=== PATIENT | female | born 1935 | race Caucasian/White ===

== ENCOUNTER 2016-10-21 11:11 | Outpatient (CLI) | payer MEDICARE, OTHER | END 2016-10-21 11:12 | disposition short-term general hospital (02) | DX: R55 Syncope and collapse (principal); R11.0 Nausea; M54.9 Dorsalgia, unspecified | CPT/HCPCS: A0425; A0427 ==

== ENCOUNTER 2017-01-31 08:00 | Outpatient (CLI) | payer MEDICARE, OTHER ==
[2017-01-31 19:20] LABS: BASOPHILS % (AUTO) 0.5 %; EOSINOPHILS % (AUTO) 0.4 %; HCT - HEMATOCRIT 38.3 % (37.0-47.0); HGB - HEMOGLOBIN 12.5 g/dL (12.0-16.0); LYMPHOCYTES # (AUTO) 1.5 10^3/uL (1.5-3.5); LYMPHOCYTES % (AUTO) 15.4 %; MEAN CORPUSCULAR HEMOGLOBIN 32.7 pg (27.0-31.0); MEAN CORPUSCULAR HGB CONC 32.6 g/dL (32.0-36.0); MEAN CORPUSCULAR VOLUME 100.3 fL (81.0-99.0); MEAN PLATELET VOLUME 8.7 fL (7.9-10.8); MONOCYTES # (AUTO) 0.5 10^3/uL (0.0-1.0); MONOCYTES % (AUTO) 5.5 %; NEUTROPHILS # (AUTO) 7.7 10^3/uL (1.5-6.6); NEUTROPHILS % (AUTO) 78.2 %; RED BLOOD COUNT 3.82 10^6/uL (4.20-5.40); RED CELL DISTRIBUTION WIDTH 15.1 % (12.0-15.0); UNCORRECTED WHITE BLOOD COUNT 9.9 x10^3/uL; WHITE BLOOD COUNT 9.9 x10^3/uL (4.8-10.8)
[2017-01-31 20:10] LABS: ALBUMIN/GLOBULIN RATIO 1.1 (1.0-2.2); BILIRUBIN,TOTAL 0.5 mg/dL (0.2-1.0); BUN - BLOOD UREA NITROGEN 22 mg/dL (6-20); CARBON DIOXIDE - CO2 25 mmol/L (21-32); CHLORIDE 108 mmol/L (101-111); CREATININE 1.3 mg/dL (0.4-1.0); GFR - MDRD 39 (>89); GLUCOSE 125 mg/dL (70-100); POTASSIUM 4.2 mmol/L (3.5-5.0); SODIUM 140 mmol/L (135-145); TOTAL PROTEIN 7.5 g/dL (6.7-8.2)
[2017-01-31 20:14] LABS: FOLATE 17.06 ng/mL (5.90 - >24.8)
[2017-01-31 20:22] LABS: THYROID STIMULATING HORMONE 1.15 uIU/mL (0.34-5.60)
== END 2017-01-31 08:01 | disposition home or self-care (01) ==
LOC: LAB.WCP 08:00
PROVIDERS: ATTEND Physician Assistant Medical
DX: R45.1 Restlessness and agitation (principal); R06.02 Shortness of breath
CPT/HCPCS: 36415; 80053; 82607; 82746; 84443; 85025

== ENCOUNTER 2017-02-06 11:02 | Outpatient (CLI) | payer MEDICARE, OTHER | END 2017-02-06 11:03 | disposition critical access hospital (66) | LOC: EMS 11:02 | PROVIDERS: ATTEND Surgery | DX: R41.0 Disorientation, unspecified (principal) | CPT/HCPCS: A0425; A0429 ==

== ENCOUNTER 2017-02-06 11:21 | Observation (INO) | payer MEDICARE, OTHER ==
[2017-02-06 12:37] LABS: BILIRUBIN,URINE NEGATIVE (NEGATIVE)
[2017-02-06 12:38] LABS: UA CHARGE (STRIP ONLY) YES; UR CULTURE IF IND NOT INDICATED
[2017-02-06] MEDS ORDERED: SODIUM CHLORIDE 0.9% 1,000 ML IV ONE (13:10)
--- NOTE | 2017-02-06 13:12 | ED Physician Documentation ---
PD HPI ALTERED MENTAL STATUS - Stated complaint Stated Complaint: AMS - Chief complaint Chief Complaint: General - History obtained from History obtained from: Patient, Caregiver - History of Present Illness Timing - onset: Today Timing - duration: Minutes Timing - details: Abrupt onset Quality / character: Confused, Other (trouble speaking clearly) Associated symptoms: No: Fever, Headache, Cough, NVD, Focal weakness Contributing factors: No: Anticoagulated, Diabetic, Recent med change, Recent illness Basline status: Alert and oriented X 3, Walker Similar symptoms before: Has not had sx before (old records showing near syncopal episodes, but not showing TIA like episodes.) Recently seen: Not recently seen Review of Systems Constitutional: denies: Fever, Chills Nose: denies: Rhinorrhea / runny nose, Congestion Throat: denies: Sore throat Cardiac: denies: Chest pain / pressure, Palpitations Respiratory: denies: Cough GI: denies: Nausea, Vomiting, Diarrhea : denies: Dysuria, Frequency Skin: denies: Rash, Lesions Neurologic: reports: Confused, Altered mental status. 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 : None HEENT: None Psych: Depression, Anxiety Musculoskeletal: None Derm: None - Past Surgical History Past Surgical History: Yes /LOGISTICS TEAM LEADER: Hysterectomy - Present Medications Home Medications: Ambulatory Orders Medication Instructions Recorded Confirmed Aspirin Chewable [[place] 81 mg PO DAILY 01/24/13 02/06/17 Aspirin] Acyclovir 200 mg PO BID 03/22/13 02/06/17 Simvastatin 20 mg PO QPM 03/22/13 02/06/17 ALPRAZolam [Xanax] 0.5 mg PO QPM 02/17/16 02/06/17 Fluticasone [Flonase] 1 spray DARREN BID 02/17/16 02/06/17 Metoprolol Succinate [Toprol Xl] 25 mg PO DAILY 02/17/16 02/06/17 Quetiapine Fumarate [Seroquel] 50 mg PO DAILY 02/17/16 02/06/17 Tolterodine Tartrate [Detrol LA] 4 mg PO DAILY 02/17/16 02/06/17 predniSONE [Deltasone] 5 mg PO DAILY 02/17/16 02/06/17 Rivastigmine [Exelon] 13.3 mg TOP Q24H 02/18/16 02/06/17 Acetaminophen [Tylenol] 650 mg PO Q4HR PRN #0 tablet 02/19/16 02/06/17 Levothyroxine [Synthroid] 50 mcg PO QDAC #0 tablet 02/19/16 02/06/17 Memantine [Namenda] 10 mg PO BID tablet 02/19/16 02/06/17 Alprazolam [Xanax] 0.5 mg PO DAILY PRN 02/06/17 02/06/17 Quetiapine Fumarate [Seroquel] 100 mg PO QPM 02/06/17 02/06/17 busPIRone [Buspar] 5 mg PO BID 02/06/17 02/06/17 Losartan [Cozaar] 50 mg PO DAILY #30 tablet 02/07/17 - Allergies Allergies/Adverse Reactions: Allergies Allergy/AdvReac Type Severity Reaction Status Date / Time fluoxetine HCl * AdvReac Unknown Unknown Verified 10/03/14 15:47 [From Prozac] nitroglycerin AdvReac Unknown Unknown Verified 10/03/14 15:47 Sulfa (Sulfonamide AdvReac Unknown Unknown Verified 10/03/14 15:47 Antibiotics) sulfamethoxazole AdvReac Unknown Unknown Verified 10/03/14 15:47 [From Bactrim] trimethoprim [From Bactrim] AdvReac Unknown Unknown Verified 10/03/14 15:47 - Social History Does the pt smoke?: No Smoking Status: Former smoker Does the pt drink ETOH?: No Does the pt have substance abuse?: No - Family History Family history: reports: Non contributory - Immunizations Immunizations are current?: Yes Immunizations: TDAP >10years/unknown - POLST Patient has POLST: No PD ED PE NORMAL - Vitals Vital signs reviewed: Yes - General General: Alert and oriented X 3, No acute distress, Well developed/nourished - HEENT HEENT: Ears normal, Moist mucous membranes, Pharynx benign - Neck Neck: Supple, no meningeal sign, No adenopathy, Other (faint bruit on left.) - Cardiac Cardiac: RRR, No murmur - Respiratory Respiratory: Clear bilaterally - Abdomen Abdomen: Soft, Non tender - Female Female : Deferred - Rectal Rectal: Deferred - Back Back: No CVA TTP - Derm Derm: Normal color, No rash - Extremities Extremities: No tenderness to palpate, Normal ROM s pain, No edema, No calf tenderness / cord - Neuro Neuro: Alert and oriented X 3, 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, No motor deficit, No sensory deficit, Normal speech, Other - Psych Psych: Normal mood, Normal affect Results - Vitals Vitals: Oxygen O2 Source Room air - Labs Labs: Laboratory Tests 02/06/17 02/06/17 02/06/17 12:20 13:20 13:20 WBC 9.7 RBC 3.58 L Hgb 11.7 L Hct 35.4 L MCV 98.9 MCH 32.6 H MCHC 33.0 RDW 15.4 H Plt Count 249 MPV 7.9 Neut # 8.1 H Lymph # 1.1 L [place] # 0.4 Eos # 0.0 Baso # 0.0 Absolute Nucleated RBC 0.00 Nucleated RBCs 0.0 Sodium 140 Potassium 4.1 Chloride 103 Carbon Dioxide 28 Anion Gap 9.0 BUN 20 Creatinine 1.5 H Estimated GFR (MDRD) 33 L Glucose 147 H Calcium 9.1 Magnesium 1.9 Total Bilirubin 0.8 AST 20 ALT 14 Alkaline Phosphatase 74 Total Protein 7.1 Albumin 3.7 Globulin 3.4 Albumin/Globulin Ratio 1.1 Lipase 32 Urine Color YELLOW Urine Clarity CLEAR Urine pH 7.0 Ur Specific [place] <=1.005 Urine Protein NEGATIVE Urine Glucose (UA) NEGATIVE Urine Ketones NEGATIVE Urine Occult Blood NEGATIVE Urine Nitrite NEGATIVE Urine Bilirubin NEGATIVE Urine Urobilinogen 0.2 (NORMAL) Ur Leukocyte Esterase NEGATIVE Ur Microscopic Review NOT INDICATED Urine Culture Comments NOT INDICATED PD MEDICAL DECISION MAKING - ED course Complexity details: reviewed results (head CT okay; her symptoms were of trouble speaking and feeling confused. Seems more neuro than cardiovascular. Consider TIA. ), considered differential, d/w patient Departure - Departure Disposition: ED Place in Observation Clinical Impression: Altered mental status Qualifiers: Altered mental status type: disorientation Qualified Code(s): R41.0 - Disorientation, unspecified TIA (transient ischemic attack) Qualifiers: Transient cerebral ischemia type: unspecified Qualified Code(s): G45.9 - Transient cerebral ischemic attack, unspecified Condition: Fair Record reviewed to determine appropriate education?: Yes Discharge Date/Time: 02/06/17 16:10
[2017-02-06 13:29] LABS: BASOPHILS % (AUTO) 0.2 %; EOSINOPHILS % (AUTO) 0.4 %; HCT - HEMATOCRIT 35.4 % (37.0-47.0); HGB - HEMOGLOBIN 11.7 g/dL (12.0-16.0); LYMPHOCYTES # (AUTO) 1.1 10^3/uL (1.5-3.5); LYMPHOCYTES % (AUTO) 11.8 %; MEAN CORPUSCULAR HEMOGLOBIN 32.6 pg (27.0-31.0); MEAN CORPUSCULAR VOLUME 98.9 fL (81.0-99.0); MEAN PLATELET VOLUME 7.9 fL (7.9-10.8); MONOCYTES # (AUTO) 0.4 10^3/uL (0.0-1.0); MONOCYTES % (AUTO) 4.2 %; NEUTROPHILS # (AUTO) 8.1 10^3/uL (1.5-6.6); NEUTROPHILS % (AUTO) 83.4 %; RED BLOOD COUNT 3.58 10^6/uL (4.20-5.40); RED CELL DISTRIBUTION WIDTH 15.4 % (12.0-15.0); UNCORRECTED WHITE BLOOD COUNT 9.7 x10^3/uL; WHITE BLOOD COUNT 9.7 x10^3/uL (4.8-10.8)
[2017-02-06 13:40] LABS: ALBUMIN/GLOBULIN RATIO 1.1 (1.0-2.2); BILIRUBIN,TOTAL 0.8 mg/dL (0.2-1.0); CALCIUM 9.1 mg/dL (8.5-10.3); CREATININE 1.5 mg/dL (0.4-1.0); MAGNESIUM 1.9 mg/dL (1.7-2.8); POTASSIUM 4.1 mmol/L (3.5-5.0); TOTAL PROTEIN 7.1 g/dL (6.7-8.2)
--- NOTE | 2017-02-06 14:03 | CT Preliminary Report ---
Exam: CT Head W/O IMPRESSION: 1. Moderate degree of diffuse white matter disease. Nonfocal and nonspecific, most likely sequela of chronic microangiopathy. 2. No acute hemorrhage or mass effect. [facility] SITE ID: [id number]
--- NOTE | 2017-02-06 14:06 | CT Report ---
EXAM: CT HEAD EXAM DATE: 02/06/2017 01:46 PM. CLINICAL HISTORY: Confused and some trouble speaking. COMPARISON: 01/24/2013. TECHNIQUE: Multiaxial CT images were obtained from the foramen magnum to the vertex. IV contrast: Non e. Reformats: Coronal. In accordance with CT protocol optimization, one or more of the following dose reduction techniques w ere utilized for this exam: automated exposure control, adjustment of mA and/or KV based on patient s ize, or use of iterative reconstructive technique. FINDINGS: Parenchyma: There is a moderate degree of diffuse periventricular white matter hypodensity. No acute hemorrhage. No midline shift or mass effect. Extraaxial Spaces: There is no abnormal subdural or epidural fluid collection. Ventricles: The ventricles are symmetric and normal in size. Sinuses: Imaged paranasal sinuses, orbits, and mastoids show no significant abnormality. Bones: No evidence of fracture or calvarial defect. Other: None. IMPRESSION: 1. Moderate degree of diffuse white matter disease. Nonfocal and nonspecific, most likely sequela of chronic microangiopathy. 2. No acute hemorrhage or mass effect. [facility] Referring Provider Line: [phone] SITE ID: [id number]
--- NOTE | 2017-02-06 14:31 | XRAY Preliminary Report ---
Exam: XR Chest 1 View IMPRESSION: No active disease [facility] SITE ID: [id number]
--- NOTE | 2017-02-06 14:34 | XRAY Report ---
EXAM: CHEST RADIOGRAPHY EXAM DATE: 02/06/2017 02:01 PM. CLINICAL HISTORY: Cough and some weakness. COMPARISON: 01/31/2017. TECHNIQUE: 1 view. FINDINGS: Lungs/Pleura: No focal opacities evident. No pleural effusion. No pneumothorax. Eventration right hem idiaphragm. Decreased lung volumes. Mediastinum: Heart size normal. Ectatic aorta. Other: None. IMPRESSION: No active disease [facility] Referring Provider Line: [phone] SITE ID: [id number]
[2017-02-06] MEDS ORDERED: PROCHLORPERAZINE 10 MG/2 ML VIAL IVP PRN ×2 (15:08→16:26)
[2017-02-06] MEDS ORDERED: ONDANSETRON 4 MG/2 ML VIAL IVP PRN ×2 (15:08→16:26)
[2017-02-06] MEDS ORDERED: HYDROcod/ACETAM 5/325 MG TABLET PO PRN ×2 (15:08→16:26)
[2017-02-06] MEDS ORDERED: ACETAMINOPHEN 325 MG TABLET PO PRN ×2 (15:08→16:26)
[2017-02-06] MEDS ORDERED: SODIUM CHLORIDE FLUSH 0.9% 10 ML SYRINGE IVP PRN ×2 (15:08→16:26)
[2017-02-06] MEDS ORDERED: RIVASTIGMINE 13.3 MG TOP SCH (15:15)
--- NOTE | 2017-02-06 15:51 | HISTORY & PHYSICAL EXAMINATION ---
Chief Complaint - Chief Complaint Chief Complaint: word finding difficulties History of Present Illness - Admitted From Admitted From:: emergency department - History Obtained From Records Reviewed: yes History obtained from: patient and medical records Exam Limitations: patient has dementia history is unreliable - History of Present Illness HPI Comment/Other: Patient is a 81-year-old female with a past medical history significant for dementia living at home with a caregiver, hypertension, hyperlipidemia, multiple sclerosis, anxiety, vitamin B 12 deficiency, hypothyroidism, GERD, rheumatoid arthritis on prednisone, sciatica, fibromyalgia and according to the patient history of stroke and coronary artery disease however this cannot be confirmed in the patient's medical records and the patient is a very poor historian given her dementia she presents to the emergency department with chief complaint of difficulty speaking. According to the patient she was having word finding difficulties earlier today. She continues to have word finding difficulties when I see her in the emergency department. It is unclear if this is her baseline due to her dementia or if this is a new finding. According to the emergency room physician the patient's caregiver called [phone] because the patient was having difficulties with her speech and she had generalized weakness and lightheadedness. The patient denies having lightheadedness but does admit to generalized weakness. She does not have any focal weakness. The patient otherwise denies any headaches, blurred vision, runny nose, sore throat , she does admit to a chronic cough, denies any chest pain, denies any shortness of air, orthopnea, PND, lower extremity swelling, abdominal pain, nausea, vomiting, urinary urgency, she does admit to polyuria and denies any joint swelling or joint pain. It was difficult to get a timeframe of the patient 's symptoms from the patient herself. According to the emergency room physician the symptoms started about an hour prior to arrival. The emergency room physician felt that the symptoms were resolving and therefore patient was not a candidate for tPA. On presentation to the emergency department the patient was afebrile and hypertensive with blood pressure of 186/103 otherwise remainder of vital signs are within normal limits. The patient did not have any focal weakness on presentation nor did she have any facial droop however the patient did have some word finding difficulties. The patient underwent a CT of her head which showed moderate degree of diffuse white matter disease. Nonfocal and nonspecific , most likely sequela of chronic microangiopathy. She had no acute hemorrhage or mass effect. Her chest x-ray was within normal limits. The patient was placed in observation for further workup for TIA/stroke the patient will undergo telemetry monitoring, neurochecks, MRI and MRA of head and neck as well as echocardiogram. Review of Systems - Other Findings Other Findings: A comprehensive review of systems was performed the pertinent positives and negatives are stated above in the HPI and the remainder of the review of systems is negative. Patient is a poor historian therefore ROS may not be reliable. History - Past Medical History Cardiovascular: reports: Hypertension, High cholesterol Respiratory: reports: None Neuro: reports: Dementia Endocrine/Autoimmune: reports: HyPOthyroidism GI: reports: None DIRECTOR OF ACCOUNTS RECEIVABLE: reports: None : reports: None HEENT: reports: None Psych: reports: Depression, Anxiety Musculoskeletal: reports: None Derm: reports: None MRSA Hx?: No Other Past Medical History: 1. Hypertension. 2. Renal insufficiency. 3. Hyperlipidemia. 4. Multiple sclerosis. 5. Dementia. 6. Anxiety. 7. B12 deficiency. 8. Hypothyroidism. 9. GERD. 10. Rheumatoid arthritis. 11. Sciatica. 12. Fibromyalgia. 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 14. Possible history of CVA/stroke and possible CAD - Past Surgical History /DIRECTOR OF ACCOUNTS RECEIVABLE: reports: Hysterectomy - Family & Social History Family History: Mother: , CVA/TIA, Hypertension, Father: CAD, Brother: CVA/TIA Living arrangement: At home Living Situation: With caregiver(s) Social History Notes: The patient states she lives and [place] with a caregiver. She states that she has 6 children. Her family does live in the area. The patient is . She states that she was not born on [facility] but could not tell me where she was born and she states she cannot remember. She denies any history of smoking although in her clinic records it appears that she was a former smoker. She denies any illicit drug use or alcohol use. - Substance History Use: Uses substance without health or social issues: NONE Abuse: Recurrent use of substance despite neg consequences: NONE Dependence: Experiences withdrawal or developed tolerances: NONE - POLST Patient has POLST: No POLST Status: Full Code Meds/Allgy - Home Medications Home Medications: Ambulatory Orders Medication Instructions Recorded Confirmed Aspirin Chewable [St Yair 81 mg PO DAILY 01/24/13 02/06/17 Aspirin] Acyclovir 200 mg PO BID 03/22/13 02/06/17 Simvastatin 20 mg PO QPM 03/22/13 02/06/17 ALPRAZolam [Xanax] 0.25 mg PO QPM 02/17/16 02/06/17 Fluticasone [Flonase] 1 spray DARREN BID 02/17/16 02/06/17 Metoprolol Succinate [Toprol Xl] 25 mg PO DAILY 02/17/16 02/06/17 Quetiapine Fumarate [Seroquel] 50 mg PO DAILY 02/17/16 02/06/17 Tolterodine Tartrate [Detrol LA] 4 mg PO DAILY 02/17/16 02/06/17 predniSONE [Deltasone] 5 mg PO DAILY 02/17/16 02/06/17 Rivastigmine [Exelon] 13.3 mg TOP Q24H 02/18/16 02/06/17 Acetaminophen [Tylenol] 650 mg PO Q4HR PRN #0 tablet 02/19/16 02/06/17 Levothyroxine [Synthroid] 50 mcg PO QDAC #0 tablet 02/19/16 02/06/17 Memantine [Namenda] 10 mg PO BID tablet 02/19/16 02/06/17 Tolterodine [Detrol LA] 4 mg PO DAILY 02/06/17 02/06/17 busPIRone [Buspar] 5 mg PO DAILY 02/06/17 02/06/17 - Allergies Allergies/Adverse Reactions: Allergies Allergy/AdvReac Type Severity Reaction Status Date / Time fluoxetine HCl * AdvReac Unknown Unknown Verified 10/03/14 15:47 [From Prozac] nitroglycerin AdvReac Unknown Unknown Verified 10/03/14 15:47 Sulfa (Sulfonamide AdvReac Unknown Unknown Verified 10/03/14 15:47 Antibiotics) sulfamethoxazole AdvReac Unknown Unknown Verified 10/03/14 15:47 [From Bactrim] trimethoprim [From Bactrim] AdvReac Unknown Unknown Verified 10/03/14 15:47 Exam - Vital Signs Reviewed Vital Signs: Yes Vital Signs: Vital Signs x48h Temp Pulse Resp BP Pulse Ox 02/06/17 13:32 72 17 161/96 H 97 02/06/17 11:23 37.3 C 86 16 186/103 H 97 - Physical Exam General Appearance: positive: No acute distress, Alert, Other (Confused, poor memory, word finding difficulties and dementia) Eyes Bilateral: positive: Normal inspection, PERRL, EOMI, No lid inflammation, Conjunctivae nml, No scleral icterus ENT: positive: ENT inspection nml, Pharynx nml, No signs of dehydration. negative: Purulent nasal drainage, Pharyngeal erythema, Oral lesions Neck: positive: Nml inspection, Thyroid nml, No JVD, Trachea midline. negative : Thyromegaly, Lymphadenopathy (R), Lymphadenopathy (L), Carotid bruit, Tracheal deviation Respiratory: positive: Chest non-tender, No respiratory distress, Breath sounds nml. negative: Wheezes, Rales, Rhonchi Cardiovascular: positive: Regular rate & rhythm, No murmur, No gallop Peripheral Pulses: positive: 2+ Abdomen: positive: Non-tender, No organomegaly, Nml bowel sounds, No distention. negative: Guarding, Rebound, Hepatomegaly Back: positive: Nml inspection. negative: CVA tenderness (R), CVA tenderness (L ) Skin: positive: Color nml, No rash, Warm. negative: Diaphoresis, Skin rash, Decubitus Extremities: positive: Non-tender, Full ROM, Nml appearance, No pedal edema Neurologic/Psychiatric: positive: CN's nml (2-12), Motor nml, Sensation nml, Mood/affect nml, Disoriented to time, Slurred/abnml speech (Word finding difficulites) Conclusion/Plan - Problem List (1) Speech abnormality Conclusion/Plan: Patient presented with word finding difficulties and generalized weakness. Her labs and infectious workup with negative. She seemed to have improvement but continued to have word finding difficulties it was not clear if this was her dementia or possible TIA or stroke. She had no other focal deficits. CT head showed chronic changes. Patient placed in obs for stroke/TIA workup. Patient already on ASA and statin if MRI shows stroke may need to consider plavix. Plan: Aspirin Lipitor MRA head and neck MRI brain Echo Lipid profile [facility] Tele Neurochecks PT eval Qualifiers: Speech disturbance type: dysarthria Qualified Code(s): R47.1 - Dysarthria and anarthria (2) Dementia Conclusion/Plan: Patient has history of dementia and is poor historian but does appear to have word finding difficulties. It is hard to tell if these are secondary to stroke or dementia. Her caregiver sent her to the ER due to this complaint so they are presumed to be new. Patient has very poor memory. Plan: Continue Namenda and seroquel Will need to monitor closely for sundowning Qualifiers: Dementia type: Alzheimer's disease (3) Hypertension Conclusion/Plan: BP elevated on presentation Will allow for permissive hypertension as patient may have had a stoke Will resume home medications tomorrow if MRI is negative Monitor BP Qualifiers: Hypertension type: essential hypertension Qualified Code(s): I10 - Essential (primary) hypertension (4) Hypothyroidism Conclusion/Plan: Patient has history of hypothyroidism On Levothyroxine at home Check TSH and continue home dose (5) Rheumatoid arthritis Conclusion/Plan: Patient has history of RA and is on chronic prednisone Will continue prednisone while hospitalized Stable. (6) Hyperlipidemia Conclusion/Plan: On statin Check lipid profile (7) Anxiety Conclusion/Plan: Patient has history of anxiety and is on buspar and xanax at home Will continue these medications while she is hospitalized Currently appears stable - Lab Results Lab results reviewed: Yes Fish Bones: 02/06/17 13:20 02/06/17 13:20 Other Lab Results: Laboratory Results WBC 9.7 x10^3/uL (4.8-10.8) 02/06/17 13:20 RBC 3.58 10^6/uL (4.20-5.40) L 02/06/17 13:20 Hgb 11.7 g/dL (12.0-16.0) L 02/06/17 13:20 Hct 35.4 % (37.0-47.0) L 02/06/17 13:20 MCV 98.9 fL (81.0-99.0) 02/06/17 13:20 MCH 32.6 pg (27.0-31.0) H 02/06/17 13:20 MCHC 33.0 g/dL (32.0-36.0) 02/06/17 13:20 RDW 15.4 % (12.0-15.0) H 02/06/17 13:20 Plt Count 249 10^3/uL (130-450) 02/06/17 13:20 MPV 7.9 fL (7.9-10.8) 02/06/17 13:20 Neut # 8.1 10^3/uL (1.5-6.6) H 02/06/17 13:20 Lymph # 1.1 10^3/uL (1.5-3.5) L 02/06/17 13:20 [place] # 0.4 10^3/uL (0.0-1.0) 02/06/17 13:20 Eos # 0.0 10^3/uL (0.0-0.7) 02/06/17 13:20 Baso # 0.0 10^3/uL (0.0-0.1) 02/06/17 13:20 Absolute Nucleated RBC 0.00 x10^3/uL 02/06/17 13:20 Nucleated RBCs 0.0 /100WBC 02/06/17 13:20 Sodium 140 mmol/L (135-145) 02/06/17 13:20 Potassium 4.1 mmol/L (3.5-5.0) 02/06/17 13:20 Chloride 103 mmol/L (101-111) 02/06/17 13:20 Carbon Dioxide 28 mmol/L (21-32) 02/06/17 13:20 Anion Gap 9.0 (6-13) 02/06/17 13:20 BUN 20 mg/dL (6-20) 02/06/17 13:20 Creatinine 1.5 mg/dL (0.4-1.0) H 02/06/17 13:20 Estimated GFR (MDRD) 33 (>89) L 02/06/17 13:20 Glucose 147 mg/dL (70-100) H 02/06/17 13:20 Calcium 9.1 mg/dL (8.5-10.3) 02/06/17 13:20 Magnesium 1.9 mg/dL (1.7-2.8) 02/06/17 13:20 Total Bilirubin 0.8 mg/dL (0.2-1.0) 02/06/17 13:20 AST 20 IU/L (10-42) 02/06/17 13:20 ALT 14 IU/L (10-60) 02/06/17 13:20 Alkaline Phosphatase 74 IU/L (42-121) 02/06/17 13:20 Total Protein 7.1 g/dL (6.7-8.2) 02/06/17 13:20 Albumin 3.7 g/dL (3.2-5.5) 02/06/17 13:20 Globulin 3.4 g/dL (2.1-4.2) 02/06/17 13:20 Albumin/Globulin Ratio 1.1 (1.0-2.2) 02/06/17 13:20 Lipase 32 U/L (22-51) 02/06/17 13:20 Urine Color YELLOW 02/06/17 12:20 Urine Clarity CLEAR (CLEAR) 02/06/17 12:20 Urine pH 7.0 PH (5.0-7.5) 02/06/17 12:20 Ur Specific [place] <=1.005 (1.002-1.030) 02/06/17 12:20 Urine Protein NEGATIVE mg/dL (NEGATIVE) 02/06/17 12:20 Urine Glucose (UA) NEGATIVE mg/dL (NEGATIVE) 02/06/17 12:20 Urine Ketones NEGATIVE mg/dL (NEGATIVE) 02/06/17 12:20 Urine Occult Blood NEGATIVE (NEGATIVE) 02/06/17 12:20 Urine Nitrite NEGATIVE (NEGATIVE) 02/06/17 12:20 Urine Bilirubin NEGATIVE (NEGATIVE) 02/06/17 12:20 Urine Urobilinogen 0.2 (NORMAL) E.U./dL (NORMAL) 02/06/17 12:20 Ur Leukocyte Esterase NEGATIVE (NEGATIVE) 02/06/17 12:20 Ur Microscopic Review NOT INDICATED 02/06/17 12:20 Urine Culture Comments NOT INDICATED 02/06/17 12:20 - Diagnostic Imaging Results Diagnostic Imaging Results: positive: Final report reviewed Diagnostic Imaging Results Comments: CT head Impression: 1. Moderate degree of diffuse white matter disease. Nonfocal and nonspecific, most likely sequelae of chronic microangiopathy 2. No acute hemorrhage or mass effect Chest x-ray: No active disease Issues/Core Measures - Anticipated LOS Anticipated Stay Length: Less than 2 midnights - DVT/VTE - Prophylaxis VTE/DVT Device ordered at admit?: Yes
[2017-02-06] MEDS ORDERED: SODIUM CHLORIDE 0.9% 1,000 ML IV SCH (16:00)
[2017-02-06] MEDS: SODIUM CHLORIDE 0.9% 1,000 ML IV SCH (18:06)
[2017-02-06] MEDS: FLUTICASONE NASAL SPRAY NAS SCH (20:19)
[2017-02-06] MEDS: ACYCLOVIR 200 MG CAPSULE PO SCH (20:21)
[2017-02-06] MEDS: MEMANTINE 5 MG TABLET PO SCH (20:22)
[2017-02-06] MEDS: SODIUM CHLORIDE FLUSH 0.9% 10 ML SYRINGE IVP SCH (20:22)
[2017-02-06] MEDS ORDERED: QUEtiapine 25 MG TABLET PO SCH (21:00)
[2017-02-06] MEDS ORDERED: ACYCLOVIR 200 MG CAPSULE PO SCH (21:00)
[2017-02-06] MEDS ORDERED: MEMANTINE 5 MG TABLET PO SCH (21:00)
[2017-02-06] MEDS ORDERED: ALPRAZolam 0.25 MG TABLET PO SCH ×2 (21:00)
[2017-02-06] MEDS ORDERED: NON FORMULARY MED (Simvastatin [Simvastatin] 20 MG) PO SCH ×2 (21:00)
[2017-02-06] MEDS ORDERED: ATORVASTATIN 40 MG TABLET PO SCH ×2 (21:00)
[2017-02-06] MEDS ORDERED: SODIUM CHLORIDE FLUSH 0.9% 10 ML SYRINGE IVP SCH (22:00)
[2017-02-07] MEDS: SODIUM CHLORIDE 0.9% 1,000 ML IV SCH (03:09)
[2017-02-07 06:05] LABS: CHOL/HDL RATIO 3.6 (<4.4); CHOLESTEROL 182 mg/dL; HDL CHOLESTEROL 50 mg/dL; LDL/HDL RATIO 2.1 (<4.4); TRIGLYCERIDES 136 mg/dL; VLDL CHOLESTEROL 27 mg/dL
[2017-02-07 06:20] LABS: HEMOGLOBIN A1C 0.6 g/dL
[2017-02-07] MEDS: SODIUM CHLORIDE FLUSH 0.9% 10 ML SYRINGE IVP SCH ×2 (06:25→13:57)
[2017-02-07] MEDS ORDERED: PANTOPRAZOLE 40 MG TABLET PO SCH ×2 (07:00)
[2017-02-07] MEDS ORDERED: LEVOTHYROXINE 25 MCG TABLET PO SCH ×2 (07:00)
[2017-02-07] MEDS: MEMANTINE 5 MG TABLET PO SCH (08:25)
[2017-02-07] MEDS: ACYCLOVIR 200 MG CAPSULE PO SCH (08:25)
[2017-02-07] MEDS: FLUTICASONE NASAL SPRAY NAS SCH (08:28)
[2017-02-07] MEDS ORDERED: TOLTERODINE TARTRATE 4 MG PO SCH (09:00)
[2017-02-07] MEDS ORDERED: predniSONE 5 MG TABLET PO SCH ×2 (09:00)
[2017-02-07] MEDS ORDERED: busPIRone 5 MG TABLET PO SCH ×2 (09:00)
[2017-02-07] MEDS ORDERED: METOPROLOL SUCCINATE 25 MG TABLET PO SCH ×2 (09:00)
[2017-02-07] MEDS ORDERED: TOLTERODINE LA 2 MG CAPSULE PO SCH (09:00)
[2017-02-07] MEDS ORDERED: QUETIAPINE FUMARATE 50 MG PO SCH (09:00)
[2017-02-07] MEDS ORDERED: ASPIRIN CHEW 81 MG TABLET PO SCH ×2 (09:00)
[2017-02-07] MEDS ORDERED: POLYETHYLENE GLYCOL 3350 17 GM PACKET PO SCH ×2 (09:00)
[2017-02-07] MEDS ORDERED: RIVASTIGMINE 13.3 MG TOP SCH (11:00)
--- NOTE | 2017-02-07 12:13 | MRI Preliminary Report ---
Exam: MRI Brain W/O Impression: 1. A moderate to severe amount of white matter disease is identified in the supratentorial brain, lik robbin representing chronic microangiopathy. 2. No other significant intracranial pathology is demonstrated on this unenhanced brain MRI. In parti cular, there is no evidence of infarction, hemorrhage, space-occupying mass lesion or other acute int racranial pathology. SITE ID: [id number]
--- NOTE | 2017-02-07 12:32 | MRI Preliminary Report ---
Exam: MRI Angio Brain W/O (MRA) IMPRESSION: Unremarkable brain MRA. No stenoses or aneurysms. [facility] SITE ID: [id number]
--- NOTE | 2017-02-07 12:35 | MRI Report ---
EXAM MRA BRAIN EXAM DATE: 02/07/2017 11:42 AM. CLINICAL HISTORY: WOrd finding difficulties - Stroke/TIA. COMPARISON: MR brain the same day,. TECHNIQUE: Multiplanar, multisequence MRA sequences of the brain were performed. Other: None. Post-pr ocessing: Multiplanar 3D MIP reconstructions. IV Contrast: None. FINDINGS: RIGHT Internal Carotid (ICA): No aneurysm, stenosis or anomaly. Middle Cerebral (MCA): No aneurysm, stenosis or anomaly. Anterior Cerebral (MAIRA): No aneurysm, stenosis or anomaly. Posterior Cerebral (SHINGLE SHEARING MACHINE OPERATOR): No aneurysm, stenosis or anomaly. Posterior Communicating (P-COM): Hypo-plastic Vertebral: No aneurysm, stenosis or anomaly in the visualized upper vertebral artery. LEFT Internal Carotid (ICA): No aneurysm, stenosis or anomaly. Middle Cerebral (MCA): No aneurysm, stenosis or anomaly. Attenuation of the distal A1 segment of the left MAIRA and most likely artifactual secondary to proximity to the paranasal sinus structures. Anterior Cerebral (MAIRA): No aneurysm, stenosis or anomaly. Posterior Cerebral (SHINGLE SHEARING MACHINE OPERATOR): No aneurysm, stenosis or anomaly. Posterior Communicating (P-COM): Hypo-plastic Vertebral: No aneurysm, stenosis or anomaly in the visualized upper vertebral artery. MIDLINE Anterior Communicating (A-COM): No aneurysm, stenosis or anomaly. Other: None. IMPRESSION: Unremarkable brain MRA. No stenoses or aneurysms. [facility] Referring Provider Line: [phone] SITE ID: [id number]
--- NOTE | 2017-02-07 13:42 | MRI Report ---
MRI BRAIN WITHOUT CONTRAST INDICATION: 81-year-old female with word finding difficulties. Concern for CVA. Please assess. TECHNIQUE: 1. T1 sagittal and fat-saturated T2 coronal. 2. Axial flair, T2, T2* and DWI. COMPARISON: Head CT 02/06/2017 and brain MRI 08/19/2013. FINDINGS: There is generalized cerebral volume loss with associated ex vacuo ventriculomegaly showing definite interval progression when compared to previous study 08/19/2013. There is no obvious discordance betw een the degree of ventriculomegaly and the amount of cortical sulcal dilatation to suggest the possib ility of NPH or other form of hydrocephalus. There is a moderate to severe amount of white matter disease in the supratentorial brain, manifested as focal and confluent T2 hyperintensities that are scattered throughout the periventricular, deep an d subcortical white matter bilaterally. A frontoparietal distribution predominates. There has been in terval progression since the previous study. There is a thin linear T2 hyperintense focus in the midl ine jethro, stable. Signal intensity of cortex and white matter is otherwise unremarkable. There appear to be flow voids for the main intracranial arteries. No abnormal diffusion restriction i s demonstrated. No evidence of acute or chronic hemorrhage on T2*GRE sequence. No abnormal extra-axial fluid collection. No mass effect or midline shift. Limited assessment of the orbits reveals no gross pathology. Changes of previous ocular lens extracti on are noted. There is mild mucosal thickening scattered throughout the ethmoid air cells. The paranasal sinuses ar e otherwise clear. No significant mastoid or middle ear effusion is demonstrated. IMPRESSION: 1. A moderate to severe amount of white matter disease is identified in the supratentorial brain, lik robbin representing chronic microangiopathy. 2. No other significant intracranial pathology is demonstrated on this unenhanced brain MRI. In parti cular, there is no evidence of infarction, hemorrhage, space-occupying mass lesion or other acute int racranial pathology. Referring Provider Line: [phone] SITE ID: [id number]
[2017-02-07] MEDS ORDERED: ASPIRIN CHEW 81 MG TABLET PO ONE (15:04)
--- NOTE | 2017-02-07 15:24 | Discharge Plan ---
Discharge Plan Disposition: 01 Home, Self Care Condition: Fair Prescriptions: Losartan [Cozaar] 50 mg PO DAILY #30 tablet Diet: Low Sodium Activity Restrictions: Activity as Tolerated Shower Restrictions: No Driving Restrictions: Yes (No driving due to dementia) Instruction Topics: Aspirin ASA oral tablets, TIA Additional Instructions or Follow Up instructions: Increase aspirin to 2 baby aspirin daily Start new blood pressure medication: Losartan 50 mg orally once a day You may decrease the Buspirone to just once a day at mid-day Continue all other medications as pre-hospitalization Follow-up with Dr Caballero for further recommendations and to determine if you need a Neurologist No Smoking: If you smoke, Please STOP! Call for help. Follow-up with: Deshawn Caballero MD [Primary Care Provider] -
[2017-02-07] MEDS ORDERED: LOSARTAN 50 MG TABLET PO SCH (17:00)
--- NOTE | 2017-02-07 18:13 | Ultrasound Preliminary Report ---
Exam: US Carotid Doppler Complete IMPRESSION: Mild focal bilateral proximal internal carotid artery atheromatous plaque with no hemodyn amically significant stenosis. Validated velocity measurements with angiographic measurements and velocity criteria are extrapolated from diameter data as defined by the Society of Radiologists in Ultrasound Consensus Conference Radi ology 2003; 229;340-346. [facility] SITE ID: [id number]
--- NOTE | 2017-02-07 18:39 | Ultrasound Report ---
EXAM: CAROTID DOPPLER ULTRASOUND EXAM DATE: 02/07/2017 03:40 PM. CLINICAL HISTORY: Transient ischemic attack. COMPARISON: None. TECHNIQUE: Real-time sonographic vascular imaging was performed by the bakery supervisor through the caroti d arterial system with a linear transducer utilizing color-flow, Doppler flow and spectral analysis. Multiple vendor representatives static images were saved for review. FINDINGS: Mike scale evaluation of the carotid vessels demonstrates minimal focal calcified plaque at the internal carotid artery origins. Peak systolic velocities and ICA/CCA ratios are within normal l imits as follows: Right: RCCA Prox: PSV 63 cm/sec. RCCA Dist: PSV 56 cm/sec, EDV 17 cm/sec. RECA: PSV 105 cm/sec. R Bulb: PSV 103 cm/sec, EDV 20 cm/sec, ICA/CCA ratio 1.8. NORMA Prox: PSV 49 cm/sec, EDV 13 cm/sec, ICA/CCA ratio 0.87. NORMA Mid: PSV 57 cm/sec, EDV 17 cm/sec, ICA/CCA ratio 1.0. NORMA Dist: PSV 67 cm/sec, EDV 17 cm/sec, ICA/CCA ratio 1.2. RVA: PSV 50 cm/sec. RVA flow direction: Antegrade. Left: LCCA Prox: PSV 72 cm/sec. LCCA Dist: PSV 59 cm/sec, EDV 17 cm/sec. LECA: PSV 92 cm/sec. L Bulb: PSV 56 cm/sec, EDV 15 cm/sec, ICA/CCA ratio 0.94. LICA Prox: PSV 66 cm/sec, EDV 14 cm/sec, ICA/CCA ratio 1.11. LICA Mid: PSV 51 cm/sec, EDV 11 cm/sec, ICA/CCA ratio 0.86. LICA Dist: PSV 56 cm/sec, EDV 17 cm/sec, ICA/CCA ratio 0.94. LVA: PSV 33 cm/sec. LVA flow direction: Antegrade. Other: None. IMPRESSION: Mild focal bilateral proximal internal carotid artery atheromatous plaque with no hemodyn amically significant stenosis. Validated velocity measurements with angiographic measurements and velocity criteria are extrapolated from diameter data as defined by the Society of Radiologists in Ultrasound Consensus Conference Radi ology 2003; 229;340-346. [facility] Referring Provider Line: [phone] SITE ID: [id number]
[2017-02-07 18:54] VITALS: BP 165/95
--- NOTE | 2017-02-08 02:26 | DISCHARGE SUMMARY ---
DATE OF ADMISSION: 02/06/2017 DATE OF DISCHARGE: 02/07/2017 She was admitted from the emergency department. HISTORY OF PRESENT ILLNESS: This is an 81-year-old white female with a past medical history of shantal ia on medications, hypertension, hyperlipidemia, anxiety, Vitamin B12 deficiency, hypothyroidism, rhe umatoid arthritis on prednisone, sciatica, fibromyalgia and multiple sclerosis. There may be a histor y of coronary artery disease and prior stroke, which was not confirmed entirely during this admission . The patient presented with difficulty speaking (finding words). By the time she was in the emergenc y room, this was improving and she was not felt to be a candidate for TPA. The patient was admitted i n observation for evaluation for a TIA. MEDICATIONS ON ADMISSION 1. Baby aspirin daily. 2. Acyclovir. 3. Simvastatin. 4. Xanax. 5. Flonase. 6. Toprol-XL 25 mg daily. 7. Seroquel 50 mg daily. 8. Detrol-LA 4 mg daily. 9. Deltasone. 10. Exelon. 11. Tylenol p.r.n. 12. Synthroid 50 mcg daily. 13. Namenda 10 mg b.i.d. 14. BuSpar 1/3 of a pill of 5 mg b.i.d., which was recently started. ALLERGIES 1. PROZAC. 2. NITROGLYCERIN. 3. SULFA. 4. TRIMETHOPRIM. HOSPITAL COURSE: The patient had no recurrence of her dysarthria. Her cardiopulmonary exam was unrema rkable. Her EKG and telemetry showed sinus rhythm, no evidence of atrial fibrillation. Blood pressure was elevated and her metoprolol was continued for blood pressure control; however, with blood pressu res as high as 190/110, she was started on losartan 50 mg p.o. daily as a new medication. Her echo sh owed no evidence of clot, normal LV and RV contractility and no significant valvular disease. Her CAT scan of her head showed atrophy, but no evidence of hemorrhage or prior strokes. Her brain MRI showe d no evidence of hemorrhage or ischemic stroke. Her ultrasound of her carotid showed mild bilateral p laque. CONDITION AT DISCHARGE: Fair. Her memory was poor, and a left carotid bruit was found, and blood pres sure was borderline elevated. DISCHARGE DIAGNOSES 1. Transient ischemic attack with dysarthria. 2. Hypertension. 3. Dementia. 4. Hypothyroidism. 5. Anxiety. ADDITIONAL INFORMATION: Medications were all continued as before admission with the exceptions of an increase of baby aspirin to 2 tablets a day (162 mg p.o. daily) and the addition of new blood pressur e medicine of losartan 50 mg p.o. daily. The patient was advised to have followup with her PCP, Dr. Marie meadows, for management of the buspirone, which was a new medication started by a substitute provider recently, which may have made the patient excessively sedated. Also, followup with a neurologist petar baxter of this TIA is advised. JOB #: [id number] EXT JOB #:[id number]
[2017-02-08] MEDS ORDERED: ASPIRIN CHEW 81 MG TABLET PO SCH (09:00)
== END 2017-02-07 19:05 | disposition home or self-care (01) ==
LOC: EDUNIT# → ED 11:21 → OBS 15:09 → ED 16:10
PROVIDERS: ADMIT Internal Medicine; ATTEND Nurse Practitioner Gerontology
DX: G45.9 Transient cerebral ischemic attack, unspecified (principal); R47.1 Dysarthria and anarthria; I10 Essential (primary) hypertension; E03.9 Hypothyroidism, unspecified; F41.9 Anxiety disorder, unspecified; F03.90 Unspecified dementia, unspecified severity, without behavioral disturbance, psychotic disturbance, mood disturbance, and anxiety; E78.5 Hyperlipidemia, unspecified; M06.9 Rheumatoid arthritis, unspecified; M54.30 Sciatica, unspecified side; G35 Multiple sclerosis; M79.7 Fibromyalgia; R09.82 Postnasal drip; Z79.82 Long term (current) use of aspirin; Z79.52 Long term (current) use of systemic steroids; Z79.899 Other long term (current) drug therapy; Z87.891 Personal history of nicotine dependence
CPT/HCPCS: 36415; 70450; 70544; 70551; 71010; 80053; 80061; 81003; 83036; 83690; 83735; 84443; 85025; 93005; 93306; 93880; 96360; 99284; 99285; A9270; G0378; J7512; 81001; 87086; 99283

== ENCOUNTER 2017-02-15 10:29 | Observation (INO) | payer MEDICARE, OTHER ==
[2017-02-15] MEDS ORDERED: SODIUM CHLORIDE 0.9% 1,000 ML IV ONE (11:11)
--- NOTE | 2017-02-15 11:13 | ED Physician Documentation ---
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 She has developed vomiting this morning and she is not able to get herself out of bed today. She is normally independent getting in and out of bed and she is normally able to bend over to scrub her feet. Today she appears to be breathing out of her mouth and her skin looks dehydrated. The caregiver indicates she has been drinking a lot of fluids and she has been going to the rest room a lot. Review of Systems Constitutional: denies: Fever Eyes: denies: Decreased vision Ears: reports: Ear pain Nose: reports: Rhinorrhea / runny nose, Congestion Throat: denies: Sore throat Cardiac: denies: Chest pain / pressure, Palpitations Respiratory: reports: Dyspnea, Cough GI: reports: Nausea, Vomiting. denies: Abdominal Pain : reports: Frequency. denies: Dysuria Skin: denies: Rash Musculoskeletal: denies: Neck pain, Back pain, Extremity pain Neurologic: reports: Generalized weakness. 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 MEDICINE: Hysterectomy - Present Medications Home Medications: Ambulatory Orders Medication Instructions Recorded Confirmed Aspirin Chewable [[place] 81 mg PO DAILY 01/24/13 02/06/17 Aspirin] Acyclovir 200 mg PO BID 03/22/13 02/06/17 Simvastatin 20 mg PO QPM 03/22/13 02/06/17 ALPRAZolam [Xanax] 0.5 mg PO QPM 02/17/16 02/06/17 Fluticasone [Flonase] 1 spray DARREN BID 02/17/16 02/06/17 Metoprolol Succinate [Toprol Xl] 25 mg PO DAILY 02/17/16 02/06/17 Quetiapine Fumarate [Seroquel] 50 mg PO DAILY 02/17/16 02/06/17 Tolterodine Tartrate [Detrol LA] 4 mg PO DAILY 02/17/16 02/06/17 predniSONE [Deltasone] 5 mg PO DAILY 02/17/16 02/06/17 Rivastigmine [Exelon] 13.3 mg TOP Q24H 02/18/16 02/06/17 Acetaminophen [Tylenol] 650 mg PO Q4HR PRN #0 tablet 02/19/16 02/06/17 Levothyroxine [Synthroid] 50 mcg PO QDAC #0 tablet 02/19/16 02/06/17 Memantine [Namenda] 10 mg PO BID tablet 02/19/16 02/06/17 Alprazolam [Xanax] 0.5 mg PO DAILY PRN 02/06/17 02/06/17 Quetiapine Fumarate [Seroquel] 100 mg PO QPM 02/06/17 02/06/17 busPIRone [Buspar] 5 mg PO BID 02/06/17 02/06/17 Losartan [Cozaar] 50 mg PO DAILY #30 tablet 02/07/17 - Allergies Allergies/Adverse Reactions: Allergies Allergy/AdvReac Type Severity Reaction Status Date / Time fluoxetine HCl * AdvReac Unknown Unknown Verified 10/03/14 15:47 [From Prozac] nitroglycerin AdvReac Unknown Unknown Verified 10/03/14 15:47 Sulfa (Sulfonamide AdvReac Unknown Unknown Verified 10/03/14 15:47 Antibiotics) sulfamethoxazole AdvReac Unknown Unknown Verified 10/03/14 15:47 [From Bactrim] trimethoprim [From Bactrim] AdvReac Unknown Unknown Verified 10/03/14 15:47 - Social History Does the pt smoke?: No Smoking Status: Former smoker Does the pt drink ETOH?: No Does the pt have substance abuse?: No - Immunizations Immunizations are current?: Yes Immunizations: TDAP >10years/unknown - POLST Patient has POLST: No POLST Status: Full Code PD ED PE NORMAL - Vitals Vital signs reviewed: Yes (hypoxia) - General General: No acute distress, Well developed/nourished, Other (pale and breathing through the mouth. ) - HEENT HEENT: Atraumatic, PERRL, EOMI, Other (both TM's are obscured by cerumen and the pharynx is with dry mucous membranes. ) - Neck Neck: Supple, no meningeal sign, No bony TTP - Cardiac Cardiac: RRR, No murmur - Respiratory Respiratory: No respiratory distress, Other (rhonchi in the bases bilaterally ) - Abdomen Abdomen: Soft, Non tender - Back Back: No CVA TTP, No spinal TTP - Derm Derm: Normal color, Warm and dry, No rash - Extremities Extremities: No deformity, No edema - Neuro Neuro: No motor deficit, No sensory deficit, Normal speech - Psych Psych: Normal mood, Normal affect Results - Vitals Vitals: Vital Signs - 24 hr 02/15/17 02/15/17 02/15/17 10:30 11:04 12:07 Temperature 36.0 C L Heart Rate 80 73 Respiratory 20 19 18 Rate Blood Pressure 122/67 88/55 L 109/63 O2 Saturation 91 L 96 100 02/15/17 12:20 Temperature Heart Rate 67 Respiratory 18 Rate Blood Pressure 104/63 O2 Saturation 96 Oxygen O2 Source Nasal cannula Oxygen Flow Rate 2 - EKG (time done) 1133 Rate: Rate (enter#) (69) QRS: LVH Ischemia: Q waves (inferior) Compare to prior EKG: Changed from prior EKG (SPT 02-07-[address] depression strain pattern has resolved. ) Computer interpretation: Disagree with computer (I do not see lateral q waves. ) - Labs Labs: Laboratory Tests 02/15/17 02/15/17 02/15/17 10:40 10:40 10:40 WBC 11.3 H RBC 3.53 L Hgb 11.3 L Hct 35.0 L MCV 99.2 H MCH 32.1 H MCHC 32.3 RDW 14.7 Plt Count 273 MPV 8.1 Neut # 6.3 Lymph # 4.1 H [place] # 0.7 Eos # 0.1 Baso # 0.1 Absolute Nucleated RBC 0.00 Nucleated RBCs 0.0 Sodium 141 Potassium 4.0 Chloride 106 Carbon Dioxide 25 Anion Gap 10.0 BUN 25 H Creatinine 1.7 H Estimated GFR (MDRD) 29 L Glucose 142 H Lactic Acid Calcium 8.8 Total Bilirubin 0.6 AST 21 ALT 15 Alkaline Phosphatase 65 Troponin I < 0.04 Total Protein 6.8 Albumin 3.4 Globulin 3.4 Albumin/Globulin Ratio 1.0 Lipase 43 Urine Color Urine Clarity Urine pH Ur Specific [place] Urine Protein Urine Glucose (UA) Urine Ketones Urine Occult Blood Urine Nitrite Urine Bilirubin Urine Urobilinogen Ur Leukocyte Esterase Ur Microscopic Review Urine Culture Comments 02/15/17 02/15/17 11:35 12:00 WBC RBC Hgb Hct MCV MCH MCHC RDW Plt Count MPV Neut # Lymph # [place] # Eos # Baso # Absolute Nucleated RBC Nucleated RBCs Sodium Potassium Chloride Carbon Dioxide Anion Gap BUN Creatinine Estimated GFR (MDRD) Glucose Lactic Acid 1.5 Calcium Total Bilirubin AST ALT Alkaline Phosphatase Troponin I Total Protein Albumin Globulin Albumin/Globulin Ratio Lipase Urine Color YELLOW Urine Clarity CLEAR Urine pH 6.0 Ur Specific [place] 1.020 Urine Protein NEGATIVE Urine Glucose (UA) NEGATIVE Urine Ketones NEGATIVE Urine Occult Blood NEGATIVE Urine Nitrite NEGATIVE Urine Bilirubin NEGATIVE Urine Urobilinogen 0.2 (NORMAL) Ur Leukocyte Esterase NEGATIVE Ur Microscopic Review NOT INDICATED Urine Culture Comments NOT INDICATED - Rads (name of study) 2 veiw chest Radiology: Prelim report reviewed (Impression: 1. There is cardiomegaly. 2. No acite plane film intrathoracic abnormality.), EMP read indepedently, See rad report Procedures - IVC sono (time) 1115 Bedside IVC sono: IVC measures (cm) (0.89), IVC collapsed c insp (cm) (complete) , Dehydration PD MEDICAL DECISION MAKING - ED course Complexity details: reviewed old records, reviewed results, re-evaluated patient , considered differential, d/w patient, d/w family ED course: 81 y/o female with advanced dementia has developed weakness and is hypoxic. She has developed vomiting this morning and is dehydrated. She has rhonchi on exam. The patient's xray exam is un-impressive and does not match the clinical findings. The patient is dry and I suspect the x-ray will show the findings when she is adequately hydrated. Departure - Departure Disposition: 66 [facility] DC/Xfer Clinical Impression: Weakness, Dehydration, Acute kidney injury Pneumonia Qualifiers: Pneumonia type: due to unspecified organism Laterality: bilateral Lung location : lower lobe of lung Qualified Code(s): J18.9 - Pneumonia, unspecified organism Condition: Fair
[2017-02-15 11:20] LABS: BASOPHILS # (AUTO) 0.1 10^3/uL (0.0-0.1); BASOPHILS % (AUTO) 0.5 %; EOSINOPHILS # (AUTO) 0.1 10^3/uL (0.0-0.7); EOSINOPHILS % (AUTO) 1.2 %; HGB - HEMOGLOBIN 11.3 g/dL (12.0-16.0); LYMPHOCYTES # (AUTO) 4.1 10^3/uL (1.5-3.5); LYMPHOCYTES % (AUTO) 36.3 %; MEAN CORPUSCULAR HEMOGLOBIN 32.1 pg (27.0-31.0); MEAN CORPUSCULAR HGB CONC 32.3 g/dL (32.0-36.0); MEAN CORPUSCULAR VOLUME 99.2 fL (81.0-99.0); MEAN PLATELET VOLUME 8.1 fL (7.9-10.8); MONOCYTES # (AUTO) 0.7 10^3/uL (0.0-1.0); MONOCYTES % (AUTO) 6.2 %; NEUTROPHILS # (AUTO) 6.3 10^3/uL (1.5-6.6); NEUTROPHILS % (AUTO) 55.8 %; RED BLOOD COUNT 3.53 10^6/uL (4.20-5.40); RED CELL DISTRIBUTION WIDTH 14.7 % (12.0-15.0); UNCORRECTED WHITE BLOOD COUNT 11.3 x10^3/uL; WHITE BLOOD COUNT 11.3 x10^3/uL (4.8-10.8)
[2017-02-15 11:40] LABS: BILIRUBIN,TOTAL 0.6 mg/dL (0.2-1.0); CALCIUM 8.8 mg/dL (8.5-10.3); CREATININE 1.7 mg/dL (0.4-1.0); TOTAL PROTEIN 6.8 g/dL (6.7-8.2)
--- NOTE | 2017-02-15 11:52 | XRAY Preliminary Report ---
Exam: XR Chest 2 View PA/LAT IMPRESSION: 1. There is cardiomegaly. 2. No acute intrathoracic plain film abnormality. [facility] SITE ID: [id number]
--- NOTE | 2017-02-15 11:54 | XRAY Report ---
EXAM: CHEST RADIOGRAPHY EXAM DATE: 02/15/2017 11:28 AM. CLINICAL HISTORY: Dyspnea. COMPARISON: 02/06/2017. TECHNIQUE: 2 views. FINDINGS: Lungs/Pleura: No focal opacities evident. No pleural effusion. No pneumothorax. Normal volumes. Mediastinum: There is cardiomegaly. There is mild thoracic aortic tortuosity and calcification. Other: None. IMPRESSION: 1. There is cardiomegaly. 2. No acute intrathoracic plain film abnormality. [facility] Referring Provider Line: [phone] SITE ID: [id number]
[2017-02-15 12:05] LABS: BILIRUBIN,URINE NEGATIVE (NEGATIVE)
[2017-02-15 12:08] LABS: UA CHARGE (STRIP ONLY) YES; UR CULTURE IF IND NOT INDICATED
[2017-02-15] MEDS ORDERED: PROMETHAZINE 25 MG/1 ML VIAL IM PRN (12:31)
[2017-02-15] MEDS ORDERED: ONDANSETRON ODT 4 MG TABLET TL PRN (12:31)
[2017-02-15] MEDS ORDERED: ACETAMINOPHEN 325 MG TABLET PO PRN (12:31)
[2017-02-15] MEDS ORDERED: SODIUM CHLORIDE FLUSH 0.9% 10 ML SYRINGE IVP PRN (12:31)
--- NOTE | 2017-02-15 12:46 | HISTORY & PHYSICAL EXAMINATION ---
Chief Complaint - Chief Complaint Chief Complaint: weakness and altered mental status History of Present Illness - Admitted From Admitted From:: ER - History Obtained From Records Reviewed: yes History obtained from: Patient and son Exam Limitations: patient has dementia - History of Present Illness HPI Comment/Other: Patient is a 81 year old patient who has history of dementia and recent admission for possible TIA. She was admitted through the ER for weakness, acute kidney injury and dehydration. Son was at bedside to give additional information and medical records were reviewed. Patient was recently in the hospital and after going home became more weak, started to have vomiting and nausea and now is mildly dehydrated and lethargic. At baseline, patient has moderate to severe dementia at times. She was given a liter of fluid in the ER with a creatinine of 1.7 and GFR at less than 30. Her base line is around 38. She has no pain. She denies chest pain or shortness of breath. No fever, chills , sweats or headache or dysuria. Urine was clean. She has weakness and lethargy. She will be admitted fro mild JOE and dehydration. Review of Systems - Constitutional Constitutional: reports: Fatigue, Weakness - Respiratory Respiratory: reports: Cough - Gastrointestinal Gastrointestinal: reports: Vomiting - Neurological Neurological: reports: General weakness - All Other Systems All Other Systems: reports: Reviewed and negative History - Past Medical History Cardiovascular: reports: Hypertension, High cholesterol Respiratory: reports: None Neuro: reports: Dementia, CVA, TIA Endocrine/Autoimmune: reports: HyPOthyroidism GI: reports: None FUR CLEANER: reports: None : reports: None HEENT: reports: None Psych: reports: Depression, Anxiety Musculoskeletal: reports: None Derm: reports: None MRSA Hx?: No - Past Surgical History /FUR CLEANER: reports: Hysterectomy - Family & Social History Family History: Mother: CAD, Father: CAD Living arrangement: At home Living Situation: With family Social History Notes: The patient states she lives and [place] with a caregiver. She states that she has 6 children. Her family does live in the area. The patient is . She states that she was not born on [facility] but could not tell me where she was born and she states she cannot remember. She denies any history of smoking although in her clinic records it appears that she was a former smoker. She denies any illicit drug use or alcohol use. - Substance History Use: Uses substance without health or social issues: NONE Abuse: Recurrent use of substance despite neg consequences: NONE Dependence: Experiences withdrawal or developed tolerances: NONE - POLST Patient has POLST: No POLST Status: Full Code Meds/Allgy - Home Medications Home Medications: Ambulatory Orders Medication Instructions Recorded Confirmed Aspirin Chewable [[place]air 162 mg PO DAILY 01/24/13 02/15/17 Aspirin] Acyclovir 200 mg PO BID 03/22/13 02/15/17 Simvastatin 20 mg PO QPM 03/22/13 02/15/17 ALPRAZolam [Xanax] 0.5 mg PO QPM 02/17/16 02/15/17 Fluticasone [Flonase] 1 spray DARREN BID 02/17/16 02/15/17 Metoprolol Succinate [Toprol Xl] 25 mg PO DAILY 02/17/16 02/15/17 Quetiapine Fumarate [Seroquel] 50 mg PO DAILY 02/17/16 02/15/17 predniSONE [Deltasone] 5 mg PO DAILY 02/17/16 02/15/17 Rivastigmine [Exelon] 13.3 mg TOP Q24H 02/18/16 02/15/17 Acetaminophen [Tylenol] 650 mg PO Q4HR PRN #0 tablet 02/19/16 02/15/17 Levothyroxine [Synthroid] 50 mcg PO QDAC #0 tablet 02/19/16 02/15/17 Memantine [Namenda] 10 mg PO BID tablet 02/19/16 02/15/17 Alprazolam [Xanax] 0.5 mg PO DAILY PRN 02/06/17 02/15/17 Quetiapine Fumarate [Seroquel] 100 mg PO QPM 02/06/17 02/15/17 busPIRone [Buspar] 2.5 mg PO DAILY 02/06/17 02/15/17 Losartan [Cozaar] 50 mg PO DAILY #30 tablet 02/07/17 02/15/17 Albuterol Sulfate [Proair Hfa 1 inh INH Q6H PRN 02/15/17 02/15/17 Inhaler] Ondansetron Odt [Zofran Odt] 4 mg TL Q6HR PRN #28 tablet 02/16/17 - Allergies Allergies/Adverse Reactions: Allergies Allergy/AdvReac Type Severity Reaction Status Date / Time fluoxetine HCl * AdvReac Unknown Unknown Verified 10/03/14 15:47 [From Prozac] nitroglycerin AdvReac Unknown Unknown Verified 10/03/14 15:47 Sulfa (Sulfonamide AdvReac Unknown Unknown Verified 10/03/14 15:47 Antibiotics) sulfamethoxazole AdvReac Unknown Unknown Verified 10/03/14 15:47 [From Bactrim] trimethoprim [From Bactrim] AdvReac Unknown Unknown Verified 10/03/14 15:47 Exam - Vital Signs Reviewed Vital Signs: Yes Vital Signs: Vital Signs x48h Temp Pulse Resp BP Pulse Ox 02/15/17 12:20 67 18 104/63 96 02/15/17 12:07 18 109/63 100 02/15/17 11:04 73 19 88/55 L 96 02/15/17 10:30 36.0 C L 80 20 122/67 91 L - Physical Exam General Appearance: positive: No acute distress, Alert Eyes Bilateral: positive: Normal inspection, PERRL, EOMI, No lid inflammation ENT: positive: Pharynx nml, Dry mucous membranes Neck: positive: Thyroid nml, No JVD, Trachea midline Cardiovascular: positive: Regular rate & rhythm, No murmur, No gallop. negative : JVD present Peripheral Pulses: positive: 2+ Abdomen: positive: Non-tender, No organomegaly, Nml bowel sounds, No distention. negative: Guarding, Rebound Back: negative: CVA tenderness (R), CVA tenderness (L) Skin: positive: Color nml, No rash, Warm, Dry. negative: Cyanosis Extremities: positive: Full ROM, Nml appearance, No pedal edema. negative: Calf tenderness, Joint swelling Neurologic/Psychiatric: positive: CN's nml (2-12), Motor nml, Mood/affect nml, Disoriented to time, Weakness. negative: Slurred/abnml speech Babinski Reflex: Right: Up, Left: Up Conclusion/Plan - Problem List (1) Acute kidney injury Conclusion/Plan: acute. patient is dehydrated with creatinine of 1.7 and elevated BUN. will hydrate with IVF NS at 100ml/hr and monitor kidney function daily with labs. (2) Vomiting Conclusion/Plan: acute. zofran IV for vomiting and phenergan if needed and not controlled with zofran. IVF for hydration. Qualifiers: Vomiting type: unspecified Vomiting Intractability: unspecified Nausea presence: with nausea Qualified Code(s): R11.2 - Nausea with vomiting, unspecified (3) Hypothyroidism Conclusion/Plan: chronic. continue on home thyroid medication. Qualifiers: Hypothyroidism type: unspecified Qualified Code(s): E03.9 - Hypothyroidism , unspecified - Lab Results Lab results reviewed: Yes Fish Bones: 02/16/17 07:40 02/16/17 07:40 Other Lab Results: Abnormal Lab Results 02/15/17 02/15/17 10:40 10:40 WBC 11.3 x10^3/uL H x10^3/uL (4.8-10.8) RBC 3.53 10^6/uL L 10^6/uL (4.20-5.40) Hgb 11.3 g/dL L g/dL (12.0-16.0) Hct 35.0 % L % (37.0-47.0) MCV 99.2 fL H fL (81.0-99.0) MCH 32.1 pg H pg (27.0-31.0) Lymph # 4.1 10^3/uL H 10^3/uL (1.5-3.5) BUN 25 mg/dL H mg/dL (6-20) Creatinine 1.7 mg/dL H mg/dL (0.4-1.0) Estimated GFR (MDRD) 29 L (>89) Glucose 142 mg/dL H mg/dL (70-100) - Diagnostic Imaging Results Diagnostic Imaging Results: positive: See rad report Diagnostic Imaging Results Comments: shows only cardiomegaly and no infiltrates or acute process - EKG Results EKG Interpreted Independently: Yes Issues/Core Measures - Anticipated LOS Anticipated Stay Length: Less than 2 midnights - DVT/VTE - Prophylaxis VTE/DVT Device ordered at admit?: Yes VTE/DVT Prophylaxis med ordered at admit?: Yes - Stroke - Rehab Assessment Rehab services assessment to be ordered?: No
[2017-02-15] MEDS: SODIUM CHLORIDE FLUSH 0.9% 10 ML SYRINGE IVP SCH ×2 (13:26→21:00)
[2017-02-15] MEDS: SODIUM CHLORIDE 0.9% 1,000 ML IV SCH ×2 (13:26→23:53)
[2017-02-15] MEDS: ENOXAPARIN 40 MG/0.4 ML SYRINGE SUBQ SCH (15:00)
[2017-02-15] MEDS ORDERED: ALPRAZolam 0.25 MG TABLET PO SCH (21:00)
[2017-02-15] MEDS: busPIRone 5 MG TABLET PO SCH (21:22)
[2017-02-15] MEDS: MEMANTINE 5 MG TABLET PO SCH (21:22)
[2017-02-16] MEDS: SODIUM CHLORIDE FLUSH 0.9% 10 ML SYRINGE IVP SCH ×2 (05:14→13:11)
[2017-02-16] MEDS ORDERED: LEVOTHYROXINE 25 MCG TABLET PO SCH (07:00)
[2017-02-16 07:46] LABS: BASOPHILS % (AUTO) 0.4 %; EOSINOPHILS # (AUTO) 0.2 10^3/uL (0.0-0.7); EOSINOPHILS % (AUTO) 2.2 %; HCT - HEMATOCRIT 31.1 % (37.0-47.0); HGB - HEMOGLOBIN 10.3 g/dL (12.0-16.0); LYMPHOCYTES # (AUTO) 2.1 10^3/uL (1.5-3.5); LYMPHOCYTES % (AUTO) 22.5 %; MEAN CORPUSCULAR HEMOGLOBIN 32.6 pg (27.0-31.0); MEAN CORPUSCULAR HGB CONC 33.2 g/dL (32.0-36.0); MEAN CORPUSCULAR VOLUME 98.2 fL (81.0-99.0); MEAN PLATELET VOLUME 7.8 fL (7.9-10.8); MONOCYTES # (AUTO) 0.8 10^3/uL (0.0-1.0); MONOCYTES % (AUTO) 8.6 %; NEUTROPHILS # (AUTO) 6.1 10^3/uL (1.5-6.6); NEUTROPHILS % (AUTO) 66.3 %; RED BLOOD COUNT 3.16 10^6/uL (4.20-5.40); RED CELL DISTRIBUTION WIDTH 14.8 % (12.0-15.0); UNCORRECTED WHITE BLOOD COUNT 9.2 x10^3/uL; WHITE BLOOD COUNT 9.2 x10^3/uL (4.8-10.8)
[2017-02-16 07:58] LABS: BILIRUBIN,TOTAL 1.1 mg/dL (0.2-1.0); CALCIUM 8.3 mg/dL (8.5-10.3); CREATININE 1.2 mg/dL (0.4-1.0); POTASSIUM 3.9 mmol/L (3.5-5.0); TOTAL PROTEIN 6.1 g/dL (6.7-8.2)
[2017-02-16] MEDS ORDERED: SODIUM CHLORIDE 0.9% 1,000 ML IV ONE (08:56)
[2017-02-16] MEDS ORDERED: POLYETHYLENE GLYCOL 3350 17 GM PACKET PO SCH (09:00)
[2017-02-16] MEDS ORDERED: predniSONE 5 MG TABLET PO SCH (09:00)
[2017-02-16] MEDS ORDERED: QUEtiapine 100 MG TABLET PO SCH (09:00)
[2017-02-16] MEDS ORDERED: RIVASTIGMINE 13.3 MG/24 HR TOP SCH (09:00)
[2017-02-16] MEDS ORDERED: METOPROLOL SUCCINATE 25 MG TABLET PO SCH (09:00)
[2017-02-16] MEDS ORDERED: ASPIRIN CHEW 81 MG TABLET PO SCH (09:00)
--- NOTE | 2017-02-16 09:26 | Discharge Plan ---
Discharge Plan Disposition: 01 Home, Self Care Condition: Stable Prescriptions: Ondansetron Odt [Zofran Odt] 4 mg TL Q6HR PRN #28 tablet PRN Reason: Nausea / Vomiting Diet: Diabetic Activity Restrictions: Wt Bearing as Tolerated Shower Restrictions: No Driving Restrictions: No Assistance Devices: Walker, Cane Weight Bearing: Full Weight Instruction Topics: Dementia Patients Safety Tips, Dementia Patients Caregiver Additional Instructions or Follow Up instructions: 1. Please continue to take all home medication as prescribed. 2. Please see your primary care provider within 1 week of discharge 3. You need to stay hydrated and drink more water throughout the day. avoid soda 4. Get plenty of sleep at night, 7-8 hours. 5. Walking is good exercise and please try to get enough during the day 6. Return to the ER if symptoms worsen or you have chest pain or shortness of breath. No Smoking: If you smoke, Please STOP! Call for help.
[2017-02-16] MEDS: ENOXAPARIN 40 MG/0.4 ML SYRINGE SUBQ SCH (09:30)
[2017-02-16] MEDS: busPIRone 5 MG TABLET PO SCH (09:31)
[2017-02-16] MEDS: MEMANTINE 5 MG TABLET PO SCH (09:33)
[2017-02-16] MEDS: SODIUM CHLORIDE 0.9% 1,000 ML IV SCH (09:34)
--- NOTE | 2017-02-16 10:18 | DISCHARGE SUMMARY ---
Discharge Summary Admit Date: 02/15/17 Discharge Date: 02/16/17 Discharging Provider: Anaya Hobbs APRN Primary Care Provider: Deshawn Caballero MD Code Status: Do Not Attempt Resuscitation Condition at Discharge: Stable Discharge Disposition: 01 Home, Self Care Discharge Facility Name: home self care with family - DIAGNOSES Admission Diagnoses: 1. Acute mild dehydration secondary to acute kidney injury 2. Chronic moderate dementia, unspecified 3. Acute weakness with past hx of CVA Discharge Diagnoses with Status of Each Condition: 1. Acute mild dehydration secondary to acute kidney injury 2. Chronic moderate dementia, unspecified 3. Acute weakness with past hx of CVA 4. Hypothyroidism, unspecified - HPI History of Present Illness: Patient is a 81 year old patient who has history of dementia and recent admission for possible TIA. She was admitted through the ER for weakness, acute kidney injury and dehydration. Son was at bedside to give additional information and medical records were reviewed. Patient was recently in the hospital and after going home became more weak, started to have vomiting and nausea and now is mildly dehydrated and lethargic. At baseline, patient has moderate to severe dementia at times. She was given a liter of fluid in the ER with a creatinine of 1.7 and GFR at less than 30. Her base line is around 38. She has no pain. She denies chest pain or shortness of breath. No fever, chills , sweats or headache or dysuria. Urine was clean. She has weakness and lethargy. She will be admitted fro mild JOE and dehydration. - CONSULTS | PROCEDURES Consultations: physical therapy Procedures: none - HOSPITAL COURSE Hospital Course: Patient is a 81 year old patient who has history of dementia and recent admission for possible TIA. She was admitted through the ER for weakness, acute kidney injury and dehydration. Son was at bedside to give additional information and medical records were reviewed. Patient was recently in the hospital and after going home became more weak, started to have vomiting and nausea and now is mildly dehydrated and lethargic. At baseline, patient has moderate to severe dementia at times. She was given a liter of fluid in the ER with a creatinine of 1.7 and GFR at less than 30. Her base line is around 38. She has no pain. She denies chest pain or shortness of breath. No fever, chills , sweats or headache or dysuria. Urine was clean. She has weakness and lethargy. She will be admitted fro mild JOE and dehydration. Patient improved well overnight with IVF for hydration. She worked with PT to be up and out of the bed with ambulation. Nursing states that patient has an uneventful night and slept. She was given synthroid for hypothyroidism, zofran for the nausea and her vomiting had resolved yesterday. She ate breakfast without incident. According to family, patient mental status is now at baseline with moderate to severe dementia. When ask patient if she wanted to be able to return home, she stated "yes please". Patient will be sent home with care of family. She was encouraged to drink plenty of water during the day, avoid soda and to get rest when needed. Son was to take patient home. - ALLERGIES Allergies/Adverse Reactions: Allergies Allergy/AdvReac Type Severity Reaction Status Date / Time fluoxetine HCl * AdvReac Unknown Unknown Verified 10/03/14 15:47 [From Prozac] nitroglycerin AdvReac Unknown Unknown Verified 10/03/14 15:47 Sulfa (Sulfonamide AdvReac Unknown Unknown Verified 10/03/14 15:47 Antibiotics) sulfamethoxazole AdvReac Unknown Unknown Verified 10/03/14 15:47 [From Bactrim] trimethoprim [From Bactrim] AdvReac Unknown Unknown Verified 10/03/14 15:47 - MEDICATIONS Home Medications: Ambulatory Orders Medication Instructions Recorded Confirmed Aspirin Chewable [St Yair 162 mg PO DAILY 01/24/13 02/15/17 Aspirin] Acyclovir 200 mg PO BID 03/22/13 02/15/17 Simvastatin 20 mg PO QPM 03/22/13 02/15/17 ALPRAZolam [Xanax] 0.5 mg PO QPM 02/17/16 02/15/17 Fluticasone [Flonase] 1 spray DARREN BID 02/17/16 02/15/17 Metoprolol Succinate [Toprol Xl] 25 mg PO DAILY 02/17/16 02/15/17 Quetiapine Fumarate [Seroquel] 50 mg PO DAILY 02/17/16 02/15/17 predniSONE [Deltasone] 5 mg PO DAILY 02/17/16 02/15/17 Rivastigmine [Exelon] 13.3 mg TOP Q24H 02/18/16 02/15/17 Acetaminophen [Tylenol] 650 mg PO Q4HR PRN #0 tablet 02/19/16 02/15/17 Levothyroxine [Synthroid] 50 mcg PO QDAC #0 tablet 02/19/16 02/15/17 Memantine [Namenda] 10 mg PO BID tablet 02/19/16 02/15/17 Alprazolam [Xanax] 0.5 mg PO DAILY PRN 02/06/17 02/15/17 Quetiapine Fumarate [Seroquel] 100 mg PO QPM 02/06/17 02/15/17 busPIRone [Buspar] 2.5 mg PO DAILY 02/06/17 02/15/17 Losartan [Cozaar] 50 mg PO DAILY #30 tablet 02/07/17 02/15/17 Albuterol Sulfate [Proair Hfa 1 inh INH Q6H PRN 02/15/17 02/15/17 Inhaler] Ondansetron Odt [Zofran Odt] 4 mg TL Q6HR PRN #28 tablet 02/16/17 - PHYSICAL EXAM AT DISCHARGE General Appearance: positive: No acute distress, Alert Eyes Bilateral: positive: Normal inspection, PERRL, EOMI ENT: positive: Pharynx nml, No signs of dehydration Neck: positive: Nml inspection, Thyroid nml, No JVD, Trachea midline Respiratory: positive: Chest non-tender, No respiratory distress, Breath sounds nml Cardiovascular: positive: Regular rate & rhythm, No murmur, No gallop. negative : JVD present Peripheral Pulses: positive: 2+ Abdomen: positive: Non-tender, No organomegaly, Nml bowel sounds, No distention. negative: Guarding, Rebound Back: positive: Nml inspection. negative: CVA tenderness (R), CVA tenderness (L ) Skin: positive: Color nml, No rash, Warm, Dry. negative: Cyanosis Extremities: positive: Non-tender, Full ROM, Nml appearance, No pedal edema Neurologic/Psychiatric: positive: Motor nml, Sensation nml, Mood/affect nml, Disoriented to place, Disoriented to time, Weakness (improved since yesterday). negative: Facial droop, Slurred/abnml speech - LABS Result Diagrams: 02/16/17 07:40 02/16/17 07:40 - DIAGNOSTIC IMAGING Diagnostic Imaging Results: See rad report, Read independently Diagnostic Imaging Results Comments: cardiomegaly and no infiltrates present - FOLLOW UP Follow Up: Patient was instructed to followup with primary care provider within 1 week of discharge. Family verbally understood - TIME SPENT Time Spent in Discharge (Minutes): 35 (for planning, education and assessment)
[2017-02-16 12:19] VITALS: BP 152/78
== END 2017-02-16 13:30 | disposition home or self-care (01) ==
LOC: ED 10:29 → OBS 12:27
PROVIDERS: ADMIT Nurse Practitioner; ATTEND Nurse Practitioner
DX: N17.9 Acute kidney failure, unspecified (principal); E86.0 Dehydration; F03.90 Unspecified dementia, unspecified severity, without behavioral disturbance, psychotic disturbance, mood disturbance, and anxiety; I69.998 Other sequelae following unspecified cerebrovascular disease; R53.1 Weakness; E03.9 Hypothyroidism, unspecified; R11.2 Nausea with vomiting, unspecified; F32.9 Major depressive disorder, single episode, unspecified; F41.9 Anxiety disorder, unspecified; Z87.891 Personal history of nicotine dependence; Z79.82 Long term (current) use of aspirin; Z79.52 Long term (current) use of systemic steroids; Z79.51 Long term (current) use of inhaled steroids; Z79.899 Other long term (current) drug therapy
CPT/HCPCS: 36415; 51701; 71020; 80053; 81003; 83605; 83690; 83735; 84484; 85025; 87040; 93005; 96360; 96372; 99285; A9270; G0378; J1650; J7512; 81001; 87086; 99284

== ENCOUNTER 2017-07-19 14:15 | Outpatient (CLI) | payer MEDICARE, OTHER ==
[2017-07-19 19:15] LABS: BASOPHILS % (AUTO) 0.3 %; EOSINOPHILS # (AUTO) 0.1 10^3/uL (0.0-0.7); EOSINOPHILS % (AUTO) 0.5 %; HGB - HEMOGLOBIN 12.7 g/dL (12.0-16.0); LYMPHOCYTES # (AUTO) 1.1 10^3/uL (1.5-3.5); LYMPHOCYTES % (AUTO) 11.5 %; MEAN CORPUSCULAR HEMOGLOBIN 32.8 pg (27.0-31.0); MEAN CORPUSCULAR HGB CONC 31.7 g/dL (32.0-36.0); MEAN CORPUSCULAR VOLUME 103.4 fL (81.0-99.0); MEAN PLATELET VOLUME 9.4 fL (7.9-10.8); MONOCYTES # (AUTO) 0.6 10^3/uL (0.0-1.0); NEUTROPHILS # (AUTO) 8.1 10^3/uL (1.5-6.6); NEUTROPHILS % (AUTO) 81.7 %; PLT - PLATELET COUNT 254 10^3/uL (130-450); RED BLOOD COUNT 3.88 10^6/uL (4.20-5.40); RED CELL DISTRIBUTION WIDTH 15.6 % (12.0-15.0); WHITE BLOOD COUNT 9.9 x10^3/uL (4.8-10.8)
[2017-07-19 19:39] LABS: ALBUMIN 3.6 g/dL (3.2-5.5); ALKALINE PHOSPHATASE 60 IU/L (42-121); ALT ALANINE AMINOTRANSFERASE 18 IU/L (10-60); AST ASPARTATE AMINOTRANSFERASE 25 IU/L (10-42); BILIRUBIN,TOTAL 0.6 mg/dL (0.2-1.0); BUN - BLOOD UREA NITROGEN 19 mg/dL (6-20); CALCIUM 9.1 mg/dL (8.5-10.3); CARBON DIOXIDE - CO2 22 mmol/L (21-32); CHLORIDE 103 mmol/L (101-111); CREATININE 1.7 mg/dL (0.4-1.0); GFR - MDRD 29 (>89); GLUCOSE 222 mg/dL (70-100); SODIUM 138 mmol/L (135-145); TOTAL PROTEIN 7.1 g/dL (6.7-8.2)
[2017-07-19 19:43] LABS: HB2 TOTAL 13.5 g/dL; HEMOGLOBIN A1C 0.66 g/dL; HEMOGLOBIN A1C % 6.6 % (4.6-6.2)
[2017-07-19 19:51] LABS: THYROID STIMULATING HORMONE 0.74 uIU/mL (0.34-5.60)
[2017-07-19 20:02] LABS: FOLATE 14.79 ng/mL (5.90 - >24.8)
== END 2017-07-19 14:16 | disposition home or self-care (01) ==
LOC: LAB.WCP 14:15
PROVIDERS: ATTEND Family Medicine
DX: R73.9 Hyperglycemia, unspecified (principal); F03.90 Unspecified dementia, unspecified severity, without behavioral disturbance, psychotic disturbance, mood disturbance, and anxiety; I10 Essential (primary) hypertension; E78.9 Disorder of lipoprotein metabolism, unspecified; F32.9 Major depressive disorder, single episode, unspecified; E53.8 Deficiency of other specified B group vitamins
CPT/HCPCS: 36415; 80053; 82607; 82746; 83036; 83540; 84443; 84466; 85025

== ENCOUNTER 2017-10-29 10:36 | Outpatient (CLI) | payer MEDICARE, OTHER, MEDICAID | END 2017-10-29 10:37 | disposition critical access hospital (66) | LOC: EMS 10:36 | PROVIDERS: ATTEND Surgery | DX: R46.4 Slowness and poor responsiveness (principal) | CPT/HCPCS: A0425; A0427 ==

== ENCOUNTER 2017-10-29 10:50 | Inpatient (IN) | payer MEDICARE, OTHER, MEDICAID ==
--- NOTE | 2017-10-29 11:03 | ED Physician Documentation ---
History of Present Illness - Stated complaint Stated Complaint: AMS - Chief complaint Chief Complaint: General - History obtained from History obtained from: EMS - History of Present Illness Timing: Today - Additonal information Additional information: 81-year-old female with history of dementia was brought to the salon by her son and when she was at the salon she turned ramirez and became less responsive. She is now brought to the hospital by EMS for evaluation. She is of minimal help with the history. She was noted to be hypoxic in route to the hospital. Review of Systems Unable to obtain: Dementia Constitutional: reports: Fatigue Neurologic: reports: Generalized weakness, Near syncope PD PAST MEDICAL HISTORY - Past Medical History Cardiovascular: Hypertension, High cholesterol Respiratory: None Neuro: Dementia, CVA, TIA Endocrine/Autoimmune: HyPOthyroidism GI: None LEGAL CASHIER: None : None HEENT: None Psych: Depression, Anxiety Musculoskeletal: None Derm: None - Past Surgical History Past Surgical History: Yes /LEGAL CASHIER: Hysterectomy - Present Medications Home Medications: Ambulatory Orders Medication Instructions Recorded Confirmed Aspirin Chewable [St Yair 162 mg PO DAILY 01/24/13 10/29/17 Aspirin] Acyclovir 200 mg PO BID 03/22/13 10/29/17 Simvastatin 20 mg PO QPM 03/22/13 10/29/17 ALPRAZolam [Xanax] 0.5 mg PO QPM 02/17/16 10/29/17 Fluticasone [Flonase] 1 spray DARREN BID 02/17/16 10/29/17 Metoprolol Succinate [Toprol Xl] 25 mg PO DAILY 02/17/16 10/29/17 Quetiapine Fumarate [Seroquel] 50 mg PO DAILY 02/17/16 10/29/17 predniSONE [Deltasone] 5 mg PO DAILY 02/17/16 10/29/17 Rivastigmine [Exelon] 13.3 mg TOP Q24H 02/18/16 10/29/17 Levothyroxine [Synthroid] 50 mcg PO QDAC #0 tablet 02/19/16 10/29/17 Memantine [Namenda] 10 mg PO BID tablet 02/19/16 10/29/17 Alprazolam [Xanax] 0.5 mg PO DAILY PRN 02/06/17 10/29/17 Quetiapine Fumarate [Seroquel] 100 mg PO QPM 02/06/17 10/29/17 busPIRone [Buspar] 5 mg PO DAILY 02/06/17 10/29/17 Losartan [Cozaar] 50 mg PO DAILY #30 tablet 02/07/17 10/29/17 Mirabegron [Myrbetriq] 25 mg PO DAILY 10/29/17 10/29/17 - Allergies Allergies/Adverse Reactions: Allergies Allergy/AdvReac Type Severity Reaction Status Date / Time fluoxetine HCl * AdvReac Unknown Unknown Verified 10/03/14 15:47 [From Prozac] nitroglycerin AdvReac Unknown Unknown Verified 10/03/14 15:47 Sulfa (Sulfonamide AdvReac Unknown Unknown Verified 10/03/14 15:47 Antibiotics) sulfamethoxazole AdvReac Unknown Unknown Verified 10/03/14 15:47 [From Bactrim] trimethoprim [From Bactrim] AdvReac Unknown Unknown Verified 10/03/14 15:47 - Social History Does the pt smoke?: No Smoking Status: Never smoker Does the pt drink ETOH?: No Does the pt have substance abuse?: No - Immunizations Immunizations are current?: Yes Immunizations: TDAP >10years/unknown - POLST Patient has POLST: No POLST Status: Full Code PD ED PE NORMAL - Vitals Vital signs reviewed: Yes (tachypneic hypotensive and hypoxic) - General General: Well developed/nourished, Other (garcia appearing 81 y/o female ) - HEENT HEENT: Atraumatic, PERRL, EOMI, Other (dry mucous membranes ) - Neck Neck: Supple, no meningeal sign, No bony TTP - Cardiac Cardiac: RRR, No murmur - Respiratory Respiratory: Other (tachypnea and bibasilar rhonchi) - Abdomen Abdomen: Soft, Non tender - Back Back: No CVA TTP, No spinal TTP - Derm Derm: Warm and dry, Other (pale ashen in color) - Extremities Extremities: No deformity, No edema, Other (no swelling or erythema anywhere) - Neuro Neuro: No motor deficit, No sensory deficit Eye Opening: Spontaneous Motor: Obeys Commands Verbal: Confused GCS Score: 14 - Psych Psych: Normal mood, Normal affect Results - Vitals Vitals: Vital Signs - 24 hr 10/29/17 10/29/17 10/29/17 10:56 11:00 11:25 Temperature 36.3 C L Heart Rate 67 73 Respiratory 28 H 20 Rate Blood Pressure 65/46 L 73/47 L 108/55 L O2 Saturation 90 L 93 10/29/17 10/29/17 10/29/17 11:30 12:16 12:46 Temperature Heart Rate 73 74 70 Respiratory 18 18 Rate Blood Pressure 100/52 L 115/57 L 114/55 L O2 Saturation 96 99 Oxygen O2 Source Room air - Labs Labs: Laboratory Tests 10/29/17 10/29/17 10/29/17 11:02 11:19 11:19 WBC 8.2 RBC 3.28 L Hgb 11.1 L Hct 33.2 L MCV 101.4 H MCH 34.0 H MCHC 33.5 RDW 15.8 H Plt Count 225 MPV 9.2 Neut # 5.6 Lymph # 1.6 [place] # 0.7 Eos # 0.2 Baso # 0.1 Absolute Nucleated RBC 0.00 Nucleated RBC % 0.0 Sodium 140 Potassium 3.8 Chloride 105 Carbon Dioxide 24 Anion Gap 11.0 BUN 22 H Creatinine 1.7 H Estimated GFR (MDRD) 29 L Glucose 151 H Lactic Acid Calcium 8.1 L Total Bilirubin 0.9 AST 20 ALT 15 Alkaline Phosphatase 51 Troponin I B-Natriuretic Peptide Total Protein 6.0 L Albumin 3.0 L Globulin 3.0 Albumin/Globulin Ratio 1.0 Lipase 25 Urine Color YELLOW Urine Clarity CLOUDY Urine pH 6.0 Ur Specific [place] 1.020 Urine Protein NEGATIVE Urine Glucose (UA) NEGATIVE Urine Ketones NEGATIVE Urine Occult Blood NEGATIVE Urine Nitrite POSITIVE H Urine Bilirubin NEGATIVE Urine Urobilinogen 0.2 (NORMAL) Ur Leukocyte Esterase SMALL H Urine RBC 0-5 Urine WBC 4-5 Ur Epithelial Cells RARE Renal Tubular Ur Squamous Epith Cells RARE Squamous Urine Bacteria Many H Ur Microscopic Review INDICATED Urine Culture Comments INDICATED 10/29/17 10/29/17 10/29/17 11:19 11:19 11:19 WBC RBC Hgb Hct MCV MCH MCHC RDW Plt Count MPV Neut # Lymph # [place] # Eos # Baso # Absolute Nucleated RBC Nucleated RBC % Sodium Potassium Chloride Carbon Dioxide Anion Gap BUN Creatinine Estimated GFR (MDRD) Glucose Lactic Acid 2.1 Calcium Total Bilirubin AST ALT Alkaline Phosphatase Troponin I < 0.04 B-Natriuretic Peptide 32 Total Protein Albumin Globulin Albumin/Globulin Ratio Lipase Urine Color Urine Clarity Urine pH Ur Specific [place] Urine Protein Urine Glucose (UA) Urine Ketones Urine Occult Blood Urine Nitrite Urine Bilirubin Urine Urobilinogen Ur Leukocyte Esterase Urine RBC Urine WBC Ur Epithelial Cells Ur Squamous Epith Cells Urine Bacteria Ur Microscopic Review Urine Culture Comments - Rads (name of study) 1 view chest Radiology: Prelim report reviewed (Impression: 1. Mild hypoventilatory changes with bibasilar opacities favoring atelectasis. 2. Cardiomegaly. No vascular congestion.), EMP read indepedently, See rad report Procedures - IVC sono (time) 1100 Bedside IVC sono: IVC measures (cm) (0.79), Low CVP PD MEDICAL DECISION MAKING - ED course Complexity details: reviewed old records, considered differential ED course: 81-year-old female arrives to the emergency department with altered mental status and appears ramirez in color. She is hypotensive and tachypneic as well as hypoxic on arrival. Sepsis protocol is begun. She is administered a liter of saline and a gram of Rocephin intravenously. A Hawley catheter is placed the urine appears to be a source the chest x-ray shows atelectasis the white blood cell count is normal the patient remains hypotensive and fluid responsive. Departure - Departure Disposition: 66 [facility] DC/Xfer Clinical Impression: Sepsis associated hypotension Urinary tract infection Qualifiers: Urinary tract infection type: acute cystitis Hematuria presence: without hematuria Qualified Code(s): N30.00 - Acute cystitis without hematuria Discharge Date/Time: 10/29/17 13:46
[2017-10-29] MEDS ORDERED: cefTRIAXone 1 GM in SODIUM CHLORIDE 0.9% MINIBAG 100 ML IV STA (11:11)
[2017-10-29 11:21] LABS: BASOPHILS # (AUTO) 0.1 10^3/uL (0.0-0.1); BASOPHILS % (AUTO) 0.8 %; EOSINOPHILS # (AUTO) 0.2 10^3/uL (0.0-0.7); EOSINOPHILS % (AUTO) 2.9 %; HGB - HEMOGLOBIN 11.1 g/dL (12.0-16.0); LYMPHOCYTES # (AUTO) 1.6 10^3/uL (1.5-3.5); MEAN CORPUSCULAR HGB CONC 33.5 g/dL (32.0-36.0); MEAN CORPUSCULAR VOLUME 101.4 fL (81.0-99.0); MEAN PLATELET VOLUME 9.2 fL (7.9-10.8); MONOCYTES # (AUTO) 0.7 10^3/uL (0.0-1.0); MONOCYTES % (AUTO) 8.1 %; NEUTROPHILS # (AUTO) 5.6 10^3/uL (1.5-6.6); NEUTROPHILS % (AUTO) 68.2 %; PLT - PLATELET COUNT 225 10^3/uL (130-450); RED BLOOD COUNT 3.28 10^6/uL (4.20-5.40); RED CELL DISTRIBUTION WIDTH 15.8 % (12.0-15.0); WHITE BLOOD COUNT 8.2 x10^3/uL (4.8-10.8)
[2017-10-29 11:23] LABS: BILIRUBIN,URINE NEGATIVE (NEGATIVE); GLUCOSE, URINE (UA) NEGATIVE (NEGATIVE); KETONES,URINE (UA) NEGATIVE (NEGATIVE); LEUKOCYTE ESTERASE, URINE SMALL (NEGATIVE); NITRITE,URINE POSITIVE (NEGATIVE); OCCULT BLOOD,URINE NEGATIVE (NEGATIVE); PROTEIN,URINE NEGATIVE (NEGATIVE); UROBILINOGEN,URINE 0.2 (NORMAL) E.U./dL (NORMAL)
[2017-10-29 11:32] LABS: CLARITY,URINE CLOUDY (CLEAR)
[2017-10-29 11:33] LABS: EPITHELIAL CELLS,UR RARE Renal Tubular /HPF (<= Few); RBC,URINE 0-5 /HPF (0-5); SQUAMOUS EPITHELIAL CELL,UR RARE Squamous (<= Few)
[2017-10-29 11:34] LABS: BACTERIA,URINE Many /HPF (None Seen)
--- NOTE | 2017-10-29 11:59 | XRAY Report ---
EXAM: CHEST RADIOGRAPHY EXAM DATE: 10/29/2017 11:46 AM. CLINICAL HISTORY: Decreased LOC and bibasilar rhonchi. COMPARISON: 02/15/2017. TECHNIQUE: 1 view. FINDINGS: Lungs/Pleura: Image is rotated. Lung volumes are decreased. Elevated right hemidiaphragm. Bibasilar o pacities. No vascular congestion. Mediastinum: Cardiomegaly. Aortic tortuosity. Aortic atherosclerosis. Other: None. IMPRESSION: 1. Mild hypoventilatory changes with bibasilar opacities favoring atelectasis. 2. Cardiomegaly. No vascular congestion. [facility] Referring Provider Line: [phone] SITE ID: [id number]
[2017-10-29 12:08] LABS: BILIRUBIN,TOTAL 0.9 mg/dL (0.2-1.0); CALCIUM 8.1 mg/dL (8.5-10.3); CREATININE 1.7 mg/dL (0.4-1.0)
[2017-10-29] MEDS ORDERED: PROCHLORPERAZINE 10 MG/2 ML VIAL IVP PRN (12:57)
[2017-10-29] MEDS ORDERED: ONDANSETRON 4 MG/2 ML VIAL IVP PRN (12:57)
[2017-10-29] MEDS ORDERED: ACETAMINOPHEN 325 MG TABLET PO PRN (12:57)
[2017-10-29] MEDS: SODIUM CHLORIDE 0.9% 1,000 ML IV SCH (13:51)
[2017-10-29] MEDS: RIVASTIGMINE 13.3 MG TOP SCH (13:52)
--- NOTE | 2017-10-29 14:48 | HISTORY & PHYSICAL EXAMINATION ---
Chief Complaint - Chief Complaint Chief Complaint: Altered mental status History of Present Illness - Admitted From Admitted From:: Emergency department - History Obtained From Records Reviewed: Yes History obtained from: Patient's son Exam Limitations: Patient unable to provide much history secondary to severe dementia and AMS - History of Present Illness HPI Comment/Other: Patient is an 81-year-old female with a past medical history significant for advanced dementia, multiple sclerosis, history of TIAs, hypertension, hypothyroidism, depression, anxiety, hyperlipidemia and recurrent UTIs who presented to the emergency department with altered mental status. According to the patient's son the patient was in her normal state of health this morning. He states that she got up and she was excited as she was going to get a haircut. He states this morning she ate a banana and took her morning pills for breakfast. He states that she was fine when I walk into the salon and she sat down on the chair for her haircut. While she was sitting on the chair she began to drift off. He states that she had decreased responsiveness and was difficult to arouse. He states that they tried to shake her to wake her up but she was only minimally responding. At that point EMS was called and came to take up from the salon. He states that she has not been having any recent signs or symptoms of infection. He states that she has not had any fevers or chills. She has not been having any nausea or vomiting. She has not been having any diarrhea. She has not been having any cough or complaining of any shortness of breath. She has not been having any abdominal pain and he has not noted any focal neurologic deficits. The patient has not had any changes in her appetite, weight loss or any changes in urinary symptoms. The patient's son does state that the patient has urinary frequency but this is a chronic issue for her. He also states that she has urinary and sometimes bowel incontinence. These are also chronic issues. He states that she has very poor memory and has caregivers in the house when he is not home. On presentation to the emergency department the patient was afebrile and heart rate was within normal limits however she was hypotensive with a blood pressure of 65/46, tachypneic and hypoxic down to 90% on room air. The patient's blood pressure improved with IV fluid in the emergency department. Initially the patient was very drowsy after fluid she did become more alert but was still not back to her normal mental status. The patient underwent routine lab work which showed a normal lactic acid, normal electrolytes with an elevated creatinine that was near her baseline. The patient's troponin and BNP were within normal limits. The patient's WBC was 8.2 and hemoglobin was 11.1 which is near her baseline. The patient's urine analysis showed positive nitrite, small leukocyte esterase with 45 WBC and many bacteria. The patient's chest x-ray revealed mild hypoventilatory changes with bibasilar opacities favoring atelectasis. The patient also had cardiomegaly with no vascular congestion. Given the patient's presentation with altered mental status and hypotension she was admitted to the hospital for urinary tract infection and likely early sepsis. History - Past Medical History Cardiovascular: reports: Hypertension, High cholesterol Respiratory: reports: None Neuro: reports: Dementia, CVA, TIA Endocrine/Autoimmune: reports: HyPOthyroidism GI: reports: None DYSLEXIA TEACHER: reports: None : reports: None HEENT: reports: None Psych: reports: Depression, Anxiety Musculoskeletal: reports: None Derm: reports: None MRSA Hx?: No Other Past Medical History: Multiple sclerosis - Past Surgical History /DYSLEXIA TEACHER: reports: Hysterectomy - Family & Social History Family History: Mother: , CAD, Father: , CAD Living arrangement: At home Living Situation: With family, With caregiver(s) Social History Notes: The patient was born in [place] but has been living on [facility] for many years. She currently lives in her own home and her son lives with her. The patient's son moved in with his mom about 5 years ago when she started having dementia and she has had progressive dementia since. The patient has a caregiver that is in the house when the patient's son is not around. The son states that somebody is with her 24 hours a day. The patient is once and . Her a few years ago. The patient has a remote history of smoking but has not smoked for many years. She does not drink alcohol and does not use any illicit drugs. - Substance History Use: Uses substance without health or social issues: NONE - POLST Patient has POLST: No POLST Status: DNR Meds/Allgy - Home Medications Home Medications: Ambulatory Orders Medication Instructions Recorded Confirmed Aspirin Chewable [[place] 162 mg PO DAILY 01/24/13 10/29/17 Aspirin] Acyclovir 200 mg PO BID 03/22/13 10/29/17 Simvastatin 20 mg PO QPM 03/22/13 10/29/17 ALPRAZolam [Xanax] 0.5 mg PO QPM 02/17/16 10/29/17 Fluticasone [Flonase] 1 spray DARREN BID 02/17/16 10/29/17 Metoprolol Succinate [Toprol Xl] 25 mg PO DAILY 02/17/16 10/29/17 Quetiapine Fumarate [Seroquel] 50 mg PO DAILY 02/17/16 10/29/17 predniSONE [Deltasone] 5 mg PO DAILY 02/17/16 10/29/17 Rivastigmine [Exelon] 13.3 mg TOP Q24H 02/18/16 10/29/17 Levothyroxine [Synthroid] 50 mcg PO QDAC #0 tablet 02/19/16 10/29/17 Memantine [Namenda] 10 mg PO BID tablet 02/19/16 10/29/17 Alprazolam [Xanax] 0.5 mg PO DAILY PRN 02/06/17 10/29/17 Quetiapine Fumarate [Seroquel] 100 mg PO QPM 02/06/17 10/29/17 busPIRone [Buspar] 5 mg PO DAILY 02/06/17 10/29/17 Losartan [Cozaar] 50 mg PO DAILY #30 tablet 02/07/17 10/29/17 Mirabegron [Myrbetriq] 25 mg PO DAILY 10/29/17 10/29/17 - Allergies Allergies/Adverse Reactions: Allergies Allergy/AdvReac Type Severity Reaction Status Date / Time fluoxetine HCl * AdvReac Unknown Unknown Verified 10/03/14 15:47 [From Prozac] nitroglycerin AdvReac Unknown Unknown Verified 10/03/14 15:47 Sulfa (Sulfonamide AdvReac Unknown Unknown Verified 10/03/14 15:47 Antibiotics) sulfamethoxazole AdvReac Unknown Unknown Verified 10/03/14 15:47 [From Bactrim] trimethoprim [From Bactrim] AdvReac Unknown Unknown Verified 10/03/14 15:47 Review of Systems - Other Findings Other Findings: We were unable to obtain a reliable and conference of review of systems due to the patient's dementia and altered mental status. The review of systems that was provided was provided by the patient's son and all the pertinent positives and negatives are stated above in the HPI. Exam - Vital Signs Vital Signs: Vital Signs x48h BP 10/29/17 13:56 157/110 H - Physical Exam General Appearance: positive: Mild distress, Lethargic (The patient is arousable but appears quite lethargic and does not answer questions appropriately.), Other (Demented Poor memory) Eyes Bilateral: positive: Normal inspection, PERRL, EOMI, No lid inflammation, Conjunctivae nml, No scleral icterus ENT: positive: ENT inspection nml, Pharynx nml, Dry mucous membranes. negative : Purulent nasal drainage, Pharyngeal erythema, Oral lesions Neck: positive: Nml inspection, Thyroid nml, No JVD, Trachea midline. negative : Thyromegaly, Lymphadenopathy (R), Lymphadenopathy (L), Stiff neck, Carotid bruit, Tracheal deviation Respiratory: positive: Chest non-tender, No respiratory distress, Breath sounds nml. negative: Wheezes, Rales, Rhonchi Cardiovascular: positive: Regular rate & rhythm, No murmur, No gallop Peripheral Pulses: positive: 2+ Abdomen: positive: No organomegaly, Nml bowel sounds, No distention, Tenderness (Epigastric area and right middle quadrant). negative: Guarding, Rebound, Hepatomegaly Back: positive: Nml inspection. negative: CVA tenderness (R), CVA tenderness (L ) Skin: positive: Color nml, No rash, Warm Extremities: positive: Non-tender, Full ROM, Nml appearance, No pedal edema Neurologic/Psychiatric: positive: CN's nml (2-12), Motor nml, Sensation nml, Disoriented to place, Disoriented to time, Other (Decreased level of consciousness) Conclusion/Plan - Problem List (1) Encephalopathy acute Conclusion/Plan: Patient presented with altered mental status. She was difficult to arouse after she sat on the chair at a salon. On presentation she was hypotensive down to the 60s and appeared to have a urinary tract infection. Likely this is encephalopathy due to hypotension and poor perfusion to the brain in the setting of urinary tract infection and likely dehydration. We plan to treat the patient's urinary tract infection with IV fluids and await urine cultures. We plan to give her IV fluids and monitor her blood pressure. We believe that her mentation should improve with this treatment. We will also check a TSH and a morning cortisol level (2) Hypotension Conclusion/Plan: Patient presented with hypotension. The patient's blood pressure was in the 60 systolic. She appeared to be dehydrated and likely had early sepsis from her urinary tract infection. Patient seemed to respond well to IV fluids as blood pressure did improve. Along with blood pressure improving so did the patient's mentation. Plan: Patient will be continued on IV fluids We will hold patient's antihypertensives until blood pressure is improved. The patient does appear to be on chronic prednisone and her medication list therefore we will get a morning cortisol level Qualifiers: Hypotension type: unspecified hypotension type Qualified Code(s): I95.9 - Hypotension, unspecified (3) Urinary tract infection Conclusion/Plan: The patient presented with altered mental status and hypotension. Patient's lactic acid was normal and she did appear to have some acute kidney injury. The patient appeared dehydrated and did improve with IV fluids. The patient's urine analysis was weakly positive given that she presented in what appeared to be early sepsis the patient will be admitted for urinary tract infection. The patient will receive IV antibiotics with ceftriaxone and we will await urine cultures to de-escalate antibiotics. Qualifiers: Urinary tract infection type: acute cystitis Hematuria presence: without hematuria Qualified Code(s): N30.00 - Acute cystitis without hematuria (4) Acute on chronic renal failure Conclusion/Plan: Patient has history of CKD stage III but on presentation today her creatinine is elevated to 1.7 with a BUN of 22. This is likely secondary to dehydration from infection. The patient will be given IV fluids and will continue to monitor her creatinine it is possible that this could be patient's new baseline creatinine as well. We will avoid any nephrotoxic agents. Qualifiers: Chronic kidney disease stage: stage 3 (moderate) (5) Dementia Conclusion/Plan: Patient has a history of advanced dementia according to her son. She has very poor memory. Patient is on a number of medications for her dementia including Namenda and mirabegron. She also seems to be on a few sedatives such as Seroquel and Xanax. Given that the patient has decreased level of consciousness we will hold her sedatives for now. We do get concerned about patients with dementia were hospitalized for possibility of sundowning. We will monitor the patient closely and restart Seroquel if patient begins to show symptoms of sundowning. We will continually orient the patient and have plenty of light during the day Qualifiers: Dementia type: Alzheimer's disease (6) Hyperlipidemia Conclusion/Plan: Patient has history of hyperlipidemia she is on statin at home we will continue the patient's home dose of statin while she is hospitalized Stable Qualifiers: Hyperlipidemia type: unspecified Qualified Code(s): E78.5 - Hyperlipidemia , unspecified (7) Hypothyroidism Conclusion/Plan: Patient has history of hypothyroidism and is on Synthroid at home. We will check her TSH given her altered mental status and continue on her Synthroid dose. Qualifiers: Hypothyroidism type: unspecified Qualified Code(s): E03.9 - Hypothyroidism , unspecified - Lab Results Lab results reviewed: Yes Fish Bones: 10/29/17 11:19 10/29/17 11:19 Other Lab Results: Laboratory Results WBC 8.2 x10^3/uL (4.8-10.8) 10/29/17 11:19 RBC 3.28 10^6/uL (4.20-5.40) L 10/29/17 11:19 Hgb 11.1 g/dL (12.0-16.0) L 10/29/17 11:19 Hct 33.2 % (37.0-47.0) L 10/29/17 11:19 MCV 101.4 fL (81.0-99.0) H 10/29/17 11:19 MCH 34.0 pg (27.0-31.0) H 10/29/17 11:19 MCHC 33.5 g/dL (32.0-36.0) 10/29/17 11:19 RDW 15.8 % (12.0-15.0) H 10/29/17 11:19 Plt Count 225 10^3/uL (130-450) 10/29/17 11:19 MPV 9.2 fL (7.9-10.8) 10/29/17 11:19 Neut # 5.6 10^3/uL (1.5-6.6) 10/29/17 11:19 Lymph # 1.6 10^3/uL (1.5-3.5) 10/29/17 11:19 [place] # 0.7 10^3/uL (0.0-1.0) 10/29/17 11:19 Eos # 0.2 10^3/uL (0.0-0.7) 10/29/17 11:19 Baso # 0.1 10^3/uL (0.0-0.1) 10/29/17 11:19 Absolute Nucleated RBC 0.00 x10^3/uL 10/29/17 11:19 Nucleated RBC % 0.0 /100WBC 10/29/17 11:19 Sodium 140 mmol/L (135-145) 10/29/17 11:19 Potassium 3.8 mmol/L (3.5-5.0) 10/29/17 11:19 Chloride 105 mmol/L (101-111) 10/29/17 11:19 Carbon Dioxide 24 mmol/L (21-32) 10/29/17 11:19 Anion Gap 11.0 (6-13) 10/29/17 11:19 BUN 22 mg/dL (6-20) H 10/29/17 11:19 Creatinine 1.7 mg/dL (0.4-1.0) H 10/29/17 11:19 Estimated GFR (MDRD) 29 (>89) L 10/29/17 11:19 Glucose 151 mg/dL (70-100) H 10/29/17 11:19 Lactic Acid 2.1 mmol/L (0.5-2.2) 10/29/17 11:19 Calcium 8.1 mg/dL (8.5-10.3) L 10/29/17 11:19 Total Bilirubin 0.9 mg/dL (0.2-1.0) 10/29/17 11:19 AST 20 IU/L (10-42) 10/29/17 11:19 ALT 15 IU/L (10-60) 10/29/17 11:19 Alkaline Phosphatase 51 IU/L (42-121) 10/29/17 11:19 Troponin I < 0.04 ng/mL (<0.49) 10/29/17 11:19 B-Natriuretic Peptide 32 pg/mL (5-100) 10/29/17 11:19 Total Protein 6.0 g/dL (6.7-8.2) L 10/29/17 11:19 Albumin 3.0 g/dL (3.2-5.5) L 10/29/17 11:19 Globulin 3.0 g/dL (2.1-4.2) 10/29/17 11:19 Albumin/Globulin Ratio 1.0 (1.0-2.2) 10/29/17 11:19 Lipase 25 U/L (22-51) 10/29/17 11:19 Urine Color YELLOW 10/29/17 11:02 Urine Clarity CLOUDY (CLEAR) 10/29/17 11:02 Urine pH 6.0 PH (5.0-7.5) 10/29/17 11:02 Ur Specific [place] 1.020 (1.002-1.030) 10/29/17 11:02 Urine Protein NEGATIVE mg/dL (NEGATIVE) 10/29/17 11:02 Urine Glucose (UA) NEGATIVE mg/dL (NEGATIVE) 10/29/17 11:02 Urine Ketones NEGATIVE mg/dL (NEGATIVE) 10/29/17 11:02 Urine Occult Blood NEGATIVE (NEGATIVE) 10/29/17 11:02 Urine Nitrite POSITIVE (NEGATIVE) H 10/29/17 11:02 Urine Bilirubin NEGATIVE (NEGATIVE) 10/29/17 11:02 Urine Urobilinogen 0.2 (NORMAL) E.U./dL (NORMAL) 10/29/17 11:02 Ur Leukocyte Esterase SMALL (NEGATIVE) H 10/29/17 11:02 Urine RBC 0-5 /HPF (0-5) 10/29/17 11:02 Urine WBC 4-5 /HPF (0-5) 10/29/17 11:02 Ur Epithelial Cells RARE Renal Tubular /HPF (<= Few) 10/29/17 11:02 Ur Squamous Epith Cells RARE Squamous (<= Few) 10/29/17 11:02 Urine Bacteria Many /HPF (None Seen) H 10/29/17 11:02 Ur Microscopic Review INDICATED 10/29/17 11:02 Urine Culture Comments INDICATED 10/29/17 11:02 - Diagnostic Imaging Results Diagnostic Imaging Results: positive: Final report reviewed Diagnostic Imaging Results Comments: Chest x-ray Impression: 1. Mild hypoventilatory changes with bibasilar opacities favoring atelectasis. 2. Cardiomegaly. No vascular congestion. Core Measures - Anticipated LOS I expect patient to be DC'd or transferred within 96 hours.: Yes - DVT/VTE - Prophylaxis VTE/DVT Prophylaxis med ordered at admit?: Yes
[2017-10-29] MEDS: SACCHAROMYCES BOULARDII 250 MG CAPSULE PO SCH (17:51)
[2017-10-29] MEDS: SODIUM CHLORIDE FLUSH 0.9% 10 ML SYRINGE IVP SCH (17:51)
[2017-10-29 19:04] LABS: BASOPHILS % (AUTO) 0.4 %; EOSINOPHILS % (AUTO) 0.1 %; HGB - HEMOGLOBIN 11.3 g/dL (12.0-16.0); LYMPHOCYTES # (AUTO) 1.1 10^3/uL (1.5-3.5); LYMPHOCYTES % (AUTO) 9.4 %; MEAN CORPUSCULAR HGB CONC 32.4 g/dL (32.0-36.0); MEAN CORPUSCULAR VOLUME 101.9 fL (81.0-99.0); MEAN PLATELET VOLUME 8.3 fL (7.9-10.8); MONOCYTES # (AUTO) 0.8 10^3/uL (0.0-1.0); MONOCYTES % (AUTO) 6.6 %; NEUTROPHILS # (AUTO) 10.2 10^3/uL (1.5-6.6); NEUTROPHILS % (AUTO) 83.5 %; PLT - PLATELET COUNT 225 10^3/uL (130-450); RED BLOOD COUNT 3.43 10^6/uL (4.20-5.40); RED CELL DISTRIBUTION WIDTH 14.8 % (12.0-15.0); WHITE BLOOD COUNT 12.2 x10^3/uL (4.8-10.8)
[2017-10-29] MEDS: ATORVASTATIN 10 MG TABLET PO SCH (20:49)
[2017-10-29] MEDS: FLUTICASONE NASAL SPRAY NAS SCH (20:49)
[2017-10-29] MEDS: MEMANTINE 5 MG TABLET PO SCH (20:49)
[2017-10-29] MEDS: QUEtiapine 100 MG TABLET PO SCH (20:49)
[2017-10-30] MEDS: SODIUM CHLORIDE 0.9% 1,000 ML IV SCH (00:02)
[2017-10-30 00:30] LABS: BASOPHILS # (AUTO) 0.1 10^3/uL (0.0-0.1); BASOPHILS % (AUTO) 0.5 %; EOSINOPHILS # (AUTO) 0.1 10^3/uL (0.0-0.7); EOSINOPHILS % (AUTO) 0.5 %; HGB - HEMOGLOBIN 11.5 g/dL (12.0-16.0); LYMPHOCYTES # (AUTO) 1.8 10^3/uL (1.5-3.5); LYMPHOCYTES % (AUTO) 15.2 %; MEAN CORPUSCULAR HEMOGLOBIN 33.9 pg (27.0-31.0); MEAN CORPUSCULAR HGB CONC 33.6 g/dL (32.0-36.0); MEAN CORPUSCULAR VOLUME 100.9 fL (81.0-99.0); MEAN PLATELET VOLUME 8.2 fL (7.9-10.8); MONOCYTES % (AUTO) 8.2 %; NEUTROPHILS % (AUTO) 75.6 %; PLT - PLATELET COUNT 200 10^3/uL (130-450); RED CELL DISTRIBUTION WIDTH 14.6 % (12.0-15.0); WHITE BLOOD COUNT 11.9 x10^3/uL (4.8-10.8)
[2017-10-30] MEDS: SODIUM CHLORIDE FLUSH 0.9% 10 ML SYRINGE IVP SCH ×3 (01:48→21:57)
[2017-10-30 07:13] LABS: BASOPHILS % (AUTO) 0.3 %; EOSINOPHILS # (AUTO) 0.1 10^3/uL (0.0-0.7); EOSINOPHILS % (AUTO) 0.6 %; HGB - HEMOGLOBIN 11.5 g/dL (12.0-16.0); LYMPHOCYTES # (AUTO) 1.6 10^3/uL (1.5-3.5); LYMPHOCYTES % (AUTO) 14.3 %; MEAN CORPUSCULAR HEMOGLOBIN 33.9 pg (27.0-31.0); MEAN CORPUSCULAR HGB CONC 33.6 g/dL (32.0-36.0); MEAN PLATELET VOLUME 8.2 fL (7.9-10.8); MONOCYTES # (AUTO) 1.1 10^3/uL (0.0-1.0); MONOCYTES % (AUTO) 9.7 %; NEUTROPHILS # (AUTO) 8.6 10^3/uL (1.5-6.6); NEUTROPHILS % (AUTO) 75.1 %; PLT - PLATELET COUNT 201 10^3/uL (130-450); RED BLOOD COUNT 3.38 10^6/uL (4.20-5.40); RED CELL DISTRIBUTION WIDTH 14.8 % (12.0-15.0); WHITE BLOOD COUNT 11.5 x10^3/uL (4.8-10.8)
[2017-10-30 07:24] LABS: ALBUMIN 2.9 g/dL (3.2-5.5); ALBUMIN/GLOBULIN RATIO 0.9 (1.0-2.2); BILIRUBIN,TOTAL 1.3 mg/dL (0.2-1.0); CALCIUM 7.9 mg/dL (8.5-10.3); CREATININE 1.4 mg/dL (0.4-1.0); TOTAL PROTEIN 6.2 g/dL (6.7-8.2)
[2017-10-30] MEDS: POLYETHYLENE GLYCOL 3350 17 GM PACKET PO SCH (07:43)
[2017-10-30 08:04] LABS: HEMOGLOBIN A1C 0.64 g/dL
[2017-10-30] MEDS ORDERED: cefTRIAXone 2 GM in SODIUM CHLORIDE 0.9% MINIBAG 100 ML IV SCH (09:00)
[2017-10-30] MEDS ORDERED: SODIUM CHLORIDE 0.9% MINIBAG 100 ML IV ONE (10:21)
[2017-10-30] MEDS: ASPIRIN CHEW 81 MG TABLET PO SCH (10:39)
[2017-10-30] MEDS: LEVOTHYROXINE 25 MCG TABLET PO SCH (10:40)
[2017-10-30] MEDS: SACCHAROMYCES BOULARDII 250 MG CAPSULE PO SCH ×2 (10:40→17:41)
[2017-10-30] MEDS: LOSARTAN 50 MG TABLET PO SCH (10:40)
[2017-10-30] MEDS: busPIRone 5 MG TABLET PO SCH (10:40)
[2017-10-30] MEDS: predniSONE 5 MG TABLET PO SCH (10:40)
[2017-10-30] MEDS: METOPROLOL SUCCINATE 25 MG TABLET PO SCH (10:41)
[2017-10-30] MEDS: FAMOTIDINE 20 MG TABLET PO SCH (10:41)
[2017-10-30] MEDS: QUEtiapine 25 MG TABLET PO SCH (10:41)
[2017-10-30] MEDS: MEMANTINE 5 MG TABLET PO SCH ×2 (10:41→20:48)
[2017-10-30] MEDS: ENOXAPARIN 30 MG/0.3 ML SYRINGE SUBQ SCH (10:42)
[2017-10-30] MEDS: FLUTICASONE NASAL SPRAY NAS SCH ×2 (10:42→21:58)
[2017-10-30] MEDS: Mirabegron [Myrbetriq] 25 MG PO SCH (10:43)
[2017-10-30] MEDS: cefTRIAXone 2 GM in SODIUM CHLORIDE 0.9% MINIBAG 100 ML IV SCH (10:46)
[2017-10-30] MEDS: RIVASTIGMINE 13.3 MG TOP SCH (13:00)
[2017-10-30] MEDS ORDERED: SODIUM CHLORIDE 0.9% 1,000 ML IV SCH (13:00)
--- NOTE | 2017-10-30 17:59 | PROVIDER PROGRESS NOTE ---
Assessment/Plan - Problem List (1) Encephalopathy acute Assessment/Plan: Patient presented with altered mental status. She was difficult to arouse after she sat on the chair at a salon. On presentation she was hypotensive down to the 60s and appeared to have a urinary tract infection. Likely this is encephalopathy due to hypotension and poor perfusion to the brain in the setting of urinary tract infection and likely dehydration. Patient improved this am She does have dementia but is much more alert and awake this am TSH normal Appears to be resolving (2) Hypotension Conclusion/Plan: Patient presented with hypotension. The patient's blood pressure was in the 60 systolic. She appeared to be dehydrated and likely had early sepsis from her urinary tract infection. Patient seemed to respond well to IV fluids as blood pressure did improve. Along with blood pressure improving so did the patient's mentation. Given IVFs, held antihypertensives BP is improved this am Cortisol level normal Resolving Qualifiers: Hypotension type: unspecified hypotension type Qualified Code(s): I95.9 - Hypotension, unspecified (3) Urinary tract infection Conclusion/Plan: The patient presented with altered mental status and hypotension. Patient's lactic acid was normal and she did appear to have some acute kidney injury. The patient appeared dehydrated and did improve with IV fluids. The patient's urine analysis was weakly positive given that she presented in what appeared to be early sepsis the patient will be admitted for urinary tract infection. Improving Ceftriaxone day 2 Urine cx growing e coli will await susceptibilities and then de-escalate abx Qualifiers: Urinary tract infection type: acute cystitis Hematuria presence: without hematuria Qualified Code(s): N30.00 - Acute cystitis without hematuria (4) Acute on chronic renal failure Conclusion/Plan: Patient has history of CKD stage III but on presentation her creatinine is elevated to 1.7 with a BUN of 22. This is likely secondary to dehydration from infection. We will avoid any nephrotoxic agents. Given IVFs and wash barrel leader improved to 1.4 this am Qualifiers: Chronic kidney disease stage: stage 3 (moderate) (5) Dementia Conclusion/Plan: Patient has a history of advanced dementia according to her son. She has very poor memory. Patient is on a number of medications for her dementia including Namenda and mirabegron. She also seems to be on a few sedatives such as Seroquel and Xanax. Given that the patient has decreased level of consciousness we will hold her sedatives for now. We do get concerned about patients with dementia were hospitalized for possibility of sundowning. We will monitor the patient closely and restart Seroquel if patient begins to show symptoms of sundowning. We will continually orient the patient and have plenty of light during the day Qualifiers: Dementia type: Alzheimer's disease (6) Hyperlipidemia Conclusion/Plan: Patient has history of hyperlipidemia she is on statin at home we will continue the patient's home dose of statin while she is hospitalized Stable Qualifiers: Hyperlipidemia type: unspecified Qualified Code(s): E78.5 - Hyperlipidemia , unspecified (7) Hypothyroidism Conclusion/Plan: Patient has history of hypothyroidism and is on Synthroid at home. C Continue on her Synthroid dose. TSH normal Qualifiers: Hypothyroidism type: unspecified Qualified Code(s): E03.9 - Hypothyroidism , unspecified - Current Meds Current Meds: Current Medications Generic Name Dose Route Start Last Admin Trade Name Freq PRN Reason Stop Dose Admin Aspirin 162 mg 10/30/17 09:00 10/30/17 10:39 [facility] [place] Aspirin PO 162 mg DAILY CHERYL Administration Atorvastatin Calcium 10 mg 10/29/17 21:00 10/29/17 20:49 Lipitor PO 10 mg QPM CHERYL Administration Buspirone HCl 5 mg 10/30/17 09:00 10/30/17 10:40 Buspar PO 5 mg DAILY CHERYL Administration Enoxaparin Sodium 30 mg 10/30/17 09:00 10/30/17 10:42 Lovenox SUBQ 30 mg DAILY CHERYL Administration Famotidine 20 mg 10/30/17 09:00 10/30/17 10:41 Pepcid PO 20 mg DAILY CHERYL Administration Fluticasone Propionate 1 sprays 10/29/17 21:00 10/30/17 10:42 Flonase DARREN 2 spr BID CHERYL Administration Ceftriaxone Sodium 2 gm/ 100 mls @ 200 mls/hr 10/30/17 11:00 10/30/17 10:46 Sodium Chloride IV Not Given Q24H CHERYL Sodium Chloride 1,000 mls @ 100 mls/hr 10/30/17 13:00 10/30/17 13:04 Normal Saline 0.9% IV 10/30/17 22:59 100 mls/hr .Q10H CHERYL Administration Levothyroxine Sodium 50 mcg 10/30/17 07:00 10/30/17 10:40 Synthroid PO 50 mcg QDAC CHERYL Administration Losartan Potassium 50 mg 10/30/17 09:00 10/30/17 10:40 Cozaar PO 50 mg DAILY CHERYL Administration Memantine 10 mg 10/29/17 21:00 10/30/17 10:41 Namenda PO 10 mg BID CHERYL Administration Metoprolol Succinate 25 mg 10/30/17 09:00 10/30/17 10:41 Toprol Xl PO 25 mg DAILY CHERYL Administration Mirabegron [ 1 each 10/30/17 09:00 10/30/17 10:43 Myrbetriq] 25 Mg PO 1 each DAILY CHERYL Administration Rivastigmine [Exelon 1 each 10/29/17 13:00 10/30/17 13:00 ] 13.3 Mg Patch TOP 1 each Q24H CHERYL Administration Polyethylene Glycol 17 gm 10/30/17 09:00 10/30/17 07:43 Miralax PO Not Given DAILY CHERYL Prednisone 5 mg 10/30/17 09:00 10/30/17 10:40 Deltasone PO 5 mg DAILY CHERYL Administration Quetiapine Fumarate 50 mg 10/30/17 09:00 10/30/17 10:41 Seroquel PO 50 mg DAILY CHERYL Administration Quetiapine Fumarate 100 mg 10/29/17 21:00 10/29/17 20:49 Seroquel PO 100 mg QPM CHERYL Administration Saccharomyces Boulardii 250 mg 10/29/17 17:00 10/30/17 17:41 Florastor PO 250 mg BIDWM CHERYL Administration Sodium Chloride 10 ml 10/29/17 17:00 10/30/17 10:46 Normal Saline Flush 0.9% IVP Not Given 0100,0900,1700 CHERYL - Lab Result Lab results reviewed: Yes Fish Bone Diagrams: 10/30/17 06:58 10/30/17 06:58 - Diagnostic Imaging Results Diagnostic Imaging Results: Final report reviewed - Additional Planning Condition/Complexity: Guarded My Orders: My Active Orders 10/29/17 18:20 CULTURE, STOOL [RM] Urgent 10/30/17 11:00 cefTRIAXone [Rocephin] 2 gm Sodium Chloride 0.9% Minibag [Normal Saline 0.9% Minibag] 100 ml IV Q24H 10/30/17 13:00 Sodium Chloride 0.9% [Normal Saline 0.9%] 1,000 ml IV 100 mls/hr Plan Discussed with:: Patient Time Spent: 31-60 minutes Subjective - Subjective Patient Reports: Resting Comfortably, No Complaints, Other (Patient was alert and awake this am. She stated she feels well. No fevers overnight. She did have some mucusy stool with specs of blood but her cultures were negative and no diarrhea today. She is pleasently demented.) Nursing Reports: No Complaints Objective Vital Signs: Vital Signs - 24 hr 10/29/17 10/30/17 10/30/17 23:56 08:00 16:00 Temperature 36.4 C L 37.0 C 36.3 C L Heart Rate [ 99 105 H 71 Brachial] Respiratory 20 20 24 Rate Blood Pressure 137/50 H 127/61 117/67 [Right Brachial artery] O2 Saturation 95 96 95 Oxygen O2 Source Nasal cannula I&O (Last 24 Hrs): Intake and Output Totals x24h 10/28/17 10/29/17 10/30/17 23:59 23:59 23:59 Intake Total 2222 1540 Output Total 350 775 Balance 1872 765 General: Alert, Cooperative, Other (Oriented to self) HEENT: Atraumatic, PERRLA, EOMI, Other (dry mucus membranes) Neck: Supple, No JVD, No thyromegaly, +2 carotid pulse wo bruit, No LAD Lymphatic: no adenopathy Neuro: Alert, Non Focal, CN 2-12 Grossly Intact, Other (Oriented x1) Cardiovascular: Regular rate, Normal S1, Normal S2, No murmurs Respiratory: Chest non-tender, No respiratory distress, Breath sounds nml Abdomen: Normal bowel sounds, Soft, No tenderness, No hepatospenomegaly Extremities: No clubbing, No cyanosis, No edema, Normal pulses, No tenderness/ swelling Skin: No rashes, No breakdown - Results Results: Laboratory Results WBC 11.5 x10^3/uL (4.8-10.8) H 10/30/17 06:58 RBC 3.38 10^6/uL (4.20-5.40) L 10/30/17 06:58 Hgb 11.5 g/dL (12.0-16.0) L 10/30/17 06:58 Hct 34.2 % (37.0-47.0) L 10/30/17 06:58 MCV 101.0 fL (81.0-99.0) H 10/30/17 06:58 MCH 33.9 pg (27.0-31.0) H 10/30/17 06:58 MCHC 33.6 g/dL (32.0-36.0) 10/30/17 06:58 RDW 14.8 % (12.0-15.0) 10/30/17 06:58 Plt Count 201 10^3/uL (130-450) 10/30/17 06:58 MPV 8.2 fL (7.9-10.8) 10/30/17 06:58 Neut # 8.6 10^3/uL (1.5-6.6) H 10/30/17 06:58 Lymph # 1.6 10^3/uL (1.5-3.5) 10/30/17 06:58 [place] # 1.1 10^3/uL (0.0-1.0) H 10/30/17 06:58 Eos # 0.1 10^3/uL (0.0-0.7) 10/30/17 06:58 Baso # 0.0 10^3/uL (0.0-0.1) 10/30/17 06:58 Absolute Nucleated RBC 0.00 x10^3/uL 10/30/17 06:58 Nucleated RBC % 0.0 /100WBC 10/30/17 06:58 Sodium 136 mmol/L (135-145) 10/30/17 06:58 Potassium 3.9 mmol/L (3.5-5.0) 10/30/17 06:58 Chloride 106 mmol/L (101-111) 10/30/17 06:58 Carbon Dioxide 21 mmol/L (21-32) 10/30/17 06:58 Anion Gap 9.0 (6-13) 10/30/17 06:58 BUN 19 mg/dL (6-20) 10/30/17 06:58 Creatinine 1.4 mg/dL (0.4-1.0) H 10/30/17 06:58 Estimated GFR (MDRD) 36 (>89) L 05/07/18 06:58 Glucose 144 mg/dL (70-100) H 10/30/17 06:58 Glycated Hemoglobin 7.0 % (4.6-6.2) H 10/30/17 06:58 Estim Average Glucose 154 (70-100) H 10/30/17 06:58 Lactic Acid 1.2 mmol/L (0.5-2.2) 10/30/17 06:58 Calcium 7.9 mg/dL (8.5-10.3) L 10/30/17 06:58 Total Bilirubin 1.3 mg/dL (0.2-1.0) H 10/30/17 06:58 AST 17 IU/L (10-42) 10/30/17 06:58 ALT 15 IU/L (10-60) 10/30/17 06:58 Alkaline Phosphatase 53 IU/L (42-121) 10/30/17 06:58 Troponin I < 0.04 ng/mL (<0.49) 10/29/17 11:19 B-Natriuretic Peptide 32 pg/mL (5-100) 10/29/17 11:19 Total Protein 6.2 g/dL (6.7-8.2) L 10/30/17 06:58 Albumin 2.9 g/dL (3.2-5.5) L 10/30/17 06:58 Globulin 3.3 g/dL (2.1-4.2) 10/30/17 06:58 Albumin/Globulin Ratio 0.9 (1.0-2.2) L 10/30/17 06:58 Lipase 25 U/L (22-51) 10/29/17 11:19 TSH 0.95 uIU/mL (0.34-5.60) 10/30/17 06:58 Cortisol AM Sample 13.2 ug/dL 10/30/17 08:00 Urine Color YELLOW 10/29/17 11:02 Urine Clarity CLOUDY (CLEAR) 10/29/17 11:02 Urine pH 6.0 PH (5.0-7.5) 10/29/17 11:02 Ur Specific [place] 1.020 (1.002-1.030) 10/29/17 11:02 Urine Protein NEGATIVE mg/dL (NEGATIVE) 10/29/17 11:02 Urine Glucose (UA) NEGATIVE mg/dL (NEGATIVE) 10/29/17 11:02 Urine Ketones NEGATIVE mg/dL (NEGATIVE) 10/29/17 11:02 Urine Occult Blood NEGATIVE (NEGATIVE) 10/29/17 11:02 Urine Nitrite POSITIVE (NEGATIVE) H 10/29/17 11:02 Urine Bilirubin NEGATIVE (NEGATIVE) 10/29/17 11:02 Urine Urobilinogen 0.2 (NORMAL) E.U./dL (NORMAL) 10/29/17 11:02 Ur Leukocyte Esterase SMALL (NEGATIVE) H 10/29/17 11:02 Urine RBC 0-5 /HPF (0-5) 10/29/17 11:02 Urine WBC 4-5 /HPF (0-5) 10/29/17 11:02 Ur Epithelial Cells RARE Renal Tubular /HPF (<= Few) 10/29/17 11:02 Ur Squamous Epith Cells RARE Squamous (<= Few) 10/29/17 11:02 Urine Bacteria Many /HPF (None Seen) H 10/29/17 11:02 Ur Microscopic Review INDICATED 10/29/17 11:02 Urine Culture Comments INDICATED 10/29/17 11:02 Stool Leukocytes, Qual POSITIVE (Negative) 10/29/17 18:20 - Procedures Procedures: Procedures CLOSURE SKIN & SUBCUTANEOUS NEC (01/24/13) ABX Reporting Has patient been on IV antibiotics over the past 48 hours?: Yes
[2017-10-30] MEDS: QUEtiapine 100 MG TABLET PO SCH (20:40)
[2017-10-30] MEDS: ATORVASTATIN 10 MG TABLET PO SCH (20:40)
[2017-10-31] MEDS: SODIUM CHLORIDE FLUSH 0.9% 10 ML SYRINGE IVP SCH ×3 (00:26→19:11)
[2017-10-31 05:52] LABS: BASOPHILS % (AUTO) 0.4 %; EOSINOPHILS # (AUTO) 0.3 10^3/uL (0.0-0.7); EOSINOPHILS % (AUTO) 2.6 %; HGB - HEMOGLOBIN 10.5 g/dL (12.0-16.0); LYMPHOCYTES # (AUTO) 1.8 10^3/uL (1.5-3.5); LYMPHOCYTES % (AUTO) 16.1 %; MEAN CORPUSCULAR HGB CONC 32.3 g/dL (32.0-36.0); MEAN PLATELET VOLUME 8.3 fL (7.9-10.8); MONOCYTES # (AUTO) 0.9 10^3/uL (0.0-1.0); MONOCYTES % (AUTO) 8.3 %; NEUTROPHILS # (AUTO) 8.2 10^3/uL (1.5-6.6); NEUTROPHILS % (AUTO) 72.6 %; PLT - PLATELET COUNT 204 10^3/uL (130-450); RED BLOOD COUNT 3.19 10^6/uL (4.20-5.40); RED CELL DISTRIBUTION WIDTH 14.8 % (12.0-15.0); WHITE BLOOD COUNT 11.2 x10^3/uL (4.8-10.8)
[2017-10-31 06:05] LABS: ALBUMIN 2.8 g/dL (3.2-5.5); ALBUMIN/GLOBULIN RATIO 0.9 (1.0-2.2); BILIRUBIN,TOTAL 1.1 mg/dL (0.2-1.0); CALCIUM 8.3 mg/dL (8.5-10.3); CREATININE 1.2 mg/dL (0.4-1.0); TOTAL PROTEIN 5.9 g/dL (6.7-8.2)
[2017-10-31] MEDS: LEVOTHYROXINE 25 MCG TABLET PO SCH (06:43)
[2017-10-31] MEDS ORDERED: cefTRIAXone 2 GM in SODIUM CHLORIDE 0.9% MINIBAG 100 ML IV SCH (09:00)
[2017-10-31] MEDS: FAMOTIDINE 20 MG TABLET PO SCH (09:09)
[2017-10-31] MEDS: METOPROLOL SUCCINATE 25 MG TABLET PO SCH (09:09)
[2017-10-31] MEDS: MEMANTINE 5 MG TABLET PO SCH (09:09)
[2017-10-31] MEDS: busPIRone 5 MG TABLET PO SCH (09:09)
[2017-10-31] MEDS: SACCHAROMYCES BOULARDII 250 MG CAPSULE PO SCH ×2 (09:09→18:53)
[2017-10-31] MEDS: ASPIRIN CHEW 81 MG TABLET PO SCH (09:09)
[2017-10-31] MEDS: LOSARTAN 50 MG TABLET PO SCH (09:09)
[2017-10-31] MEDS: QUEtiapine 25 MG TABLET PO SCH (09:10)
[2017-10-31] MEDS: predniSONE 5 MG TABLET PO SCH (09:10)
[2017-10-31] MEDS: FLUTICASONE NASAL SPRAY NAS SCH ×2 (09:11→21:06)
[2017-10-31] MEDS: ENOXAPARIN 30 MG/0.3 ML SYRINGE SUBQ SCH (09:11)
[2017-10-31] MEDS: POLYETHYLENE GLYCOL 3350 17 GM PACKET PO SCH (09:12)
[2017-10-31] MEDS: Mirabegron [Myrbetriq] 25 MG PO SCH (09:12)
[2017-10-31] MEDS: cefTRIAXone 2 GM in SODIUM CHLORIDE 0.9% MINIBAG 100 ML IV SCH (11:11)
--- NOTE | 2017-10-31 13:39 | PROVIDER PROGRESS NOTE ---
Assessment/Plan - Problem List (1) Urinary tract infection Qualifiers: Urinary tract infection type: acute cystitis Hematuria presence: without hematuria Qualified Code(s): N30.00 - Acute cystitis without hematuria Assessment/Plan: Ecoli growing, which was sensative to iv Ceftriaxone. Will transition to po Cipro. Continue antibiotics for a 7-10 day course. (2) Sepsis associated hypotension Assessment/Plan: Pt still has borderline low BP. Continue iv hydration, treat infection and diet. (3) Acute on chronic renal failure Qualifiers: Chronic kidney disease stage: stage 3 (moderate) Assessment/Plan: Creat improving with rehydration and treatment of UTI. (4) Dementia Qualifiers: Dementia type: Alzheimer's disease Assessment/Plan: Stable. Continue Namenda. Continue Seroquel for . (5) Multiple sclerosis Assessment/Plan: Stable (6) Hypothyroidism Qualifiers: Hypothyroidism type: unspecified Qualified Code(s): E03.9 - Hypothyroidism , unspecified Assessment/Plan: Continue meds - Current Meds Current Meds: Current Medications Generic Name Dose Route Start Last Admin Trade Name Lauren PRN Reason Stop Dose Admin Aspirin 162 mg 10/30/17 09:00 10/31/17 09:09 [facility] [place] Aspirin PO 162 mg DAILY CHERYL Administration Atorvastatin Calcium 10 mg 10/29/17 21:00 10/30/17 20:40 Lipitor PO 10 mg QPM CHERYL Administration Buspirone HCl 5 mg 10/30/17 09:00 10/31/17 09:09 Buspar PO 5 mg DAILY CHERYL Administration Enoxaparin Sodium 30 mg 10/30/17 09:00 10/31/17 09:11 Lovenox SUBQ 30 mg DAILY CHERYL Administration Famotidine 20 mg 10/30/17 09:00 10/31/17 09:09 Pepcid PO 20 mg DAILY CHERYL Administration Fluticasone Propionate 1 sprays 10/29/17 21:00 10/31/17 09:11 Flonase DARREN 1 spr BID CHERYL Administration Ceftriaxone Sodium 2 gm/ 100 mls @ 200 mls/hr 10/30/17 11:00 10/31/17 12:10 Sodium Chloride IV Infused Q24H CHERYL Infusion Levothyroxine Sodium 50 mcg 10/30/17 07:00 10/31/17 06:43 Synthroid PO Not Given QDAC CHERYL Losartan Potassium 50 mg 10/30/17 09:00 10/31/17 09:09 Cozaar PO 50 mg DAILY CHERYL Administration Memantine 10 mg 10/29/17 21:00 10/31/17 09:09 Namenda PO 10 mg BID CHERYL Administration Metoprolol Succinate 25 mg 10/30/17 09:00 10/31/17 09:09 Toprol Xl PO 25 mg DAILY CHERYL Administration Mirabegron [ 1 each 10/30/17 09:00 10/31/17 09:12 Myrbetriq] 25 Mg PO 1 each DAILY CHERYL Administration Rivastigmine [Exelon 1 each 10/29/17 13:00 10/30/17 13:00 ] 13.3 Mg Patch TOP 1 each Q24H CHERYL Administration Polyethylene Glycol 17 gm 10/30/17 09:00 10/31/17 09:12 Miralax PO Not Given DAILY CHERYL Prednisone 5 mg 10/30/17 09:00 10/31/17 09:10 Deltasone PO 5 mg DAILY CHERYL Administration Quetiapine Fumarate 50 mg 10/30/17 09:00 10/31/17 09:10 Seroquel PO 50 mg DAILY CHERYL Administration Quetiapine Fumarate 100 mg 10/29/17 21:00 10/30/17 20:40 Seroquel PO 100 mg QPM CHERYL Administration Saccharomyces Boulardii 250 mg 10/29/17 17:00 10/31/17 09:09 Florastor PO 250 mg BIDWM CHERYL Administration Sodium Chloride 10 ml 10/29/17 17:00 10/31/17 09:12 Normal Saline Flush 0.9% IVP 10 ml 0100,0900,1700 CHERYL Administration - Lab Result Fish Bone Diagrams: 10/31/17 05:30 10/31/17 05:30 Subjective - Subjective Patient Reports: Resting Comfortably, Fatigue Nursing Reports: No Complaints, Other (Sleeping, awakens appropriately when aroused.) Objective Vital Signs: Vital Signs - 24 hr 10/30/17 10/31/17 10/31/17 16:00 00:00 07:36 Temperature 36.3 C L 36.7 C 36.6 C Heart Rate [ 71 81 93 Brachial] Respiratory 24 20 16 Rate Blood Pressure 117/67 139/67 H 137/95 H [Right Brachial artery] O2 Saturation 95 96 94 Oxygen O2 Source Nasal cannula I&O (Last 24 Hrs): Intake and Output Totals x24h 10/29/17 10/30/17 10/31/17 23:59 23:59 23:59 Intake Total 2222 2700 450 Output Total 350 1750 550 Balance 1872 950 -100 General: Other (Fatigued, awakens when spoken to.) HEENT: Mucous membr. moist/pink Neck: Supple, No JVD Neuro: Non Focal Cardiovascular: Regular rate, No murmurs Respiratory: No respiratory distress Abdomen: Soft Extremities: No edema - Results Results: Laboratory Results WBC 11.2 x10^3/uL (4.8-10.8) H 10/31/17 05:30 RBC 3.19 10^6/uL (4.20-5.40) L 10/31/17 05:30 Hgb 10.5 g/dL (12.0-16.0) L 10/31/17 05:30 Hct 32.5 % (37.0-47.0) L 10/31/17 05:30 MCV 102.0 fL (81.0-99.0) H 10/31/17 05:30 MCH 33.0 pg (27.0-31.0) H 10/31/17 05:30 MCHC 32.3 g/dL (32.0-36.0) 10/31/17 05:30 RDW 14.8 % (12.0-15.0) 10/31/17 05:30 Plt Count 204 10^3/uL (130-450) 10/31/17 05:30 MPV 8.3 fL (7.9-10.8) 10/31/17 05:30 Neut # 8.2 10^3/uL (1.5-6.6) H 10/31/17 05:30 Lymph # 1.8 10^3/uL (1.5-3.5) 10/31/17 05:30 [place] # 0.9 10^3/uL (0.0-1.0) 10/31/17 05:30 Eos # 0.3 10^3/uL (0.0-0.7) 10/31/17 05:30 Baso # 0.0 10^3/uL (0.0-0.1) 10/31/17 05:30 Absolute Nucleated RBC 0.01 x10^3/uL 10/31/17 05:30 Nucleated RBC % 0.1 /100WBC 10/31/17 05:30 Sodium 141 mmol/L (135-145) 10/31/17 05:30 Potassium 3.8 mmol/L (3.5-5.0) 10/31/17 05:30 Chloride 111 mmol/L (101-111) 10/31/17 05:30 Carbon Dioxide 22 mmol/L (21-32) 10/31/17 05:30 Anion Gap 8.0 (6-13) 10/31/17 05:30 BUN 15 mg/dL (6-20) 10/31/17 05:30 Creatinine 1.2 mg/dL (0.4-1.0) H 10/31/17 05:30 Estimated GFR (MDRD) 43 (>89) L 10/31/17 05:30 Glucose 115 mg/dL (70-100) H 10/31/17 05:30 Glycated Hemoglobin 7.0 % (4.6-6.2) H 10/30/17 06:58 Estim Average Glucose 154 (70-100) H 10/30/17 06:58 Lactic Acid 1.2 mmol/L (0.5-2.2) 10/30/17 06:58 Calcium 8.3 mg/dL (8.5-10.3) L 10/31/17 05:30 Total Bilirubin 1.1 mg/dL (0.2-1.0) H 10/31/17 05:30 AST 16 IU/L (10-42) 10/31/17 05:30 ALT 14 IU/L (10-60) 10/31/17 05:30 Alkaline Phosphatase 49 IU/L (42-121) 10/31/17 05:30 Troponin I < 0.04 ng/mL (<0.49) 10/29/17 11:19 B-Natriuretic Peptide 32 pg/mL (5-100) 10/29/17 11:19 Total Protein 5.9 g/dL (6.7-8.2) L 10/31/17 05:30 Albumin 2.8 g/dL (3.2-5.5) L 10/31/17 05:30 Globulin 3.1 g/dL (2.1-4.2) 10/31/17 05:30 Albumin/Globulin Ratio 0.9 (1.0-2.2) L 10/31/17 05:30 Lipase 25 U/L (22-51) 10/29/17 11:19 TSH 0.95 uIU/mL (0.34-5.60) 10/30/17 06:58 Cortisol AM Sample 13.2 ug/dL 10/30/17 08:00 Urine Color YELLOW 10/29/17 11:02 Urine Clarity CLOUDY (CLEAR) 10/29/17 11:02 Urine pH 6.0 PH (5.0-7.5) 10/29/17 11:02 Ur Specific [place] 1.020 (1.002-1.030) 10/29/17 11:02 Urine Protein NEGATIVE mg/dL (NEGATIVE) 10/29/17 11:02 Urine Glucose (UA) NEGATIVE mg/dL (NEGATIVE) 10/29/17 11:02 Urine Ketones NEGATIVE mg/dL (NEGATIVE) 10/29/17 11:02 Urine Occult Blood NEGATIVE (NEGATIVE) 10/29/17 11:02 Urine Nitrite POSITIVE (NEGATIVE) H 10/29/17 11:02 Urine Bilirubin NEGATIVE (NEGATIVE) 10/29/17 11:02 Urine Urobilinogen 0.2 (NORMAL) E.U./dL (NORMAL) 10/29/17 11:02 Ur Leukocyte Esterase SMALL (NEGATIVE) H 10/29/17 11:02 Urine RBC 0-5 /HPF (0-5) 10/29/17 11:02 Urine WBC 4-5 /HPF (0-5) 10/29/17 11:02 Ur Epithelial Cells RARE Renal Tubular /HPF (<= Few) 10/29/17 11:02 Ur Squamous Epith Cells RARE Squamous (<= Few) 10/29/17 11:02 Urine Bacteria Many /HPF (None Seen) H 10/29/17 11:02 Ur Microscopic Review INDICATED 10/29/17 11:02 Urine Culture Comments INDICATED 10/29/17 11:02 Stool Leukocytes, Qual POSITIVE (Negative) 10/29/17 18:20 - Procedures Procedures: Procedures CLOSURE SKIN & SUBCUTANEOUS NEC (01/24/13) ABX Reporting Has patient been on IV antibiotics over the past 48 hours?: Yes
[2017-10-31] MEDS: RIVASTIGMINE 13.3 MG TOP SCH (15:04)
[2017-10-31 18:35] LABS: ABG BASE EXCESS -3.8 mmol/L (-2.0-3.0); ABG HCO3 21.1 mmol/L (22.0-26.0); ABG OXYGEN SATURATION 95 % (94-98); ABG PCO2 38 mmHg (34-45); ABG PH 7.36 (7.35-7.45); ABG PO2 76 mmHg (80-100); ABG TCO2 22.3 MMOL/L (21.0-29.0)
[2017-10-31 18:36] LABS: ALLEN TEST POSITIVE
--- NOTE | 2017-10-31 19:07 | XRAY Report ---
EXAM: CHEST RADIOGRAPHY EXAM DATE: 10/31/2017 06:07 PM. CLINICAL HISTORY: Cough and possible mucous plug. COMPARISON: Chest 10/29/2017. TECHNIQUE: 1 view. FINDINGS: Lungs/Pleura: Mild diffuse bilateral airspace disease with pulmonary venous congestion, could represe nt mild pulmonary edema, unchanged. Continued low lung volumes. Mild right base airspace disease, inc reased, could be atelectasis, pneumonia or focal edema. No pleural effusion or pneumothorax. Mediastinum: Within exam limitations, the cardiomediastinal contour is normal. IMPRESSION: Mild diffuse bilateral airspace disease with pulmonary venous congestion, could represent mild pulmonary edema, unchanged. Continued low lung volumes. Mild right base airspace disease, incre ased, could be atelectasis, pneumonia or focal edema. [facility] Referring Provider Line: [phone] SITE ID: [id number]
--- NOTE | 2017-10-31 19:07 | XRAY Preliminary Report ---
Exam: XR CHEST 1 VIEW X-RAY IMPRESSION: Mild diffuse bilateral airspace disease with pulmonary venous congestion, could represent mild pulmonary edema, unchanged. Continued low lung volumes. Mild right base airspace disease, incre ased, could be atelectasis, pneumonia or focal edema. [facility] SITE ID: [id number]
[2017-10-31] MEDS: SODIUM CHLORIDE FLUSH 0.9% 10 ML SYRINGE IVP PRN ×2 (19:11→20:18)
[2017-10-31] MEDS ORDERED: FUROSEMIDE 40 MG/4 ML VIAL IVP SCH (19:16)
[2017-10-31] MEDS: guaiFENesin 600 MG TABLET PO SCH ×2 (19:36→21:06)
[2017-10-31] MEDS ORDERED: IOPAMIDOL-300 100 ML VIAL ONE (19:39)
[2017-10-31] MEDS ORDERED: IOPAMIDOL-300 100 ML VIAL IVP ONE ×2 (19:50→20:12)
[2017-10-31] MEDS ORDERED: NITROGLYCERIN 2% PASTE TOP SCH (20:00)
[2017-10-31] MEDS ORDERED: LABETALOL 20 MG/4 ML SYRINGE IVP ONE (20:07)
--- NOTE | 2017-10-31 20:12 | CT Report ---
EXAM: CT HEAD EXAM DATE: 10/31/2017 07:51 PM. CLINICAL HISTORY: Somnolence. COMPARISON: 02/06/2017. TECHNIQUE: Multiaxial CT images were obtained from the foramen magnum to the vertex. Reformats: Coron al. IV contrast: None. In accordance with CT protocol optimization, one or more of the following dose reduction techniques w ere utilized for this exam: automated exposure control, adjustment of mA and/or KV based on patient s ize, or use of iterative reconstructive technique. FINDINGS: Parenchyma: No intraparenchymal hemorrhage. No evidence of mass, midline shift, or CT findings of acu te infarction. Mike-white differentiation is distinct. Diffuse chronic microangiopathic white matter changes. Extraaxial Spaces: Normal for age. No subdural or epidural collections. Ventricles: The ventricles and cortical sulci are enlarged, consistent with age-related tissue loss. Sinuses and orbits: Imaged paranasal sinuses, orbits, and mastoids show no significant abnormality. Bones: Unremarkable. Other: None. IMPRESSION: Generalized age-related cortical atrophic changes without evidence of acute intracranial abnormality. [facility] Referring Provider Line: [phone] SITE ID: [id number]
[2017-10-31] MEDS ORDERED: NITROGLYCERIN SL 0.4 MG TABLET SL ONE (20:39)
--- NOTE | 2017-10-31 20:48 | PROVIDER PROGRESS NOTE ---
Subjective - Prog Note Date Prog Note Date: 10/31/17 - Subjective Pt reports feeling: Worse (Somnolent in respiratory distress, with RR>30, gurgling and acrocyanosis) Objective - Vital Signs/Intake & Output Vital Signs: Vital Signs x48h Temp Pulse Pulse Resp BP Pulse Ox 10/31/17 20:31 96 10/31/17 18:51 118 H 32 H 183/101 H 94 10/31/17 18:05 141/116 H 95 10/31/17 17:37 109 H 146/102 H 92 10/31/17 17:25 109 H 146/102 H 92 10/31/17 16:00 37.7 C H 97 16 145/78 H 91 L Intake & Output: Intake & Output 10/28/17 10/29/17 10/30/17 10/31/17 23:59 23:59 23:59 23:59 Intake Total 2222 2700 450 Output Total 350 1750 1000 Balance 1872 950 -550 - Objective General Appearance: positive: Severe distress Eyes Bilateral: positive: Normal inspection ENT: positive: Dry mucous membranes, Other (struggling to breathe with gurgling , open mouth and blueish lips) Neck: positive: Other (thick neck, symmetric, no stridor) Respiratory: positive: Rales, Rhonchi, Other (increased work of breatjing and wet crackles) Cardiovascular: positive: Tachycardia Abdomen: positive: Other (Distended, benign, bowel tones heard.) Skin: positive: Pallor, Other (acrocyanosis) Extremities: positive: No pedal edema Neurologic/Psychiatric: positive: Other (somnolent, does not follow commands, reacts to noxious stimulus, with global encephalopathy, no focal lateralizing sign) - Lab Results Fish Bones: 10/31/17 05:30 10/31/17 05:30 Other Labs: Lab Results x24hrs 10/31/17 10/31/17 10/31/17 Range/Units 18:25 05:30 05:30 WBC 11.2 H (4.8-10.8) x10^3/uL RBC 3.19 L (4.20-5.40) 10^6/uL Hgb 10.5 L (12.0-16.0) g/dL Hct 32.5 L (37.0-47.0) % MCV 102.0 H (81.0-99.0) fL MCH 33.0 H (27.0-31.0) pg MCHC 32.3 (32.0-36.0) g/dL RDW 14.8 (12.0-15.0) % Plt Count 204 (130-450) 10^3/uL MPV 8.3 (7.9-10.8) fL Neut # 8.2 H (1.5-6.6) 10^3/uL Lymph # 1.8 (1.5-3.5) 10^3/uL [place] # 0.9 (0.0-1.0) 10^3/uL Eos # 0.3 (0.0-0.7) 10^3/uL Baso # 0.0 (0.0-0.1) 10^3/uL Absolute Nucleated RBC 0.01 x10^3/uL Nucleated RBC % 0.1 /100WBC Bld Gas Analysis Time 1825 Sample Site RIGHT RADIAL ABG pH 7.36 (7.35-7.45) ABG pCO2 38 (34-45) mmHg ABG pO2 76 L (80-100) mmHg ABG HCO3 21.1 L (22.0-26.0) mmol/L ABG Total CO2 22.3 (21.0-29.0) MMOL/L ABG O2 Saturation 95 (94-98) % ABG Oximetry Spot Check 94 % ABG Base Excess -3.8 L (-2.0-3.0) mmol/L Berny Test POSITIVE O2 Delivery Device OXYMASK O2 Liters/Min 3.00 LPM Sodium 141 (135-145) mmol/L Potassium 3.8 (3.5-5.0) mmol/L Chloride 111 (101-111) mmol/L Carbon Dioxide 22 (21-32) mmol/L Anion Gap 8.0 (6-13) BUN 15 (6-20) mg/dL Creatinine 1.2 H (0.4-1.0) mg/dL Estimated GFR (MDRD) 43 L (>89) Glucose 115 H (70-100) mg/dL Calcium 8.3 L (8.5-10.3) mg/dL Total Bilirubin 1.1 H (0.2-1.0) mg/dL AST 16 (10-42) IU/L ALT 14 (10-60) IU/L Alkaline Phosphatase 49 (42-121) IU/L Total Protein 5.9 L (6.7-8.2) g/dL Albumin 2.8 L (3.2-5.5) g/dL Globulin 3.1 (2.1-4.2) g/dL Albumin/Globulin Ratio 0.9 L (1.0-2.2) Assessment/Plan - Problem List (1) Respiratory failure with hypoxia Impression: A. Atelectasis B. Mucous plugging and Aspiration C. CHF (per exam with wet crackles/CXR showed congestion and cardiomegaly) Plan: Verified code status, spoke to patient's son Eber. Hold all oral and psychoactive meds. CT chest. Continue resp suctioning. BiPap. Lasix/ nitroglycerin. Transferred to ICU. CT head was done to r/o CVA causing AMS and aspiration/somnolence. Re: CHF, will check troponin, diurese, manage on BiPAP. Echo can be considered in am. Son agreed to above. DNI/DNR but ICU care is OK per discussion with patient's son. BiPAP is not ideal for aspiartion and mucous plugging, but there are no other means and will likely help CHF. Will use as a temporary measure. Qualifiers: Chronicity: acute Qualified Code(s): J96.01 - Acute respiratory failure with hypoxia (2) Encephalopathy acute Impression: Likely medication induced plus secondary to hypoxia and infectious issues (UTI, aspiration) (3) Altered mental status Impression: TIME spent: 45 minutes critical care time. Qualifiers: Altered mental status type: delirium
[2017-10-31] MEDS ORDERED: NITROGLYCERIN 50 MG/250 ML 50 MG/250 ML BOTTLE IV SCH (21:00)
[2017-10-31] MEDS ORDERED: CIPROFLOXACIN 250 MG TABLET PO SCH (21:00)
[2017-10-31] MEDS: ATORVASTATIN 10 MG TABLET PO SCH (21:06)
--- NOTE | 2017-10-31 21:13 | CT Report ---
EXAM: CT CHEST EXAM DATE: 10/31/2017 08:07 PM. CLINICAL HISTORY: Respiratory failure COMPARISONS: None. TECHNIQUE: Routine helical CT imaging was performed through the chest. IV contrast: 80 cc Isovue 300 IV. Reconstructions: Coronal and sagittal. In accordance with CT protocol optimization, one or more of the following dose reduction techniques w ere utilized for this exam: automated exposure control, adjustment of mA and/or KV based on patient s ize, or use of iterative reconstructive technique. FINDINGS: Lungs/Pleura: Lung volumes are low. Patient is breathing throughout the study. No consolidative proce ss or mass. There is bibasilar dependent atelectasis. No pleural effusion. Mediastinum: The heart appears enlarged. No pericardial effusion. There is no mediastinal or hilar ly mphadenopathy. No thoracic aortic aneurysm or dissection. Bones: Unremarkable. Visualized Abdomen: Unremarkable. Other: None. IMPRESSION: 1. Bibasilar dependent atelectasis and cardiomegaly. No evidence of pneumonia, pleural effusion or de finite findings of edema. [facility] Referring Provider Line: [phone] SITE ID: [id number]
--- NOTE | 2017-10-31 21:13 | CT Preliminary Report ---
Exam: CT CHEST W/ IMPRESSION: 1. Bibasilar dependent atelectasis and cardiomegaly. No evidence of pneumonia, pleural effusion or de finite findings of edema. [facility] SITE ID: [id number]
[2017-10-31] MEDS: PIPERACILLIN/TAZOBACTAM 3.375 GM in SODIUM CHLORIDE 0.9% MINIBAG 100 ML IV SCH (22:04)
[2017-10-31] MEDS: IPRATROPIUM/ALBUTEROL 3 ML NEB INH PRN (22:18)
[2017-10-31] MEDS: BUDESONIDE 0.5 MG/2 ML NEB INH SCH (22:18)
[2017-11-01] MEDS: LABETALOL 5 MG/1 ML 20 ML MDV IVP SCH ×4 (00:29→18:25)
[2017-11-01] MEDS: SODIUM CHLORIDE FLUSH 0.9% 10 ML SYRINGE IVP SCH ×3 (03:33→16:58)
[2017-11-01] MEDS ORDERED: MORPHINE 2 MG/ML SYRINGE IVP PRN (03:34)
[2017-11-01] MEDS: SODIUM CHLORIDE FLUSH 0.9% 10 ML SYRINGE IVP PRN (03:59)
[2017-11-01] MEDS: PIPERACILLIN/TAZOBACTAM 3.375 GM in SODIUM CHLORIDE 0.9% MINIBAG 100 ML IV SCH ×2 (04:15→09:30)
[2017-11-01 05:47] LABS: BASOPHILS % (AUTO) 0.3 %; EOSINOPHILS % (AUTO) 0.2 %; HGB - HEMOGLOBIN 10.5 g/dL (12.0-16.0); LYMPHOCYTES # (AUTO) 1.2 10^3/uL (1.5-3.5); LYMPHOCYTES % (AUTO) 9.3 %; MEAN CORPUSCULAR HEMOGLOBIN 33.2 pg (27.0-31.0); MEAN CORPUSCULAR HGB CONC 32.3 g/dL (32.0-36.0); MEAN CORPUSCULAR VOLUME 102.7 fL (81.0-99.0); MEAN PLATELET VOLUME 8.7 fL (7.9-10.8); MONOCYTES # (AUTO) 0.9 10^3/uL (0.0-1.0); MONOCYTES % (AUTO) 7.1 %; NEUTROPHILS # (AUTO) 10.8 10^3/uL (1.5-6.6); NEUTROPHILS % (AUTO) 83.1 %; PLT - PLATELET COUNT 222 10^3/uL (130-450); RED BLOOD COUNT 3.17 10^6/uL (4.20-5.40); RED CELL DISTRIBUTION WIDTH 14.8 % (12.0-15.0); WHITE BLOOD COUNT 12.9 x10^3/uL (4.8-10.8)
[2017-11-01 05:54] LABS: CALCIUM 8.3 mg/dL (8.5-10.3); CREATININE 1.7 mg/dL (0.4-1.0); MAGNESIUM 1.8 mg/dL (1.7-2.8)
[2017-11-01] MEDS: BUDESONIDE 0.5 MG/2 ML NEB INH SCH ×3 (09:13→22:27)
[2017-11-01] MEDS: PANTOPRAZOLE 40 MG VIAL IV SCH (09:25)
[2017-11-01] MEDS: FLUTICASONE NASAL SPRAY NAS SCH ×2 (09:28→21:49)
[2017-11-01] MEDS: ENOXAPARIN 30 MG/0.3 ML SYRINGE SUBQ SCH (09:30)
[2017-11-01] MEDS: ATROPINE 1% OPHTH DROPS 2 ML SL PRN ×2 (10:46→12:24)
[2017-11-01] MEDS: AMPICILLIN/SULBACTAM 3 GM in SODIUM CHLORIDE 0.9% MINIBAG 100 ML IV SCH ×2 (10:46→22:53)
[2017-11-01] MEDS ORDERED: AMPICILLIN/SULBACTAM 3 GM in SODIUM CHLORIDE 0.9% MINIBAG 100 ML IV SCH (11:00)
--- NOTE | 2017-11-01 18:04 | PROVIDER PROGRESS NOTE ---
Assessment/Plan - Problem List (1) Aspiration pneumonia Assessment/Plan: CXR and CT and cough with secretions are most consistent with aspiration PNA. iv antiobiotics changed to cover aspiration PNA, using Unasyn (per UpToDate). Swallowing eval requested and Pt does need a pureed diet, and meds in applesauce. (2) Pulmonary edema Qualifiers: Chronicity: acute Qualified Code(s): J81.0 - Acute pulmonary edema Assessment/Plan: Pt required BIPAP, ICU transfer and diuresis last night. BNP was slightly elevated at 163, trop neg. Today less cough and secretions, after Atropine drops begun. Ready for MedSurg bed again and no BIPAP. Echo was ordered and did not show LV systolic heart failure. Perhaps her iv hydration was excessive. (3) Urinary tract infection Qualifiers: Urinary tract infection type: acute cystitis Hematuria presence: without hematuria Qualified Code(s): N30.00 - Acute cystitis without hematuria Assessment/Plan: Continue a course of antibiotics. (4) Sepsis associated hypotension Assessment/Plan: Resolved. (5) Acute on chronic renal failure Qualifiers: Chronic kidney disease stage: stage 3 (moderate) Assessment/Plan: Slightly worse creat from diuresis overnight. Continue to watch creat, K and Mg. (6) Dementia Qualifiers: Dementia type: Alzheimer's disease Assessment/Plan: Stable, will restart po meds. (7) Multiple sclerosis Assessment/Plan: Stable, will restart po meds. (8) Hypothyroidism Qualifiers: Hypothyroidism type: unspecified Qualified Code(s): E03.9 - Hypothyroidism , unspecified Assessment/Plan: Will resume po meds. - Current Meds Current Meds: Current Medications Generic Name Dose Route Start Last Admin Trade Name Freq PRN Reason Stop Dose Admin Albuterol/Ipratropium 3 ml 10/31/17 21:08 10/31/17 22:18 Duoneb INH 3 ml RTQID PRN Administration Shortness of Air/Wheezing Atropine Sulfate 2 drops 11/01/17 10:15 11/01/17 12:24 Isopto Atropine 1% Ophth Drops SL 2 drops Q2H PRN Administration Excessive Secretions Budesonide 0.5 mg 10/31/17 22:00 11/01/17 09:45 Pulmicort INH 0.5 mg RTBID CHERYL Administration Enoxaparin Sodium 30 mg 10/30/17 09:00 11/01/17 09:30 Lovenox SUBQ 30 mg DAILY CHERYL Administration Fluticasone Propionate 1 sprays 10/29/17 21:00 11/01/17 09:28 Flonase DARREN 1 spr BID CHERYL Administration Ampicillin Sodium/Sulbactam 100 mls @ 200 mls/hr 11/01/17 11:00 11/01/17 11: 30 Sodium 3 gm/ Sodium Chloride IV Infused Q12H CHERYL Infusion Labetalol HCl 10 mg 11/01/17 00:00 11/01/17 12:14 Trandate Inj IVP Not Given Q6HR CHERYL Morphine Sulfate 2 mg 11/01/17 03:34 11/01/17 03:59 Morphine IVP 2 mg Q2H PRN Administration PAIN Nitroglycerin 1 inch 10/31/17 20:00 10/31/17 19:36 Nitro-Bid (Pkt) TOP 1 inch Q24H CHERYL Administration Pantoprazole Sodium 40 mg 11/01/17 09:00 11/01/17 09:25 Protonix IV 40 mg DAILY CHERYL Administration Sodium Chloride 10 ml 10/29/17 12:57 11/01/17 03:59 Normal Saline Flush 0.9% IVP 10 ml PRN PRN Administration NEEDED PER PROVIDER ORDERS Sodium Chloride 10 ml 10/29/17 17:00 11/01/17 16:58 Normal Saline Flush 0.9% IVP 10 ml 0100,0900,1700 CHERYL Administration - Lab Result Fish Bone Diagrams: 11/01/17 04:50 11/01/17 04:50 - Additional Planning My Orders: My Active Orders 10/31/17 17:56 Arterial Blood Gases - RT [RC] .ONCE 11/01/17 10:15 Atropine 1% Ophth Drops [Isopto Atropine 1% Ophth Drops] 2 drops SL Q2H PRN 11/01/17 11:00 Ampicillin/Sulbactam [Unasyn] 3 gm Sodium Chloride 0.9% Minibag [Normal Saline 0.9% Minibag] 100 ml IV Q12H 11/01/17 Lunch DIET [Dysphagia Puree Diet] [DIET] 11/02/17 05:00 BMP - BASIC METABOLIC PANEL [CHEM] DAILYLAB CBC - COMP BLD CT W/AUTO DIFF [HEME] DAILYLAB VITAMIN B12 [IAI] Routine Subjective - Subjective Patient Reports: Feeling Better, Resting Comfortably Nursing Reports: Other (Pt toleating being fed a pureed diet.) Objective Vital Signs: Vital Signs - 24 hr 10/31/17 10/31/17 10/31/17 18:05 18:51 20:00 Temperature 37.0 C Heart Rate Heart Rate [ 118 H 120 H Brachial] Respiratory 32 H 28 H Rate Blood Pressure 141/116 H 183/101 H 188/75 H [Right Brachial artery] O2 Saturation 95 94 98 10/31/17 10/31/17 10/31/17 20:31 21:00 22:00 Temperature Heart Rate 96 Heart Rate [ 101 H 91 Brachial] Respiratory 28 H 27 H Rate Blood Pressure 115/103 H 147/81 H [Right Brachial artery] O2 Saturation 98 96 10/31/17 10/31/17 11/01/17 22:18 23:00 00:00 Temperature 37.2 C Heart Rate 95 Heart Rate [ 90 89 Brachial] Respiratory 25 H 28 H 31 H Rate Blood Pressure 113/72 113/75 [Right Brachial artery] O2 Saturation 96 97 11/01/17 11/01/17 11/01/17 00:47 01:00 02:00 Temperature Heart Rate 90 Heart Rate [ 90 91 Brachial] Respiratory 30 H 26 H Rate Blood Pressure 135/72 H 140/75 H [Right Brachial artery] O2 Saturation 97 98 11/01/17 11/01/17 11/01/17 02:48 03:00 04:00 Temperature 37.1 C Heart Rate 80 Heart Rate [ 91 80 Brachial] Respiratory 22 29 H Rate Blood Pressure 134/79 H 128/95 H [Right Brachial artery] O2 Saturation 99 96 11/01/17 11/01/17 11/01/17 05:00 06:00 07:36 Temperature Heart Rate Heart Rate [ 68 64 57 L Brachial] Respiratory 24 26 H 34 H Rate Blood Pressure 116/70 110/68 118/62 [Right Brachial artery] O2 Saturation 97 97 98 11/01/17 11/01/17 11/01/17 07:45 09:45 10:00 Temperature 36.1 C L Heart Rate 60 Heart Rate [ 60 66 Brachial] Respiratory 24 21 16 Rate Blood Pressure 118/62 100/79 [Right Brachial artery] O2 Saturation 98 94 11/01/17 11/01/17 11/01/17 11:00 12:00 14:17 Temperature 36.7 C Heart Rate Heart Rate [ 74 74 95 Brachial] Respiratory 18 20 23 Rate Blood Pressure 122/74 124/78 123/58 L [Right Brachial artery] O2 Saturation 99 96 95 11/01/17 11/01/17 15:00 16:43 Temperature 36.8 C Heart Rate Heart Rate [ 80 Brachial] Respiratory 18 22 Rate Blood Pressure 108/89 H 155/81 H [Right Brachial artery] O2 Saturation 96 95 Oxygen O2 Source Room air I&O (Last 24 Hrs): Intake and Output Totals x24h 10/30/17 10/31/17 11/01/17 23:59 23:59 23:59 Intake Total 2700 553.35 727.650 Output Total 1750 2175 1077 Balance 950 -1621.65 -349.350 General: Alert HEENT: Atraumatic, Mucous membr. moist/pink Neck: Supple, No JVD Neuro: Disoriented, Other (Answers about herself appropriately this afternoon, was somnolent this morning.) Respiratory: No respiratory distress, Breath sounds nml Abdomen: Soft Extremities: No edema - Results Results: Laboratory Results WBC 12.9 x10^3/uL (4.8-10.8) H 11/01/17 04:50 RBC 3.17 10^6/uL (4.20-5.40) L 11/01/17 04:50 Hgb 10.5 g/dL (12.0-16.0) L 11/01/17 04:50 Hct 32.5 % (37.0-47.0) L 11/01/17 04:50 MCV 102.7 fL (81.0-99.0) H 11/01/17 04:50 MCH 33.2 pg (27.0-31.0) H 11/01/17 04:50 MCHC 32.3 g/dL (32.0-36.0) 11/01/17 04:50 RDW 14.8 % (12.0-15.0) 11/01/17 04:50 Plt Count 222 10^3/uL (130-450) 11/01/17 04:50 MPV 8.7 fL (7.9-10.8) 11/01/17 04:50 Neut # 10.8 10^3/uL (1.5-6.6) H 11/01/17 04:50 Lymph # 1.2 10^3/uL (1.5-3.5) L 11/01/17 04:50 [place] # 0.9 10^3/uL (0.0-1.0) 11/01/17 04:50 Eos # 0.0 10^3/uL (0.0-0.7) 11/01/17 04:50 Baso # 0.0 10^3/uL (0.0-0.1) 11/01/17 04:50 Absolute Nucleated RBC 0.00 x10^3/uL 11/01/17 04:50 Nucleated RBC % 0.0 /100WBC 11/01/17 04:50 Bld Gas Analysis Time 18210/31/17 18:25 Sample Site RIGHT RADIAL 10/31/17 18:25 ABG pH 7.36 (7.35-7.45) 10/31/17 18:25 ABG pCO2 38 mmHg (34-45) 10/31/17 18:25 ABG pO2 76 mmHg (80-100) L 10/31/17 18:25 ABG HCO3 21.1 mmol/L (22.0-26.0) L 10/31/17 18:25 ABG Total CO2 22.3 MMOL/L (21.0-29.0) 10/31/17 18:25 ABG O2 Saturation 95 % (94-98) 10/31/17 18:25 ABG Oximetry Spot Check 94 % 10/31/17 18:25 ABG Base Excess -3.8 mmol/L (-2.0-3.0) L 10/31/17 18:25 Berny Test POSITIVE 10/31/17 18:25 O2 Delivery Device OXYMASK 10/31/17 18:25 O2 Liters/Min 3.00 LPM 10/31/17 18:25 Sodium 143 mmol/L (135-145) 11/01/17 04:50 Potassium 4.0 mmol/L (3.5-5.0) 11/01/17 04:50 Chloride 105 mmol/L (101-111) 11/01/17 04:50 Carbon Dioxide 25 mmol/L (21-32) 11/01/17 04:50 Anion Gap 13.0 (6-13) 11/01/17 04:50 BUN 21 mg/dL (6-20) H 11/01/17 04:50 Creatinine 1.7 mg/dL (0.4-1.0) H 11/01/17 04:50 Estimated GFR (MDRD) 29 (>89) L 11/01/17 04:50 Glucose 152 mg/dL (70-100) H 11/01/17 04:50 Glycated Hemoglobin 7.0 % (4.6-6.2) H 10/30/17 06:58 Estim Average Glucose 154 (70-100) H 10/30/17 06:58 Lactic Acid 1.2 mmol/L (0.5-2.2) 10/30/17 06:58 Calcium 8.3 mg/dL (8.5-10.3) L 11/01/17 04:50 Magnesium 1.8 mg/dL (1.7-2.8) 11/01/17 04:50 Total Bilirubin 1.1 mg/dL (0.2-1.0) H 10/31/17 05:30 AST 16 IU/L (10-42) 10/31/17 05:30 ALT 14 IU/L (10-60) 10/31/17 05:30 Alkaline Phosphatase 49 IU/L (42-121) 10/31/17 05:30 Troponin I 0.04 ng/mL (<0.49) 10/31/17 21:18 B-Natriuretic Peptide 163 pg/mL (5-100) H 10/31/17 21:18 Total Protein 5.9 g/dL (6.7-8.2) L 10/31/17 05:30 Albumin 2.8 g/dL (3.2-5.5) L 10/31/17 05:30 Globulin 3.1 g/dL (2.1-4.2) 10/31/17 05:30 Albumin/Globulin Ratio 0.9 (1.0-2.2) L 10/31/17 05:30 Lipase 25 U/L (22-51) 10/29/17 11:19 Folate 27.00 ng/mL (5.90 - >24.8) 11/01/17 04:50 TSH 0.95 uIU/mL (0.34-5.60) 10/30/17 06:58 Cortisol AM Sample 13.2 ug/dL 10/30/17 08:00 Urine Color YELLOW 10/29/17 11:02 Urine Clarity CLOUDY (CLEAR) 10/29/17 11:02 Urine pH 6.0 PH (5.0-7.5) 10/29/17 11:02 Ur Specific [place] 1.020 (1.002-1.030) 10/29/17 11:02 Urine Protein NEGATIVE mg/dL (NEGATIVE) 10/29/17 11:02 Urine Glucose (UA) NEGATIVE mg/dL (NEGATIVE) 10/29/17 11:02 Urine Ketones NEGATIVE mg/dL (NEGATIVE) 10/29/17 11:02 Urine Occult Blood NEGATIVE (NEGATIVE) 10/29/17 11:02 Urine Nitrite POSITIVE (NEGATIVE) H 10/29/17 11:02 Urine Bilirubin NEGATIVE (NEGATIVE) 10/29/17 11:02 Urine Urobilinogen 0.2 (NORMAL) E.U./dL (NORMAL) 10/29/17 11:02 Ur Leukocyte Esterase SMALL (NEGATIVE) H 10/29/17 11:02 Urine RBC 0-5 /HPF (0-5) 10/29/17 11:02 Urine WBC 4-5 /HPF (0-5) 10/29/17 11:02 Ur Epithelial Cells RARE Renal Tubular /HPF (<= Few) 10/29/17 11:02 Ur Squamous Epith Cells RARE Squamous (<= Few) 10/29/17 11:02 Urine Bacteria Many /HPF (None Seen) H 10/29/17 11:02 Ur Microscopic Review INDICATED 10/29/17 11:02 Urine Culture Comments INDICATED 10/29/17 11:02 Stool Leukocytes, Qual POSITIVE (Negative) 10/29/17 18:20 - Procedures Procedures: Procedures CLOSURE SKIN & SUBCUTANEOUS NEC (01/24/13)
[2017-11-01] MEDS: MEMANTINE 5 MG TABLET PO SCH ×2 (18:58→21:48)
[2017-11-01] MEDS: ATORVASTATIN 10 MG TABLET PO SCH ×2 (18:58→21:46)
[2017-11-02] MEDS: LABETALOL 5 MG/1 ML 20 ML MDV IVP SCH ×4 (00:25→17:54)
[2017-11-02] MEDS: SODIUM CHLORIDE FLUSH 0.9% 10 ML SYRINGE IVP SCH ×4 (00:35→23:09)
[2017-11-02 05:41] LABS: BASOPHILS % (AUTO) 0.5 %; EOSINOPHILS # (AUTO) 0.6 10^3/uL (0.0-0.7); EOSINOPHILS % (AUTO) 6.2 %; HGB - HEMOGLOBIN 10.2 g/dL (12.0-16.0); LYMPHOCYTES # (AUTO) 1.7 10^3/uL (1.5-3.5); MEAN CORPUSCULAR HEMOGLOBIN 33.2 pg (27.0-31.0); MEAN CORPUSCULAR HGB CONC 32.8 g/dL (32.0-36.0); MEAN CORPUSCULAR VOLUME 101.3 fL (81.0-99.0); MEAN PLATELET VOLUME 8.3 fL (7.9-10.8); MONOCYTES # (AUTO) 0.9 10^3/uL (0.0-1.0); MONOCYTES % (AUTO) 9.6 %; NEUTROPHILS # (AUTO) 6.2 10^3/uL (1.5-6.6); NEUTROPHILS % (AUTO) 65.7 %; PLT - PLATELET COUNT 235 10^3/uL (130-450); RED BLOOD COUNT 3.08 10^6/uL (4.20-5.40); RED CELL DISTRIBUTION WIDTH 14.8 % (12.0-15.0); WHITE BLOOD COUNT 9.4 x10^3/uL (4.8-10.8)
[2017-11-02 05:51] LABS: CALCIUM 8.4 mg/dL (8.5-10.3); CREATININE 1.4 mg/dL (0.4-1.0)
[2017-11-02] MEDS: LEVOTHYROXINE 25 MCG TABLET PO SCH (06:31)
[2017-11-02] MEDS: BUDESONIDE 0.5 MG/2 ML NEB INH SCH ×2 (07:09→23:55)
[2017-11-02] MEDS: METOPROLOL SUCCINATE 25 MG TABLET PO SCH (08:19)
[2017-11-02] MEDS: MEMANTINE 5 MG TABLET PO SCH ×2 (08:21→21:03)
[2017-11-02] MEDS: ASPIRIN CHEW 81 MG TABLET PO SCH ×2 (08:23→09:45)
[2017-11-02] MEDS: busPIRone 5 MG TABLET PO SCH (08:23)
[2017-11-02] MEDS: PANTOPRAZOLE 40 MG VIAL IV SCH (08:25)
[2017-11-02] MEDS: ENOXAPARIN 30 MG/0.3 ML SYRINGE SUBQ SCH (08:27)
[2017-11-02] MEDS: FLUTICASONE NASAL SPRAY NAS SCH ×2 (08:28→21:03)
[2017-11-02] MEDS: POTASSIUM CHLOR 10 MEQ/100 ML 10 MEQ/100 ML BAG IV SCH ×4 (08:36→11:42)
[2017-11-02] MEDS ORDERED: NS W/20 MEQ KCL 1,000 ML IV SCH (09:00)
[2017-11-02] MEDS: AMPICILLIN/SULBACTAM 3 GM in SODIUM CHLORIDE 0.9% MINIBAG 100 ML IV SCH ×2 (10:39→23:08)
--- NOTE | 2017-11-02 15:56 | PROVIDER PROGRESS NOTE ---
Assessment/Plan - Problem List (1) Aspiration pneumonia Assessment/Plan: Improving resoiratory status. Continue present meds. (2) Pulmonary edema Qualifiers: Chronicity: acute Qualified Code(s): J81.0 - Acute pulmonary edema Assessment/Plan: Resolved with diuresis of 2.5L 2 days ago. Overnight Pt had very low urine output/hour, likely from over diuresis. Will give 1 L of fluids today and watch BUN/creat. Poss DCh 1-2 days. (3) Urinary tract infection Qualifiers: Urinary tract infection type: acute cystitis Hematuria presence: without hematuria Qualified Code(s): N30.00 - Acute cystitis without hematuria Assessment/Plan: Antibiotic for aspiration PNA is empiric covering her UTI (4) Sepsis associated hypotension Assessment/Plan: Resolved (5) Acute on chronic renal failure Qualifiers: Chronic kidney disease stage: stage 3 (moderate) Assessment/Plan: Stable (6) Dementia Qualifiers: Dementia type: Alzheimer's disease Assessment/Plan: Stable (7) Multiple sclerosis Assessment/Plan: Stable (8) Hypothyroidism Qualifiers: Hypothyroidism type: unspecified Qualified Code(s): E03.9 - Hypothyroidism , unspecified Assessment/Plan: Stable - Current Meds Current Meds: Current Medications Generic Name Dose Route Start Last Admin Trade Name Freq PRN Reason Stop Dose Admin Albuterol/Ipratropium 3 ml 10/31/17 21:08 10/31/17 22:18 Duoneb INH 3 ml RTQID PRN Administration Shortness of Air/Wheezing Aspirin 81 mg 11/02/17 08:00 11/02/17 09:45 [place]air Aspirin PO Not Given DAILY CHERYL Atorvastatin Calcium 10 mg 11/01/17 19:00 11/01/17 21:46 Lipitor PO 10 mg QPM CHERYL Administration Atropine Sulfate 2 drops 11/01/17 10:15 11/01/17 12:24 Isopto Atropine 1% Ophth Drops SL 2 drops Q2H PRN Administration Excessive Secretions Budesonide 0.5 mg 10/31/17 22:00 11/02/17 07:09 Pulmicort INH 0.5 mg RTBID CHERYL Administration Buspirone HCl 5 mg 11/02/17 09:00 11/02/17 08:23 Buspar PO 5 mg DAILY CHREYL Administration Enoxaparin Sodium 30 mg 10/30/17 09:00 11/02/17 08:27 Lovenox SUBQ 30 mg DAILY CHERYL Administration Fluticasone Propionate 1 sprays 10/29/17 21:00 11/02/17 08:28 Flonase DARREN 1 spr BID CHERYL Administration Ampicillin Sodium/Sulbactam 100 mls @ 200 mls/hr 11/01/17 11:00 11/02/17 11: 11 Sodium 3 gm/ Sodium Chloride IV Infused Q12H CHERYL Infusion Potassium Chloride/Sodium Chloride 1,000 mls @ 83.333 mls/hr 11/02/17 09:00 11/02/17 08:17 Normal Saline 0.9% W/20 Meq Kcl IV 11/02/17 20:59 83.333 mls/hr .Q12H CHERYL Administration Labetalol HCl 10 mg 11/01/17 00:00 11/02/17 11:20 Trandate Inj IVP Not Given Q6HR CHERYL Levothyroxine Sodium 50 mcg 11/02/17 07:00 11/02/17 06:31 Synthroid PO 50 mcg QDAC CHERYL Administration Memantine 5 mg 11/01/17 19:00 11/02/17 08:21 Namenda PO 5 mg BID CHERYL Administration Metoprolol Succinate 25 mg 11/02/17 09:00 11/02/17 08:19 Toprol Xl PO 25 mg DAILY CHERYL Administration Morphine Sulfate 2 mg 11/01/17 03:34 11/01/17 03:59 Morphine IVP 2 mg Q2H PRN Administration PAIN Pantoprazole Sodium 40 mg 11/01/17 09:00 11/02/17 08:25 Protonix IV 40 mg DAILY CHERYL Administration Sodium Chloride 10 ml 10/29/17 12:57 11/01/17 03:59 Normal Saline Flush 0.9% IVP 10 ml PRN PRN Administration NEEDED PER PROVIDER ORDERS Sodium Chloride 10 ml 10/29/17 17:00 11/02/17 08:25 Normal Saline Flush 0.9% IVP 10 ml 0100,0900,1700 CHERYL Administration - Lab Result Fish Bone Diagrams: 11/02/17 05:15 11/03/17 08:20 - Additional Planning My Orders: My Active Orders 11/01/17 19:00 Atorvastatin [Lipitor] 10 mg PO QPM Memantine [Namenda] 5 mg PO BID 11/02/17 07:00 Levothyroxine [Synthroid] 50 mcg PO QDAC 11/02/17 08:00 Aspirin Chewable [[place]air Aspirin] 81 mg PO DAILY 11/02/17 09:00 Metoprolol Succinate [Toprol Xl] 25 mg PO DAILY Ns W/20 Meq KCl [Normal Saline 0.9% W/20 Meq KCl] 1,000 ml IV 83.333 mls/hr busPIRone [Buspar] 5 mg PO DAILY Subjective - Subjective Patient Reports: Feeling Better, No Complaints Nursing Reports: Other (No further coughing, eats when fed) Objective Vital Signs: Vital Signs - 24 hr 11/01/17 11/01/17 11/01/17 16:43 18:26 20:57 Temperature 36.8 C 37.0 C Heart Rate Heart Rate [ 80 81 81 Brachial] Respiratory 22 26 H Rate Blood Pressure [Left Radial artery] Blood Pressure 155/81 H 128/67 145/71 H [Right Brachial artery] O2 Saturation 95 95 11/01/17 11/01/17 11/02/17 22:27 23:44 05:00 Temperature 37.0 C 36.9 C Heart Rate 76 Heart Rate [ 69 64 Brachial] Respiratory 12 24 20 Rate Blood Pressure [Left Radial artery] Blood Pressure 160/62 H 151/68 H [Right Brachial artery] O2 Saturation 93 97 11/02/17 11/02/17 11/02/17 07:11 08:28 11:18 Temperature 36.9 C Heart Rate 68 Heart Rate [ 65 55 L Brachial] Respiratory 16 20 Rate Blood Pressure 149/79 H [Left Radial artery] Blood Pressure 159/66 H [Right Brachial artery] O2 Saturation 94 11/02/17 11/02/17 13:00 15:37 Temperature 37.0 C 37.4 C Heart Rate Heart Rate [ 57 L 63 Brachial] Respiratory 20 22 Rate Blood Pressure [Left Radial artery] Blood Pressure 145/64 H 146/71 H [Right Brachial artery] O2 Saturation 95 95 Oxygen O2 Source Room air I&O (Last 24 Hrs): Intake and Output Totals x24h 10/31/17 11/01/17 11/02/17 23:59 23:59 23:59 Intake Total 553.35 967.650 846.667 Output Total 4285 1377 Balance -1621.65 -409.350 846.667 General: No acute distress, Other (Disoriented, minimally communicative) HEENT: Mucous membr. moist/pink Neck: Supple, No JVD Neuro: Disoriented Cardiovascular: No murmurs Respiratory: No respiratory distress, Breath sounds nml Extremities: No edema - Results Results: Laboratory Results WBC 9.4 x10^3/uL (4.8-10.8) 11/02/17 05:15 RBC 3.08 10^6/uL (4.20-5.40) L 11/02/17 05:15 Hgb 10.2 g/dL (12.0-16.0) L 11/02/17 05:15 Hct 31.2 % (37.0-47.0) L 11/02/17 05:15 MCV 101.3 fL (81.0-99.0) H 11/02/17 05:15 MCH 33.2 pg (27.0-31.0) H 11/02/17 05:15 MCHC 32.8 g/dL (32.0-36.0) 11/02/17 05:15 RDW 14.8 % (12.0-15.0) 11/02/17 05:15 Plt Count 235 10^3/uL (130-450) 11/02/17 05:15 MPV 8.3 fL (7.9-10.8) 11/02/17 05:15 Neut # 6.2 10^3/uL (1.5-6.6) 11/02/17 05:15 Lymph # 1.7 10^3/uL (1.5-3.5) 11/02/17 05:15 [place] # 0.9 10^3/uL (0.0-1.0) 11/02/17 05:15 Eos # 0.6 10^3/uL (0.0-0.7) 11/02/17 05:15 Baso # 0.0 10^3/uL (0.0-0.1) 11/02/17 05:15 Absolute Nucleated RBC 0.00 x10^3/uL 11/02/17 05:15 Nucleated RBC % 0.0 /100WBC 11/02/17 05:15 Bld Gas Analysis Time 18210/31/17 18:25 Sample Site RIGHT RADIAL 10/31/17 18:25 ABG pH 7.36 (7.35-7.45) 10/31/17 18:25 ABG pCO2 38 mmHg (34-45) 10/31/17 18:25 ABG pO2 76 mmHg (80-100) L 10/31/17 18:25 ABG HCO3 21.1 mmol/L (22.0-26.0) L 10/31/17 18:25 ABG Total CO2 22.3 MMOL/L (21.0-29.0) 10/31/17 18:25 ABG O2 Saturation 95 % (94-98) 10/31/17 18:25 ABG Oximetry Spot Check 94 % 10/31/17 18:25 ABG Base Excess -3.8 mmol/L (-2.0-3.0) L 10/31/17 18:25 Berny Test POSITIVE 10/31/17 18:25 O2 Delivery Device OXYMASK 10/31/17 18:25 O2 Liters/Min 3.00 LPM 10/31/17 18:25 Sodium 142 mmol/L (135-145) 11/02/17 05:15 Potassium 3.1 mmol/L (3.5-5.0) L 11/02/17 05:15 Chloride 108 mmol/L (101-111) 11/02/17 05:15 Carbon Dioxide 26 mmol/L (21-32) 11/02/17 05:15 Anion Gap 8.0 (6-13) 11/02/17 05:15 BUN 25 mg/dL (6-20) H 11/02/17 05:15 Creatinine 1.4 mg/dL (0.4-1.0) H 11/02/17 05:15 Estimated GFR (MDRD) 36 (>89) L 11/02/17 05:15 Glucose 113 mg/dL (70-100) H 11/02/17 05:15 Glycated Hemoglobin 7.0 % (4.6-6.2) H 10/30/17 06:58 Estim Average Glucose 154 (70-100) H 10/30/17 06:58 Lactic Acid 1.2 mmol/L (0.5-2.2) 10/30/17 06:58 Calcium 8.4 mg/dL (8.5-10.3) L 11/02/17 05:15 Magnesium 1.8 mg/dL (1.7-2.8) 11/01/17 04:50 Total Bilirubin 1.1 mg/dL (0.2-1.0) H 10/31/17 05:30 AST 16 IU/L (10-42) 10/31/17 05:30 ALT 14 IU/L (10-60) 10/31/17 05:30 Alkaline Phosphatase 49 IU/L (42-121) 10/31/17 05:30 Troponin I 0.04 ng/mL (<0.49) 10/31/17 21:18 B-Natriuretic Peptide 163 pg/mL (5-100) H 10/31/17 21:18 Total Protein 5.9 g/dL (6.7-8.2) L 10/31/17 05:30 Albumin 2.8 g/dL (3.2-5.5) L 10/31/17 05:30 Globulin 3.1 g/dL (2.1-4.2) 10/31/17 05:30 Albumin/Globulin Ratio 0.9 (1.0-2.2) L 10/31/17 05:30 Lipase 25 U/L (22-51) 10/29/17 11:19 Vitamin B12 377 pg/mL (180-914) 11/02/17 05:15 Folate 27.00 ng/mL (5.90 - >24.8) 11/01/17 04:50 TSH 0.95 uIU/mL (0.34-5.60) 10/30/17 06:58 Cortisol AM Sample 13.2 ug/dL 10/30/17 08:00 Urine Color YELLOW 10/29/17 11:02 Urine Clarity CLOUDY (CLEAR) 10/29/17 11:02 Urine pH 6.0 PH (5.0-7.5) 10/29/17 11:02 Ur Specific [place] 1.020 (1.002-1.030) 10/29/17 11:02 Urine Protein NEGATIVE mg/dL (NEGATIVE) 10/29/17 11:02 Urine Glucose (UA) NEGATIVE mg/dL (NEGATIVE) 10/29/17 11:02 Urine Ketones NEGATIVE mg/dL (NEGATIVE) 10/29/17 11:02 Urine Occult Blood NEGATIVE (NEGATIVE) 10/29/17 11:02 Urine Nitrite POSITIVE (NEGATIVE) H 10/29/17 11:02 Urine Bilirubin NEGATIVE (NEGATIVE) 10/29/17 11:02 Urine Urobilinogen 0.2 (NORMAL) E.U./dL (NORMAL) 10/29/17 11:02 Ur Leukocyte Esterase SMALL (NEGATIVE) H 10/29/17 11:02 Urine RBC 0-5 /HPF (0-5) 10/29/17 11:02 Urine WBC 4-5 /HPF (0-5) 10/29/17 11:02 Ur Epithelial Cells RARE Renal Tubular /HPF (<= Few) 10/29/17 11:02 Ur Squamous Epith Cells RARE Squamous (<= Few) 10/29/17 11:02 Urine Bacteria Many /HPF (None Seen) H 10/29/17 11:02 Ur Microscopic Review INDICATED 10/29/17 11:02 Urine Culture Comments INDICATED 10/29/17 11:02 Stool Leukocytes, Qual POSITIVE (Negative) 10/29/17 18:20 - Procedures Procedures: Procedures CLOSURE SKIN & SUBCUTANEOUS NEC (01/24/13) ABX Reporting Has patient been on IV antibiotics over the past 48 hours?: Yes
[2017-11-02] MEDS: ATORVASTATIN 10 MG TABLET PO SCH (21:03)
[2017-11-03] MEDS: LABETALOL 5 MG/1 ML 20 ML MDV IVP SCH (00:25)
[2017-11-03] MEDS: SODIUM CHLORIDE FLUSH 0.9% 10 ML SYRINGE IVP PRN ×2 (00:33→10:59)
[2017-11-03] MEDS: LEVOTHYROXINE 25 MCG TABLET PO SCH (06:45)
[2017-11-03] MEDS: IPRATROPIUM/ALBUTEROL 3 ML NEB INH PRN (08:09)
[2017-11-03] MEDS: BUDESONIDE 0.5 MG/2 ML NEB INH SCH ×2 (08:09→19:08)
[2017-11-03 08:32] LABS: CALCIUM 8.4 mg/dL (8.5-10.3); CREATININE 1.2 mg/dL (0.4-1.0)
[2017-11-03] MEDS: METOPROLOL SUCCINATE 25 MG TABLET PO SCH (08:46)
[2017-11-03] MEDS: ENOXAPARIN 30 MG/0.3 ML SYRINGE SUBQ SCH (08:46)
[2017-11-03] MEDS: FLUTICASONE NASAL SPRAY NAS SCH (08:47)
[2017-11-03] MEDS: busPIRone 5 MG TABLET PO SCH (08:47)
[2017-11-03] MEDS: SODIUM CHLORIDE FLUSH 0.9% 10 ML SYRINGE IVP SCH ×2 (08:47→23:46)
[2017-11-03] MEDS: MEMANTINE 5 MG TABLET PO SCH ×2 (08:47→21:57)
[2017-11-03] MEDS: ASPIRIN CHEW 81 MG TABLET PO SCH (08:47)
[2017-11-03] MEDS: AMPICILLIN/SULBACTAM 3 GM in SODIUM CHLORIDE 0.9% MINIBAG 100 ML IV SCH (10:58)
--- NOTE | 2017-11-03 16:01 | PROVIDER PROGRESS NOTE ---
Assessment/Plan - Problem List (1) Aspiration pneumonia Assessment/Plan: Significantly improved and to start PT today and assess for need for oxygen. Plan to [facility] home tomorrow. (2) Pulmonary edema Qualifiers: Chronicity: acute Qualified Code(s): J81.0 - Acute pulmonary edema Assessment/Plan: Resolved. (3) Urinary tract infection Qualifiers: Urinary tract infection type: acute cystitis Hematuria presence: without hematuria Qualified Code(s): N30.00 - Acute cystitis without hematuria Assessment/Plan: Being treated. (4) Sepsis associated hypotension Assessment/Plan: Resolved. (5) Acute on chronic renal failure Qualifiers: Chronic kidney disease stage: stage 3 (moderate) Assessment/Plan: Stable. (6) Dementia Qualifiers: Dementia type: Alzheimer's disease Assessment/Plan: Stable on meds. (7) Multiple sclerosis Assessment/Plan: Stable (8) Hypothyroidism Qualifiers: Hypothyroidism type: unspecified Qualified Code(s): E03.9 - Hypothyroidism , unspecified Assessment/Plan: Stable on treatment. - Current Meds Current Meds: Current Medications Generic Name Dose Route Start Last Admin Trade Name Freq PRN Reason Stop Dose Admin Albuterol/Ipratropium 3 ml 10/31/17 21:08 11/03/17 08:09 Duoneb INH 3 ml RTQID PRN Administration Shortness of Air/Wheezing Aspirin 81 mg 11/02/17 08:00 11/03/17 08:47 [facility] Yair Aspirin PO 81 mg DAILY CHERYL Administration Atorvastatin Calcium 10 mg 11/01/17 19:00 11/02/17 21:03 Lipitor PO 10 mg QPM CHERYL Administration Atropine Sulfate 2 drops 11/01/17 10:15 11/01/17 12:24 Isopto Atropine 1% Ophth Drops SL 2 drops Q2H PRN Administration Excessive Secretions Budesonide 0.5 mg 10/31/17 22:00 11/03/17 08:09 Pulmicort INH 0.5 mg RTBID CHERYL Administration Buspirone HCl 5 mg 11/02/17 09:00 11/03/17 08:47 Buspar PO 5 mg DAILY CHERYL Administration Enoxaparin Sodium 30 mg 10/30/17 09:00 11/03/17 08:46 Lovenox SUBQ 30 mg DAILY CHERYL Administration Fluticasone Propionate 1 sprays 10/29/17 21:00 11/03/17 08:47 Flonase DARREN 1 spr BID CHERYL Administration Ampicillin Sodium/Sulbactam 100 mls @ 200 mls/hr 11/01/17 11:00 11/03/17 11: 31 Sodium 3 gm/ Sodium Chloride IV Infused Q12H CHERYL Infusion Levothyroxine Sodium 50 mcg 11/02/17 07:00 11/03/17 06:45 Synthroid PO 50 mcg QDAC CHERYL Administration Memantine 5 mg 11/01/17 19:00 11/03/17 08:47 Namenda PO 5 mg BID CHERYL Administration Metoprolol Succinate 25 mg 11/02/17 09:00 11/03/17 08:46 Toprol Xl PO 25 mg DAILY CHERYL Administration Sodium Chloride 10 ml 10/29/17 12:57 11/03/17 10:59 Normal Saline Flush 0.9% IVP 10 ml PRN PRN Administration NEEDED PER PROVIDER ORDERS Sodium Chloride 10 ml 10/29/17 17:00 11/03/17 08:47 Normal Saline Flush 0.9% IVP 10 ml 0100,0900,1700 CHERYL Administration - Lab Result Fish Bone Diagrams: 11/02/17 05:15 11/03/17 08:20 - Additional Planning My Orders: My Active Orders 11/03/17 Evaluate and Treat OT [OT] Routine Evaluate and Treat PT [PT] Routine 11/04/17 09:00 Famotidine [Pepcid] 20 mg PO DAILY Subjective - Subjective Patient Reports: Resting Comfortably Nursing Reports: No Complaints, Other (Able to walk in [place] with walker) Objective Vital Signs: Vital Signs - 24 hr 11/02/17 11/02/17 11/02/17 18:00 20:09 23:56 Temperature 36.5 C Heart Rate 61 Heart Rate [ Activity] Heart Rate [ 68 63 Brachial] Heart Rate [ Supine] Respiratory 21 12 Rate Blood Pressure [Activity] Blood Pressure 140/78 H 183/79 H [Right Brachial artery] Blood Pressure [Supine] O2 Saturation 97 11/03/17 11/03/17 11/03/17 00:04 06:18 08:09 Temperature 37.0 C Heart Rate 59 L Heart Rate [ Activity] Heart Rate [ 67 63 Brachial] Heart Rate [ Supine] Respiratory 20 24 Rate Blood Pressure [Activity] Blood Pressure 147/66 H 179/85 H [Right Brachial artery] Blood Pressure [Supine] O2 Saturation 94 11/03/17 11/03/17 11/03/17 08:49 10:25 11:40 Temperature 36.4 C L Heart Rate Heart Rate [ 124 H Activity] Heart Rate [ 64 Brachial] Heart Rate [ 59 L Supine] Respiratory 22 Rate Blood Pressure 142/71 H [Activity] Blood Pressure 181/68 H 132/73 H [Right Brachial artery] Blood Pressure 145/63 H [Supine] O2 Saturation 98 11/03/17 15:30 Temperature 36.7 C Heart Rate Heart Rate [ Activity] Heart Rate [ 62 Brachial] Heart Rate [ Supine] Respiratory 18 Rate Blood Pressure [Activity] Blood Pressure 155/67 H [Right Brachial artery] Blood Pressure [Supine] O2 Saturation 98 Oxygen O2 Source Room air I&O (Last 24 Hrs): Intake and Output Totals x24h 11/01/17 11/02/17 11/03/17 23:59 23:59 23:59 Intake Total 333.171 9617.667 120 Output Total 1377 Balance -733.031 9855.667 120 General: Alert HEENT: Mucous membr. moist/pink Neck: Supple, No JVD Neuro: Disoriented Cardiovascular: No murmurs Respiratory: Breath sounds nml Abdomen: Normal bowel sounds, Soft Extremities: No edema - Results Results: Laboratory Results WBC 9.4 x10^3/uL (4.8-10.8) 11/02/17 05:15 RBC 3.08 10^6/uL (4.20-5.40) L 11/02/17 05:15 Hgb 10.2 g/dL (12.0-16.0) L 11/02/17 05:15 Hct 31.2 % (37.0-47.0) L 11/02/17 05:15 MCV 101.3 fL (81.0-99.0) H 11/02/17 05:15 MCH 33.2 pg (27.0-31.0) H 11/02/17 05:15 MCHC 32.8 g/dL (32.0-36.0) 11/02/17 05:15 RDW 14.8 % (12.0-15.0) 11/02/17 05:15 Plt Count 235 10^3/uL (130-450) 11/02/17 05:15 MPV 8.3 fL (7.9-10.8) 11/02/17 05:15 Neut # 6.2 10^3/uL (1.5-6.6) 11/02/17 05:15 Lymph # 1.7 10^3/uL (1.5-3.5) 11/02/17 05:15 [place] # 0.9 10^3/uL (0.0-1.0) 11/02/17 05:15 Eos # 0.6 10^3/uL (0.0-0.7) 11/02/17 05:15 Baso # 0.0 10^3/uL (0.0-0.1) 11/02/17 05:15 Absolute Nucleated RBC 0.00 x10^3/uL 11/02/17 05:15 Nucleated RBC % 0.0 /100WBC 11/02/17 05:15 Bld Gas Analysis Time 1825 10/31/17 18:25 Sample Site RIGHT RADIAL 10/31/17 18:25 ABG pH 7.36 (7.35-7.45) 10/31/17 18:25 ABG pCO2 38 mmHg (34-45) 10/31/17 18:25 ABG pO2 76 mmHg (80-100) L 10/31/17 18:25 ABG HCO3 21.1 mmol/L (22.0-26.0) L 10/31/17 18:25 ABG Total CO2 22.3 MMOL/L (21.0-29.0) 10/31/17 18:25 ABG O2 Saturation 95 % (94-98) 10/31/17 18:25 ABG Oximetry Spot Check 94 % 10/31/17 18:25 ABG Base Excess -3.8 mmol/L (-2.0-3.0) L 10/31/17 18:25 Berny Test POSITIVE 10/31/17 18:25 O2 Delivery Device OXYMASK 10/31/17 18:25 O2 Liters/Min 3.00 LPM 10/31/17 18:25 Sodium 141 mmol/L (135-145) 11/03/17 08:20 Potassium 3.5 mmol/L (3.5-5.0) 11/03/17 08:20 Chloride 109 mmol/L (101-111) 11/03/17 08:20 Carbon Dioxide 24 mmol/L (21-32) 11/03/17 08:20 Anion Gap 8.0 (6-13) 11/03/17 08:20 BUN 19 mg/dL (6-20) 11/03/17 08:20 Creatinine 1.2 mg/dL (0.4-1.0) H 11/03/17 08:20 Estimated GFR (MDRD) 43 (>89) L 11/03/17 08:20 Glucose 130 mg/dL (70-100) H 11/03/17 08:20 Glycated Hemoglobin 7.0 % (4.6-6.2) H 10/30/17 06:58 Estim Average Glucose 154 (70-100) H 10/30/17 06:58 Lactic Acid 1.2 mmol/L (0.5-2.2) 10/30/17 06:58 Calcium 8.4 mg/dL (8.5-10.3) L 11/03/17 08:20 Magnesium 1.8 mg/dL (1.7-2.8) 11/01/17 04:50 Total Bilirubin 1.1 mg/dL (0.2-1.0) H 10/31/17 05:30 AST 16 IU/L (10-42) 10/31/17 05:30 ALT 14 IU/L (10-60) 10/31/17 05:30 Alkaline Phosphatase 49 IU/L (42-121) 10/31/17 05:30 Troponin I 0.04 ng/mL (<0.49) 10/31/17 21:18 B-Natriuretic Peptide 163 pg/mL (5-100) H 10/31/17 21:18 Total Protein 5.9 g/dL (6.7-8.2) L 10/31/17 05:30 Albumin 2.8 g/dL (3.2-5.5) L 10/31/17 05:30 Globulin 3.1 g/dL (2.1-4.2) 10/31/17 05:30 Albumin/Globulin Ratio 0.9 (1.0-2.2) L 10/31/17 05:30 Lipase 25 U/L (22-51) 10/29/17 11:19 Vitamin B12 377 pg/mL (180-914) 11/02/17 05:15 Folate 27.00 ng/mL (5.90 - >24.8) 11/01/17 04:50 TSH 0.95 uIU/mL (0.34-5.60) 10/30/17 06:58 Cortisol AM Sample 13.2 ug/dL 10/30/17 08:00 Urine Color YELLOW 10/29/17 11:02 Urine Clarity CLOUDY (CLEAR) 10/29/17 11:02 Urine pH 6.0 PH (5.0-7.5) 10/29/17 11:02 Ur Specific [place] 1.020 (1.002-1.030) 10/29/17 11:02 Urine Protein NEGATIVE mg/dL (NEGATIVE) 10/29/17 11:02 Urine Glucose (UA) NEGATIVE mg/dL (NEGATIVE) 10/29/17 11:02 Urine Ketones NEGATIVE mg/dL (NEGATIVE) 10/29/17 11:02 Urine Occult Blood NEGATIVE (NEGATIVE) 10/29/17 11:02 Urine Nitrite POSITIVE (NEGATIVE) H 10/29/17 11:02 Urine Bilirubin NEGATIVE (NEGATIVE) 10/29/17 11:02 Urine Urobilinogen 0.2 (NORMAL) E.U./dL (NORMAL) 10/29/17 11:02 Ur Leukocyte Esterase SMALL (NEGATIVE) H 10/29/17 11:02 Urine RBC 0-5 /HPF (0-5) 10/29/17 11:02 Urine WBC 4-5 /HPF (0-5) 10/29/17 11:02 Ur Epithelial Cells RARE Renal Tubular /HPF (<= Few) 10/29/17 11:02 Ur Squamous Epith Cells RARE Squamous (<= Few) 10/29/17 11:02 Urine Bacteria Many /HPF (None Seen) H 10/29/17 11:02 Ur Microscopic Review INDICATED 10/29/17 11:02 Urine Culture Comments INDICATED 10/29/17 11:02 Stool Leukocytes, Qual POSITIVE (Negative) 10/29/17 18:20 - Procedures Procedures: Procedures CLOSURE SKIN & SUBCUTANEOUS NEC (01/24/13)
[2017-11-03] MEDS: ATORVASTATIN 10 MG TABLET PO SCH (21:57)
[2017-11-04] MEDS: AMPICILLIN/SULBACTAM 3 GM in SODIUM CHLORIDE 0.9% MINIBAG 100 ML IV SCH ×2 (00:14→11:21)
[2017-11-04] MEDS: FLUTICASONE NASAL SPRAY NAS SCH ×2 (03:22→08:30)
[2017-11-04] MEDS: SODIUM CHLORIDE FLUSH 0.9% 10 ML SYRINGE IVP SCH ×2 (03:23→08:30)
[2017-11-04] MEDS: LEVOTHYROXINE 25 MCG TABLET PO SCH (05:56)
[2017-11-04] MEDS: BUDESONIDE 0.5 MG/2 ML NEB INH SCH (07:40)
[2017-11-04] MEDS: IPRATROPIUM/ALBUTEROL 3 ML NEB INH PRN (07:40)
[2017-11-04 08:20] VITALS: BP 182/94
[2017-11-04] MEDS: METOPROLOL SUCCINATE 25 MG TABLET PO SCH (08:29)
[2017-11-04] MEDS: ENOXAPARIN 30 MG/0.3 ML SYRINGE SUBQ SCH (08:29)
[2017-11-04] MEDS: ASPIRIN CHEW 81 MG TABLET PO SCH (08:29)
[2017-11-04] MEDS: busPIRone 5 MG TABLET PO SCH (08:29)
[2017-11-04] MEDS: MEMANTINE 5 MG TABLET PO SCH (08:29)
[2017-11-04] MEDS ORDERED: LOSARTAN 50 MG TABLET PO SCH (09:00)
[2017-11-04] MEDS ORDERED: FAMOTIDINE 20 MG TABLET PO SCH (09:00)
--- NOTE | 2017-11-04 11:32 | Discharge Plan ---
Discharge Plan Disposition: 01 Home, Self Care Condition: Stable Prescriptions: Amox/Clav 875/125 [Augmentin] 1 each PO Q12H #8 tablet Diet: Soft (Pureed diet and liquids) Activity Restrictions: Activity as Tolerated Shower Restrictions: No Driving Restrictions: Yes Assistance Devices: Walker Instruction Topics: Aspiration Dysphagia, Bronchiectasis Tx Additional Instructions or Follow Up instructions: Take the antibiotics til they are done. Resume all your other pre-hospital medications EXCEPT STOP THE MORNING ATIVAN AND AM SEROQUEL (they are over-sedating) See your doctor in follow-up in 1-2 weeks. No Smoking: If you smoke, Please STOP! Call for help. Follow-up with: Deshawn Caballero MD [Primary Care Provider] -
--- NOTE | 2017-11-07 09:00 | DISCHARGE SUMMARY ---
Physician: Brooke Holley MD DATE OF ADMISSION: 10/29/2017 DATE OF DISCHARGE: 11/04/2017 HISTORY OF PRESENT ILLNESS: This is an 81-year-old white female with a history of dementia, multiple sclerosis, TIAs, hypertension, hypothyroidism, depression, anxiety, recurrent UTIs. The patient lives at home and has 24-hour care and also lives with her son; however, he goes to work during the day. The patient was brought in after having altered mental status. She was in her usual state of health and was taken to a haircut appointment and in the salon chair she started to become decreased responsive, difficult to arouse and an ambulance was called and she was taken to the emergency room. She was found to have borderline low blood pressure and received volume replacement which helped her awaken a bit, but she was unable to give a history or give any specific complaints. She was noted to be in minimal respiratory distress and on lab testing found to have a urinary tract infection. She was admitted for presumed diagnosis of UTI, early sepsis and altered mental status. HOSPITAL COURSE AND DISCHARGE DIAGNOSES 1. Aspiration pneumonia. The initial chest x-ray was read as having bibasilar atelectasis; however, the very following day, the patient's respiratory status worsened with tachypnea, snoring ans apnea, requiring airway suctioning with heavy mucus suctioned out of her airway, then eventually required transfer to the Intensive Care Unit for severe respiratory distress. She was found to have pulmonary edema and felt to have an aspiration pneumonia on chest x-ray and was treated for these. It was noted that the patient's medications for depression and anxiety, as well as dementia were possibly excessive. With decrease of these she was more awake and was able to manage her airway secretions, able to manage her feeds adequately and was treated for an aspiration pneumonia which likely occurred on the basis of over-sedation. She received IV antibiotics and then was transitioned over to Augmentin b.i.d. orally for an additional 4 days of treatment. 2. Pulmonary edema. Her initial blood pressure in the emergency room was 65/46 , which improved after several liters of fluid, to 108/55. This rapid rehydration undoubtedly caused her pulmonary edema. She was then required diuresis while in the ICU and then had eventual stabilization of vital signs and respiratory status and the antibiotics were started. She required no further diuresis, underwent laboratory testing and had normal troponins x2 (0.04). An Echo was done because of the pulmonary edema and this showed normal LV size, mild LVH, LVEF of 70%, and also normal RV size and function. 3. Urinary tract infection. The patient's initial urinalysis showed positive nitrites, small leukocyte esterase and many bacteria with rare squamous cells. The culture did grow E coli and the discharge antibiotic was chosen based on sensitivities. 4. Sepsis associated hypotension. The initial blood pressure is as described above and management was with rehydration as described above. Her blood pressure improved by the second day of admission and was stable throughout the rest of the hospital course in the 120s to 140s over 50s to 70s. 5. Acute on chronic renal failure. Her admission creatinine was 1.7 and fluctuated between 1.2 and 1.7 while here, discharge, creatinine was 1.2. 6. Dementia. Discontinuation of her a.m. Seroquel, a.m. Ativan and continuation of Namenda resulted in significant improvement in her mentation, she was able to carry out a conversation and was appropriate. There was a strong suspicion that she was oversedated with some of the medications that were used prior to admission. In addition, the son described to me personally that the after school caregiver had told the son that she would purposefully "try to give the patient the same number of pills, both in the morning and in the evening" no matter what the prescription orders sad. This needs careful attention, so that proper dosing is done as per doctor's orders. 7. Multiple sclerosis history. The patient was kept on her low dose of steroids at discharge. 8. Hypothyroidism. The patient's thyroid medication was continued throughout the course. LABORATORIES AND IMAGING: Reviewed and summarized above. CONDITION: Stable. PHYSICAL EXAMINATION AT DISCHARGE VITAL SIGNS: Blood pressure 146/66, pulse of 67 in sinus rhythm, afebrile. Room air saturation 94%. HEENT: Unremarkable. NECK: Without JVD or carotid bruits. CHEST: Clear. HEART: Sounds normal. ABDOMEN: Soft, positive bowel sounds. EXTREMITIES: Without edema. NEUROLOGIC: Minimal confusion and otherwise nonfocal exam. CODE STATUS: FULL CODE. FOLLOWUP: The patient is advised to see her PCP in 1-2 weeks in followup. She needs attention regarding no change of doctor's orders by a hired caregiver. Our Facility Service Manager was notified about that report, from the son, regarding changes of dosing of meds undertaken by the care- in home caregiver. Time required to complete the entire discharge, dictation, review of chart and medication orders: 60 minutes. TD: 11/06/2017 18:17 MTDD
[2017-12-02] MEDS ORDERED: SODIUM CHLORIDE FLUSH 0.9% 10 ML SYRINGE IVP PRN (18:13)
[2017-12-02] MEDS ORDERED: D5.45NS W/20 MEQ KCL 1,000 ML IV SCH (19:00)
[2017-12-02] MEDS ORDERED: VANCOMYCIN PER PHARMACY 0.00001 GM in SODIUM CHLORIDE 0.9% 250 ML IV PRN (19:00)
[2017-12-02] MEDS ORDERED: ACYCLOVIR 200 MG CAPSULE PO SCH (21:00)
[2017-12-02] MEDS ORDERED: ALPRAZolam 0.25 MG TABLET PO SCH (21:00)
[2017-12-02] MEDS ORDERED: CEFEPIME 1 GM in SODIUM CHLORIDE 0.9% MINIBAG 100 ML IV SCH (23:00)
[2017-12-03] MEDS ORDERED: SODIUM CHLORIDE FLUSH 0.9% 10 ML SYRINGE IVP SCH (01:00)
[2017-12-03] MEDS ORDERED: POLYETHYLENE GLYCOL 3350 17 GM PACKET PO SCH (09:00)
== END 2017-11-04 12:39 | disposition home or self-care (01) | DRG 917 ==
LOC: EDUNIT# → ED 10:50 → MS2 12:57 → ICU 10-31 20:13 → MS2 11-01 16:13
PROVIDERS: ADMIT Internal Medicine; ATTEND Internal Medicine
DX: A41.9 Sepsis, unspecified organism (principal); T42.4X1A Poisoning by benzodiazepines, accidental (unintentional), initial encounter; A41.51 Sepsis due to Escherichia coli [E. coli]; R09.02 Hypoxemia; R40.2412 Glasgow coma scale score 13-15, at arrival to emergency department; F03.90 Unspecified dementia, unspecified severity, without behavioral disturbance, psychotic disturbance, mood disturbance, and anxiety; I10 Essential (primary) hypertension; E78.00 Pure hypercholesterolemia, unspecified; J96.01 Acute respiratory failure with hypoxia; J69.0 Pneumonitis due to inhalation of food and vomit; J81.0 Acute pulmonary edema; G92 Toxic encephalopathy; K92.1 Melena; N30.00 Acute cystitis without hematuria; N17.9 Acute kidney failure, unspecified; I95.89 Other hypotension; Y92.009 Unspecified place in unspecified non-institutional (private) residence as the place of occurrence of the external cause; T50.3X5A Adverse effect of electrolytic, caloric and water-balance agents, initial encounter; I13.10 Hypertensive heart and chronic kidney disease without heart failure, with stage 1 through stage 4 chronic kidney disease, or unspecified chronic kidney disease; N18.3 Chronic kidney disease, stage 3 (moderate); E78.5 Hyperlipidemia, unspecified; G30.9 Alzheimer's disease, unspecified; F02.80 Dementia in other diseases classified elsewhere, unspecified severity, without behavioral disturbance, psychotic disturbance, mood disturbance, and anxiety; G35 Multiple sclerosis; E03.9 Hypothyroidism, unspecified; F41.9 Anxiety disorder, unspecified; F32.9 Major depressive disorder, single episode, unspecified; Z66 Do not resuscitate; Z86.73 Personal history of transient ischemic attack (TIA), and cerebral infarction without residual deficits; Z87.891 Personal history of nicotine dependence; Z79.82 Long term (current) use of aspirin; Z79.52 Long term (current) use of systemic steroids; Z79.899 Other long term (current) drug therapy
CPT/HCPCS: 36415; 36600; 51702; 70450; 71045; 71260; 80048; 80053; 81001; 81003; 82270; 82533; 82607; 82746; 82803; 83036; 83605; 83630; 83690; 83735; 83880; 84443; 84484; 85025; 87040; 87045; 87046; 87086; 87150; 87493; 93306; 94640; 94660; 96365; 99284; 99285

== ENCOUNTER 2017-12-02 16:32 | Inpatient (IN) | payer MEDICARE, OTHER, MEDICAID ==
--- NOTE | 2017-12-02 17:27 | ED Physician Documentation ---
History of Present Illness - Stated complaint Stated Complaint: WEAK/COUGHING - Chief complaint Chief Complaint: General - History obtained from History obtained from: Patient, Family - History of Present Illness Timing: How many days ago (3) - Additonal information Additional information: Patient is an 82-year-old female who presents to the emergency department with altered mental status for the past 2-3 days. She does have a long-standing history of severe dementia, but is normally awake, alert and interactive. She normally moves around well by herself. Over the last 2-3 days she has become more somnolent and more difficult to arouse. This occurred similarly about a month ago when she was uroseptic. Family is concerned this may be occurring again. No fevers that they know of. No vomiting but did not want to eat or drink today. Review of Systems Unable to obtain: AMS, Dementia PD PAST MEDICAL HISTORY - Past Medical History Cardiovascular: Hypertension, High cholesterol Respiratory: None Endocrine/Autoimmune: HyPOthyroidism GI: None HABITAT MANAGEMENT COORDINATOR: None : None HEENT: None Psych: Depression, Anxiety Musculoskeletal: None Derm: None - Past Surgical History Past Surgical History: Yes /HABITAT MANAGEMENT COORDINATOR: Hysterectomy - Present Medications Home Medications: Ambulatory Orders Medication Instructions Recorded Confirmed Aspirin Chewable [[place] 162 mg PO DAILY 01/24/13 10/29/17 Aspirin] Acyclovir 200 mg PO BID 03/22/13 10/29/17 Simvastatin 20 mg PO QPM 03/22/13 10/29/17 ALPRAZolam [Xanax] 0.5 mg PO QPM 02/17/16 10/29/17 Fluticasone [Flonase] 1 spray DARREN BID 02/17/16 10/29/17 Metoprolol Succinate [Toprol Xl] 25 mg PO DAILY 02/17/16 10/29/17 predniSONE [Deltasone] 5 mg PO DAILY 02/17/16 10/29/17 Rivastigmine [Exelon] 13.3 mg TOP Q24H 02/18/16 10/29/17 Levothyroxine [Synthroid] 50 mcg PO QDAC #0 tablet 02/19/16 10/29/17 Memantine [Namenda] 10 mg PO BID tablet 02/19/16 10/29/17 Quetiapine Fumarate [Seroquel] 100 mg PO QPM 02/06/17 10/29/17 busPIRone [Buspar] 5 mg PO DAILY 02/06/17 10/29/17 Losartan [Cozaar] 50 mg PO DAILY #30 tablet 02/07/17 10/29/17 Mirabegron [Myrbetriq] 25 mg PO DAILY 10/29/17 10/29/17 Amox/Clav 875/125 [Augmentin] 1 each PO Q12H #8 tablet 11/04/17 - Allergies Allergies/Adverse Reactions: Allergies Allergy/AdvReac Type Severity Reaction Status Date / Time fluoxetine HCl * AdvReac Unknown Unknown Verified 10/03/14 15:47 [From Prozac] nitroglycerin AdvReac Unknown Unknown Verified 10/03/14 15:47 Sulfa (Sulfonamide AdvReac Unknown Unknown Verified 10/03/14 15:47 Antibiotics) sulfamethoxazole AdvReac Unknown Unknown Verified 10/03/14 15:47 [From Bactrim] trimethoprim [From Bactrim] AdvReac Unknown Unknown Verified 10/03/14 15:47 - Social History Does the pt smoke?: No Smoking Status: Never smoker Does the pt drink ETOH?: No Does the pt have substance abuse?: No - Immunizations Immunizations are current?: Yes Immunizations: TDAP >10years/unknown - POLST Patient has POLST: No POLST Status: Full Code PD ED PE NORMAL - Vitals Vital signs reviewed: Yes - General General: No acute distress, Other (alert, oriented to person only) - HEENT HEENT: Atraumatic, PERRL, Moist mucous membranes, Other (dry lips) - Neck Neck: Supple, no meningeal sign - Cardiac Cardiac: RRR, Strong equal pulses - Respiratory Respiratory: No respiratory distress, Other (bibasilar crackles ) - Abdomen Abdomen: Soft, Non tender, Non distended - Derm Derm: Warm and dry, No rash - Extremities Extremities: No calf tenderness / cord - Neuro Neuro: Other (alert) Results - Vitals Vitals: Vital Signs - 24 hr 12/02/17 12/02/17 12/02/17 16:34 18:22 19:09 Temperature 37.1 C Heart Rate 112 H 103 H 95 Respiratory 22 16 16 Rate Blood Pressure 125/75 130/112 H 143/107 H O2 Saturation 97 95 97 12/02/17 12/02/17 12/02/17 19:21 19:30 20:00 Temperature 37.1 C 36.5 C Heart Rate 96 92 89 Respiratory 16 18 16 Rate Blood Pressure 144/107 H 154/79 H 149/74 H O2 Saturation 100 95 96 12/02/17 20:30 Temperature Heart Rate 91 Respiratory 18 Rate Blood Pressure 147/84 H O2 Saturation 93 Oxygen O2 Source Room air - Labs Labs: Laboratory Tests 12/02/17 12/02/17 12/02/17 17:25 17:25 17:25 WBC 7.9 RBC 4.16 L Hgb 14.1 Hct 42.9 MCV 103.2 H MCH 33.8 H MCHC 32.7 RDW 14.9 Plt Count 213 MPV 8.2 Neut # (Auto) 4.9 Lymph # (Auto) 2.1 [place] # (Auto) 0.8 Eos # (Auto) 0.1 Baso # (Auto) 0.1 Absolute Nucleated RBC 0.01 Nucleated RBC % 0.1 PT 12.3 INR 1.1 APTT 23.5 L Sodium 136 Potassium 4.6 Chloride 101 Carbon Dioxide 23 Anion Gap 12.0 BUN 17 Creatinine 1.7 H Estimated GFR (MDRD) 29 L Glucose 171 H Lactic Acid Calcium 8.9 Total Bilirubin 1.0 AST 31 ALT 21 Alkaline Phosphatase 59 Total Protein 7.5 Albumin 3.5 Globulin 4.0 Albumin/Globulin Ratio 0.9 L Lipase 33 Urine Color Urine Clarity Urine pH Ur Specific [place] Urine Protein Urine Glucose (UA) Urine Ketones Urine Occult Blood Urine Nitrite Urine Bilirubin Urine Urobilinogen Ur Leukocyte Esterase Ur Microscopic Review Urine Culture Comments 12/02/17 12/02/17 17:25 18:25 WBC RBC Hgb Hct MCV MCH MCHC RDW Plt Count MPV Neut # (Auto) Lymph # (Auto) [place] # (Auto) Eos # (Auto) Baso # (Auto) Absolute Nucleated RBC Nucleated RBC % PT INR APTT Sodium Potassium Chloride Carbon Dioxide Anion Gap BUN Creatinine Estimated GFR (MDRD) Glucose Lactic Acid 2.8 H Calcium Total Bilirubin AST ALT Alkaline Phosphatase Total Protein Albumin Globulin Albumin/Globulin Ratio Lipase Urine Color YELLOW Urine Clarity CLEAR Urine pH 6.5 Ur Specific [place] 1.020 Urine Protein NEGATIVE Urine Glucose (UA) NEGATIVE Urine Ketones TRACE Urine Occult Blood TRACE-INTA Urine Nitrite NEGATIVE Urine Bilirubin NEGATIVE Urine Urobilinogen 0.2 (NORMAL) Ur Leukocyte Esterase NEGATIVE Ur Microscopic Review NOT INDICATED Urine Culture Comments NOT INDICATED - Rads (name of study) cxr Radiology: Prelim report reviewed, EMP read contemporaneously, See rad report ( no acute disease) PD MEDICAL DECISION MAKING - ED course Complexity details: reviewed old records, reviewed results, re-evaluated patient , considered differential, d/w patient, d/w family, d/w digital marketing consultant ED course: Patient is an 82-year-old female with severe dementia who presents to the emergency department altered today. Found to have an elevated lactic acid, possible sepsis again. Blood cultures drawn and broad-spectrum antibiotics were started. She is also tachycardic. Given aggressive IV fluids and discussed with the hospitalist, Dr. Marquez who accepts. This document was made in part using voice recognition software. While efforts are made to proofread this document, sound alike and grammatical errors may occur. - Sepsis Event Vital Signs: Vital Signs - 24 hr 12/02/17 12/02/17 12/02/17 16:34 18:22 19:09 Temperature 37.1 C Heart Rate 112 H 103 H 95 Respiratory 22 16 16 Rate Blood Pressure 125/75 130/112 H 143/107 H O2 Saturation 97 95 97 12/02/17 12/02/17 12/02/17 19:21 19:30 20:00 Temperature 37.1 C 36.5 C Heart Rate 96 92 89 Respiratory 16 18 16 Rate Blood Pressure 144/107 H 154/79 H 149/74 H O2 Saturation 100 95 96 12/02/17 20:30 Temperature Heart Rate 91 Respiratory 18 Rate Blood Pressure 147/84 H O2 Saturation 93 Oxygen O2 Source Room air Departure - Departure Disposition: 66 [facility] DC/Xfer Clinical Impression: Lactic acid acidosis, Tachycardia Sepsis Qualifiers: Sepsis type: sepsis due to unspecified organism Qualified Code(s): A41.9 - Sepsis, unspecified organism Condition: Stable Discharge Date/Time: 12/02/17 21:07
--- NOTE | 2017-12-02 17:32 | XRAY Report ---
EXAM: CHEST RADIOGRAPHY EXAM DATE: 12/02/2017 05:09 PM. CLINICAL HISTORY: Cough. COMPARISON: Chest radiograph and CT chest 10/31/2017. TECHNIQUE: 1 view. FINDINGS: Lungs/Pleura: No focal consolidation or evidence of edema. No pleural effusion or pneumothorax. Mediastinum: Heart size is normal. The aorta is mildly tortuous and contains atherosclerotic calcific ations, as before. Other: The bones are unremarkable. IMPRESSION: No acute cardiopulmonary abnormality. [facility] Referring Provider Line: [phone] SITE ID: [id number]
--- NOTE | 2017-12-02 17:32 | XRAY Preliminary Report ---
Exam: XR CHEST 1 VIEW X-RAY IMPRESSION: No acute cardiopulmonary abnormality. [facility] SITE ID: [id number]
[2017-12-02 17:36] LABS: BASOPHILS # (AUTO) 0.1 10^3/uL (0.0-0.1); BASOPHILS % (AUTO) 0.8 %; EOSINOPHILS # (AUTO) 0.1 10^3/uL (0.0-0.7); EOSINOPHILS % (AUTO) 0.7 %; HGB - HEMOGLOBIN 14.1 g/dL (12.0-16.0); LYMPHOCYTES # (AUTO) 2.1 10^3/uL (1.5-3.5); LYMPHOCYTES % (AUTO) 26.2 %; MEAN CORPUSCULAR HEMOGLOBIN 33.8 pg (27.0-31.0); MEAN CORPUSCULAR HGB CONC 32.7 g/dL (32.0-36.0); MEAN CORPUSCULAR VOLUME 103.2 fL (81.0-99.0); MEAN PLATELET VOLUME 8.2 fL (7.9-10.8); MONOCYTES # (AUTO) 0.8 10^3/uL (0.0-1.0); MONOCYTES % (AUTO) 10.4 %; NEUTROPHILS # (AUTO) 4.9 10^3/uL (1.5-6.6); NEUTROPHILS % (AUTO) 61.9 %; PLT - PLATELET COUNT 213 10^3/uL (130-450); RED BLOOD COUNT 4.16 10^6/uL (4.20-5.40); RED CELL DISTRIBUTION WIDTH 14.9 % (12.0-15.0); WHITE BLOOD COUNT 7.9 x10^3/uL (4.8-10.8)
[2017-12-02 17:41] LABS: INR 1.1 (0.8-1.2); PT - PROTHROMBIN TIME 12.3 secs (9.9-12.6)
[2017-12-02 17:49] LABS: ALBUMIN 3.5 g/dL (3.2-5.5); ALBUMIN/GLOBULIN RATIO 0.9 (1.0-2.2); CALCIUM 8.9 mg/dL (8.5-10.3); CREATININE 1.7 mg/dL (0.4-1.0); TOTAL PROTEIN 7.5 g/dL (6.7-8.2)
[2017-12-02] MEDS ORDERED: ELECTROLYTE A IV STA (17:52)
[2017-12-02] MEDS ORDERED: PIPERACILLIN/TAZOBACTAM 4.5 GM in SODIUM CHLORIDE 0.9% MINIBAG 100 ML IV STA (17:59)
[2017-12-02] MEDS ORDERED: VANCOMYCIN INJ 1 GM in SODIUM CHLORIDE 0.9% 500 ML IV STA (17:59)
[2017-12-02 18:32] LABS: BILIRUBIN,URINE NEGATIVE (NEGATIVE); GLUCOSE, URINE (UA) NEGATIVE (NEGATIVE); KETONES,URINE (UA) TRACE mg/dL (NEGATIVE); LEUKOCYTE ESTERASE, URINE NEGATIVE (NEGATIVE); NITRITE,URINE NEGATIVE (NEGATIVE); OCCULT BLOOD,URINE TRACE-INTA (NEGATIVE); PH,URINE 6.5 PH (5.0-7.5); PROTEIN,URINE NEGATIVE (NEGATIVE); UROBILINOGEN,URINE 0.2 (NORMAL) E.U./dL (NORMAL)
[2017-12-02 18:34] LABS: CLARITY,URINE CLEAR (CLEAR)
[2017-12-02] MEDS ORDERED: PROCHLORPERAZINE 10 MG/2 ML VIAL IVP PRN (20:42)
[2017-12-02] MEDS ORDERED: DEXTROSE 5%-0.9% NACL 1,000 ML IV SCH (21:00)
[2017-12-02] MEDS ORDERED: VANCOMYCIN PER PHARMACY 0.1 GM in SODIUM CHLORIDE 0.9% 250 ML IV SCH (21:00)
[2017-12-02] MEDS: DEXTROSE 5%-0.9% NACL 1,000 ML IV SCH (21:41)
[2017-12-02] MEDS: ACYCLOVIR 200 MG CAPSULE PO SCH (21:41)
[2017-12-02] MEDS: MEMANTINE 5 MG TABLET PO SCH (21:43)
[2017-12-03] MEDS: ACETAMINOPHEN 325 MG TABLET PO PRN ×2 (00:04→13:49)
[2017-12-03] MEDS: PIPERACILLIN/TAZOBACTAM 2.25 GM in SODIUM CHLORIDE 0.9% MINIBAG 100 ML IV SCH ×4 (00:08→23:50)
[2017-12-03] MEDS: SODIUM CHLORIDE FLUSH 0.9% 10 ML SYRINGE IVP SCH ×4 (00:08→23:50)
[2017-12-03] MEDS: SODIUM CHLORIDE FLUSH 0.9% 10 ML SYRINGE IVP PRN ×2 (03:00→04:19)
--- NOTE | 2017-12-03 03:15 | HISTORY & PHYSICAL EXAMINATION ---
DATE OF SERVICE: 12/02/2017 Physician: Brooke Holley MD HISTORY OF PRESENT ILLNESS: This is an 82-year-old white female with a history of dementia, on Namenda and Exelon patch, multiple sclerosis according to the chart records, prior TIAs, history of hypertension, hypothyroidism, anxiety and depression, recurrent UTIs , recent admission here 1 month ago for urosepsis and aspiration pneumonia, with altered mental status from sepsis plus she was felt to be on excessive sedative medications creating lethargy, and these were decreased at the time of discharge. The patient presents now with a 3-day history of altered mental status, less awake, less able to take her diet, and a cough of 1 day. Apparently, there has been no fever. The patient has a caregiver at the home where she lives with her son, who works during the day. The information is obtained from the ER doctor and chart review. The patient can only give me 1- and 2-word answers and denies being in any pain. She is somnolent but awakens. MEDICATIONS 1. Deltasone 5 mg daily. 2. BuSpar 5 mg daily. 3. Simvastatin 20 mg every evening. 4. Exelon patch topically daily. 5. Seroquel 100 mg p.o. every evening. 6. Myrbetriq 25 mg daily. 7. Toprol-XL 25 mg daily. 8. Namenda 10 mg b.i.d. 9. Cozaar 50 mg daily. 10. Synthroid 50 mcg daily. 11. Flonase spray b.i.d. 12. Two baby aspirin daily. 13. Acyclovir 200 b.i.d. 14. Xanax 0.5 mg every p.m. ALLERGIES 1. FLUOXETINE. 2. NITROGLYCERIN. 3. SULFA. 4. BACTRIM. SOCIAL HISTORY: She lives with her son. She has a full-time caregiver when he is gone. She is a nonsmoker, drinks no alcohol or uses illicit drugs. She no longer drives a car but can ambulate in the house, when she is at her best. She is pleasantly demented. FAMILY HISTORY: No inherited diseases. REVIEW OF SYSTEMS: A comprehensive review of systems was performed, and the pertinent positives are in the HPI. PHYSICAL EXAMINATION GENERAL: Elderly white female, somnolent but awakens. Her voice is shaky. She has a smell of ketosis on her breath. VITAL SIGNS: Blood pressure 147/84, pulse of 90 in sinus rhythm, respiratory rate 18, room air saturation 93% to 96%. HEENT: Reveals dry oral mucosa and the smell of ketosis. Her voice is shaky. She has a nonproductive cough. NECK: Without JVD or carotid bruits. CHEST: Scattered rhonchi. No rales or wheezes. HEART: Sounds are normal, distant. No audible murmur. BREASTS: Large. ABDOMEN: Soft and nontender. No organomegaly. Normal bowel sounds. EXTREMITIES: No clubbing, cyanosis or edema. NEUROLOGIC: Somnolent and only speaks with short answers but moves all extremities. LABORATORY DATA: Sodium 136, potassium 4.6, BUN 17, creatinine 1.7. (Her creatinine at discharge 1 month ago was 1.2). Lactic acid 2.8. No magnesium was done. Liver test normal. INR 1.1. White blood count 7.9 with a normal differential. Hemoglobin 14.1. MCV elevated at 103, and it has been elevated chronically and one month ago had normal B12 and folate levels. Platelet count normal at 213. Urinalysis negative with no nitrites, no leukocyte esterase, no WBCs and no bacteria seen. CHEST X-RAY: No active disease. No EKG was done. IMPRESSION 1. Severe sepsis by virtue of altered mental status and elevated lactic acid level. Source unknown. Even though she has frequent UTI's , the urine is clean now. I suspect this septic episode is from aspiration pneumonia. 2. Altered mental status, which could be from sepsis or dehydration or ketosis on top of her already present dementia. 3. Acute on chronic renal failure. 4. Hypertension. PLAN: Admit the patient to a medical/surgical bed. Fully culture her. Blood cultures were already drawn in the emergency room, and will order sputum cultures. Repeat a chest x-ray tomorrow to determine if an infiltrate "blossoms." Start broad spectrum antibiotics to cover sepsis; will use cefepime and vancomycin IV. Follow her electrolytes, BUN and creatinine. Start the patient on fluids. Plasma-Lyte 1 L was given in the ER. Now I will start D5 normal saline at 150 cc/hour. Recheck her lactic acid level in 3 hours, and if it is not normal, then in 6 hours from the original. Attempt a pureed diet, which is what she was discharged on, since she does awaken; she will need to be fed, however, probably. Eventual PT and OT will be needed but not until she has improvement in her condition. CODE STATUS: FULL CODE. This was confirmed with the son, her [place], 1 month ago by myself. DEEP VENOUS THROMBOSIS PROPHYLAXIS: SCDs. ATTESTATION: The patient is expected to be discharged or transferred to another facility within 96 hours: Yes. TD: 12/02/2017 22:41 [place]
[2017-12-03] MEDS: DEXTROSE 5%-0.9% NACL 1,000 ML IV SCH ×3 (04:21→18:29)
[2017-12-03] MEDS: LEVOTHYROXINE 25 MCG TABLET PO SCH (06:13)
[2017-12-03 06:15] LABS: BASOPHILS % (AUTO) 0.7 %; EOSINOPHILS # (AUTO) 0.1 10^3/uL (0.0-0.7); EOSINOPHILS % (AUTO) 1.3 %; HGB - HEMOGLOBIN 10.7 g/dL (12.0-16.0); LYMPHOCYTES # (AUTO) 1.6 10^3/uL (1.5-3.5); LYMPHOCYTES % (AUTO) 29.2 %; MEAN CORPUSCULAR HEMOGLOBIN 33.6 pg (27.0-31.0); MEAN CORPUSCULAR HGB CONC 32.8 g/dL (32.0-36.0); MEAN CORPUSCULAR VOLUME 102.6 fL (81.0-99.0); MEAN PLATELET VOLUME 8.1 fL (7.9-10.8); MONOCYTES # (AUTO) 0.7 10^3/uL (0.0-1.0); MONOCYTES % (AUTO) 12.7 %; NEUTROPHILS # (AUTO) 3.1 10^3/uL (1.5-6.6); NEUTROPHILS % (AUTO) 56.1 %; PLT - PLATELET COUNT 176 10^3/uL (130-450); RED BLOOD COUNT 3.18 10^6/uL (4.20-5.40); RED CELL DISTRIBUTION WIDTH 14.8 % (12.0-15.0); WHITE BLOOD COUNT 5.5 x10^3/uL (4.8-10.8)
[2017-12-03 06:27] LABS: CALCIUM 7.3 mg/dL (8.5-10.3); CREATININE 1.5 mg/dL (0.4-1.0)
--- NOTE | 2017-12-03 09:13 | XRAY Report ---
EXAM: CHEST RADIOGRAPHY EXAM DATE: 12/03/2017 07:57 AM. CLINICAL HISTORY: F/U, cough. COMPARISON: 12/02/2017. TECHNIQUE: 1 view. FINDINGS: Lungs/Pleura: The degree of aeration is stable. No focal opacities, pleural effusion or pneumothorax. Mediastinum: No significant interval change. Scant atherosclerotic calcifications affiliated with the aortic arch. Other: Stable osseous structures. IMPRESSION: Stable examination. No acute process. [facility] Referring Provider Line: [phone] SITE ID: [id number]
[2017-12-03] MEDS: MEMANTINE 5 MG TABLET PO SCH ×2 (09:51→20:29)
[2017-12-03] MEDS: POLYETHYLENE GLYCOL 3350 17 GM PACKET PO SCH (09:51)
[2017-12-03] MEDS: ASPIRIN CHEW 81 MG TABLET PO SCH (09:52)
[2017-12-03] MEDS: LOSARTAN 50 MG TABLET PO SCH (09:52)
[2017-12-03] MEDS: busPIRone 5 MG TABLET PO SCH (09:52)
[2017-12-03] MEDS: METOPROLOL SUCCINATE 25 MG TABLET PO SCH (09:52)
[2017-12-03] MEDS: ACYCLOVIR 200 MG CAPSULE PO SCH ×2 (09:52→20:29)
[2017-12-03] MEDS: FAMOTIDINE 20 MG TABLET PO SCH (09:52)
[2017-12-03] MEDS: MIRABEGRON 25 MG PO SCH (09:53)
[2017-12-03] MEDS: predniSONE 5 MG TABLET PO SCH (09:53)
--- NOTE | 2017-12-03 16:54 | PROVIDER PROGRESS NOTE ---
Subjective - Prog Note Date Prog Note Date: 12/03/17 Prog Note Time: 15:00 - Subjective Pt reports feeling: Improved (The patient is still lethargic but is waking up for meals and following commands. She is not showing any signs of any fever, chills, pain, SOB, or any other new problems.) Current Medications - Current Medications Current Medications: Active Medications Generic Name Dose Route Start Last Admin Trade Name Freq PRN Reason Stop Dose Admin Acetaminophen 650 mg 12/02/17 20:42 12/03/17 13:49 Tylenol PO 650 mg Q4HR PRN Administration Pain or Fever > 38C (100.4F) Acyclovir 200 mg 12/02/17 21:00 12/03/17 09:52 Zovirax PO 200 mg BID CHERYL Administration Aspirin 162 mg 12/03/17 09:00 12/03/17 09:52 [place] Yair Aspirin PO 162 mg DAILY CHERYL Administration Buspirone HCl 5 mg 12/03/17 09:00 12/03/17 09:52 Buspar PO 5 mg DAILY CHERYL Administration Famotidine 20 mg 12/03/17 09:00 12/03/17 09:52 Pepcid PO 20 mg DAILY CHERYL Administration Dextrose/Sodium Chloride 1,000 mls @ 150 mls/hr 12/02/17 21:00 12/03/17 11:45 D5ns IV 150 mls/hr .Q6H40M CHERYL Administration Piperacillin Sod/Tazobactam 100 mls @ 25 mls/hr 12/03/17 00:00 12/03/17 15:54 Sod 2.25 gm/ Sodium Chloride IV 25 mls/hr Q8H CHERYL Administration Vancomycin HCl 1 gm/ Sodium 250 mls @ 167 mls/hr 12/03/17 20:00 Chloride IV Q24H CHERYL Levothyroxine Sodium 50 mcg 12/03/17 07:00 12/03/17 06:13 Synthroid PO 50 mcg QDAC CHERYL Administration Losartan Potassium 50 mg 12/03/17 09:00 12/03/17 09:52 Cozaar PO 50 mg DAILY CHERYL Administration Memantine 10 mg 12/02/17 21:00 12/03/17 09:51 Namenda PO 10 mg BID CHERYL Administration Metoprolol Succinate 25 mg 12/03/17 09:00 12/03/17 09:52 Toprol Xl PO 25 mg DAILY CHERYL Administration (Mirabegron [ 1 each 12/03/17 09:00 12/03/17 09:53 Myrbetriq] 25 Mg) PO Not Given Tab DAILY CHERYL (Rivastigmine [ 1 each 12/03/17 09:00 12/03/17 09:52 Exelon] 13.3 Mg) TOP Not Given Patch Q24H CHERYL Polyethylene Glycol 17 gm 12/03/17 09:00 12/03/17 09:51 Miralax PO 17 gm DAILY CHERYL Administration Prednisone 5 mg 12/03/17 09:00 12/03/17 09:53 Deltasone PO 5 mg DAILY CHERYL Administration Prochlorperazine Edisylate 10 mg 12/02/17 20:42 Compazine Inj IVP Q6HR PRN Nausea / Vomiting Sodium Chloride 10 ml 12/02/17 20:42 12/03/17 04:19 Normal Saline Flush 0.9% IVP 10 ml PRN PRN Administration NEEDED PER PROVIDER ORDERS Sodium Chloride 10 ml 12/03/17 01:00 12/03/17 08:39 Normal Saline Flush 0.9% IVP 10 ml 0100,0900,1700 CHERYL Administration Aspirin Chewable [[place]air Aspirin] 162 mg PO DAILY 01/24/13 Acyclovir 200 mg PO BID 03/22/13 Simvastatin 20 mg PO QPM 03/22/13 Fluticasone [Flonase] 2 spray DARREN DAILY PRN 02/17/16 Metoprolol Succinate [Toprol Xl] 25 mg PO DAILY 02/17/16 Rivastigmine [Exelon] 13.3 mg TOP Q24H 02/18/16 Quetiapine Fumarate [Seroquel] 150 mg PO QPM 02/06/17 Mirabegron [Myrbetriq] 25 mg PO DAILY 10/29/17 ALPRAZolam [Alprazolam] 0.5 mg PO DAILY PRN 12/03/17 ALPRAZolam [Alprazolam] 0.5 mg PO QPM 12/03/17 Albuterol Sulf [Ventolin Hfa Inhaler] 2 puffs INH Q4H PRN 12/03/17 predniSONE [Prednisone] 5 mg PO DAILY 12/03/17 Objective - Vital Signs/Intake & Output Reviewed Vital Signs: Yes Vital Signs: Vital Signs x48h Temp Pulse Resp BP Pulse Ox 12/03/17 15:38 36.7 C 83 20 148/75 H 94 12/03/17 14:43 37.4 C 12/03/17 13:46 37.6 C H 12/03/17 13:24 37.1 C Intake & Output: Intake & Output 11/30/17 12/01/17 12/02/17 12/03/17 23:59 23:59 23:59 23:59 Intake Total 2800 2192.083 Balance 2800 2192.083 - Objective General Appearance: positive: No acute distress, Lethargic Eyes Bilateral: positive: Normal inspection, PERRL, EOMI, No lid inflammation, Conjunctivae nml, No scleral icterus ENT: positive: ENT inspection nml, Pharynx nml, No signs of dehydration Neck: positive: Nml inspection, Thyroid nml, No JVD, Trachea midline. negative : Thyromegaly Respiratory: positive: Chest non-tender, No respiratory distress, Breath sounds nml. negative: Wheezes, Rales, Rhonchi Cardiovascular: positive: Regular rate & rhythm, No murmur, No gallop Abdomen: positive: Non-tender, No organomegaly, Nml bowel sounds, No distention. negative: Guarding, Rebound Back: positive: Nml inspection. negative: CVA tenderness (R), CVA tenderness (L ) Skin: positive: Color nml, No rash, Warm, Dry. negative: Cyanosis Extremities: positive: Non-tender, Full ROM, Nml appearance, No pedal edema Neurologic/Psychiatric: positive: CN's nml (2-12), Motor nml, Sensation nml, Mood/affect nml, Disoriented to place, Disoriented to time, Weakness - Lab Results Fish Bones: 12/03/17 05:36 12/03/17 05:36 Other Labs: Lab Results x24hrs 12/03/17 12/03/17 12/02/17 Range/Units 05:36 05:36 20:44 WBC 5.5 (4.8-10.8) x10^3/uL RBC 3.18 L (4.20-5.40) 10^6/uL Hgb 10.7 L (12.0-16.0) g/dL Hct 32.7 L (37.0-47.0) % MCV 102.6 H (81.0-99.0) fL MCH 33.6 H (27.0-31.0) pg MCHC 32.8 (32.0-36.0) g/dL RDW 14.8 (12.0-15.0) % Plt Count 176 (130-450) 10^3/uL MPV 8.1 (7.9-10.8) fL Neut # (Auto) 3.1 (1.5-6.6) 10^3/uL Lymph # (Auto) 1.6 (1.5-3.5) 10^3/uL [place] # (Auto) 0.7 (0.0-1.0) 10^3/uL Eos # (Auto) 0.1 (0.0-0.7) 10^3/uL Baso # (Auto) 0.0 (0.0-0.1) 10^3/uL Absolute Nucleated RBC 0.00 x10^3/uL Nucleated RBC % 0.0 /100WBC Sodium 137 (135-145) mmol/L Potassium 3.6 (3.5-5.0) mmol/L Chloride 109 (101-111) mmol/L Carbon Dioxide 22 (21-32) mmol/L Anion Gap 6.0 (6-13) BUN 14 (6-20) mg/dL Creatinine 1.5 H (0.4-1.0) mg/dL Estimated GFR (MDRD) 33 L (>89) Glucose 183 H (70-100) mg/dL Lactic Acid 1.3 (0.5-2.2) mmol/L Calcium 7.3 L (8.5-10.3) mg/dL - Diagnostic Imaging Diagnostic Imaging Comments: EXAM: CHEST RADIOGRAPHY EXAM DATE: 12/02/2017 05:09 PM. CLINICAL HISTORY: Cough. COMPARISON: Chest radiograph and CT chest 10/31/2017. TECHNIQUE: 1 view. FINDINGS: Lungs/Pleura: No focal consolidation or evidence of edema. No pleural effusion or pneumothorax. Mediastinum: Heart size is normal. The aorta is mildly tortuous and contains atherosclerotic calcifications, as before. Other: The bones are unremarkable. IMPRESSION: No acute cardiopulmonary abnormality. EXAM: CHEST RADIOGRAPHY EXAM DATE: 12/03/2017 07:57 AM. CLINICAL HISTORY: F/U, cough. COMPARISON: 12/02/2017. TECHNIQUE: 1 view. FINDINGS: Lungs/Pleura: The degree of aeration is stable. No focal opacities, pleural effusion or pneumothorax. Mediastinum: No significant interval change. Scant atherosclerotic calcifications affiliated with the aortic arch. Other: Stable osseous structures. IMPRESSION: Stable examination. No acute process. ABX Reporting Has patient been on IV antibiotics over the past 48 hours?: Yes Assessment/Plan - Problem List (1) Sepsis Impression: The patient has never mounted a white count and her leukocytes are down from 7.9 -5.5 today. Her lactic acid has come down from 2.8-1.3, and she has been afebrile. She no longer meets criteria for sepsis diagnosis. Continue current antibiotic and fluids regimen. Qualifiers: Sepsis type: sepsis due to unspecified organism Qualified Code(s): A41.9 - Sepsis, unspecified organism (2) Acute on chronic renal failure Impression: The patient's creatinine is improving but still elevated, going from 1.7 on admission down to 1.5 this morning. She typically runs 1.2 and 1.5. Continue present care. Qualifiers: Chronic kidney disease stage: stage 3 (moderate) (3) Altered mental status Impression: The patient is still lethargic but is more awake and alert, and was able to self -feed earlier today. She typically sleeps unless there is a reason for her to be awake. I expect this to self resolve over the next day or 2. Qualifiers: Altered mental status type: delirium (4) Dementia Impression: Patient has fairly advanced dementia but is able to make simple needs known and uses a walker most of the time. She is clearly being affected by this current infection as she is sleeping almost all the time and is minimally verbal. Qualifiers: Dementia type: Alzheimer's disease (5) Hypertension Impression: We have restarted the patient on Cozaar and metoprolol. Continue present care. Qualifiers: Hypertension type: essential hypertension Qualified Code(s): I10 - Essential (primary) hypertension (6) Hyperlipidemia Impression: Presumably well-managed, continue simvastatin Qualifiers: Hyperlipidemia type: unspecified Qualified Code(s): E78.5 - Hyperlipidemia , unspecified (7) Hypothyroidism Impression: We will continue the patient's levothyroxine home dosing; The patient's TSH 1 month ago was 0.95. Continue present care.. Qualifiers: Hypothyroidism type: unspecified Qualified Code(s): E03.9 - Hypothyroidism , unspecified
[2017-12-03] MEDS ORDERED: PIPERACILLIN/TAZOBACTAM 2.25 GM in SODIUM CHLORIDE 0.9% MINIBAG 100 ML IV SCH (18:00)
[2017-12-03 19:52] LABS: VANCOMYCIN,TROUGH 8.1 ug/mL (10.0-20.0)
[2017-12-03] MEDS ORDERED: VANCOMYCIN INJ 1 GM in SODIUM CHLORIDE 0.9% 250 ML IV SCH (20:00)
[2017-12-04] MEDS: DEXTROSE 5%-0.9% NACL 1,000 ML IV SCH (03:22)
[2017-12-04 05:57] LABS: BASOPHILS % (AUTO) 0.7 %; EOSINOPHILS # (AUTO) 0.2 10^3/uL (0.0-0.7); HGB - HEMOGLOBIN 10.6 g/dL (12.0-16.0); LYMPHOCYTES # (AUTO) 1.4 10^3/uL (1.5-3.5); LYMPHOCYTES % (AUTO) 30.3 %; MEAN CORPUSCULAR HEMOGLOBIN 33.9 pg (27.0-31.0); MEAN CORPUSCULAR HGB CONC 32.8 g/dL (32.0-36.0); MEAN CORPUSCULAR VOLUME 103.2 fL (81.0-99.0); MEAN PLATELET VOLUME 8.3 fL (7.9-10.8); MONOCYTES # (AUTO) 0.5 10^3/uL (0.0-1.0); MONOCYTES % (AUTO) 11.3 %; NEUTROPHILS # (AUTO) 2.6 10^3/uL (1.5-6.6); NEUTROPHILS % (AUTO) 53.7 %; PLT - PLATELET COUNT 169 10^3/uL (130-450); RED BLOOD COUNT 3.14 10^6/uL (4.20-5.40); RED CELL DISTRIBUTION WIDTH 14.7 % (12.0-15.0); WHITE BLOOD COUNT 4.8 x10^3/uL (4.8-10.8)
[2017-12-04 06:05] LABS: CALCIUM 7.8 mg/dL (8.5-10.3); CREATININE 1.3 mg/dL (0.4-1.0)
[2017-12-04] MEDS: LEVOTHYROXINE 25 MCG TABLET PO SCH (06:46)
[2017-12-04] MEDS ORDERED: VANCOMYCIN INJ 1.25 GM in SODIUM CHLORIDE 0.9% 250 ML IV SCH (07:00)
[2017-12-04] MEDS: PIPERACILLIN/TAZOBACTAM 2.25 GM in SODIUM CHLORIDE 0.9% MINIBAG 100 ML IV SCH (08:18)
[2017-12-04] MEDS: POLYETHYLENE GLYCOL 3350 17 GM PACKET PO SCH (08:24)
[2017-12-04] MEDS: predniSONE 5 MG TABLET PO SCH (08:25)
[2017-12-04] MEDS: MEMANTINE 5 MG TABLET PO SCH (08:25)
[2017-12-04] MEDS: busPIRone 5 MG TABLET PO SCH (08:25)
[2017-12-04] MEDS: METOPROLOL SUCCINATE 25 MG TABLET PO SCH (08:25)
[2017-12-04] MEDS: FAMOTIDINE 20 MG TABLET PO SCH (08:26)
[2017-12-04] MEDS: LOSARTAN 50 MG TABLET PO SCH (08:26)
[2017-12-04] MEDS: ACYCLOVIR 200 MG CAPSULE PO SCH (08:26)
[2017-12-04] MEDS: ASPIRIN CHEW 81 MG TABLET PO SCH (08:26)
[2017-12-04] MEDS: SODIUM CHLORIDE FLUSH 0.9% 10 ML SYRINGE IVP SCH (08:30)
[2017-12-04] MEDS: MIRABEGRON 25 MG PO SCH (08:30)
[2017-12-04 08:53] VITALS: BP 165/83
--- NOTE | 2017-12-04 11:39 | Discharge Plan ---
Discharge Plan for SNF / DETENTION - DC Plan and Transition Orders Disposition: 01 Home, Self Care Condition: Stable SNF Transition Orders: Admit to: [Facility] under the care of [Doctor Name] Discharge Diagnosis: [] Medicare Certification: I certify that [facility] long [facility] care is medically necessary on a continuing basis for any of the conditions for which she/he is receiving care during hospitalization. Notify PCP of admission and forward orders to primary provider for signature. Weight on admission and [Daily/Weekly/Monthly]. Call PCP immediately if weight increases by [Number] pounds or if patient develops dyspnea, chest pain/ tightness or edema. House Bowel Program: [Yes/No] If no BM after 2 days, nurse may give M.O.M. 30ml PO PRN and /or ducolax Supp 1 OH and /or ARLEEN 250mg P.O., and/or senna 1-2 tabs PO. On day 3 nurse may give repeat above order until residents constipation is resolved. Immunizations: Annual Influenza Vaccine: [Yes/No]. (between Feb 24 and September 23.) Unless allergy or already given Two-Step PPD: [Yes/No] per [facility] [id number] or appropriate documentation of approved exceptions Treatments & Other Orders: [] Oxygen Orders: [] Lab Tests or X-Rays Orders: [] Orthopedic Orders: [Remove Sutures/[place] and Comment]. Medications: PLEASE REFER TO THE DISCHARGE MEDICATION LIST. Insulin Orders? [Yes/No] Diagnosis: Diabetes Initiate hypo and hyperglycemia protocols for BG <70 and BG >375. May check BG prn for signs/symptoms of dysglycemia. Frequency of BG checks: [AC/Meal/HS] Basal Insulin: [] Lantus 100 units / ml inject subq as follows: [] [] Other: [] Correction Insulin: - Select the type of insulin below [Choose: Novolog/Humalog]100 units /ml insulin inject subq per orders indicate below [] LOW DOSE [] MODERATE DOSE [] MODERATE/HIGH DOSE [] HIGH DOSE GB UNITS GB UNITS GB UNITS GB UNITS 61-140 0 UNITS 61-140 0 UNITS 61-140 0 UNITS 61-140 0 UNITS 141-175 1 UNITS 141-175 1 UNITS 141-175 2 UNITS 141-175 3 UNITS 176-225 2 UNITS 176-225 3 UNITS 176-225 4 UNITS 176-225 5 UNITS 226-275 3 UNITS 226-275 5 UNITS 226-275 6 UNITS 226-275 7 UNITS 276-325 4 UNITS 276-325 7 UNITS 276-325 8 UNITS 276-325 9 UNITS 326-375 5 UNITS 326-375 9 UNITS 326-375 10 UNITS 326-375 11 UNITS >375 CONTACT MD >375 CONTACT MD >375 CONTACT MD >375 CONTACT MD Custom Dosing: [Choose: None/Novolog/Humalog] 100 units/ml Insulin inject subq as follows: GB Units 61-140 [] Units 141-175 [] Units 176-225 [] Units 226-275 [] Units 276-325 []Units 326-375 [] Units >375 Contact MD Allergies and Adverse Reactions: Allergies Allergy/AdvReac Type Severity Reaction Status Date / Time fluoxetine HCl * AdvReac Unknown Unknown Verified 10/03/14 15:47 [From Prozac] nitroglycerin AdvReac Unknown Unknown Verified 10/03/14 15:47 Sulfa (Sulfonamide AdvReac Unknown Unknown Verified 10/03/14 15:47 Antibiotics) sulfamethoxazole AdvReac Unknown Unknown Verified 10/03/14 15:47 [From Bactrim] trimethoprim [From Bactrim] AdvReac Unknown Unknown Verified 10/03/14 15:47
--- NOTE | 2017-12-04 11:42 | Discharge Plan ---
Discharge Plan Disposition: 01 Home, Self Care Condition: Stable Diet: Regular Activity Restrictions: Activity as Tolerated Shower Restrictions: No Driving Restrictions: No Assistance Devices: Walker Weight Bearing: Partial Weight No Smoking: If you smoke, Please STOP! Call for help. Follow-up with: Deshawn Caballero MD [Primary Care Provider] -
[2017-12-04] MEDS ORDERED: levoFLOXacin 250 MG TABLET PO SCH (12:00)
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
== END 2017-12-04 13:42 | disposition home or self-care (01) | DRG 872 ==
LOC: ED 16:32 → MS2 20:42
PROVIDERS: ADMIT Internal Medicine; ATTEND Hospitalist
DX: A41.9 Sepsis, unspecified organism (principal); N17.9 Acute kidney failure, unspecified; I10 Essential (primary) hypertension; E78.00 Pure hypercholesterolemia, unspecified; R41.0 Disorientation, unspecified; G30.9 Alzheimer's disease, unspecified; F02.80 Dementia in other diseases classified elsewhere, unspecified severity, without behavioral disturbance, psychotic disturbance, mood disturbance, and anxiety; E03.9 Hypothyroidism, unspecified; F32.9 Major depressive disorder, single episode, unspecified; F41.9 Anxiety disorder, unspecified; G35 Multiple sclerosis; I12.9 Hypertensive chronic kidney disease with stage 1 through stage 4 chronic kidney disease, or unspecified chronic kidney disease; N18.9 Chronic kidney disease, unspecified; E78.5 Hyperlipidemia, unspecified; Z79.82 Long term (current) use of aspirin; Z79.52 Long term (current) use of systemic steroids; Z86.73 Personal history of transient ischemic attack (TIA), and cerebral infarction without residual deficits; Z87.440 Personal history of urinary (tract) infections; Z87.01 Personal history of pneumonia (recurrent)
CPT/HCPCS: 36415; 51701; 71045; 80048; 80053; 80202; 81001; 81003; 83605; 83690; 85025; 85610; 85730; 87040; 87086; 96365; 96368; 99283; 99284; 99285

== ENCOUNTER 2018-05-02 11:22 | Outpatient (CLI) | payer MEDICARE, OTHER, MEDICAID | END 2018-05-02 11:23 | disposition critical access hospital (66) | LOC: EMS 11:22 | PROVIDERS: ATTEND Surgery | DX: R55 Syncope and collapse (principal) | CPT/HCPCS: A0425; A0427 ==

== ENCOUNTER 2018-05-02 11:41 | Inpatient (IN) | payer MEDICARE, OTHER, MEDICAID ==
[2018-05-02] MEDS ORDERED: SODIUM CHLORIDE 0.9% 1,000 ML IV ONE (11:50)
--- NOTE | 2018-05-02 11:52 | ED Physician Documentation ---
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 They found the patient to have a low blood pressure and have sent her here to the hospital. She has had aspiration pneumonia in the past. 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 : None HEENT: None Psych: Depression, Anxiety Musculoskeletal: None Derm: None - Past Surgical History Past Surgical History: Yes /SUPERVISOR CORE DRILLING: Hysterectomy - Present Medications Home Medications: Ambulatory Orders Medication Instructions Recorded Confirmed Aspirin Chewable [[place]air 162 mg PO DAILY 01/24/13 12/03/17 Aspirin] Acyclovir 200 mg PO BID 03/22/13 12/03/17 Simvastatin 20 mg PO QPM 03/22/13 12/03/17 Fluticasone [Flonase] 2 spray DARREN DAILY PRN 02/17/16 12/03/17 Metoprolol Succinate [Toprol Xl] 25 mg PO DAILY 02/17/16 12/03/17 Levothyroxine [Synthroid] 50 mcg PO QDAC #0 tablet 02/19/16 12/03/17 Memantine [Namenda] 10 mg PO BID tablet 02/19/16 12/03/17 Quetiapine Fumarate [Seroquel] 150 mg PO QPM 02/06/17 12/03/17 Losartan [Cozaar] 50 mg PO DAILY #30 tablet 02/07/17 12/03/17 Mirabegron [Myrbetriq] 25 mg PO DAILY 10/29/17 12/03/17 ALPRAZolam [Alprazolam] 0.5 mg PO DAILY PRN 12/03/17 12/03/17 ALPRAZolam [Alprazolam] 0.5 mg PO QPM 12/03/17 12/03/17 Albuterol Sulf [Ventolin Hfa 2 puffs INH Q4H PRN 12/03/17 12/03/17 Inhaler] Acetaminophen [Tylenol] 650 mg PO Q4HR PRN tablet 12/04/17 Famotidine [Pepcid] 20 mg PO DAILY tablet 12/04/17 predniSONE [Deltasone] 5 mg PO DAILY tablet 12/04/17 busPIRone [Buspar] 10 mg PO DAILY 05/02/18 - Allergies Allergies/Adverse Reactions: Allergies Allergy/AdvReac Type Severity Reaction Status Date / Time fluoxetine HCl * AdvReac Unknown Unknown Verified 05/02/18 12:04 [From Prozac] nitroglycerin AdvReac Unknown Unknown Verified 05/02/18 12:04 Sulfa (Sulfonamide AdvReac Unknown Unknown Verified 05/02/18 12:04 Antibiotics) sulfamethoxazole AdvReac Unknown Unknown Verified 05/02/18 12:04 [From Bactrim] trimethoprim [From Bactrim] AdvReac Unknown Unknown Verified 05/02/18 12:04 - Social History Does the pt smoke?: No Smoking Status: Never smoker Does the pt drink ETOH?: No Does the pt have substance abuse?: No - Immunizations Immunizations are current?: Yes Immunizations: TDAP >10years/unknown - POLST Patient has POLST: No POLST Status: Full Code PD ED PE NORMAL - Vitals Vital signs reviewed: Yes - General General: No acute distress, Well developed/nourished, Other (The patient has deminished responsiveness and answers only one word at a time and I dont know. 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 2-12 intact, No motor deficit, No sensory deficit Eye Opening: Spontaneous Motor: Obeys Commands Verbal: Confused GCS Score: 14 - Psych Psych: Other (mood is withdrawn and the affect is flat ) Results - Vitals Vitals: Vital Signs - 24 hr 05/02/18 11:43 Temperature 36 C L Heart Rate 60 Respiratory 12 Rate Blood Pressure 89/51 L O2 Saturation 91 L Oxygen O2 Source Room air - EKG (time done) 1150 Rate: Rate (enter#) (59) Rhythm: NSR [place]: LAD QRS: Low voltage Other comments: Other comments (low amplitude T waves ) Compare to prior EKG: Changed from prior EKG (SPT 02-15-17 rate has decreased) Computer interpretation: Agree with computer - Labs Labs: Laboratory Tests 05/02/18 05/02/18 05/02/18 12:30 12:54 12:54 WBC 8.9 RBC 3.24 L Hgb 11.2 L Hct 33.5 L MCV 103.5 H MCH 34.6 H MCHC 33.4 RDW 15.4 H Plt Count 189 MPV 8.4 Neut # (Auto) 6.2 Lymph # (Auto) 1.7 [place] # (Auto) 0.8 Eos # (Auto) 0.2 Baso # (Auto) 0.0 Absolute Nucleated RBC 0.01 Nucleated RBC % 0.1 Sodium 141 Potassium 3.5 Chloride 111 Carbon Dioxide 21 Anion Gap 9.0 BUN 22 H Creatinine 1.5 H Estimated GFR (MDRD) 33 L Glucose 124 H Lactic Acid Calcium 7.7 L Total Bilirubin 0.9 AST 19 ALT 14 Alkaline Phosphatase 48 Troponin I Total Protein 5.4 L Albumin 2.8 L Globulin 2.6 Albumin/Globulin Ratio 1.1 Lipase 28 Urine Color DARK YELLOW Urine Clarity SL. CLOUDY Urine pH 6.0 Ur Specific [place] >=1.030 H Urine Protein 30 H Urine Glucose (UA) NEGATIVE Urine Ketones TRACE Urine Occult Blood TRACE-LYSE Urine Nitrite NEGATIVE Urine Bilirubin NEGATIVE Urine Urobilinogen 0.2 (NORMAL) Ur Leukocyte Esterase TRACE H Urine RBC 0-5 Urine WBC 11-25 H Ur Squamous Epith Cells RARE Squamous Urine Bacteria None Seen Urine Mucus Few Strands Ur Microscopic Review INDICATED Urine Culture Comments INDICATED 05/02/18 05/02/18 12:54 12:54 WBC RBC Hgb Hct MCV MCH MCHC RDW Plt Count MPV Neut # (Auto) Lymph # (Auto) [place] # (Auto) Eos # (Auto) Baso # (Auto) Absolute Nucleated RBC Nucleated RBC % Sodium Potassium Chloride Carbon Dioxide Anion Gap BUN Creatinine Estimated GFR (MDRD) Glucose Lactic Acid 2.4 H Calcium Total Bilirubin AST ALT Alkaline Phosphatase Troponin I < 0.04 Total Protein Albumin Globulin Albumin/Globulin Ratio Lipase Urine Color Urine Clarity Urine pH Ur Specific [place] Urine Protein Urine Glucose (UA) Urine Ketones Urine Occult Blood Urine Nitrite Urine Bilirubin Urine Urobilinogen Ur Leukocyte Esterase Urine RBC Urine WBC Ur Squamous Epith Cells Urine Bacteria Urine Mucus Ur Microscopic Review Urine Culture Comments - Rads (name of study) 1 view chest Radiology: Prelim report reviewed (Impression: No evidence of acute thoracic process.), EMP read indepedently, See rad report Procedures - IVC sono (time) 1148 Bedside IVC sono: IVC measures (cm) (0.92), Dehydration (est 1-2 liter deficit after 700ml in.) PD MEDICAL DECISION MAKING - ED course Complexity details: reviewed old records, reviewed results, re-evaluated patient, considered differential, d/w patient, d/w family ED course: 82 y/o female with advanced dementia has had an episode of syncope while on the commode at her doctor's office. She is found to be significantly dehydrated on interrogation of her inferior vena cava and on examination she has rhonchi in the right base. IV fluid is running on arrival to the emergency department and despite the 700 mils given the patient continues to have low central venous pressure. She has evidence of urinary tract infection again today and she improves with the use of intravenous fluids and she is given a dose of Rocephin. She will need admission to the hospital as she continues to have altered level of consciousness. Departure - Departure Disposition: 66 [facility] DC/Xfer Clinical Impression: Sepsis associated hypotension Urinary tract infection Qualifiers: Urinary tract infection type: acute cystitis Hematuria presence: without hematuria Qualified Code(s): N30.00 - Acute cystitis without hematuria Condition: Serious
[2018-05-02] MEDS ORDERED: cefTRIAXone 1 GM in SODIUM CHLORIDE 0.9% MINIBAG 100 ML IV STA (12:03)
[2018-05-02 12:42] LABS: GLUCOSE, URINE (UA) NEGATIVE (NEGATIVE); KETONES,URINE (UA) TRACE mg/dL (NEGATIVE); LEUKOCYTE ESTERASE, URINE TRACE (NEGATIVE); NITRITE,URINE NEGATIVE (NEGATIVE); OCCULT BLOOD,URINE TRACE-LYSE (NEGATIVE); PROTEIN,URINE 30 mg/dL (NEGATIVE); UROBILINOGEN,URINE 0.2 (NORMAL) E.U./dL (NORMAL)
[2018-05-02 13:00] LABS: BILIRUBIN,URINE NEGATIVE (NEGATIVE); CLARITY,URINE SL. CLOUDY (CLEAR); ICTOTEST,URINE NEGATIVE
[2018-05-02 13:01] LABS: BACTERIA,URINE None Seen /HPF (None Seen); MUCUS,URINE Few Strands; RBC,URINE 0-5 /HPF (0-5); SQUAMOUS EPITHELIAL CELL,UR RARE Squamous (<= Few)
[2018-05-02 13:05] LABS: BASOPHILS % (AUTO) 0.3 %; EOSINOPHILS # (AUTO) 0.2 10^3/uL (0.0-0.7); EOSINOPHILS % (AUTO) 1.9 %; HGB - HEMOGLOBIN 11.2 g/dL (12.0-16.0); LYMPHOCYTES # (AUTO) 1.7 10^3/uL (1.5-3.5); LYMPHOCYTES % (AUTO) 18.9 %; MEAN CORPUSCULAR HEMOGLOBIN 34.6 pg (27.0-31.0); MEAN CORPUSCULAR HGB CONC 33.4 g/dL (32.0-36.0); MEAN CORPUSCULAR VOLUME 103.5 fL (81.0-99.0); MEAN PLATELET VOLUME 8.4 fL (7.9-10.8); MONOCYTES # (AUTO) 0.8 10^3/uL (0.0-1.0); MONOCYTES % (AUTO) 8.5 %; NEUTROPHILS # (AUTO) 6.2 10^3/uL (1.5-6.6); NEUTROPHILS % (AUTO) 70.4 %; PLT - PLATELET COUNT 189 10^3/uL (130-450); RED BLOOD COUNT 3.24 10^6/uL (4.20-5.40); RED CELL DISTRIBUTION WIDTH 15.4 % (12.0-15.0); WHITE BLOOD COUNT 8.9 x10^3/uL (4.8-10.8)
[2018-05-02 13:16] LABS: ALBUMIN 2.8 g/dL (3.2-5.5); ALBUMIN/GLOBULIN RATIO 1.1 (1.0-2.2); BILIRUBIN,TOTAL 0.9 mg/dL (0.2-1.0); CALCIUM 7.7 mg/dL (8.5-10.3); CREATININE 1.5 mg/dL (0.4-1.0); TOTAL PROTEIN 5.4 g/dL (6.7-8.2)
--- NOTE | 2018-05-02 13:40 | XRAY Report ---
Reason: right base rhonchi Procedure Date: 05/02/2018 Accession Number: [id number] / [id number] Procedure: XR - Chest 1 View X-Ray CPT Code: 40857 FULL RESULT: EXAM: CHEST RADIOGRAPHY EXAM DATE: 05/02/2018 01:15 PM. CLINICAL HISTORY: Right base rhonchi. COMPARISON: Chest 12/03/2017. TECHNIQUE: 1 view. FINDINGS: Lungs/Pleura: No focal opacities evident. No pleural effusion. No pneumothorax. Mediastinum: Stable cardiomegaly. There are atherosclerotic calcifications of the aorta. Other: Persistent right diaphragm elevation. IMPRESSION: No evidence of acute thoracic process RADIA
--- NOTE | 2018-05-02 14:08 | HISTORY & PHYSICAL EXAMINATION ---
Chief Complaint - Chief Complaint Chief Complaint: AMS, syncope and collapse History of Present Illness - Admitted From Admitted From:: ED - History Obtained From Records Reviewed: yes History obtained from: chart review Exam Limitations: advanced dementia - History of Present Illness HPI Comment/Other: Sara Morrissey is an 82-year old female with a past medical history of advanced dementia, multiple sclerosis, history of TIAs, hypertension, hypothyroidism, depression, anxiety, hyperlipidemia and recurrent UTIs who presented to the emergency department with altered mental status, syncope, collapse and hypotension while in her PCP's office today. EMS brought her in and once in the ED she was found to be hypotensive with a blood pressure of 89/51, despite getting IV fluids en route, hypoxic, and afebrile. Labs showed a normal WBC count, macrocytic anemia with a hemoglobin of 11.2, a hematocrit of 33.5, and an MCV of 103.5. She is found to have JOE with an elevated BUN of 22, an elevated creatinine of 1.5, and a reduced GFR of 33, slightly elevated glucose of 124, and a low albumin of 2.8. The patient had an elevated lactic acid of 2.4, and given her presentation was likely in septic shock and at the time of my exam is considered to be in severe sepsis. A urine sample shows a possible source of this illness with the sample noted as being cloudy, elevated WBCs, and culture is indicated. Her caregiver, Jada is at the bedside who states that she cares for the patient 5 days per week, and the patient's brother stays with her the remainder of the time. She denies recent falls, confusion, fever, chills, or rashes when asked. She will be admitted to inpatient for further treatment of severe sepsis, and pyelonephrititis. History - Past Medical History Cardiovascular: reports: Hypertension, High cholesterol, Murmur Respiratory: reports: COPD Neuro: reports: Dementia Endocrine/Autoimmune: reports: HyPOthyroidism GI: reports: None DOCTORATE OF CHIROPRACTIC: reports: None : reports: Incontinence, Nocturia, Frequency HEENT: reports: Chronic vision loss, Chronic sinusitis Psych: reports: Depression, Anxiety Musculoskeletal: reports: Rheumatoid arthritis, Chronic back pain Derm: reports: None MRSA Hx?: No - Past Surgical History /DOCTORATE OF CHIROPRACTIC: reports: Hysterectomy - Family & Social History Family History: Mother: , CAD, Father: , CAD Living arrangement: At home Living Situation: With family, With caregiver(s) Social History Notes: The patient was born in [place] but has been living on [facility] for many years. She currently lives in her own home and her son lives with her. The patient's son moved in with his mom about 5 years ago when she started having dementia and she has had progressive dementia since. The patient has a caregiver that is in the house when the patient's son is not around. The son states that somebody is with her 24 hours a day. The patient is once and . Her a few years ago. The patient has a remote history of smoking but has not smoked for many years. She does not drink alcohol and does not use any illicit drugs. - Substance History Use: Uses substance without health or social issues: NONE Abuse: Recurrent use of substance despite neg consequences: NONE Dependence: Experiences withdrawal or developed tolerances: NONE - POLST Patient has POLST: No POLST Status: Full Code Meds/Allgy - Home Medications Home Medications: Ambulatory Orders Medication Instructions Recorded Confirmed Aspirin Chewable [[place] 162 mg PO DAILY 01/24/13 05/02/18 Aspirin] Acyclovir 200 mg PO BID 03/22/13 05/02/18 Simvastatin 20 mg PO QPM 03/22/13 05/02/18 Metoprolol Succinate [Toprol Xl] 25 mg PO DAILY 02/17/16 05/02/18 Levothyroxine [Synthroid] 50 mcg PO QDAC #0 tablet 02/19/16 05/02/18 Memantine [Namenda] 10 mg PO BID tablet 02/19/16 05/02/18 Quetiapine Fumarate [Seroquel] 100 mg PO QPM 02/06/17 05/02/18 Losartan [Cozaar] 50 mg PO DAILY #30 tablet 02/07/17 05/02/18 Mirabegron [Myrbetriq] 25 mg PO DAILY 10/29/17 05/02/18 ALPRAZolam [Alprazolam] 0.5 mg PO 1400 PRN 12/03/17 05/02/18 ALPRAZolam [Alprazolam] 0.5 mg PO QPM 12/03/17 05/02/18 Albuterol Sulf [Ventolin Hfa 2 puffs INH Q4H PRN 12/03/17 05/02/18 Inhaler] Acetaminophen [Tylenol] 650 mg PO Q4HR PRN tablet 12/04/17 05/02/18 Famotidine [Pepcid] 20 mg PO DAILY tablet 12/04/17 05/02/18 predniSONE [Deltasone] 5 mg PO DAILY tablet 12/04/17 05/02/18 Polyethylene Glycol 3350 [Miralax] 17 gm PO DAILY 05/02/18 05/02/18 Quetiapine Fumarate 50 mg PO DAILY 05/02/18 05/02/18 Rivastigmine [Exelon] 13.3 mg TOP Q3D 05/02/18 05/02/18 busPIRone [Buspar] 5 mg PO BID 05/02/18 05/02/18 - Allergies Allergies/Adverse Reactions: Allergies Allergy/AdvReac Type Severity Reaction Status Date / Time fluoxetine HCl * AdvReac Unknown Unknown Verified 05/02/18 12:04 [From Prozac] nitroglycerin AdvReac Unknown Unknown Verified 05/02/18 12:04 Sulfa (Sulfonamide AdvReac Unknown Unknown Verified 05/02/18 12:04 Antibiotics) sulfamethoxazole AdvReac Unknown Unknown Verified 05/02/18 12:04 [From Bactrim] trimethoprim [From Bactrim] AdvReac Unknown Unknown Verified 05/02/18 12:04 Review of Systems - Constitutional Constitutional: reports: Fatigue, Weakness, Poor appetite - Eyes Eyes: reports: Corrective lenses - Ears, Nose & Throat Ears, Nose & Throat: reports: Hearing loss, Postnasal drainage - Cardiovascular Cariovascular: reports: Irregular heart rate, Edema, Decr. exercise tolerance - Respiratory Respiratory: reports: SOB with exertion - Gastrointestinal Gastrointestinal: reports: Constipation, Diarrhea, Reflux/heartburn, Poor appetite - Genitourinary Genitourinary: reports: Dysuria, Urgency, Incontinence, Nocturia - Musculoskeletal Musculoskeletal: reports: Limited range of motion - Integumentary Integumentary: reports: Dryness - Neurological Neurological: reports: General weakness, Memory problems, Pre-existing deficit - Psychiatric Psychiatric: reports: Depression, Anxiety - Hematologic/Lymphatic Hematologic/Lymphatic: reports: Anemia, Recurrent infections - All Other Systems All Other Systems: reports: Reviewed and negative Prior Level of Functionality: Chronic urinary incontinence. 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 Uses a walker for ambulation, no recent falls. Needs help with basic ADLs due to RA and advanced dementia. Exam - Vital Signs Reviewed Vital Signs: Yes Vital Signs: Vital Signs x48h Temp Pulse Resp BP Pulse Ox 05/02/18 11:43 36 C L 60 12 89/51 L 91 L - Physical Exam General Appearance: positive: Alert, Moderate distress, Lethargic Eyes Bilateral: positive: PERRL ENT: positive: Pharynx nml, Dry mucous membranes Neck: positive: Thyroid nml, No JVD, Trachea midline Respiratory: positive: Chest non-tender, Rhonchi Cardiovascular: positive: No gallop, Irregularly irregular, Systolic murmur Peripheral Pulses: positive: 1+ Abdomen: positive: Non-tender, Nml bowel sounds, Other (rounded, soft) Back: positive: Nml inspection Skin: positive: No rash, Warm, Dry Extremities: positive: Non-tender, Pedal edema, Joint swelling Neurologic/Psychiatric: positive: Disoriented to time, Weakness, Sensory loss, Depressed mood/affect Reflexes: Bicep (R): 3+, Bicep (L): 3+ Sepsis Event Note (H) - Evaluation Current Stage of Sepsis: Severe sepsis Possible source of Sepsis: positive: Genitourinary Confirmed Source and Organism (if known) of Sepsis: + UTI based on preliminary urine sample with culture pending. - Sepsis Criteria Sepsis Criteria: Respiratory: Increasing oxygen requirements, ENVIRONMENTAL ADVISER: altered consciousness (unrelated to primary neuro pathology), SBP less than 90 mmHg, Metabolic: lactate > 2 mmol/L Conclusion/Plan - Problem List (1) Severe sepsis Conclusion/Plan: The patient's initial lactic acid was elevated at 2.4, and at the time of this note, (3 hour reflex automatic re-check lab), the lactic acid is now at 3.2. She has been prescribed continuous IV fluids, including a one time 500mL NS yousuf padma, IV vanco, IV cefepime, and blood cultures are pending. The most likely source is urinary, and this is re-current with her last hospital stay being in November 2017. ABGs were ordered and pending as she has an increased RR of 28-30. I will order an abdominal/pelvic CT to rule out other sources of infection, and I will add flagyl. Plan: Continue serial lactic acid levels, generous IV fluids, and monitor vital signs closely. (2) Pyelonephritis Conclusion/Plan: Preliminary urine sample indicates acute UTI and the culture is pending. The patient has chronic urinary incontinence and chronic UTIs. She admits to tenderness to her mid back on exam with palpation. Plan: Treat sepsis with IV cefepime and vanco, await final urine culture results. (3) Acute kidney injury Conclusion/Plan: The patient has a baseline creatinine of 1.2, and today she has an elevated level of 1.5, with a reduced GFR of 33. This is likely a consequence of her 1- 2L fluid deficit. She has been given fluids, and these will continue as she is also septic on admission. Plan: Avoid nephrotoxic agents, monitor labs, urine out put, daily weights, and vital signs. (4) Dehydration Conclusion/Plan: A bedside IVC measurement was taken and the patient is estimated to have at least a 1-2 L fluid deficit. She is also hypotensive on admission. Plan: Continue IV fluids, monitor vital signs, daily labs. (5) Syncope Conclusion/Plan: Reports from the PCP, state that the patient was in the office, and was on the commode when she had this symptom. It is unclear whether she lost consciousness, but is not believed to have hit her head. This episode is most likely related to the patient's mounting response to her upcoming sepsis and dehydration. She is neuro-intact on exam, and has advanced dementia. Her eye care professional believes her to be slightly more confused that her usual. I have ordered an echocardiogram and she is on telemetry. There were no head imaging done on admission. I see that she has several sedating medications prescribed and I will likely recommend weaning off some of these due to her age and poor kidney function on discharge. Plan: Treat sepsis, and consider further testing if her neuro status changes. Qualifiers: Syncope type: vasovagal syncope Qualified Code(s): R55 - Syncope and collapse (6) Dementia Conclusion/Plan: The patient has known dementia, and is prescribed Namenda, seroquel, xanax, buspar, and Exelon patches by her PCP. These are now on hold given her acute illness. She has frequent eye care professional help during the week, and lives with her brother. She is not a good historian, and does not respond appropriately to questions. She states, "I just want to go home". Plan: Continue to monitor mental status, hold meds for now. Qualifiers: Dementia type: Alzheimer's disease Alzheimer's disease onset: early-onset (7) Multiple sclerosis Conclusion/Plan: The patient has urinary dysfunction and is prescribed Myrbetriq at home. She is treated with several agents for pain, anxiety, dementia, and depression. She is thought to be ambulatory at home, according to Jada, her home restoration service supervisor. Plan: Continue to monitor. (8) Rheumatoid arthritis Conclusion/Plan: The patient is on chronic daily prednisone, and acyclovir at home. I will give a steroid boost this evening as she is septic. These medications will be resumed in the next few days. Plan: Continue to treat pain, and monitor. Qualifiers: Rheumatoid factor presence: unspecified presence (9) Macrocytic anemia with vitamin B12 deficiency Conclusion/Plan: The patient is found to have a very high MCV level of 103.5, and is prescribed r outine out patient B12 injections through her PCP. She has a low H/H of 11.2/33.5, and dehydrated, so this may even be lower. Plan: Continue to monitor daily labs, and monitor for evidence of bleeding. - Lab Results Lab results reviewed: Yes Fish Bones: 05/02/18 12:54 05/02/18 12:54 - Diagnostic Imaging Results Diagnostic Imaging Results: positive: Prelim report reviewed, Final report re viewed Core Measures - Anticipated LOS I expect patient to be DC'd or transferred within 96 hours.: Yes - DVT/VTE - Prophylaxis VTE/DVT Device ordered at admit?: Yes VTE/DVT Prophylaxis med ordered at admit?: Yes - Stroke - Rehab Assessment Rehab services assessment to be ordered?: Yes - AMI - Statin at Admit Aspirin Prescribed on Admit: Yes
[2018-05-02] MEDS ORDERED: VANCOMYCIN PER PHARMACY 10 GM in SODIUM CHLORIDE 0.9% 250 ML IV STA (14:31)
[2018-05-02] MEDS ORDERED: CEFEPIME 2 GM in SODIUM CHLORIDE 0.9% MINIBAG 100 ML IV SCH (15:00)
[2018-05-02] MEDS: SODIUM CHLORIDE FLUSH 0.9% 10 ML SYRINGE IVP PRN ×2 (15:48→18:38)
[2018-05-02] MEDS ORDERED: SODIUM CHLORIDE 0.9% 500 ML IV ONE (15:53)
[2018-05-02] MEDS ORDERED: ACETAMINOPHEN 325 MG TABLET PO PRN (15:55)
[2018-05-02] MEDS ORDERED: D5NS W/20 MEQ KCL 1,000 ML IV SCH (16:00)
[2018-05-02] MEDS: VANCOMYCIN INJ 1 GM in SODIUM CHLORIDE 0.9% 250 ML IV SCH (16:20)
[2018-05-02 17:59] LABS: ABG BASE EXCESS -9.1 mmol/L (-2.0-3.0); ABG HCO3 15.7 mmol/L (22.0-26.0); ABG OXYGEN SATURATION 95 % (94-98); ABG PCO2 31 mmHg (34-45); ABG PH 7.33 (7.35-7.45); ABG PO2 80 mmHg (80-100); ABG TCO2 16.6 MMOL/L (21.0-29.0)
[2018-05-02 18:00] LABS: ALLEN TEST POSITIVE
[2018-05-02] MEDS: SODIUM CHLORIDE FLUSH 0.9% 10 ML SYRINGE IVP SCH (18:38)
[2018-05-02] MEDS: PANTOPRAZOLE 40 MG VIAL IVP SCH (18:38)
[2018-05-02] MEDS: methylPREDNISolone SUCCINATE 40 MG/ML VIAL IVP SCH (18:38)
[2018-05-02] MEDS: ACETAMINOPHEN 1,000 MG/100 ML 100 ML IV SCH (18:46)
[2018-05-02 19:33] LABS: BASOPHILS % (AUTO) 0.2 %; EOSINOPHILS # (AUTO) 0.1 10^3/uL (0.0-0.7); EOSINOPHILS % (AUTO) 1.1 %; HGB - HEMOGLOBIN 10.8 g/dL (12.0-16.0); LYMPHOCYTES % (AUTO) 9.5 %; MEAN CORPUSCULAR HEMOGLOBIN 33.9 pg (27.0-31.0); MEAN CORPUSCULAR HGB CONC 32.5 g/dL (32.0-36.0); MEAN CORPUSCULAR VOLUME 104.4 fL (81.0-99.0); MEAN PLATELET VOLUME 8.4 fL (7.9-10.8); MONOCYTES # (AUTO) 0.3 10^3/uL (0.0-1.0); MONOCYTES % (AUTO) 3.1 %; NEUTROPHILS % (AUTO) 86.1 %; PLT - PLATELET COUNT 194 10^3/uL (130-450); RED BLOOD COUNT 3.19 10^6/uL (4.20-5.40); RED CELL DISTRIBUTION WIDTH 15.6 % (12.0-15.0); WHITE BLOOD COUNT 10.5 x10^3/uL (4.8-10.8)
[2018-05-02] MEDS: ACYCLOVIR 200 MG CAPSULE PO SCH (20:24)
--- NOTE | 2018-05-02 21:48 | CT Report ---
Reason: sepsis, hx of GI bleed, colitis Procedure Date: 05/02/2018 Accession Number: [id number] / [id number] Procedure: CT - Abdomen/Pelvis W/O CPT Code: FULL RESULT: EXAM: CT ABDOMEN AND PELVIS WITHOUT CONTRAST. EXAM DATE: 05/02/2018 08:41 PM. CLINICAL HISTORY: Sepsis, history of gastrointestinal bleed, colitis. COMPARISONS: Abdomen and pelvis without 02/24/2016 12:55 PM. TECHNIQUE: Routine helical CT imaging was performed through the abdomen and pelvis. IV contrast: No. Enteric contrast: No. Reconstructions: Coronal and sagittal. In accordance with CT protocol optimization, one or more of the following dose reduction techniques were utilized for this exam: automated exposure control, adjustment of mA and/or KV based on patient size, or use of iterative reconstructive technique. FINDINGS: Lung Bases: Small focus of airspace disease in the right lower lobe. Liver: The unenhanced liver is unremarkable. Gallbladder/Bile Ducts: Unremarkable. Spleen: There are several splenic calcifications. No splenomegaly. Pancreas: Normal. Adrenal Glands: Normal. Kidneys: There is a 2 mm stone at the lower pole of the left kidney. No obstructing calculi. Peritoneal Cavity/Bowel: Normal. No free fluid, free air or adenopathy. No masses or acute inflammatory process. The appendix is well visualized and normal. Pelvic Organs: The uterus has been removed. There is a Hawley balloon catheter within the urinary bladder. Vasculature: At the sclerotic aorta. No evidence of aneurysm. Bones: No significant abnormality. Other: None. IMPRESSION: 1. No bowel obstruction, fluid collection or acute inflammatory process. 2. Nonobstructing left renal stone. RADIA
[2018-05-02] MEDS: D5NS W/20 MEQ KCL 1,000 ML IV SCH (23:02)
[2018-05-03] MEDS: SODIUM CHLORIDE FLUSH 0.9% 10 ML SYRINGE IVP SCH ×3 (00:25→17:45)
[2018-05-03] MEDS: ACETAMINOPHEN 1,000 MG/100 ML 100 ML IV SCH ×4 (00:42→19:29)
[2018-05-03] MEDS: D5NS W/20 MEQ KCL 1,000 ML IV SCH ×3 (05:14→11:02)
[2018-05-03 05:25] LABS: BASOPHILS % (AUTO) 0.1 %; HGB - HEMOGLOBIN 10.5 g/dL (12.0-16.0); LYMPHOCYTES # (AUTO) 0.5 10^3/uL (1.5-3.5); LYMPHOCYTES % (AUTO) 4.4 %; MEAN CORPUSCULAR HEMOGLOBIN 33.7 pg (27.0-31.0); MEAN CORPUSCULAR HGB CONC 32.4 g/dL (32.0-36.0); MEAN CORPUSCULAR VOLUME 104.1 fL (81.0-99.0); MEAN PLATELET VOLUME 8.5 fL (7.9-10.8); MONOCYTES # (AUTO) 0.1 10^3/uL (0.0-1.0); MONOCYTES % (AUTO) 0.8 %; NEUTROPHILS # (AUTO) 11.8 10^3/uL (1.5-6.6); NEUTROPHILS % (AUTO) 94.7 %; PLT - PLATELET COUNT 185 10^3/uL (130-450); RED BLOOD COUNT 3.12 10^6/uL (4.20-5.40); RED CELL DISTRIBUTION WIDTH 15.5 % (12.0-15.0); WHITE BLOOD COUNT 12.5 x10^3/uL (4.8-10.8)
[2018-05-03 05:44] LABS: ALBUMIN 2.8 g/dL (3.2-5.5); ALBUMIN/GLOBULIN RATIO 1.1 (1.0-2.2); BILIRUBIN,TOTAL 0.7 mg/dL (0.2-1.0); CREATININE 1.3 mg/dL (0.4-1.0); CRP - C-REACTIVE PROTEIN 2.9 mg/dL (0-1.0); MAGNESIUM 1.8 mg/dL (1.7-2.8); TOTAL PROTEIN 5.4 g/dL (6.7-8.2)
[2018-05-03] MEDS: SODIUM CHLORIDE FLUSH 0.9% 10 ML SYRINGE IVP PRN (06:51)
[2018-05-03] MEDS: PANTOPRAZOLE 40 MG VIAL IVP SCH (06:51)
[2018-05-03] MEDS ORDERED: LEVOTHYROXINE 25 MCG TABLET PO SCH (07:00)
[2018-05-03] MEDS: POLYETHYLENE GLYCOL 3350 17 GM PACKET PO SCH ×2 (07:46→08:19)
[2018-05-03] MEDS: methylPREDNISolone SUCCINATE 40 MG/ML VIAL IVP SCH (08:18)
[2018-05-03] MEDS: METOPROLOL SUCCINATE 25 MG TABLET PO SCH (08:19)
[2018-05-03] MEDS: ACYCLOVIR 200 MG CAPSULE PO SCH ×2 (08:19→20:34)
[2018-05-03] MEDS ORDERED: FAMOTIDINE 20 MG TABLET PO SCH (09:00)
[2018-05-03] MEDS ORDERED: predniSONE 5 MG TABLET PO SCH (09:00)
[2018-05-03] MEDS: IPRATROPIUM/ALBUTEROL 3 ML NEB INH PRN (10:00)
[2018-05-03] MEDS: CEFEPIME 2 GM in SODIUM CHLORIDE 0.9% MINIBAG 100 ML IV SCH ×2 (11:03→22:43)
--- NOTE | 2018-05-03 12:22 | PROVIDER PROGRESS NOTE ---
Subjective - Prog Note Date Prog Note Date: 05/03/18 Prog Note Time: 09:00 - Subjective Pt reports feeling: Improved Subjective: Sara complains of "just wanting to go home", and is pleasant when asked about her symptoms and throughout this exam. Later today, Eber, her son and next of kin, is at the bedside and is in agreement that a Palliative care consult is warranted. Current Medications - Current Medications Current Medications: Active Medications Acetaminophen (Tylenol) 650 mg PO Q4HR PRN PRN Reason: Pain or Fever > 38C (100.4F) Acyclovir (Zovirax) 200 mg PO BID [facility] Last Admin: 05/03/18 08:19 Dose: 200 mg Albuterol/Ipratropium (Duoneb) 3 ml INH RTQ4H PRN PRN Reason: Wheezing Last Admin: 05/03/18 10:00 Dose: 3 ml Aspirin ([place] Yair Aspirin) 162 mg PO DAILY [facility] Buspirone HCl (Buspar) 5 mg PO BID [facility] Vancomycin HCl 1 gm/ Sodium (Chloride) 250 mls @ 167 mls/hr IV Q24H [facility] Last Infusion: 05/03/18 18:14 Dose: Infused Acetaminophen (Ofirmev) 100 mls @ 400 mls/hr IV Q6H [facility] Last Admin: 05/03/18 19:29 Dose: Not Given Cefepime HCl 2 gm/ Sodium (Chloride) 100 mls @ 200 mls/hr IV Q12H [facility] Last Infusion: 05/03/18 11:33 Dose: Infused Sodium Chloride (Normal Saline 0.9%) 1,000 mls @ 125 mls/hr IV .Q8H [facility] Last Infusion: 05/03/18 19:00 Dose: 0 mls/hr Ciprofloxacin (Cipro 400 Mg/200 Ml) 200 mls @ 200 mls/hr IV Q12H [facility] Levothyroxine Sodium (Synthroid) 25 mcg PO QDAC [facility] Losartan Potassium (Cozaar) 50 mg PO DAILY [facility] Last Admin: 05/03/18 13:10 Dose: 50 mg Methylprednisolone (Solu-Medrol (40mg Vial)) 40 mg IVP DAILY [facility] Last Admin: 05/03/18 08:18 Dose: 40 mg Metoprolol Succinate (Toprol Xl) 25 mg PO DAILY [facility] Last Admin: 05/03/18 08:19 Dose: 25 mg Pantoprazole Sodium (Protonix) 40 mg IVP QDAC [facility] Last Admin: 05/03/18 06:51 Dose: 40 mg Polyethylene Glycol (Miralax) 17 gm PO DAILY [facility] Last Admin: 05/03/18 08:19 Dose: 17 gm Polyethylene Glycol (Miralax) 17 gm PO DAILY [facility] Last Admin: 05/03/18 07:46 Dose: Not Given Quetiapine Fumarate (Seroquel) 100 mg PO QPM [facility] Sodium Chloride (Normal Saline Flush 0.9%) 10 ml IVP PRN PRN PRN Reason: NEEDED PER PROVIDER ORDERS Last Admin: 05/03/18 06:51 Dose: 10 ml Sodium Chloride (Normal Saline Flush 0.9%) 10 ml IVP 0100,0900,1700 [facility] Last Admin: 05/03/18 17:45 Dose: Not Given Aspirin Chewable [St Yair Aspirin] 162 mg PO DAILY 01/24/13 Acyclovir 200 mg PO BID 03/22/13 Simvastatin 20 mg PO QPM 03/22/13 Metoprolol Succinate [Toprol Xl] 25 mg PO DAILY 02/17/16 Quetiapine Fumarate [Seroquel] 100 mg PO QPM 02/06/17 Mirabegron [Myrbetriq] 25 mg PO DAILY 10/29/17 ALPRAZolam [Alprazolam] 0.5 mg PO 1400 PRN 12/03/17 ALPRAZolam [Alprazolam] 0.5 mg PO QPM 12/03/17 Albuterol Sulf [Ventolin Hfa Inhaler] 2 puffs INH Q4H PRN 12/03/17 Polyethylene Glycol 3350 [Miralax] 17 gm PO DAILY 05/02/18 Quetiapine Fumarate 50 mg PO DAILY 05/02/18 Rivastigmine [Exelon] 13.3 mg TOP Q3D 05/02/18 busPIRone [Buspar] 5 mg PO BID 05/02/18 Objective - Vital Signs/Intake & Output Reviewed Vital Signs: Yes Vital Signs: Vital Signs x48h Temp Pulse Pulse Resp BP Pulse Ox 05/03/18 11:23 36.2 C L 76 20 142/69 H 100 05/03/18 10:07 20 L 74 H 05/03/18 08:20 36.2 C L 77 20 148/68 H 100 11/08/18 04:58 36.6 C 71 20 133/52 H 100 Intake & Output: Intake & Output 04/30/18 05/01/18 05/02/18 05/03/18 23:59 23:59 23:59 23:59 Intake Total 3386.000 2590 Output Total 125 500 Balance 3261.000 2090 - Objective General Appearance: positive: No acute distress, Alert Eyes Bilateral: positive: PERRL Eyes: OU Conjunctivae pale ENT: positive: Dry mucous membranes Neck: positive: No JVD, Lymphadenopathy (R), Lymphadenopathy (L), Stiff neck Respiratory: positive: Chest non-tender, Wheezes (expiratory), Rhonchi Cardiovascular: positive: Regular rate & rhythm, Systolic murmur Peripheral Pulses: 1+ Radial (R), 1+ Radial (L) Abdomen: positive: Non-tender, Nml bowel sounds, Other (rounded, obese, soft) Back: positive: Nml inspection Skin: positive: No rash, Warm, Dry, Cyanosis (fingertips), Pallor Extremities: positive: Non-tender, Pedal edema, Joint swelling Neurologic/Psychiatric: positive: Disoriented to place, Disoriented to time, Weakness, Sensory loss, Depressed mood/affect Reflexes: Bicep (R): 2+, Bicep (L): 2+ - Lab Results Fish Bones: 05/04/18 05:10 05/04/18 05:10 Other Labs: Lab Results x24hrs 05/03/18 05/03/18 05/03/18 Range/Units 08:32 05:15 05:15 WBC (4.8-10.8) x10^3/uL RBC (4.20-5.40) 10^6/uL Hgb (12.0-16.0) g/dL Hct (37.0-47.0) % MCV (81.0-99.0) fL MCH (27.0-31.0) pg MCHC (32.0-36.0) g/dL RDW (12.0-15.0) % Plt Count (130-450) 10^3/uL MPV (7.9-10.8) fL Neut # (Auto) (1.5-6.6) 10^3/uL Lymph # (Auto) (1.5-3.5) 10^3/uL Dane # (Auto) (0.0-1.0) 10^3/uL Eos # (Auto) (0.0-0.7) 10^3/uL Baso # (Auto) (0.0-0.1) 10^3/uL Absolute Nucleated RBC x10^3/uL Nucleated RBC % /100WBC ESR 14 (0-30) mm/Hr Bld Gas Analysis Time Sample Site ABG pH (7.35-7.45) ABG pCO2 (34-45) mmHg ABG pO2 (80-100) mmHg ABG HCO3 (22.0-26.0) mmol/L ABG Total CO2 (21.0-29.0) MMOL/L ABG O2 Saturation (94-98) % ABG Base Excess (-2.0-3.0) mmol/L Berny Test O2 Delivery Device O2 Liters/Min LPM Sodium (135-145) mmol/L Potassium (3.5-5.0) mmol/L Chloride (101-111) mmol/L Carbon Dioxide (21-32) mmol/L Anion Gap (6-13) BUN (6-20) mg/dL Creatinine (0.4-1.0) mg/dL Estimated GFR (MDRD) (>89) Glucose (70-100) mg/dL Lactic Acid 2.3 H (0.5-2.2) mmol/L Calcium (8.5-10.3) mg/dL Phosphorus (2.5-4.6) mg/dL Magnesium (1.7-2.8) mg/dL Total Bilirubin (0.2-1.0) mg/dL AST (10-42) IU/L ALT (10-60) IU/L Alkaline Phosphatase (42-121) IU/L Troponin I (<0.49) ng/mL C-Reactive Protein (0-1.0) mg/dL Total Protein (6.7-8.2) g/dL Albumin (3.2-5.5) g/dL Globulin (2.1-4.2) g/dL Albumin/Globulin Ratio (1.0-2.2) Lipase (22-51) U/L TSH 0.29 L (0.34-5.60) uIU/mL Urine Color Urine Clarity (CLEAR) Urine pH (5.0-7.5) PH Ur Specific Celestine (1.002-1.030) Urine Protein (NEGATIVE) mg/dL Urine Glucose (UA) (NEGATIVE) mg/dL Urine Ketones (NEGATIVE) mg/dL Urine Occult Blood (NEGATIVE) Urine Nitrite (NEGATIVE) Urine Bilirubin (NEGATIVE) Urine Urobilinogen (NORMAL) E.U./dL Ur Leukocyte Esterase (NEGATIVE) Urine RBC (0-5) /HPF Urine WBC (0-5) /HPF Ur Squamous Epith Cells (<= Few) Urine Bacteria (None Seen) /HPF Urine Mucus Ur Microscopic Review Urine Culture Comments 05/03/18 05/03/18 05/03/18 Range/Units 05:15 05:15 05:15 WBC 12.5 H (4.8-10.8) x10^3/uL RBC 3.12 L (4.20-5.40) 10^6/uL Hgb 10.5 L (12.0-16.0) g/dL Hct 32.5 L (37.0-47.0) % MCV 104.1 H (81.0-99.0) fL MCH 33.7 H (27.0-31.0) pg MCHC 32.4 (32.0-36.0) g/dL RDW 15.5 H (12.0-15.0) % Plt Count 185 (130-450) 10^3/uL MPV 8.5 (7.9-10.8) fL Neut # (Auto) 11.8 H (1.5-6.6) 10^3/uL Lymph # (Auto) 0.5 L (1.5-3.5) 10^3/uL Dane # (Auto) 0.1 (0.0-1.0) 10^3/uL Eos # (Auto) 0.0 (0.0-0.7) 10^3/uL Baso # (Auto) 0.0 (0.0-0.1) 10^3/uL Absolute Nucleated RBC 0.00 x10^3/uL Nucleated RBC % 0.0 /100WBC ESR (0-30) mm/Hr Bld Gas Analysis Time Sample Site ABG pH (7.35-7.45) ABG pCO2 (34-45) mmHg ABG pO2 (80-100) mmHg ABG HCO3 (22.0-26.0) mmol/L ABG Total CO2 (21.0-29.0) MMOL/L ABG O2 Saturation (94-98) % ABG Base Excess (-2.0-3.0) mmol/L Berny Test O2 Delivery Device O2 Liters/Min LPM Sodium 140 (135-145) mmol/L Potassium 4.7 (3.5-5.0) mmol/L Chloride 115 H (101-111) mmol/L Carbon Dioxide 19 L (21-32) mmol/L Anion Gap 6.0 (6-13) BUN 18 (6-20) mg/dL Creatinine 1.3 H (0.4-1.0) mg/dL Estimated GFR (MDRD) 39 L (>89) Glucose 308 H (70-100) mg/dL Lactic Acid 2.3 H (0.5-2.2) mmol/L Calcium 8.0 L (8.5-10.3) mg/dL Phosphorus 2.0 L (2.5-4.6) mg/dL Magnesium 1.8 (1.7-2.8) mg/dL Total Bilirubin 0.7 (0.2-1.0) mg/dL AST 27 (10-42) IU/L ALT 15 (10-60) IU/L Alkaline Phosphatase 55 (42-121) IU/L Troponin I (<0.49) ng/mL C-Reactive Protein 2.9 H (0-1.0) mg/dL Total Protein 5.4 L (6.7-8.2) g/dL Albumin 2.8 L (3.2-5.5) g/dL Globulin 2.6 (2.1-4.2) g/dL Albumin/Globulin Ratio 1.1 (1.0-2.2) Lipase (22-51) U/L TSH (0.34-5.60) uIU/mL Urine Color Urine Clarity (CLEAR) Urine pH (5.0-7.5) PH Ur Specific Celestine (1.002-1.030) Urine Protein (NEGATIVE) mg/dL Urine Glucose (UA) (NEGATIVE) mg/dL Urine Ketones (NEGATIVE) mg/dL Urine Occult Blood (NEGATIVE) Urine Nitrite (NEGATIVE) Urine Bilirubin (NEGATIVE) Urine Urobilinogen (NORMAL) E.U./dL Ur Leukocyte Esterase (NEGATIVE) Urine RBC (0-5) /HPF Urine WBC (0-5) /HPF Ur Squamous Epith Cells (<= Few) Urine Bacteria (None Seen) /HPF Urine Mucus Ur Microscopic Review Urine Culture Comments 05/03/18 05/02/18 05/02/18 Range/Units 02:25 22:35 19:28 WBC (4.8-10.8) x10^3/uL RBC (4.20-5.40) 10^6/uL Hgb (12.0-16.0) g/dL Hct (37.0-47.0) % MCV (81.0-99.0) fL MCH (27.0-31.0) pg MCHC (32.0-36.0) g/dL RDW (12.0-15.0) % Plt Count (130-450) 10^3/uL MPV (7.9-10.8) fL Neut # (Auto) (1.5-6.6) 10^3/uL Lymph # (Auto) (1.5-3.5) 10^3/uL Dane # (Auto) (0.0-1.0) 10^3/uL Eos # (Auto) (0.0-0.7) 10^3/uL Baso # (Auto) (0.0-0.1) 10^3/uL Absolute Nucleated RBC x10^3/uL Nucleated RBC % /100WBC ESR (0-30) mm/Hr Bld Gas Analysis Time Sample Site ABG pH (7.35-7.45) ABG pCO2 (34-45) mmHg ABG pO2 (80-100) mmHg ABG HCO3 (22.0-26.0) mmol/L ABG Total CO2 (21.0-29.0) MMOL/L ABG O2 Saturation (94-98) % ABG Base Excess (-2.0-3.0) mmol/L Berny Test O2 Delivery Device O2 Liters/Min LPM Sodium (135-145) mmol/L Potassium (3.5-5.0) mmol/L Chloride (101-111) mmol/L Carbon Dioxide (21-32) mmol/L Anion Gap (6-13) BUN (6-20) mg/dL Creatinine (0.4-1.0) mg/dL Estimated GFR (MDRD) (>89) Glucose (70-100) mg/dL Lactic Acid 3.0 H* 2.7 H 2.3 H (0.5-2.2) mmol/L Calcium (8.5-10.3) mg/dL Phosphorus (2.5-4.6) mg/dL Magnesium (1.7-2.8) mg/dL Total Bilirubin (0.2-1.0) mg/dL AST (10-42) IU/L ALT (10-60) IU/L Alkaline Phosphatase (42-121) IU/L Troponin I (<0.49) ng/mL C-Reactive Protein (0-1.0) mg/dL Total Protein (6.7-8.2) g/dL Albumin (3.2-5.5) g/dL Globulin (2.1-4.2) g/dL Albumin/Globulin Ratio (1.0-2.2) Lipase (22-51) U/L TSH (0.34-5.60) uIU/mL Urine Color Urine Clarity (CLEAR) Urine pH (5.0-7.5) PH Ur Specific Celestine (1.002-1.030) Urine Protein (NEGATIVE) mg/dL Urine Glucose (UA) (NEGATIVE) mg/dL Urine Ketones (NEGATIVE) mg/dL Urine Occult Blood (NEGATIVE) Urine Nitrite (NEGATIVE) Urine Bilirubin (NEGATIVE) Urine Urobilinogen (NORMAL) E.U./dL Ur Leukocyte Esterase (NEGATIVE) Urine RBC (0-5) /HPF Urine WBC (0-5) /HPF Ur Squamous Epith Cells (<= Few) Urine Bacteria (None Seen) /HPF Urine Mucus Ur Microscopic Review Urine Culture Comments 05/02/18 05/02/18 05/02/18 Range/Units 19:28 19:28 17:50 WBC 10.5 (4.8-10.8) x10^3/uL RBC 3.19 L (4.20-5.40) 10^6/uL Hgb 10.8 L (12.0-16.0) g/dL Hct 33.3 L (37.0-47.0) % MCV 104.4 H (81.0-99.0) fL MCH 33.9 H (27.0-31.0) pg MCHC 32.5 (32.0-36.0) g/dL RDW 15.6 H (12.0-15.0) % Plt Count 194 (130-450) 10^3/uL MPV 8.4 (7.9-10.8) fL Neut # (Auto) 9.0 H (1.5-6.6) 10^3/uL Lymph # (Auto) 1.0 L (1.5-3.5) 10^3/uL Dane # (Auto) 0.3 (0.0-1.0) 10^3/uL Eos # (Auto) 0.1 (0.0-0.7) 10^3/uL Baso # (Auto) 0.0 (0.0-0.1) 10^3/uL Absolute Nucleated RBC 0.00 x10^3/uL Nucleated RBC % 0.0 /100WBC ESR (0-30) mm/Hr Bld Gas Analysis Time 1750 Sample Site RIGHT RADIAL ABG pH 7.33 L (7.35-7.45) ABG pCO2 31 L (34-45) mmHg ABG pO2 80 (80-100) mmHg ABG HCO3 15.7 L (22.0-26.0) mmol/L ABG Total CO2 16.6 L (21.0-29.0) MMOL/L ABG O2 Saturation 95 (94-98) % ABG Base Excess -9.1 L (-2.0-3.0) mmol/L Berny Test POSITIVE O2 Delivery Device NASAL CANNULA O2 Liters/Min 2.00 LPM Sodium (135-145) mmol/L Potassium (3.5-5.0) mmol/L Chloride (101-111) mmol/L Carbon Dioxide (21-32) mmol/L Anion Gap (6-13) BUN (6-20) mg/dL Creatinine (0.4-1.0) mg/dL Estimated GFR (MDRD) (>89) Glucose (70-100) mg/dL Lactic Acid (0.5-2.2) mmol/L Calcium (8.5-10.3) mg/dL Phosphorus (2.5-4.6) mg/dL Magnesium (1.7-2.8) mg/dL Total Bilirubin (0.2-1.0) mg/dL AST (10-42) IU/L ALT (10-60) IU/L Alkaline Phosphatase (42-121) IU/L Troponin I (<0.49) ng/mL C-Reactive Protein < 1.0 (0-1.0) mg/dL Total Protein (6.7-8.2) g/dL Albumin (3.2-5.5) g/dL Globulin (2.1-4.2) g/dL Albumin/Globulin Ratio (1.0-2.2) Lipase (22-51) U/L TSH (0.34-5.60) uIU/mL Urine Color Urine Clarity (CLEAR) Urine pH (5.0-7.5) PH Ur Specific Celestine (1.002-1.030) Urine Protein (NEGATIVE) mg/dL Urine Glucose (UA) (NEGATIVE) mg/dL Urine Ketones (NEGATIVE) mg/dL Urine Occult Blood (NEGATIVE) Urine Nitrite (NEGATIVE) Urine Bilirubin (NEGATIVE) Urine Urobilinogen (NORMAL) E.U./dL Ur Leukocyte Esterase (NEGATIVE) Urine RBC (0-5) /HPF Urine WBC (0-5) /HPF Ur Squamous Epith Cells (<= Few) Urine Bacteria (None Seen) /HPF Urine Mucus Ur Microscopic Review Urine Culture Comments 05/02/18 05/02/18 05/02/18 Range/Units 16:12 12:54 12:54 WBC (4.8-10.8) x10^3/uL RBC (4.20-5.40) 10^6/uL Hgb (12.0-16.0) g/dL Hct (37.0-47.0) % MCV (81.0-99.0) fL MCH (27.0-31.0) pg MCHC (32.0-36.0) g/dL RDW (12.0-15.0) % Plt Count (130-450) 10^3/uL MPV (7.9-10.8) fL Neut # (Auto) (1.5-6.6) 10^3/uL Lymph # (Auto) (1.5-3.5) 10^3/uL Dane # (Auto) (0.0-1.0) 10^3/uL Eos # (Auto) (0.0-0.7) 10^3/uL Baso # (Auto) (0.0-0.1) 10^3/uL Absolute Nucleated RBC x10^3/uL Nucleated RBC % /100WBC ESR (0-30) mm/Hr Bld Gas Analysis Time Sample Site ABG pH (7.35-7.45) ABG pCO2 (34-45) mmHg ABG pO2 (80-100) mmHg ABG HCO3 (22.0-26.0) mmol/L ABG Total CO2 (21.0-29.0) MMOL/L ABG O2 Saturation (94-98) % ABG Base Excess (-2.0-3.0) mmol/L Berny Test O2 Delivery Device O2 Liters/Min LPM Sodium (135-145) mmol/L Potassium (3.5-5.0) mmol/L Chloride (101-111) mmol/L Carbon Dioxide (21-32) mmol/L Anion Gap (6-13) BUN (6-20) mg/dL Creatinine (0.4-1.0) mg/dL Estimated GFR (MDRD) (>89) Glucose (70-100) mg/dL Lactic Acid 3.2 H* 2.4 H (0.5-2.2) mmol/L Calcium (8.5-10.3) mg/dL Phosphorus (2.5-4.6) mg/dL Magnesium (1.7-2.8) mg/dL Total Bilirubin (0.2-1.0) mg/dL AST (10-42) IU/L ALT (10-60) IU/L Alkaline Phosphatase (42-121) IU/L Troponin I < 0.04 (<0.49) ng/mL C-Reactive Protein (0-1.0) mg/dL Total Protein (6.7-8.2) g/dL Albumin (3.2-5.5) g/dL Globulin (2.1-4.2) g/dL Albumin/Globulin Ratio (1.0-2.2) Lipase (22-51) U/L TSH (0.34-5.60) uIU/mL Urine Color Urine Clarity (CLEAR) Urine pH (5.0-7.5) PH Ur Specific Celestine (1.002-1.030) Urine Protein (NEGATIVE) mg/dL Urine Glucose (UA) (NEGATIVE) mg/dL Urine Ketones (NEGATIVE) mg/dL Urine Occult Blood (NEGATIVE) Urine Nitrite (NEGATIVE) Urine Bilirubin (NEGATIVE) Urine Urobilinogen (NORMAL) E.U./dL Ur Leukocyte Esterase (NEGATIVE) Urine RBC (0-5) /HPF Urine WBC (0-5) /HPF Ur Squamous Epith Cells (<= Few) Urine Bacteria (None Seen) /HPF Urine Mucus Ur Microscopic Review Urine Culture Comments 05/02/18 05/02/18 05/02/18 Range/Units 12:54 12:54 12:30 WBC 8.9 (4.8-10.8) x10^3/uL RBC 3.24 L (4.20-5.40) 10^6/uL Hgb 11.2 L (12.0-16.0) g/dL Hct 33.5 L (37.0-47.0) % MCV 103.5 H (81.0-99.0) fL MCH 34.6 H (27.0-31.0) pg MCHC 33.4 (32.0-36.0) g/dL RDW 15.4 H (12.0-15.0) % Plt Count 189 (130-450) 10^3/uL MPV 8.4 (7.9-10.8) fL Neut # (Auto) 6.2 (1.5-6.6) 10^3/uL Lymph # (Auto) 1.7 (1.5-3.5) 10^3/uL Dane # (Auto) 0.8 (0.0-1.0) 10^3/uL Eos # (Auto) 0.2 (0.0-0.7) 10^3/uL Baso # (Auto) 0.0 (0.0-0.1) 10^3/uL Absolute Nucleated RBC 0.01 x10^3/uL Nucleated RBC % 0.1 /100WBC ESR (0-30) mm/Hr Bld Gas Analysis Time Sample Site ABG pH (7.35-7.45) ABG pCO2 (34-45) mmHg ABG pO2 (80-100) mmHg ABG HCO3 (22.0-26.0) mmol/L ABG Total CO2 (21.0-29.0) MMOL/L ABG O2 Saturation (94-98) % ABG Base Excess (-2.0-3.0) mmol/L Berny Test O2 Delivery Device O2 Liters/Min LPM Sodium 141 (135-145) mmol/L Potassium 3.5 (3.5-5.0) mmol/L Chloride 111 (101-111) mmol/L Carbon Dioxide 21 (21-32) mmol/L Anion Gap 9.0 (6-13) BUN 22 H (6-20) mg/dL Creatinine 1.5 H (0.4-1.0) mg/dL Estimated GFR (MDRD) 33 L (>89) Glucose 124 H (70-100) mg/dL Lactic Acid (0.5-2.2) mmol/L Calcium 7.7 L (8.5-10.3) mg/dL Phosphorus (2.5-4.6) mg/dL Magnesium (1.7-2.8) mg/dL Total Bilirubin 0.9 (0.2-1.0) mg/dL AST 19 (10-42) IU/L ALT 14 (10-60) IU/L Alkaline Phosphatase 48 (42-121) IU/L Troponin I (<0.49) ng/mL C-Reactive Protein (0-1.0) mg/dL Total Protein 5.4 L (6.7-8.2) g/dL Albumin 2.8 L (3.2-5.5) g/dL Globulin 2.6 (2.1-4.2) g/dL Albumin/Globulin Ratio 1.1 (1.0-2.2) Lipase 28 (22-51) U/L TSH (0.34-5.60) uIU/mL Urine Color DARK YELLOW Urine Clarity SL. CLOUDY (CLEAR) Urine pH 6.0 (5.0-7.5) PH Ur Specific Celestine >=1.030 H (1.002-1.030) Urine Protein 30 H (NEGATIVE) mg/dL Urine Glucose (UA) NEGATIVE (NEGATIVE) mg/dL Urine Ketones TRACE (NEGATIVE) mg/dL Urine Occult Blood TRACE-LYSE (NEGATIVE) Urine Nitrite NEGATIVE (NEGATIVE) Urine Bilirubin NEGATIVE (NEGATIVE) Urine Urobilinogen 0.2 (NORMAL) (NORMAL) E.U./dL Ur Leukocyte Esterase TRACE H (NEGATIVE) Urine RBC 0-5 (0-5) /HPF Urine WBC 11-25 H (0-5) /HPF Ur Squamous Epith Cells RARE Squamous (<= Few) Urine Bacteria None Seen (None Seen) /HPF Urine Mucus Few Strands Ur Microscopic Review INDICATED Urine Culture Comments INDICATED ABX Reporting Has patient been on IV antibiotics over the past 48 hours?: Yes Sepsis Event Note (H) - Evaluation Current Stage of Sepsis: Severe sepsis Possible source of Sepsis: positive: Genitourinary - Sepsis Criteria Sepsis Criteria: Recorded Respiratory Rate greater than 20, Respiratory: Increasing oxygen requirements, SILK SPOTTER: altered consciousness (unrelated to primary neuro pathology), Metabolic: lactate > 2 mmol/L Assessment/Plan - Problem List (1) Severe sepsis Impression: The patient's lactic acid levels continue to range between 2-3 and the last value was still elevated at 3.0. She continues on generous IV fluids, IV vanco, IV cefepime, and blood cultures show no growth so far. The most likely source is urinary, and this is re-current with her last hospital stay being in November 2017 and these urine cultures continue to be pending. She is alert, but has baseline advanced dementia, so she is confused. Blood pressure today is improved to 133/89 and her mental status is stable. Plan: Continue serial lactic acid levels, generous IV fluids, and monitor vital signs closely. (2) Pyelonephritis Impression: Preliminary urine sample indicates acute UTI and the culture shows gram negative rods so far. The patient has chronic urinary incontinence and chronic UTIs. Plan: Treat sepsis with IV cefepime and vanco, await final urine culture results. (3) Acute kidney injury Impression: The patient has a baseline creatinine of 1.2, and today she she shows improvement from 1.5 to 1.3, with a reduced GFR from 33, now to 39. This is likely a consequence of her dehydration caused by her polypharmacy. She c ontinues on IV fluids for the treatment of sepsis. Plan: Avoid nephrotoxic agents, monitor labs, urine out put, daily weights, and vital signs. (4) Dehydration Impression: A bedside IVC measurement was taken and the patient is estimated to have at least a 1-2 L fluid deficit at the time of admission AND was hypotensive. Today this is much improved, but her lactic acid level has not resolved, so she has to stay on generous IV fluid treatment. Plan: Continue IV fluids, monitor vital signs, daily labs. (5) Syncope Impression: Reports from the PCP, state that the patient was in the office, and was on the commode when she had this symptom. It is unclear whether she lost consciousness, but is not believed to have hit her head. This episode is most likely related to the patient's mounting response to her upcoming sepsis and dehydration. She is neuro-intact on exam, and has advanced dementia. Her skin care specialist believes her to be slightly more confused that her usual. Her echo results show no PFO, but increased pulmonary pressures. There were no head imaging done on admission. She is prescribed several agents, but this is likely adding to her syncope likelihood and overall progressive decline, so I have weaned her off several agents. Plan: Treat sepsis, and consider further testing if her neuro status changes. Qualifiers: Syncope type: vasovagal syncope Qualified Code(s): R55 - Syncope and collapse (6) Dementia Impression: The patient has known dementia, and is prescribed Namenda, seroquel, xanax, buspar, and Exelon patches by her PCP. These are now on hold given her acute illness. She has frequent skin care specialist help during the week, and lives with her brother. She is not a good historian, and does not respond appropriately to questions. She states, "I just want to go home". I have not resumed her Exelon and on exam cannot find any residual patches. Her seroquel has only been resumed at HS, and her Namenda has also been discontinued as it will likely contribute to falls. Plan: Continue to monitor mental status and continue to wean off due to her polypharmacy. Qualifiers: Dementia type: Alzheimer's disease Alzheimer's disease onset: early-onset (7) Multiple sclerosis Impression: The patient has urinary dysfunction and is prescribed Myrbetriq at home, that his currently on hold due to her indwelling soto. She is treated with several agents for pain, anxiety, dementia, and depression. She is ambulatory at home, which was confirmed with her . Plan: Continue to monitor. (8) Rheumatoid arthritis Impression: The patient is on chronic daily prednisone, and acyclovir at home. She was given a steroid boost, that has been tapered to an oral daily dose. Plan: Continue to treat pain, and monitor. Qualifiers: Rheumatoid factor presence: unspecified presence (9) Macrocytic anemia with vitamin B12 deficiency Impression: The patient is found to have a very high MCV level of 104.1 today, and is prescribed routine out patient B12 injections through her PCP. She continues to have a low H/H of 10.5/32.5 after her continuous IV fluids. Plan: Continue to monitor daily labs, and monitor for evidence of bleeding.
[2018-05-03] MEDS: LOSARTAN 50 MG TABLET PO SCH (13:10)
[2018-05-03] MEDS: SODIUM CHLORIDE 0.9% 1,000 ML IV SCH (14:25)
[2018-05-03] MEDS: VANCOMYCIN INJ 1 GM in SODIUM CHLORIDE 0.9% 250 ML IV SCH (16:44)
[2018-05-03] MEDS: CIPROFLOXACIN 400 MG/200 ML 200 ML IV SCH (20:31)
[2018-05-03] MEDS: busPIRone 5 MG TABLET PO SCH (20:34)
[2018-05-03] MEDS: QUEtiapine 100 MG TABLET PO SCH (20:34)
[2018-05-04] MEDS: SODIUM CHLORIDE FLUSH 0.9% 10 ML SYRINGE IVP SCH ×2 (00:24→11:20)
[2018-05-04] MEDS: ACETAMINOPHEN 1,000 MG/100 ML 100 ML IV SCH ×3 (00:31→13:09)
[2018-05-04] MEDS: SODIUM CHLORIDE 0.9% 1,000 ML IV SCH (03:18)
[2018-05-04 05:32] LABS: BASOPHILS % (AUTO) 0.1 %; HGB - HEMOGLOBIN 9.9 g/dL (12.0-16.0); LYMPHOCYTES # (AUTO) 1.2 10^3/uL (1.5-3.5); LYMPHOCYTES % (AUTO) 7.2 %; MEAN CORPUSCULAR HEMOGLOBIN 33.6 pg (27.0-31.0); MEAN CORPUSCULAR HGB CONC 32.3 g/dL (32.0-36.0); MEAN CORPUSCULAR VOLUME 104.1 fL (81.0-99.0); MEAN PLATELET VOLUME 8.7 fL (7.9-10.8); MONOCYTES # (AUTO) 0.8 10^3/uL (0.0-1.0); MONOCYTES % (AUTO) 4.6 %; NEUTROPHILS # (AUTO) 14.7 10^3/uL (1.5-6.6); NEUTROPHILS % (AUTO) 88.1 %; PLT - PLATELET COUNT 194 10^3/uL (130-450); RED BLOOD COUNT 2.94 10^6/uL (4.20-5.40); RED CELL DISTRIBUTION WIDTH 15.6 % (12.0-15.0); WHITE BLOOD COUNT 16.7 x10^3/uL (4.8-10.8)
[2018-05-04 05:45] LABS: ALBUMIN 2.6 g/dL (3.2-5.5); ALBUMIN/GLOBULIN RATIO 0.9 (1.0-2.2); BILIRUBIN,TOTAL 0.7 mg/dL (0.2-1.0); CALCIUM 8.1 mg/dL (8.5-10.3); CREATININE 1.3 mg/dL (0.4-1.0); CRP - C-REACTIVE PROTEIN 1.5 mg/dL (0-1.0); TOTAL PROTEIN 5.4 g/dL (6.7-8.2)
[2018-05-04] MEDS: SODIUM CHLORIDE FLUSH 0.9% 10 ML SYRINGE IVP PRN (06:34)
[2018-05-04] MEDS: PANTOPRAZOLE 40 MG VIAL IVP SCH (06:34)
[2018-05-04] MEDS: IPRATROPIUM/ALBUTEROL 3 ML NEB INH PRN (07:42)
[2018-05-04] MEDS: CIPROFLOXACIN 400 MG/200 ML 200 ML IV SCH (08:34)
[2018-05-04] MEDS: LEVOTHYROXINE 25 MCG TABLET PO SCH (08:34)
[2018-05-04] MEDS ORDERED: FUROSEMIDE 20 MG TABLET PO ONE (08:45)
[2018-05-04] MEDS: predniSONE 20 MG TABLET PO SCH (09:24)
[2018-05-04] MEDS: LOSARTAN 50 MG TABLET PO SCH (09:24)
[2018-05-04] MEDS: POLYETHYLENE GLYCOL 3350 17 GM PACKET PO SCH ×2 (09:24→09:25)
[2018-05-04] MEDS: ACYCLOVIR 200 MG CAPSULE PO SCH ×2 (09:24→20:35)
[2018-05-04] MEDS: busPIRone 5 MG TABLET PO SCH ×2 (09:24→20:35)
[2018-05-04] MEDS: METOPROLOL SUCCINATE 25 MG TABLET PO SCH (09:24)
[2018-05-04] MEDS: ASPIRIN CHEW 81 MG TABLET PO SCH (09:25)
[2018-05-04] MEDS: CEFEPIME 2 GM in SODIUM CHLORIDE 0.9% MINIBAG 100 ML IV SCH (11:19)
[2018-05-04] MEDS ORDERED: SODIUM CHLORIDE FLUSH 0.9% 10 ML SYRINGE ONE (15:56)
--- NOTE | 2018-05-04 15:58 | PROVIDER PROGRESS NOTE ---
Subjective - Prog Note Date Prog Note Date: 05/04/18 Prog Note Time: 09:00 - Subjective Pt reports feeling: Improved Subjective: Sara complains of "I want to go home". Sara appears comfortable, is afebrile, and sitting in her chair for meals. She denies pain, rashes, headaches, chest pain, nausea, vomiting or a new cough. Her overall appearance is much improved since admission. Objective - Vital Signs/Intake & Output Reviewed Vital Signs: Yes Vital Signs: Vital Signs x48h Temp Pulse Resp BP BP Pulse Ox 05/04/18 15:41 36.3 C L 74 20 152/84 H 97 05/04/18 12:08 36.4 C L 62 18 176/69 H 97 05/04/18 07:58 36.4 C L 71 18 162/70 H 97 Intake & Output: Intake & Output 05/01/18 05/02/18 05/03/18 05/04/18 23:59 23:59 23:59 23:59 Intake Total 3386.000 4815.833 1980.833 Output Total 125 1050 1450 Balance 3261.000 3765.833 530.833 - Objective General Appearance: positive: Alert, Mild distress Eyes Bilateral: positive: PERRL Eyes: OU Scleral icterus, OU Other (bilateral eyes tearful.) ENT: positive: Pharynx nml, No signs of dehydration Neck: positive: Thyroid nml, No JVD, Lymphadenopathy (R), Lymphadenopathy (L), Stiff neck Respiratory: positive: Chest non-tender, No respiratory distress, Rhonchi (scattered crackles, diminished.) Cardiovascular: positive: No gallop, Irregularly irregular, Systolic murmur, Decreased pulse(s) Peripheral Pulses: 1+ Radial (R), 1+ Radial (L) Abdomen: positive: Non-tender, Nml bowel sounds, Other (obese, soft) Back: positive: Nml inspection Skin: positive: No rash, Warm, Dry, Pallor Extremities: positive: Pedal edema (chronic BLE edema-dependent.), Joint swelling Neurologic/Psychiatric: positive: Disoriented to place, Disoriented to time, Weakness, Sensory loss, Slurred/abnml speech, Depressed mood/affect, Other (baseline advanced dementia.) Reflexes: Bicep (R): 2+, Bicep (L): 2+ - Lab Results Fish Bones: 05/05/18 06:00 05/05/18 06:00 Other Labs: Lab Results x24hrs 05/04/18 05/04/18 05/04/18 Range/Units 05:45 05:10 05:10 WBC (4.8-10.8) x10^3/uL RBC (4.20-5.40) 10^6/uL Hgb (12.0-16.0) g/dL Hct (37.0-47.0) % MCV (81.0-99.0) fL MCH (27.0-31.0) pg MCHC (32.0-36.0) g/dL RDW (12.0-15.0) % Plt Count (130-450) 10^3/uL MPV (7.9-10.8) fL Neut # (Auto) (1.5-6.6) 10^3/uL Lymph # (Auto) (1.5-3.5) 10^3/uL Todd # (Auto) (0.0-1.0) 10^3/uL Eos # (Auto) (0.0-0.7) 10^3/uL Baso # (Auto) (0.0-0.1) 10^3/uL Absolute Nucleated RBC x10^3/uL Nucleated RBC % /100WBC ESR 17 (0-30) mm/Hr Sodium (135-145) mmol/L Potassium (3.5-5.0) mmol/L Chloride (101-111) mmol/L Carbon Dioxide (21-32) mmol/L Anion Gap (6-13) BUN (6-20) mg/dL Creatinine (0.4-1.0) mg/dL Estimated GFR (MDRD) (>89) Glucose (70-100) mg/dL Lactic Acid 1.6 (0.5-2.2) mmol/L Calcium (8.5-10.3) mg/dL Total Bilirubin (0.2-1.0) mg/dL AST (10-42) IU/L ALT (10-60) IU/L Alkaline Phosphatase (42-121) IU/L C-Reactive Protein (0-1.0) mg/dL B-Natriuretic Peptide 431 H (5-100) pg/mL Total Protein (6.7-8.2) g/dL Albumin (3.2-5.5) g/dL Globulin (2.1-4.2) g/dL Albumin/Globulin Ratio (1.0-2.2) 05/04/18 05/04/18 05/04/18 Range/Units 05:10 05:10 02:19 WBC 16.7 H (4.8-10.8) x10^3/uL RBC 2.94 L (4.20-5.40) 10^6/uL Hgb 9.9 L (12.0-16.0) g/dL Hct 30.6 L (37.0-47.0) % MCV 104.1 H (81.0-99.0) fL MCH 33.6 H (27.0-31.0) pg MCHC 32.3 (32.0-36.0) g/dL RDW 15.6 H (12.0-15.0) % Plt Count 194 (130-450) 10^3/uL MPV 8.7 (7.9-10.8) fL Neut # (Auto) 14.7 H (1.5-6.6) 10^3/uL Lymph # (Auto) 1.2 L (1.5-3.5) 10^3/uL Todd # (Auto) 0.8 (0.0-1.0) 10^3/uL Eos # (Auto) 0.0 (0.0-0.7) 10^3/uL Baso # (Auto) 0.0 (0.0-0.1) 10^3/uL Absolute Nucleated RBC 0.02 x10^3/uL Nucleated RBC % 0.1 /100WBC ESR (0-30) mm/Hr Sodium 139 (135-145) mmol/L Potassium 4.8 (3.5-5.0) mmol/L Chloride 118 H (101-111) mmol/L Carbon Dioxide 18 L (21-32) mmol/L Anion Gap 3.0 L (6-13) BUN 18 (6-20) mg/dL Creatinine 1.3 H (0.4-1.0) mg/dL Estimated GFR (MDRD) 39 L (>89) Glucose 118 H (70-100) mg/dL Lactic Acid 2.8 H (0.5-2.2) mmol/L Calcium 8.1 L (8.5-10.3) mg/dL Total Bilirubin 0.7 (0.2-1.0) mg/dL AST 26 (10-42) IU/L ALT 21 (10-60) IU/L Alkaline Phosphatase 49 (42-121) IU/L C-Reactive Protein 1.5 H (0-1.0) mg/dL B-Natriuretic Peptide (5-100) pg/mL Total Protein 5.4 L (6.7-8.2) g/dL Albumin 2.6 L (3.2-5.5) g/dL Globulin 2.8 (2.1-4.2) g/dL Albumin/Globulin Ratio 0.9 L (1.0-2.2) 05/03/18 05/03/18 05/03/18 Range/Units 22:35 19:14 15:46 WBC (4.8-10.8) x10^3/uL RBC (4.20-5.40) 10^6/uL Hgb (12.0-16.0) g/dL Hct (37.0-47.0) % MCV (81.0-99.0) fL MCH (27.0-31.0) pg MCHC (32.0-36.0) g/dL RDW (12.0-15.0) % Plt Count (130-450) 10^3/uL MPV (7.9-10.8) fL Neut # (Auto) (1.5-6.6) 10^3/uL Lymph # (Auto) (1.5-3.5) 10^3/uL Todd # (Auto) (0.0-1.0) 10^3/uL Eos # (Auto) (0.0-0.7) 10^3/uL Baso # (Auto) (0.0-0.1) 10^3/uL Absolute Nucleated RBC x10^3/uL Nucleated RBC % /100WBC ESR (0-30) mm/Hr Sodium (135-145) mmol/L Potassium (3.5-5.0) mmol/L Chloride (101-111) mmol/L Carbon Dioxide (21-32) mmol/L Anion Gap (6-13) BUN (6-20) mg/dL Creatinine (0.4-1.0) mg/dL Estimated GFR (MDRD) (>89) Glucose (70-100) mg/dL Lactic Acid 2.2 3.2 H* 3.5 H* (0.5-2.2) mmol/L Calcium (8.5-10.3) mg/dL Total Bilirubin (0.2-1.0) mg/dL AST (10-42) IU/L ALT (10-60) IU/L Alkaline Phosphatase (42-121) IU/L C-Reactive Protein (0-1.0) mg/dL B-Natriuretic Peptide (5-100) pg/mL Total Protein (6.7-8.2) g/dL Albumin (3.2-5.5) g/dL Globulin (2.1-4.2) g/dL Albumin/Globulin Ratio (1.0-2.2) 05/03/18 Range/Units 15:46 WBC (4.8-10.8) x10^3/uL RBC (4.20-5.40) 10^6/uL Hgb (12.0-16.0) g/dL Hct (37.0-47.0) % MCV (81.0-99.0) fL MCH (27.0-31.0) pg MCHC (32.0-36.0) g/dL RDW (12.0-15.0) % Plt Count (130-450) 10^3/uL MPV (7.9-10.8) fL Neut # (Auto) (1.5-6.6) 10^3/uL Lymph # (Auto) (1.5-3.5) 10^3/uL Todd # (Auto) (0.0-1.0) 10^3/uL Eos # (Auto) (0.0-0.7) 10^3/uL Baso # (Auto) (0.0-0.1) 10^3/uL Absolute Nucleated RBC x10^3/uL Nucleated RBC % /100WBC ESR (0-30) mm/Hr Sodium (135-145) mmol/L Potassium (3.5-5.0) mmol/L Chloride (101-111) mmol/L Carbon Dioxide (21-32) mmol/L Anion Gap (6-13) BUN (6-20) mg/dL Creatinine (0.4-1.0) mg/dL Estimated GFR (MDRD) (>89) Glucose (70-100) mg/dL Lactic Acid (0.5-2.2) mmol/L Calcium (8.5-10.3) mg/dL Total Bilirubin (0.2-1.0) mg/dL AST (10-42) IU/L ALT (10-60) IU/L Alkaline Phosphatase (42-121) IU/L C-Reactive Protein (0-1.0) mg/dL B-Natriuretic Peptide 343 H (5-100) pg/mL Total Protein (6.7-8.2) g/dL Albumin (3.2-5.5) g/dL Globulin (2.1-4.2) g/dL Albumin/Globulin Ratio (1.0-2.2) ABX Reporting Has patient been on IV antibiotics over the past 48 hours?: Yes Sepsis Event Note (H) - Evaluation Current Stage of Sepsis: Resolved Possible source of Sepsis: positive: Genitourinary Assessment/Plan - Problem List (1) Severe sepsis Impression: The patient's lactic acid levels are now resolved. Her IV fluids, IV vanco, IV cefepime have been discontinued, and blood cultures show no growth so far. The most likely source is urinary, and this is re-current with her last hospital stay being in November 2017 and these urine cultures have preliminary results of gram negative rods. She is alert, but has baseline advanced dementia, so she is confused. Blood pressure today is improved to 133/89 and her mental status is stable. Plan: Continue serial lactic acid levels, generous IV fluids, and monitor vital signs closely. (2) Pyelonephritis Impression: Preliminary urine sample indicates acute UTI and the culture shows gram negative rods so far. The patient has chronic urinary incontinence and chronic UTIs. Plan: Treat sepsis with oral Cipro while we await sensitivities. (3) Acute kidney injury Impression: The patient has a baseline creatinine of 1.2, and today she she shows improvement at 1.3, with a reduced GFR at 39. This is likely a consequence of her dehydration caused by her polypharmacy. She is eating and drinking well, with generous urinary out put. Plan: Avoid nephrotoxic agents, monitor labs, urine out put, daily weights, and vital signs. (4) Dehydration Impression: A bedside IVC measurement was taken and the patient is estimated to have at least a 1-2 L fluid deficit at the time of admission AND was hypotensive. Today this is much improved, AND her lactic acid level has resolved. She has been eating and drinking well. Plan: Continue to encouraged PO intake, monitor vital signs, daily labs. (5) Syncope Impression: Reports from the PCP, state that the patient was in the office, and was on the commode when she had this symptom. It is unclear whether she lost consciousness, but is not believed to have hit her head. This episode is most likely related to the patient's mounting response to her upcoming sepsis and dehydration. She is neuro-intact on exam, and has advanced dementia. Her echo results show no PFO, but increased pulmonary pressures. There were no head imaging done on admission. She is prescribed several agents, but this is likely adding to her syncope likelihood and overall progressive decline, so I have weaned her off several agents. Plan: Treat sepsis, and consider further testing if her neuro status changes. Qualifiers: Syncope type: vasovagal syncope Qualified Code(s): R55 - Syncope and collapse (6) Dementia Impression: The patient has known dementia, and is prescribed Namenda, seroquel, xanax, buspar, and Exelon patches by her PCP. These are now on hold given her acute illness. She has frequent daycare manager help during the week, and lives with her brother. She is not a good historian, and does not respond appropriately to questions. She states, "I just want to go home". I have not resumed her Exelon and on exam cannot find any residual patches. Her seroquel has only been resumed at HS, and her Namenda has also been discontinued as it will likely contribute to falls. Plan: Continue to monitor mental status and continue to wean off due to her polypharmacy. Qualifiers: Dementia type: Alzheimer's disease Alzheimer's disease onset: early-onset (7) Multiple sclerosis Impression: The patient has urinary dysfunction and is prescribed Myrbetriq at home, that his currently on hold due to it possibly causing dehydration. She is treated with several agents for pain, anxiety, dementia, and depression. She is ambulatory at home, which was confirmed with her son. Plan: Continue to monitor. (8) Rheumatoid arthritis Impression: The patient is on chronic daily prednisone, and acyclovir at home. She was given a steroid boost, that has been tapered to an oral daily dose. Plan: Continue to treat pain, and monitor. Qualifiers: Rheumatoid factor presence: unspecified presence (9) Macrocytic anemia with vitamin B12 deficiency Impression: The patient is found to have a very high MCV level, and is prescribed routine out patient B12 injections through her PCP. She continues to have a low H/H of 9.9/30.6. Plan: Continue to monitor daily labs, and monitor for evidence of bleeding.
[2018-05-04] MEDS: CIPROFLOXACIN 250 MG TABLET PO SCH (20:35)
[2018-05-04] MEDS: QUEtiapine 100 MG TABLET PO SCH (20:35)
[2018-05-05] MEDS ORDERED: SODIUM CHLORIDE FLUSH 0.9% 10 ML SYRINGE IVP SCH (06:00)
[2018-05-05 06:29] LABS: BASOPHILS % (AUTO) 0.1 %; EOSINOPHILS % (AUTO) 0.2 %; LYMPHOCYTES # (AUTO) 1.8 10^3/uL (1.5-3.5); LYMPHOCYTES % (AUTO) 11.4 %; MEAN CORPUSCULAR HEMOGLOBIN 33.6 pg (27.0-31.0); MEAN CORPUSCULAR HGB CONC 32.4 g/dL (32.0-36.0); MEAN CORPUSCULAR VOLUME 103.6 fL (81.0-99.0); MEAN PLATELET VOLUME 8.7 fL (7.9-10.8); MONOCYTES # (AUTO) 0.7 10^3/uL (0.0-1.0); MONOCYTES % (AUTO) 4.8 %; NEUTROPHILS # (AUTO) 12.9 10^3/uL (1.5-6.6); NEUTROPHILS % (AUTO) 83.5 %; PLT - PLATELET COUNT 218 10^3/uL (130-450); RED BLOOD COUNT 3.27 10^6/uL (4.20-5.40); WHITE BLOOD COUNT 15.5 x10^3/uL (4.8-10.8)
[2018-05-05 06:44] LABS: ALBUMIN 2.9 g/dL (3.2-5.5); BILIRUBIN,TOTAL 1.1 mg/dL (0.2-1.0); CALCIUM 8.3 mg/dL (8.5-10.3); CREATININE 1.7 mg/dL (0.4-1.0); MAGNESIUM 2.1 mg/dL (1.7-2.8)
[2018-05-05] MEDS: LEVOTHYROXINE 25 MCG TABLET PO SCH (06:44)
[2018-05-05 06:45] LABS: ALBUMIN/GLOBULIN RATIO 0.9 (1.0-2.2)
[2018-05-05] MEDS ORDERED: PANTOPRAZOLE 40 MG TABLET PO SCH (07:00)
[2018-05-05] MEDS: predniSONE 20 MG TABLET PO SCH (08:24)
[2018-05-05] MEDS: ASPIRIN CHEW 81 MG TABLET PO SCH (08:24)
[2018-05-05] MEDS: ACYCLOVIR 200 MG CAPSULE PO SCH (08:24)
[2018-05-05] MEDS: CIPROFLOXACIN 250 MG TABLET PO SCH (08:24)
[2018-05-05] MEDS: POLYETHYLENE GLYCOL 3350 17 GM PACKET PO SCH ×2 (08:25→08:41)
[2018-05-05] MEDS: LOSARTAN 50 MG TABLET PO SCH (08:25)
[2018-05-05] MEDS: METOPROLOL SUCCINATE 25 MG TABLET PO SCH (08:25)
[2018-05-05] MEDS: busPIRone 5 MG TABLET PO SCH (08:25)
[2018-05-05] MEDS ORDERED: SPIRONOLACTONE 25 MG TABLET PO SCH (09:00)
[2018-05-05] MEDS ORDERED: METOPROLOL SUCCINATE 25 MG TABLET PO SCH (09:21)
[2018-05-05] MEDS ORDERED: amLODIPine 5 MG TABLET PO SCH (10:55)
--- NOTE | 2018-05-05 11:08 | Discharge Plan ---
Discharge Plan Disposition: Home, Self Care Condition: Good Prescriptions: Ciprofloxacin HCl 250 mg PO BID #5 tablet Levothyroxine [Synthroid] 25 mcg PO QDAC #30 tablet Loperamide [Imodium] 2 mg PO QID PRN #25 capsule PRN Reason: Diarrhea Metoprolol Succinate 50 mg PO DAILY #30 tab.er.24h Quetiapine Fumarate [Seroquel] 50 mg PO QPM #30 tablet Saccharomyces Boulardii [Florastor] 250 mg PO BID #60 capsule Spironolactone [Aldactone] 12.5 mg PO DAILY #15 tablet Diet: Regular Activity Restrictions: Activity as Tolerated Shower Restrictions: No Driving Restrictions: Yes Assistance Devices: Walker Weight Bearing: Full Weight Additional Instructions or Follow Up instructions: You were admitted for sepsis, with the probable source of infection being your bladder. Since you had a fall, your dementia medications were reviewed and you were on several agents. Some of these were weaned off or discontinued as they may be causing your infections and leading to your increased falls. Continue oral antibiotics and a probiotics at home for the next 5 days. Please see your PCP within one week. No Smoking: If you smoke, Please STOP! Call for help. Follow-up with: Deshawn Caballero MD [Primary Care Provider] -
--- NOTE | 2018-05-05 11:09 | DISCHARGE SUMMARY ---
Discharge Summary Admit Date: 05/02/18 Discharge Date: 05/05/18 Discharging Provider: ALPHONSE Terry Primary Care Provider: Deshawn Caballero Code Status: Attempt Resuscitation Condition at Discharge: Good Discharge Disposition: 01 Home, Self Care - DIAGNOSES Admission Diagnoses: Severe sepsis (A41.9) Pyelonephritis (N12) Acute kidney injury (nontraumatic) (N17.9) Dehydration (E86.0) Syncope (R55) Dementia (F03.90) MS (multiple sclerosis) (G35) Rheumatoid arthritis (M06.9) Macrocytic anemia with vitamin B12 deficiency (D51.9) Discharge Diagnoses with Status of Each Condition: Severe sepsis (A41.9) resolved. Pyelonephritis (N12) new on this admission, antibiotics are to continue. Acute kidney injury (nontraumatic) (N17.9) resolved. Syncope (R55) resolved. Dementia (F03.90) chronic, stable. MS (multiple sclerosis) (G35) chronic, stable. Rheumatoid arthritis (M06.9) chronic, stable. Dehydration (E86.0) resolved. Macrocytic anemia with vitamin B12 deficiency (D51.9) chronic, stable. Polypharmacy (Z79.899) reduction in anti-dementia medications. Diarrhea (R19.7) resolved. - HPI History of Present Illness: Sara Morrissey is an 82-year old female with a past medical history of advanced dementia, multiple sclerosis, history of TIAs, hypertension, hypothyroidism, depression, anxiety, hyperlipidemia and recurrent UTIs who presented to the emergency department with altered mental status, syncope, collapse and hypotension while in her PCP's office today. EMS brought her in and once in the ED she was found to be hypotensive with a blood pressure of 89/51, despite ge tting IV fluids en route, hypoxic, and afebrile. Labs showed a normal WBC count, macrocytic anemia with a hemoglobin of 11.2, a hematocrit of 33.5, and an MCV of 103.5. She is found to have JOE with an elevated BUN of 22, an elevated creatinine of 1.5, and a reduced GFR of 33, slightly elevated glucose of 124, and a low albumin of 2.8. The patient had an elevated lactic acid of 2.4, and given her presentation was likely in septic shock and at the time of my exam is considered to be in severe sepsis. A urine sample shows a possible source of this illness with the sample noted as being cloudy, elevated WBCs, and culture is indicated. Her caregiver, Jada is at the bedside who states that she cares for the patient 5 days per week, and the patient's brother stays with her the remainder of the time. She denies recent falls, confusion, fever, chills, or rashes when asked. She will be admitted to inpatient for further treatment of severe sepsis, and pyelonephrititis. - HOSPITAL COURSE Hospital Course: (1) Severe sepsis The patient's lactic acid levels are now resolved. Her IV fluids, IV vanco, IV cefepime have been discontinued, and blood cultures show no growth so far. The most likely source is urinary, and this is re-current with her last hospital stay being in November 2017 and these urine cultures have resulted. She is alert, but has baseline advanced dementia, so she is confused and this condition is resolved. (2) Pyelonephritis Urine culture results shows a final organism as citrobacter youngae, with a sensitivity to Cipro, which is what was prescribed at home. She has known chronic urinary incontinence and chronic UTIs. (3) Acute kidney injury The patient has a baseline creatinine of 1.2, and she is stable at 1.7. This was likely a consequence of her dehydration caused by her polypharmacy. She is eating and drinking well, with generous urinary out put. (4) Dehydration A bedside IVC measurement was taken and the patient is estimated to have at least a 1-2 L fluid deficit at the time of admission AND was hypotensive. Today this is much improved, AND her lactic acid level has resolved. She has been eating and drinking well. (5) Syncope Reports from the PCP, state that the patient was in the office, and was on the commode when she had this symptom. It is unclear whether she lost consciousness, but is not believed to have hit her head. This episode is most likely related to the patient's mounting response to her upcoming sepsis and dehydration. She is neuro-intact on exam, and has advanced dementia. Her echo results show no PFO, but increased pulmonary pressures. There were no head imaging done on admission. She is prescribed several agents, but this is likely adding to her syncope likelihood and overall progressive decline, so I have weaned her off several agents and a updated med list was given to her son, Eber. (6) Dementia The patient has known dementia, and is prescribed Namenda, seroquel, xanax, buspar, and Exelon patches by her PCP. These are now on hold given her acute illness. She has frequent wild animal caretaker help during the week, and lives with her brother. She is not a good historian, and does not respond appropriately to questions. She states, "I just want to go home". I have not resumed her Exelon and on exam cannot find any residual patches. Her seroquel has only been resumed at HS, and her Namenda has also been discontinued as it will likely contribute to falls. (7) Multiple sclerosis The patient has urinary dysfunction and is prescribed Myrbetriq at home, that his currently on hold due to it possibly causing dehydration. She is treated with several agents for pain, anxiety, dementia, and depression. She is ambulatory at home, which was confirmed with her son. (8) Rheumatoid arthritis The patient is on chronic daily prednisone, and acyclovir at home. She was given a steroid boost, that has been tapered to an oral daily dose. (9) Macrocytic anemia with vitamin B12 deficiency The patient is found to have a very high MCV level, and is prescribed routine out patient B12 injections through her PCP. She continues to have a low H/H of 9.9/30.6. Disposition: The patient was very anxious to return home and was transported via private car home with son, where she also has care givers. - ALLERGIES Allergies/Adverse Reactions: Allergies Allergy/AdvReac Type Severity Reaction Status Date / Time fluoxetine HCl * AdvReac Unknown Unknown Verified 05/02/18 12:04 [From Prozac] nitroglycerin AdvReac Unknown Unknown Verified 05/02/18 12:04 Sulfa (Sulfonamide AdvReac Unknown Unknown Verified 05/02/18 12:04 Antibiotics) sulfamethoxazole AdvReac Unknown Unknown Verified 05/02/18 12:04 [From Bactrim] trimethoprim [From Bactrim] AdvReac Unknown Unknown Verified 05/02/18 12:04 - MEDICATIONS Home Medications: Ambulatory Orders Medication Instructions Recorded Confirmed Aspirin Chewable [[place] 162 mg PO DAILY 01/24/13 05/02/18 Aspirin] Acyclovir 200 mg PO BID 03/22/13 05/02/18 Simvastatin 20 mg PO QPM 03/22/13 05/02/18 Losartan [Cozaar] 50 mg PO DAILY #30 tablet 02/07/17 05/02/18 Mirabegron [Myrbetriq] 25 mg PO DAILY 10/29/17 05/02/18 ALPRAZolam [Alprazolam] 0.5 mg PO 1400 PRN 12/03/17 05/02/18 ALPRAZolam [Alprazolam] 0.5 mg PO QPM 12/03/17 05/02/18 Albuterol Sulf [Ventolin Hfa 2 puffs INH Q4H PRN 12/03/17 05/02/18 Inhaler] Acetaminophen [Tylenol] 650 mg PO Q4HR PRN tablet 12/04/17 05/02/18 Famotidine [Pepcid] 20 mg PO DAILY tablet 12/04/17 05/02/18 predniSONE [Deltasone] 5 mg PO DAILY tablet 12/04/17 05/02/18 Polyethylene Glycol 3350 [Miralax] 17 gm PO DAILY 05/02/18 05/02/18 busPIRone [Buspar] 5 mg PO BID 05/02/18 05/02/18 Ciprofloxacin HCl 250 mg PO BID #5 tablet 05/05/18 Levothyroxine [Synthroid] 25 mcg PO QDAC #30 tablet 05/05/18 Loperamide [Imodium] 2 mg PO QID PRN #25 capsule 05/05/18 Metoprolol Succinate 50 mg PO DAILY #30 tab.er.24h 05/05/18 Quetiapine Fumarate [Seroquel] 50 mg PO QPM #30 tablet 05/05/18 Saccharomyces Boulardii [Florastor] 250 mg PO BID #60 capsule 05/05/18 Spironolactone [Aldactone] 12.5 mg PO DAILY #15 tablet 05/05/18 - PHYSICAL EXAM AT DISCHARGE General Appearance: positive: No acute distress, Alert Eyes Bilateral: positive: PERRL ENT: positive: Pharynx nml, No signs of dehydration Neck: positive: Thyroid nml, No JVD, Trachea midline, Lymphadenopathy (R), Lymphadenopathy (L), Other (large neck circumferance.) Respiratory: positive: Chest non-tender, No respiratory distress, Breath sounds nml Cardiovascular: positive: Regular rate & rhythm, No gallop, Systolic murmur, Decreased pulse(s) Peripheral Pulses: positive: 1+ Abdomen: positive: Non-tender, Nml bowel sounds, Other (rounded, soft) Back: positive: Nml inspection Skin: positive: No rash, Warm, Dry, Pallor Extremities: positive: Non-tender, Full ROM, Pedal edema Neurologic/Psychiatric: positive: Disoriented to place, Disoriented to time, Weakness, Sensory loss, Depressed mood/affect Reflexes: Bicep (R): 3+, Bicep (L): 3+ - LABS Result Diagrams: 05/05/18 06:00 05/05/18 06:00 - SEPSIS Current Stage of Sepsis: Resolved Possible source of Sepsis: Genitourinary Sepsis Criteria: Recorded Respiratory Rate greater than 20, Respiratory: Increasing oxygen requirements, QUALITY AUDITOR: altered consciousness (unrelated to primary neuro pathology), Metabolic: lactate > 2 mmol/L - FOLLOW UP Follow Up: Disposition: 01 Home, Self Care Prescriptions: Ciprofloxacin HCl 250 mg PO BID #5 tablet Levothyroxine [Synthroid] 25 mcg PO QDAC #30 tablet Loperamide [Imodium] 2 mg PO QID PRN #25 capsulePRN Reason: Diarrhea Metoprolol Succinate 50 mg PO DAILY #30 tab.er.24h Quetiapine Fumarate [Seroquel] 50 mg PO QPM #30 tablet Saccharomyces Boulardii [Florastor] 250 mg PO BID #60 capsule Spironolactone [Aldactone] 12.5 mg PO DAILY #15 tablet Additional Instructions or Follow Up instructions: You were admitted for sepsis, with the probable source of infection being your bladder. Since you had a fall, your dementia medications were reviewed and you were on several agents. Some of these were weaned off or discontinued as they may be causing your infections and leading to your increased falls. Continue oral antibiotics and a probiotics at home for the next 5 days. Please see your PCP within one week. - TIME SPENT Time Spent in Discharge (Minutes): 60
[2018-05-05 13:31] VITALS: BP 159/129
[2018-05-06] MEDS ORDERED: SPIRONOLACTONE 25 MG TABLET PO SCH (09:00)
[2018-05-06] MEDS ORDERED: METOPROLOL SUCCINATE 25 MG TABLET PO SCH (10:00)
== END 2018-05-05 13:50 | disposition home or self-care (01) | DRG 872 ==
LOC: EDBD → EDUNIT# → ED 11:41 → MS2 13:56
PROVIDERS: ADMIT Nurse Practitioner; ATTEND Nurse Practitioner
DX: N30.00 Acute cystitis without hematuria (principal); A41.89 Other specified sepsis; N17.9 Acute kidney failure, unspecified; I10 Essential (primary) hypertension; E78.00 Pure hypercholesterolemia, unspecified; N10 Acute pyelonephritis; R65.20 Severe sepsis without septic shock; E86.0 Dehydration; R55 Syncope and collapse; T50.995A Adverse effect of other drugs, medicaments and biological substances, initial encounter; G30.0 Alzheimer's disease with early onset; F02.80 Dementia in other diseases classified elsewhere, unspecified severity, without behavioral disturbance, psychotic disturbance, mood disturbance, and anxiety; G35 Multiple sclerosis; M06.9 Rheumatoid arthritis, unspecified; D51.9 Vitamin B12 deficiency anemia, unspecified; E03.9 Hypothyroidism, unspecified; F41.9 Anxiety disorder, unspecified; F32.9 Major depressive disorder, single episode, unspecified; J44.9 Chronic obstructive pulmonary disease, unspecified; R32 Unspecified urinary incontinence; R35.1 Nocturia; J32.9 Chronic sinusitis, unspecified; G89.29 Other chronic pain; M54.9 Dorsalgia, unspecified; R19.7 Diarrhea, unspecified; E78.5 Hyperlipidemia, unspecified; K21.9 Gastro-esophageal reflux disease without esophagitis; H91.90 Unspecified hearing loss, unspecified ear; Z79.82 Long term (current) use of aspirin; Z79.51 Long term (current) use of inhaled steroids; Z79.52 Long term (current) use of systemic steroids; Z87.01 Personal history of pneumonia (recurrent); Z79.899 Other long term (current) drug therapy; Z86.73 Personal history of transient ischemic attack (TIA), and cerebral infarction without residual deficits; Z87.440 Personal history of urinary (tract) infections; Z91.81 History of falling; Z87.891 Personal history of nicotine dependence
CPT/HCPCS: 36415; 36600; 71045; 74176; 80053; 81001; 81003; 82803; 83605; 83690; 83735; 83880; 84100; 84443; 84484; 85025; 85651; 86140; 87040; 87077; 87086; 87181; 93005; 93306; 94640; 96361; 96365; 99284

== ENCOUNTER 2018-06-26 16:56 | Emergency (ER) | payer MEDICARE, OTHER, MEDICAID ==
[2018-06-26 17:28] LABS: BILIRUBIN,URINE NEGATIVE (NEGATIVE); GLUCOSE, URINE (UA) NEGATIVE (NEGATIVE); KETONES,URINE (UA) NEGATIVE (NEGATIVE); LEUKOCYTE ESTERASE, URINE NEGATIVE (NEGATIVE); NITRITE,URINE POSITIVE (NEGATIVE); OCCULT BLOOD,URINE NEGATIVE (NEGATIVE); PROTEIN,URINE NEGATIVE (NEGATIVE); UROBILINOGEN,URINE 0.2 (NORMAL) E.U./dL (NORMAL)
[2018-06-26 17:51] LABS: CLARITY,URINE CLEAR (CLEAR)
[2018-06-26 17:56] LABS: ALBUMIN 3.4 g/dL (3.2-5.5); BILIRUBIN,TOTAL 0.4 mg/dL (0.2-1.0); CALCIUM 8.8 mg/dL (8.5-10.3); CREATININE 1.3 mg/dL (0.4-1.0); TOTAL PROTEIN 6.7 g/dL (6.7-8.2)
[2018-06-26] MEDS ORDERED: KETOROLAC 15 MG/ML VIAL IVP STA (17:56)
[2018-06-26] MEDS ORDERED: MORPHINE 10 MG/ML VIAL IVP STA (17:56)
[2018-06-26] MEDS ORDERED: SODIUM CHLORIDE 0.9% 1,000 ML IV ONE (17:56)
[2018-06-26 17:58] LABS: RBC,URINE 0-5 /HPF (0-5)
[2018-06-26 17:59] LABS: BACTERIA,URINE Few /HPF (None Seen); CASTS, URINE 3-5 Hyaline Casts /LPF; MUCUS,URINE Few Strands; SQUAMOUS EPITHELIAL CELL,UR RARE Squamous (<= Few)
[2018-06-26 18:00] LABS: BASOPHILS % (AUTO) 0.3 %; EOSINOPHILS # (AUTO) 0.1 10^3/uL (0.0-0.7); HGB - HEMOGLOBIN 11.7 g/dL (12.0-16.0); LYMPHOCYTES # (AUTO) 1.9 10^3/uL (1.5-3.5); LYMPHOCYTES % (AUTO) 22.8 %; MEAN CORPUSCULAR HEMOGLOBIN 33.6 pg (27.0-31.0); MEAN CORPUSCULAR HGB CONC 32.5 g/dL (32.0-36.0); MEAN CORPUSCULAR VOLUME 103.3 fL (81.0-99.0); MEAN PLATELET VOLUME 8.4 fL (7.9-10.8); MONOCYTES # (AUTO) 0.6 10^3/uL (0.0-1.0); MONOCYTES % (AUTO) 7.1 %; NEUTROPHILS # (AUTO) 5.7 10^3/uL (1.5-6.6); NEUTROPHILS % (AUTO) 68.8 %; PLT - PLATELET COUNT 265 10^3/uL (130-450); RED BLOOD COUNT 3.48 10^6/uL (4.20-5.40); WHITE BLOOD COUNT 8.3 x10^3/uL (4.8-10.8)
[2018-06-26] MEDS ORDERED: IOVERSOL 320 100 ML VIAL IVP ONE ×2 (18:26→18:44)
[2018-06-26] MEDS ORDERED: cefTRIAXone 1 GM VIAL IVP STA (19:05)
[2018-06-26] MEDS ORDERED: DOCUSATE SODIUM 100 MG CAPSULE PO STA (19:07)
--- NOTE | 2018-06-26 19:43 | CT Report ---
Reason: right upper to left abd pain today Procedure Date: 06/26/2018 Accession Number: [id number] / [id number] Procedure: CT - Abdomen/Pelvis W/ CPT Code: FULL RESULT: EXAM: CT ABDOMEN AND PELVIS EXAM DATE: 06/26/2018 06:55 PM. CLINICAL HISTORY: Right upper to left abdominal pain today. COMPARISONS: ABDOMEN/PELVIS W/O 05/02/2018 8:41 PM. TECHNIQUE: Routine helical CT imaging was performed through the abdomen and pelvis. IV contrast: Optiray-320 10mL. Enteric contrast: No. Reconstructions: Coronal and sagittal. In accordance with CT protocol optimization, one or more of the following dose reduction techniques were utilized for this exam: automated exposure control, adjustment of mA and/or KV based on patient size, or use of iterative reconstructive technique. FINDINGS: Lung Bases: Unremarkable. Liver: Normal. No masses. Gallbladder/Bile Ducts: Unremarkable. Spleen: Normal. Pancreas: Normal. Adrenal Glands: Normal. Kidneys: Normal. No masses or hydronephrosis. Peritoneal Cavity/Bowel: Normal. No free fluid, free air or adenopathy. No masses or acute inflammatory process. No evidence of appendicitis. Pelvic Organs: The urinary bladder is unremarkable. The uterus has been removed. No pelvic lymphadenopathy or fluid collections. Vasculature: Atherosclerotic aorta without evidence of aneurysm. Bones: No significant abnormality. Other: None. IMPRESSION: 1. No bowel obstruction, fluid collections or acute inflammatory changes. RADIA
[2018-06-26 19:59] VITALS: BP 176/95
--- NOTE | 2018-06-26 20:05 | ED Physician Documentation ---
PD HPI ABD PAIN - Stated complaint Stated Complaint: ABD PX - Chief complaint Chief Complaint: Abd Pain - History obtained from History obtained from: Patient, Family (son) - History of Present Illness Timing - onset: Today Timing - duration: Days (1) Timing - details: Gradual onset, Still present Quality: Cramping, Aching, Pain Location: RUQ, Periumbilical, Suprapubic Radiation: No: Chest, Lower back, Right flank Improved by: No: Eating Worsened by: Moving. No: Eating, Breathing, Palpation Associated symptoms: Nausea, Constipation, Other (she is usually incontinent of urine). No: Fever, Vomiting, Diarrhea, Dysuria Similar symptoms before: Diagnosis (utis often in the past) Review of Systems Constitutional: denies: Fever Nose: denies: Rhinorrhea / runny nose, Congestion Throat: denies: Sore throat Cardiac: denies: Chest pain / pressure Respiratory: denies: Dyspnea, Cough GI: reports: Abdominal Pain, Nausea, Constipation. denies: Vomiting, Diarrhea, Bloody / black stool : reports: Incontinent. denies: Discharge Skin: denies: Rash Neurologic: reports: Generalized weakness. denies: Focal weakness, Altered mental status, Headache PD PAST MEDICAL HISTORY - Past Medical History Cardiovascular: Hypertension, High cholesterol, Murmur Respiratory: COPD Neuro: Dementia Endocrine/Autoimmune: HyPOthyroidism GI: None DIGITAL MEASUREMENT ADVISOR: None : Incontinence, Nocturia, Frequency HEENT: Chronic vision loss, Chronic sinusitis Psych: Depression, Anxiety Musculoskeletal: Rheumatoid arthritis, Chronic back pain Derm: None - Past Surgical History Past Surgical History: Yes /DIGITAL MEASUREMENT ADVISOR: Hysterectomy - Present Medications Home Medications: Ambulatory Orders Medication Instructions Recorded Confirmed Aspirin Chewable [[place] 162 mg PO DAILY 01/24/13 05/02/18 Aspirin] Acyclovir 200 mg PO BID 03/22/13 05/02/18 Simvastatin 20 mg PO QPM 03/22/13 05/02/18 Losartan [Cozaar] 50 mg PO DAILY #30 tablet 02/07/17 05/02/18 Mirabegron [Myrbetriq] 25 mg PO DAILY 10/29/17 05/02/18 ALPRAZolam [Alprazolam] 0.5 mg PO 1400 PRN 12/03/17 05/02/18 ALPRAZolam [Alprazolam] 0.5 mg PO QPM 12/03/17 05/02/18 Albuterol Sulf [Ventolin Hfa 2 puffs INH Q4H PRN 12/03/17 05/02/18 Inhaler] Acetaminophen [Tylenol] 650 mg PO Q4HR PRN tablet 12/04/17 05/02/18 Famotidine [Pepcid] 20 mg PO DAILY tablet 12/04/17 05/02/18 predniSONE [Deltasone] 5 mg PO DAILY tablet 12/04/17 05/02/18 Polyethylene Glycol 3350 [Miralax] 17 gm PO DAILY 05/02/18 05/02/18 busPIRone [Buspar] 5 mg PO BID 05/02/18 05/02/18 Ciprofloxacin HCl 250 mg PO BID #5 tablet 05/05/18 Levothyroxine [Synthroid] 25 mcg PO QDAC #30 tablet 05/05/18 Loperamide [Imodium] 2 mg PO QID PRN #25 capsule 05/05/18 Metoprolol Succinate 50 mg PO DAILY #30 tab.er.24h 05/05/18 Quetiapine Fumarate [Seroquel] 50 mg PO QPM #30 tablet 05/05/18 Saccharomyces Boulardii [Florastor] 250 mg PO BID #60 capsule 05/05/18 Spironolactone [Aldactone] 12.5 mg PO DAILY #15 tablet 05/05/18 Cephalexin [Keflex] 500 mg PO TID #21 capsule 06/26/18 Docusate Sodium 100 mg PO DAILY #30 capsule 06/26/18 - Allergies Allergies/Adverse Reactions: Allergies Allergy/AdvReac Type Severity Reaction Status Date / Time fluoxetine HCl * AdvReac Unknown Unknown Verified 06/26/18 17:08 [From Prozac] nitroglycerin AdvReac Unknown Unknown Verified 06/26/18 17:08 Sulfa (Sulfonamide AdvReac Unknown Unknown Verified 06/26/18 17:08 Antibiotics) sulfamethoxazole AdvReac Unknown Unknown Verified 06/26/18 17:08 [From Bactrim] trimethoprim [From Bactrim] AdvReac Unknown Unknown Verified 06/26/18 17:08 - Social History Does the pt smoke?: No Smoking Status: Never smoker Does the pt drink ETOH?: No Does the pt have substance abuse?: No - Immunizations Immunizations are current?: Yes Immunizations: TDAP >10years/unknown - POLST Patient has POLST: No POLST Status: Full Code PD ED PE NORMAL - Vitals Vital signs reviewed: Yes - General General: No acute distress, Well developed/nourished. No: Alert and oriented X 3 (oriented to person and place. alert and conversant. Poor memory c/w dementia. ) - HEENT HEENT: Pharynx benign - Neck Neck: Supple, no meningeal sign, No adenopathy - Cardiac Cardiac: RRR, No murmur - Respiratory Respiratory: Clear bilaterally - Abdomen Abdomen: Normal bowel sounds, Soft, Non distended, No organomegaly, Other (tender lower abd and mid abd without guarding nor percussion tenderness. Some tender RUQ as well. ) - Female Female : Deferred - Rectal Rectal: Deferred - Back Back: Other (mild right flank tenderness) - Derm Derm: Normal color - Extremities Extremities: Normal ROM s pain, No edema, No calf tenderness / cord - Neuro Neuro: No motor deficit, Normal speech Results - Vitals Vitals: Oxygen O2 Source Room air - Labs Labs: Microbiology 06/26/18 17:15 Urine Culture - Preliminary Urine,Clean Catch CULTURE IN PROGRESS. RESULTS TO FOLLOW. Laboratory Tests 06/26/18 06/26/18 06/26/18 17:15 17:30 17:30 WBC 8.3 RBC 3.48 L Hgb 11.7 L Hct 36.0 L MCV 103.3 H MCH 33.6 H MCHC 32.5 RDW 14.0 Plt Count 265 MPV 8.4 Neut # (Auto) 5.7 Lymph # (Auto) 1.9 Jerome # (Auto) 0.6 Eos # (Auto) 0.1 Baso # (Auto) 0.0 Absolute Nucleated RBC 0.00 Nucleated RBC % 0.0 Sodium 140 Potassium 4.3 Chloride 108 Carbon Dioxide 23 Anion Gap 9.0 BUN 24 H Creatinine 1.3 H Estimated GFR (MDRD) 39 L Glucose 184 H Calcium 8.8 Total Bilirubin 0.4 AST 21 ALT 18 Alkaline Phosphatase 52 Total Protein 6.7 Albumin 3.4 Globulin 3.3 Albumin/Globulin Ratio 1.0 Lipase 42 Urine Color YELLOW Urine Clarity CLEAR Urine pH 6.0 Ur Specific [place] 1.025 Urine Protein NEGATIVE Urine Glucose (UA) NEGATIVE Urine Ketones NEGATIVE Urine Occult Blood NEGATIVE Urine Nitrite POSITIVE H Urine Bilirubin NEGATIVE Urine Urobilinogen 0.2 (NORMAL) Ur Leukocyte Esterase NEGATIVE Urine RBC 0-5 Urine WBC 6-10 H Ur Squamous Epith Cells RARE Squamous Urine Bacteria Few Urine Casts 3-5 Hyaline Casts Urine Mucus Few Strands Ur Microscopic Review INDICATED Urine Culture Comments INDICATED - Rads (name of study) abd/pelvic CT Radiology: Prelim report reviewed (no acute process to explain the pain), EMP read contemporaneously, See rad report PD MEDICAL DECISION MAKING - ED course Complexity details: reviewed results (no acute process seen), considered differential (vague lower abd pain and to mid abd. No peritoneal signs on exam. Has UTI but her abd pain is more likely constipation or such. Normal GB and no other acute process on CT. ), d/w patient, d/w family (son) Departure - Departure Disposition: 01 Home, Self Care Clinical Impression: Abdominal pain Qualifiers: Abdominal location: right upper quadrant Qualified Code(s): R10.11 - Right upper quadrant pain Urinary tract infection Qualifiers: Urinary tract infection type: acute cystitis Hematuria presence: without hematuria Qualified Code(s): N30.00 - Acute cystitis without hematuria Condition: Stable Record reviewed to determine appropriate education?: Yes Instructions: ED Abdominal Pain Unkn Cause, ED UTI Cystitis Female Follow-Up: Deshawn Caballero MD [Primary Care Provider] - Prescriptions: Cephalexin [Keflex] 500 mg PO TID #21 capsule Docusate Sodium 100 mg PO DAILY #30 capsule Comments: Encourage a lot of fluids. Tylenol if needed for pains. Her blood tests and CT scan did not show any acute obvious cause for the pain in the upper belly. There may be some excess stool in areas and that could be causing some pain given her recent firm hard stools. Use a stool softener once or twice daily for the next few days and then daily after that. She does have a bladder infection will treat with cephalexin as directed for that as well. I do not know if that is necessarily causing the pain in the upper abdomen though. Recheck if not better over the next few days and return sooner if worsening symptoms. Discharge Date/Time: 06/26/18 20:32
== END 2018-06-26 20:32 | disposition home or self-care (01) ==
LOC: ED 16:56
DX: R10.11 Right upper quadrant pain (principal); N30.00 Acute cystitis without hematuria; I10 Essential (primary) hypertension; F03.90 Unspecified dementia, unspecified severity, without behavioral disturbance, psychotic disturbance, mood disturbance, and anxiety; E78.00 Pure hypercholesterolemia, unspecified; E03.9 Hypothyroidism, unspecified; Z79.82 Long term (current) use of aspirin
CPT/HCPCS: 36415; 74177; 80053; 81001; 83690; 85025; 87077; 87086; 87181; 96361; 96374; 96375; 99283; A9270; Q9967; 81003

== ENCOUNTER 2018-09-07 11:12 | Outpatient (CLI) | payer MEDICARE, OTHER, MEDICAID | END 2018-09-07 11:13 | disposition critical access hospital (66) | LOC: EMS 11:12 | PROVIDERS: ATTEND Surgery | DX: R11.10 Vomiting, unspecified (principal); R19.7 Diarrhea, unspecified; R53.83 Other fatigue | CPT/HCPCS: A0425; A0427 ==

== ENCOUNTER 2018-09-07 11:32 | Inpatient (IN) | payer MEDICARE, OTHER, MEDICAID ==
[2018-09-07] MEDS ORDERED: SODIUM CHLORIDE 0.9% 1,000 ML IV ONE (12:16)
--- NOTE | 2018-09-07 12:18 | ED Physician Documentation ---
PD HPI ALTERED MENTAL STATUS - Stated complaint Stated Complaint: DECREASE LOC - Chief complaint Chief Complaint: Neuro - History obtained from History obtained from: EMS - History of Present Illness Timing - onset: Today (This is an 82-year-old woman with severe dementia who reportedly lives at home with a caregiver and I am understanding that a child is on the way. Reportedly vomited once and had once episode of diarrhea today with increased somnolence. No history is available from the patient due to altered mental status and dementia.) Review of Systems Unable to obtain: AMS, Confused, Dementia PD PAST MEDICAL HISTORY - Past Medical History Cardiovascular: Hypertension, High cholesterol, Murmur Respiratory: COPD Neuro: Dementia Endocrine/Autoimmune: HyPOthyroidism GI: None PROCESS IMPROVEMENT SPECIALIST: None : Incontinence, Nocturia, Frequency HEENT: Chronic vision loss, Chronic sinusitis Psych: Depression, Anxiety Musculoskeletal: Rheumatoid arthritis, Chronic back pain Derm: None - Past Surgical History Past Surgical History: Yes /PROCESS IMPROVEMENT SPECIALIST: Hysterectomy - Present Medications Home Medications: Ambulatory Orders Medication Instructions Recorded Confirmed Aspirin Chewable [[place] 162 mg PO DAILY 01/24/13 05/02/18 Aspirin] Acyclovir 200 mg PO BID 03/22/13 05/02/18 Simvastatin 20 mg PO QPM 03/22/13 05/02/18 Losartan [Cozaar] 50 mg PO DAILY #30 tablet 02/07/17 05/02/18 Mirabegron [Myrbetriq] 25 mg PO DAILY 10/29/17 05/02/18 ALPRAZolam [Alprazolam] 0.5 mg PO QPM 12/03/17 05/02/18 Albuterol Sulf [Ventolin Hfa 2 puffs INH Q4H PRN 12/03/17 05/02/18 Inhaler] Acetaminophen [Tylenol] 650 mg PO Q4HR PRN tablet 12/04/17 05/02/18 predniSONE [Deltasone] 5 mg PO DAILY tablet 12/04/17 05/02/18 busPIRone [Buspar] 5 mg PO BID 05/02/18 05/02/18 Levothyroxine [Synthroid] 25 mcg PO QDAC #30 tablet 05/05/18 Spironolactone [Aldactone] 12.5 mg PO DAILY #15 tablet 05/05/18 Docusate Sodium 100 mg PO DAILY #30 capsule 06/26/18 Metoprolol Succinate 25 mg PO DAILY 09/07/18 Quetiapine Fumarate [Seroquel] 50 mg PO BID 09/07/18 - Allergies Allergies/Adverse Reactions: Allergies Allergy/AdvReac Type Severity Reaction Status Date / Time fluoxetine HCl * AdvReac Unknown Unknown Verified 09/07/18 11:39 [From Prozac] nitroglycerin AdvReac Unknown Unknown Verified 09/07/18 11:39 Sulfa (Sulfonamide AdvReac Unknown Unknown Verified 09/07/18 11:39 Antibiotics) sulfamethoxazole AdvReac Unknown Unknown Verified 09/07/18 11:39 [From Bactrim] trimethoprim [From Bactrim] AdvReac Unknown Unknown Verified 09/07/18 11:39 captopril AdvReac Nausea Verified 09/07/18 11:39 - Social History Does the pt smoke?: No Smoking Status: Never smoker Does the pt drink ETOH?: No Does the pt have substance abuse?: No - Immunizations Immunizations are current?: Yes Immunizations: TDAP >10years/unknown - POLST Patient has POLST: No POLST Status: Full Code PD ED PE NORMAL - Vitals Vital signs reviewed: Yes - General General: Other (She is somnolent with snoring respirations, she will open her eyes to voice, but when asked her name she makes only grunts.) - HEENT HEENT: PERRL, EOMI, Other (Dry mucous membranes) - Neck Neck: Supple, no meningeal sign, No bony TTP - Cardiac Cardiac: RRR, No murmur - Respiratory Respiratory: No respiratory distress, Clear bilaterally - Abdomen Abdomen: Soft, Non tender - Female Female : Other (She is incontinent of formed brown stool) - Back Back: No CVA TTP, No spinal TTP - Derm Derm: Normal color, Warm and dry - Extremities Extremities: No edema, No calf tenderness / cord - Neuro Eye Opening: To Voice Motor: Localizes to Pain Verbal: Incomprehensible GCS Score: 10 Results - Vitals Vitals: Vital Signs - 24 hr 09/07/18 09/07/18 11:34 13:14 Temperature 36.9 C Heart Rate 100 103 H Respiratory 22 16 Rate Blood Pressure 106/72 125/66 O2 Saturation 92 95 Oxygen O2 Source Room air - EKG (time done) 1324 Rate: Rate (enter#) (104) Rhythm: Sinus tachycardia [place]: Normal Intervals: Normal CA QRS: Low voltage Ischemia: Non specific changes (ST depression in 1 and L, no ST elevation.) Computer interpretation: Agree with computer - Labs Labs: Laboratory Tests 09/07/18 09/07/18 09/07/18 12:15 12:15 12:15 WBC 14.2 H RBC 3.89 L Hgb 12.7 Hct 39.3 MCV 101.0 H MCH 32.6 H MCHC 32.3 RDW 16.1 H Plt Count 240 MPV 9.1 Neut # (Auto) Not Reportable Lymph # (Auto) Not Reportable [place] # (Auto) Not Reportable Eos # (Auto) Not Reportable Baso # (Auto) Not Reportable Absolute Nucleated RBC Not Reportable Total Counted 100 Band Neuts % (Manual) 68 H Abnorm Lymph % (Manual) 0 Nucleated RBC % Not Reportable Neutrophils # (Manual) 12.2 H Lymphocytes # (Manual) 1.3 L Monocytes # (Manual) 0.7 Eosinophils # (Manual) 0.0 Basophils # (Manual) 0.0 Differential Comment MANUAL DIFFERENTIAL Manual Slide Review Indicated Platelet Estimate NORMAL (130-450,000) Platelet Morphology 1+ LARGE PLATELETS RBC Morph Micro Appear 1+ POLYCHROMASIA PT 12.8 H INR 1.1 Sodium 142 Potassium 6.3 H* Chloride 107 Carbon Dioxide 17 L Anion Gap 18.0 H BUN 33 H Creatinine 3.2 H Estimated GFR (MDRD) 14 L Glucose 211 H Lactic Acid Calcium 9.6 Total Bilirubin 1.2 H AST 63 H ALT 32 Alkaline Phosphatase 81 Troponin I Total Protein 7.1 Albumin 3.5 Globulin 3.6 Albumin/Globulin Ratio 1.0 Lipase 29 Urine Color Urine Clarity Urine pH Ur Specific [place] Urine Protein Urine Glucose (UA) Urine Ketones Urine Occult Blood Urine Nitrite Urine Bilirubin Urine Urobilinogen Ur Leukocyte Esterase Urine RBC Urine WBC Ur Squamous Epith Cells Amorphous Sediment Urine Bacteria Urine Casts Ur Microscopic Review Urine Culture Comments 09/07/18 09/07/18 09/07/18 12:15 13:07 13:25 WBC RBC Hgb Hct MCV MCH MCHC RDW Plt Count MPV Neut # (Auto) Lymph # (Auto) [place] # (Auto) Eos # (Auto) Baso # (Auto) Absolute Nucleated RBC Total Counted Band Neuts % (Manual) Abnorm Lymph % (Manual) Nucleated RBC % Neutrophils # (Manual) Lymphocytes # (Manual) Monocytes # (Manual) Eosinophils # (Manual) Basophils # (Manual) Differential Comment Manual Slide Review Platelet Estimate Platelet Morphology RBC Morph Micro Appear PT INR Sodium Potassium Chloride Carbon Dioxide Anion Gap BUN Creatinine Estimated GFR (MDRD) Glucose Lactic Acid 6.4 H* Calcium Total Bilirubin AST ALT Alkaline Phosphatase Troponin I 0.60 H* Total Protein Albumin Globulin Albumin/Globulin Ratio Lipase Urine Color YELLOW Urine Clarity CLOUDY Urine pH 5.0 Ur Specific [place] >=1.030 H Urine Protein 30 H Urine Glucose (UA) NEGATIVE Urine Ketones TRACE Urine Occult Blood NEGATIVE Urine Nitrite NEGATIVE Urine Bilirubin NEGATIVE Urine Urobilinogen 0.2 (NORMAL) Ur Leukocyte Esterase TRACE H Urine RBC 0-5 Urine WBC 4-5 Ur Squamous Epith Cells FEW Squamous Amorphous Sediment Few Urine Bacteria Few Urine Casts 3-5 Hyaline Casts Ur Microscopic Review INDICATED Urine Culture Comments INDICATED - Rads (name of study) CT Head Radiology: EMP read contemporaneously (white matter dz, NAD) 1v Chest Radiology: EMP read contemporaneously (Bibasilar scar atelectasis without obvious infiltrate.) PD MEDICAL DECISION MAKING - ED course ED course: This is an 82-year-old woman with dementia who presents with increased over chronic altered mental status today. No history is available from the patient's. Her vital signs are relatively unremarkable except for mild tachycardia. Work-up demonstrates leukocytosis with significant bandemia, 68%, acute on chronic renal failure and lactic acidosis as well as an elevated troponin without ST elevation. The situation does seem grave and I discussed this with the son. He corroborated that she probably would not want any heroic interventions including but not limited to things like dialysis or coronary angiography and understands we cannot offer anything like that [place] and is agreeable with. He says that in her lucid moments she says things like "I am ready to go." She was administered Zosyn initially. I added vancomycin after reviewing the most recent urine culture was which was an atypical staph that was resistant to most of the beta lactams. Spoke with Dr. Holley for admission at 2:20 PM. She received large volume crystalloid in the department here for the lactic acidosis. This should help with her hyperkalemia as well. - Critical Care Time(min): 45 Time Includes: Direct patient care, Review records, Reassess patient, Document care, Coordinate care, Medical consult, Family consult for tx dec Data interpretation: Labs Procedures excluded from critical care time: EKG Departure - Departure Disposition: 66 [facility] DC/Xfer Clinical Impression: DNR (do not resuscitate), Acute kidney injury, Severe sepsis, NSTEMI (non-ST elevated myocardial infarction) Acute on chronic renal failure Qualifiers: Acute renal failure type: unspecified Chronic kidney disease stage: unspecified stage Qualified Code(s): N17.9 - Acute kidney failure, unspecified; N18.9 - Chronic kidney disease, unspecified Urinary tract infection Qualifiers: Urinary tract infection type: acute pyelonephritis Qualified Code(s): N10 - Acute pyelonephritis Altered mental status Qualifiers: Altered mental status type: delirium Qualified Code(s): R41.0 - Disorientation, unspecified Condition: Critical
[2018-09-07 12:30] LABS: BASOPHILS % (AUTO) 0.6 %; HGB - HEMOGLOBIN 12.7 g/dL (12.0-16.0); LYMPHOCYTES % (AUTO) 6.2 %; MEAN CORPUSCULAR HEMOGLOBIN 32.6 pg (27.0-31.0); MEAN CORPUSCULAR HGB CONC 32.3 g/dL (32.0-36.0); MEAN PLATELET VOLUME 9.1 fL (7.9-10.8); MONOCYTES % (AUTO) 6.8 %; NEUTROPHILS % (AUTO) 86.4 %; PLT - PLATELET COUNT 240 10^3/uL (130-450); RED BLOOD COUNT 3.89 10^6/uL (4.20-5.40); RED CELL DISTRIBUTION WIDTH 16.1 % (12.0-15.0); WHITE BLOOD COUNT 14.2 x10^3/uL (4.8-10.8)
[2018-09-07 12:34] LABS: INR 1.1 (0.8-1.2); PT - PROTHROMBIN TIME 12.8 secs (9.9-12.6)
[2018-09-07 12:57] LABS: ABNORMAL LYMPHS % (MANUAL) 0 %
[2018-09-07 12:58] LABS: BAND NEUTROPHILS % (MANUAL) 68 %; LYMPHOCYTES # (MANUAL) 1.3 10^3/uL (1.5-3.5); LYMPHOCYTES % (MANUAL) 9 %; MONOCYTES # (MANUAL) 0.7 10^3/uL (0.0-1.0); NEUTROPHILS # (MANUAL) 12.2 10^3/uL (1.5-6.6); NEUTROPHILS % (MANUAL) 18 %; PLATELET ESTIMATE, MANUAL NORMAL (130-450,000) (NORMAL); PLATELET MORPHOLOGY 1+ LARGE PLATELETS (NORMAL); RBC MORPHOLOGY (MULTIPLE) 1+ POLYCHROMASIA (NORMAL)
[2018-09-07 12:59] LABS: DIFFERENTIAL COMMENT MANUAL DIFFERENTIAL
--- NOTE | 2018-09-07 13:00 | XRAY Report ---
Reason: altered Procedure Date: 09/07/2018 Accession Number: [id number] / [id number] Procedure: XR - Chest 1 View X-Ray CPT Code: 01333 FULL RESULT: EXAM: CHEST RADIOGRAPHY EXAM DATE: 09/07/2018 12:48 PM. CLINICAL HISTORY: Altered mental status. COMPARISON: CHEST 1 VIEW 05/02/2018 1:05 PM. TECHNIQUE: 1 view. FINDINGS: Lungs/Pleura: Elevated right hemidiaphragm. Mild vascular congestion. Bibasilar opacities. No pneumothorax. The image is rotated. Mediastinum: Cardiomegaly. Aortic atherosclerosis. Other: No acute osseous abnormalities. IMPRESSION: 1. Cardiomegaly. Mild vascular congestion. 2. Bibasilar opacities, scar/atelectasis rather than consolidation. RADIA
--- NOTE | 2018-09-07 13:07 | CT Report ---
Reason: altered Procedure Date: 09/07/2018 Accession Number: [id number] / [id number] Procedure: CT - HEAD WO CPT Code: FULL RESULT: EXAM: CT HEAD EXAM DATE: 09/07/2018 12:39 PM. CLINICAL HISTORY: Altered level of consciousness. COMPARISON: HEAD W/O STROKE PROTOCOL 10/31/2017 7:50 PM. TECHNIQUE: Multiaxial CT images were obtained from the foramen magnum to the vertex. Reformats: Sagittal and coronal. IV contrast: None. In accordance with CT protocol optimization, one or more of the following dose reduction techniques were utilized for this exam: automated exposure control, adjustment of mA and/or KV based on patient size, or use of iterative reconstructive technique. FINDINGS: Parenchyma: Parenchymal volume loss with periventricular regions of low attenuation. No evidence of an acute vascular insult or acute parenchymal hemorrhage. No midline shift. No mass-effect. Extraaxial Spaces: Mildly prominent although without significant change. No subdural or epidural collections identified. Ventricles: Normal in size and position. Sinuses and Orbits: Imaged paranasal sinuses, orbits, and mastoids show no significant abnormality. Bones: No evidence of fracture or calvarial defect. Other: Changes are seen from bilateral lens surgery. Vascular calcifications are noted. IMPRESSION: 1. No acute intracranial abnormality is identified. 2. Parenchymal volume loss and chronic white matter changes. 3. No acute osseous abnormalities. RADIA
[2018-09-07 13:10] LABS: GLUCOSE, URINE (UA) NEGATIVE (NEGATIVE); KETONES,URINE (UA) TRACE mg/dL (NEGATIVE); LEUKOCYTE ESTERASE, URINE TRACE (NEGATIVE); NITRITE,URINE NEGATIVE (NEGATIVE); OCCULT BLOOD,URINE NEGATIVE (NEGATIVE); PROTEIN,URINE 30 mg/dL (NEGATIVE); UROBILINOGEN,URINE 0.2 (NORMAL) E.U./dL (NORMAL)
[2018-09-07] MEDS ORDERED: PIPERACILLIN/TAZOBACTAM 3.375 GM in SODIUM CHLORIDE 0.9% MINIBAG 100 ML IV STA (13:15)
[2018-09-07 13:35] LABS: BILIRUBIN,URINE NEGATIVE (NEGATIVE); CLARITY,URINE CLOUDY (CLEAR); ICTOTEST,URINE NEGATIVE
[2018-09-07 13:40] LABS: AMORPHOUS SEDIMENT,UR Few /LPF; BACTERIA,URINE Few /HPF (None Seen); CASTS, URINE 3-5 Hyaline Casts /LPF; RBC,URINE 0-5 /HPF (0-5); SQUAMOUS EPITHELIAL CELL,UR FEW Squamous (<= Few)
[2018-09-07] MEDS ORDERED: SODIUM CHLORIDE 0.9% 2,000 ML IV ONE (13:57)
[2018-09-07 14:05] LABS: ALBUMIN 3.5 g/dL (3.2-5.5); BILIRUBIN,TOTAL 1.2 mg/dL (0.2-1.0); CALCIUM 9.6 mg/dL (8.5-10.3); CREATININE 3.2 mg/dL (0.4-1.0); TOTAL PROTEIN 7.1 g/dL (6.7-8.2)
[2018-09-07] MEDS ORDERED: VANCOMYCIN INJ 1.5 GM in SODIUM CHLORIDE 0.9% 500 ML IV STA (14:14)
[2018-09-07] MEDS ORDERED: ASPIRIN 300 MG SUPP PR STA (14:22)
[2018-09-07] MEDS ORDERED: cefTRIAXone 1 GM VIAL IVP SCH (14:51)
[2018-09-07] MEDS ORDERED: VANCOMYCIN PER PHARMACY 1 GM in SODIUM CHLORIDE 0.9% 250 ML IV SCH ×2 (15:00→17:00)
[2018-09-07] MEDS ORDERED: ONDANSETRON 4 MG/2 ML VIAL IVP PRN (16:10)
[2018-09-07] MEDS ORDERED: ACETAMINOPHEN 325 MG TABLET PO PRN (16:10)
[2018-09-07] MEDS ORDERED: INSULIN ASPART 100 UNIT/1 ML 10 ML MDV SUBQ STA (16:19)
--- NOTE | 2018-09-07 16:40 | HISTORY & PHYSICAL EXAMINATION ---
Chief Complaint - Chief Complaint Chief Complaint: AMS History of Present Illness - History of Present Illness HPI Comment/Other: Sara Morrissey is an 82-year old female with a past medical history of advanced dementia, multiple sclerosis, history of TIAs, hypertension, hypothyroidism, depression, anxiety, hyperlipidemia and recurrent UTIs who presented to the emergency department with altered mental status. Pt can not provide any medical history because of her medical condition. No family member is at pt's bedside. Per reported, pt lives at home with a caregiver, vomited once and had one episode of diarrhea today with increased somnolence. Lab test in ER, pt has elevated Troponin 0.6, creatinine 3.2, lactic acid 6.4, and potassium 6.3. EKG reveals ST without ST elevation. Per ER Dr. Gómez report, he discussed pt's condition with pt's son. His son state her mother want DNR, and probably would not want any intensive interventions such as dialysis or coronary angiography. Also her son understands we cannot offer anything like this [place] Her son understands and is agreeable. I called pt's son Eber Queen, he agree and understand above his conversation with Dr. Gómez, state he is on the way to the hospital, he also state " I do not think my mother has the financial to do further intervention, I do not know how to do." As pt's presented medical condition, pt is admitted at the hospital. 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 She currently lives in her own home and her son lives with her. The patient's son moved in with his mom about 5 years ago when she started having dementia and she has had progressive dementia since. The patient has a caregiver that is in the house when the patient's son is not around. The son states that somebody is with her 24 hours a day. The patient is once and . Her a few years ago. The patient has a remote history of smoking but has not smoked for many years. She does not drink alcohol and does not use any illicit drugs. - Substance History Use: Uses substance without health or social issues: NONE - POLST Patient has POLST: No POLST Status: Full Code Meds/Allgy - Home Medications Home Medications: Ambulatory Orders Medication Instructions Recorded Confirmed Aspirin Chewable [[place] 162 mg PO DAILY 01/24/13 09/07/18 Aspirin] Acyclovir 200 mg PO BID 03/22/13 09/07/18 Simvastatin 20 mg PO QPM 03/22/13 09/07/18 Losartan [Cozaar] 50 mg PO DAILY #30 tablet 02/07/17 09/07/18 Mirabegron [Myrbetriq] 25 mg PO DAILY 10/29/17 09/07/18 ALPRAZolam [Alprazolam] 0.5 mg PO QPM 12/03/17 09/07/18 Albuterol Sulf [Ventolin Hfa 2 puffs INH Q4H PRN 12/03/17 09/07/18 Inhaler] Acetaminophen [Tylenol] 650 mg PO Q4HR PRN tablet 12/04/17 09/07/18 predniSONE [Deltasone] 5 mg PO DAILY tablet 12/04/17 09/07/18 busPIRone [Buspar] 5 mg PO BID 05/02/18 09/07/18 Levothyroxine [Synthroid] 25 mcg PO QDAC #30 tablet 05/05/18 09/07/18 Spironolactone [Aldactone] 12.5 mg PO DAILY #15 tablet 05/05/18 09/07/18 Docusate Sodium 100 mg PO DAILY #30 capsule 06/26/18 09/07/18 Metoprolol Succinate 25 mg PO DAILY 09/07/18 09/07/18 Quetiapine Fumarate 100 mg PO QPM 09/07/18 09/07/18 Quetiapine Fumarate [Seroquel] 50 mg PO DAILY 09/07/18 09/07/18 - Allergies Allergies/Adverse Reactions: Allergies Allergy/AdvReac Type Severity Reaction Status Date / Time fluoxetine HCl * AdvReac Unknown Unknown Verified 09/07/18 11:39 [From Prozac] nitroglycerin AdvReac Unknown Unknown Verified 09/07/18 11:39 Sulfa (Sulfonamide AdvReac Unknown Unknown Verified 09/07/18 11:39 Antibiotics) sulfamethoxazole AdvReac Unknown Unknown Verified 09/07/18 11:39 [From Bactrim] trimethoprim [From Bactrim] AdvReac Unknown Unknown Verified 09/07/18 11:39 captopril AdvReac Nausea Verified 09/07/18 11:39 Review of Systems - Other Findings Other Findings: pt has hx of advanced dementia, she could not provide any ROS Exam - Vital Signs Reviewed Vital Signs: Yes Vital Signs: Vital Signs x48h Temp Pulse Resp BP Pulse Ox 09/07/18 15:35 37 C 114 H 28 H 117/83 H 95 09/07/18 13:14 103 H 16 125/66 95 09/07/18 11:34 36.9 C 100 22 106/72 92 - Physical Exam General Appearance: positive: Alert, Moderate distress, Lethargic Eyes Bilateral: positive: Normal inspection, No lid inflammation, Conjunctivae nml ENT: positive: ENT inspection nml, Pharynx nml, No signs of dehydration. negative: Purulent nasal drainage, Pharyngeal erythema, Oral lesions, Dry mucous membranes Neck: positive: Nml inspection, Thyroid nml, No JVD, Trachea midline. negative: Lymphadenopathy (R), Lymphadenopathy (L), Stiff neck, Swelling/bruising, Tracheal deviation Respiratory: positive: Chest non-tender, No respiratory distress, Breath sounds nml. negative: Wheezes, Rales, Rhonchi Cardiovascular: positive: No murmur, No gallop, Tachycardia. negative: Irregularly irregular, Extrasystoles, Bradycardia, JVD present, Systolic murmur, Diastolic murmur Peripheral Pulses: positive: 2+ Abdomen: positive: Non-tender, No organomegaly, Nml bowel sounds, No distention. negative: Tenderness, Guarding, Rebound Back: positive: Nml inspection. negative: CVA tenderness (R), CVA tenderness (L) Skin: positive: Color nml, No rash, Warm, Dry. negative: Cyanosis, Diaphoresis, Pallor Extremities: positive: Non-tender. negative: Calf tenderness, Burton's sign /cords Neurologic/Psychiatric: negative: Sensory loss, Facial droop Sepsis Event Note (H) - Evaluation Current Stage of Sepsis: Sepsis Possible source of Sepsis: positive: Genitourinary - Sepsis Criteria Sepsis Criteria: Recorded Heart Rate greater than 90 bpm, Recorded Respiratory Rate greater than 20, WBC count greater than 12,000 or less than 4000, ANALYTICAL CLERK: altered consciousness (unrelated to primary neuro pathology), Metabolic: lactate > 2 mmol/L Conclusion/Plan - Problem List (1) Altered mental status Conclusion/Plan: pt is total confused, could not provide any medical history. per ER provider report pt has advanced dementia, pt presented like this situation and total confused status before. continue support pt, called pt's family CT of head is unremarkable for acute findings. Qualifiers: Altered mental status type: delirium Qualified Code(s): R41.0 - Disorientation, unspecified (2) Elevated troponin Conclusion/Plan: pt had elevated troponin to 0.6. Unfortunately pt could not provide any history. EKG reveals ST without ST elevation. pt also present today acute on chronic renal failure which could remain troponin level for some pt. This situation was reported to pt's son. Pt's son understand we can not provide angiograph for pt, and agree pt be remained at this hospital for medical management. serial troponin Lovenox 40 mg daily according to pt's kidney GFR, adjustable according to pt's renal function resume pt's home Aspirin Tele and vital monitor (3) Hyperkalemia Conclusion/Plan: pt has 6.3 potassium. pt is given 5unit of insulin with D50 pt has onece Kayexate continue check potassium level (4) Acute on chronic renal failure Conclusion/Plan: pt has 3.2 creatinine today. pt had 1.3 creatinine about 3 months ago. hydration with IVF of NS, continue lab monitor (5) Lactic acid acidosis Conclusion/Plan: pt has 6.4 lactic acid level. it could be caused by worsen renal function and dehydration, infection from UTI IVF of NS antibiotic to treat infection UTI (6) Advanced dementia Conclusion/Plan: pt present advance dementia. we will continue support to pt (7) UTI (urinary tract infection) Conclusion/Plan: pt has elevated WBC and left shift, slight elevated leukocyte esterase, hx of frequent UTI with staph and multiple antibiotics resistance bacterial, The last time pt had Staph A. treated with antibiotics Vancomycin, and Rocephin UA culture is pending, followup IVF of NS (8) DNR (do not resuscitate) Conclusion/Plan: pt's son request DNR to pt - Lab Results Otf Bones: 09/07/18 12:15 09/07/18 12:15 Core Measures - Anticipated LOS I expect patient to be DC'd or transferred within 96 hours.: Yes - DVT/VTE - Prophylaxis VTE/DVT Device ordered at admit?: Yes VTE/DVT Prophylaxis med ordered at admit?: Yes
[2018-09-07] MEDS ORDERED: DEXTROSE 50% ABBOJECT 25 GM/50 ML SYRINGE IVP ONE (18:00)
[2018-09-07] MEDS ORDERED: INSULIN ASPART 300 UNIT/3 ML PEN SUBQ ONE (18:00)
[2018-09-07] MEDS ORDERED: SODIUM CHLORIDE 0.9% 1,000 ML IV SCH (18:00)
[2018-09-07] MEDS ORDERED: SODIUM POLYSTYRENE SULFONATE 15 GM/60 ML BOTTLE PO ONE (18:30)
[2018-09-07] MEDS ORDERED: INSULIN ASPART 300 UNIT/3 ML PEN SUBQ SCH (20:00)
[2018-09-07] MEDS ORDERED: DEXTROSE 50% ABBOJECT 25 GM/50 ML SYRINGE IVP SCH (20:00)
[2018-09-07] MEDS: SODIUM CHLORIDE 0.9% 1,000 ML IV SCH (20:10)
[2018-09-07] MEDS: SODIUM CHLORIDE FLUSH 0.9% 10 ML SYRINGE IVP PRN (20:11)
[2018-09-07] MEDS: SODIUM CHLORIDE FLUSH 0.9% 10 ML SYRINGE IVP SCH (20:21)
[2018-09-07] MEDS ORDERED: METOPROLOL SUCCINATE 25 MG TABLET PO SCH (23:04)
[2018-09-08] MEDS ORDERED: MORPHINE 2 MG/ML SYRINGE ONE (00:02)
[2018-09-08] MEDS ORDERED: IPRATROPIUM/ALBUTEROL 3 ML NEB INH ONE (00:03)
[2018-09-08] MEDS ORDERED: SODIUM CHLORIDE INHALATION 3 ML NEB ONE (00:03)
[2018-09-08] MEDS: LORazepam 2 MG/ML VIAL IVP PRN ×2 (00:23→23:34)
[2018-09-08] MEDS: ATORVASTATIN 40 MG TABLET PO SCH ×2 (00:36→21:54)
[2018-09-08] MEDS: ENOXAPARIN 80 MG/0.8 ML SYRINGE SUBQ SCH ×2 (00:39→09:45)
[2018-09-08] MEDS ORDERED: MORPHINE 2 MG/ML CARPUJECT IVP SCH (01:00)
[2018-09-08] MEDS ORDERED: SCOPOLAMINE PATCH TOP SCH (01:00)
[2018-09-08] MEDS ORDERED: IPRATROPIUM/ALBUTEROL 3 ML NEB INH SCH (01:08)
[2018-09-08] MEDS: SODIUM CHLORIDE FLUSH 0.9% 10 ML SYRINGE IVP SCH ×5 (01:23→23:35)
[2018-09-08] MEDS: FUROSEMIDE 40 MG/4 ML VIAL IVP SCH ×2 (01:39→02:00)
[2018-09-08] MEDS ORDERED: SODIUM CHLORIDE FLUSH 0.9% 10 ML SYRINGE ONE (01:44)
[2018-09-08] MEDS ORDERED: FUROSEMIDE 40 MG/4 ML VIAL ONE ×2 (01:44→01:59)
--- NOTE | 2018-09-08 01:56 | XRAY Report ---
Reason: increased dyspnea Procedure Date: 09/08/2018 Accession Number: [id number] / [id number] Procedure: XR - Chest 1 View X-Ray CPT Code: 20083 FULL RESULT: EXAM: CHEST RADIOGRAPHY EXAM DATE: 09/08/2018 01:37 AM. CLINICAL HISTORY: Increased dyspnea. COMPARISON: CHEST 1 VIEW 09/07/2018 12:20 PM. TECHNIQUE: 1 view. FINDINGS: Lungs/Pleura: Small lung volumes and elevated right hemidiaphragm. Pulmonary vascular congestion. Increased bilateral atelectasis or infiltrate. Volume overload or pulmonary edema also possible. Small right pleural effusion. No pneumothorax. Mediastinum: Within exam limitations, there is moderate cardiomegaly. Aortic atherosclerosis. Other: None. IMPRESSION: 1. Small lung volumes with cardiomegaly and pulmonary vascular congestion. 2. Increased bilateral atelectasis or infiltrate, versus volume overload or pulmonary edema. 3. Small right pleural effusion. RADIA
[2018-09-08] MEDS ORDERED: FUROSEMIDE 100 MG/10 ML VIAL IVP ONE (01:57)
[2018-09-08] MEDS ORDERED: MORPHINE 2 MG/ML CARPUJECT IVP PRN (03:19)
--- NOTE | 2018-09-08 03:19 | PROVIDER PROGRESS NOTE ---
Pipe Caulker Note - Pipe Caulker Note Pipe Caulker Note: I was called to patient's room around 0030 am on 09/08/18 because the patient appeared to be in respiratory distress and was anxious/agitated. She could not lay flat and was trying to get out of bed. She is a patient with baseline dementia who was admitted for possible pneumonia and NSTEMI. She had a troponin of 0.6. She was given vancomycin and rocephin for the pneumonia. There is indication that she had received a one time dose of Zosyn in the ED as well. It is documented that here son Eber Queen has opted for nothing to be done with regards to her NSTEMI. Just prior to this incident, her repeat troponin was 1.30 Initially she had an O2Sat of 95 with a respiratory rate in the 30's. Her SBP was 99 and she had a temp of 37.8C. DDx was Worsening Pulmonary edema/ Fluid overload ?NSTEMI progression causing respiratory failure Anxiety/Agitation 2/2 Dementia. She appeared to have rales which upon auscultation appeared to be loudest in the upper airways. She seemed to be having difficulty taking in a breath and she would occasionally have apneic episodes She was given 2mg of morphine IV and subsequently ativan 0.5mg and she was given an albuterol breathing treatment. Her agitation improved. However she remained tachypneic and progressively hypoxic and became very diaphoretic despite having an oxygen mask in place on her face. When her jaw was protracted, she had improvement in her respiratory function An attempt to place a nasopharyngeal air way was unsuccessful due obstruction in the nostrils. She had a chest xray which showed vascular congestion She was moved to the ICU for bipap support. She was given lasix 40mg and a scopolamine patch placed On the bipap and laying on her back she gets intermittent apneic periods and periods where it appeared she was having an airway obstruction. This corresponded with tidal volumes of 100 only. She was suction with 50mls of secretion out. She did much better on the bipap with her head incline about 30 degrees and her body rotated to her resting on her right side. Her O2Sats during this were in the high 90's, her respiration improved to 11-19 and her heart rate 118-124 However her corresponding pressures were very low with a MAP of 56 and SBP of 66-76. The patient's third trop was 1.27 At this point I have optimized the patient's care and she is still in a critical state. However she is comfortable on the bipap. In light of her DNR status, I will just focus on her comfort which will be to continue the bipap and give morphine and or ativan for any sign of worsening respiratory distress. I have attempted to reach her son Eber Queen who lives with her THREE TIMES, with no call back. I have left a phone number for him to call me back. Patient's vitals improved through the course of the night. Her SBP was 96 She was at 12/6 on the bipap with 40% FiO2 and PIP of 13 and sleeping comfortably. She would readily arouse to verbal stimuli.
--- NOTE | 2018-09-08 04:58 | XRAY Report ---
Reason: increased work of breathing. ?obstruction Procedure Date: 09/08/2018 Accession Number: [id number] / [id number] Procedure: XR - Neck Soft Tissue CPT Code: FULL RESULT: EXAM: SOFT TISSUE NECK RADIOGRAPHY EXAM DATE: 09/08/2018 02:21 AM. CLINICAL HISTORY: Increased work of breathing. ?obstruction. COMPARISONS: None. TECHNIQUE: 2 views. FINDINGS: Soft Tissues: No prevertebral soft tissue swelling. The epiglottis and aryepiglottic folds are unremarkable. No obvious tonsillar or adenoidal enlargement. No radiopaque foreign body. The tongue appears somewhat posterior in position and possibly swollen. Regional Skeleton: Unremarkable for age. Other: Streakiness at the lung apices. IMPRESSION: 1. The tongue appears somewhat posterior in position and possibly swollen. 2. Otherwise no obvious soft tissue abnormality. RADIA
[2018-09-08] MEDS: SODIUM CHLORIDE 0.9% 1,000 ML IV SCH (05:20)
[2018-09-08 05:23] LABS: BASOPHILS % (AUTO) 0.2 %; EOSINOPHILS % (AUTO) 0.1 %; HGB - HEMOGLOBIN 11.1 g/dL (12.0-16.0); LYMPHOCYTES % (AUTO) 6.2 %; MEAN CORPUSCULAR HEMOGLOBIN 32.7 pg (27.0-31.0); MEAN CORPUSCULAR HGB CONC 31.7 g/dL (32.0-36.0); MEAN CORPUSCULAR VOLUME 103.1 fL (81.0-99.0); MEAN PLATELET VOLUME 8.7 fL (7.9-10.8); MONOCYTES % (AUTO) 5.6 %; NEUTROPHILS % (AUTO) 87.9 %; PLT - PLATELET COUNT 209 10^3/uL (130-450); RED CELL DISTRIBUTION WIDTH 15.9 % (12.0-15.0); WHITE BLOOD COUNT 14.1 x10^3/uL (4.8-10.8)
[2018-09-08 06:12] LABS: ABNORMAL LYMPHS % (MANUAL) 0 %
[2018-09-08 06:16] LABS: BAND NEUTROPHILS % (MANUAL) 42 %; LYMPHOCYTES # (MANUAL) 1.3 10^3/uL (1.5-3.5); LYMPHOCYTES % (MANUAL) 9 %; METAMYELOCYTES % (MANUAL) 4 %; MYELOCYTES % (MANUAL) 2 %; NEUTROPHILS % (MANUAL) 36 %
[2018-09-08 06:17] LABS: PLATELET ESTIMATE, MANUAL NORMAL (130-450,000) (NORMAL)
[2018-09-08 06:56] LABS: BILIRUBIN,TOTAL 1.2 mg/dL (0.2-1.0); CALCIUM 8.1 mg/dL (8.5-10.3); CREATININE 2.7 mg/dL (0.4-1.0)
[2018-09-08] MEDS ORDERED: MORPHINE 2 MG/ML SYRINGE IVP PRN (08:00)
--- NOTE | 2018-09-08 08:24 | PROVIDER PROGRESS NOTE ---
Assessment/Plan - Problem List (1) Septic shock Assessment/Plan: She is running low systolic BP and is in CHF, therefore suggesting C-shock. But with her UTI and high Lactic Acid, this could be septic shock as well. I discussed how aggressive to be with her medical management with 2 sons, one is the CHRISTIANE. Due to her baseline dementia, will not begin pressors, but try medication adjustments. Obtain Echo regarding LVEF (2) Acute non-ST elevation myocardial infarction (NSTEMI) Assessment/Plan: The septic shock may have caused demand ischemia and the NE. Follow troponins til see decline, to help size the NE. EKG today is similar to yesterday, not showing NE location. Obtain Echo. Continue ASA, anticoagulation with Heparin and statin. Try to dose B-ashli if her BP will allow. (3) CHF exacerbation Assessment/Plan: Diuresis, Morphine and only gentle iv fluids have improved her respiratory distress, for which she was moved into the ICU. Awaiting LVEF by Echo. (4) UTI (urinary tract infection) Assessment/Plan: Pt on iv antibiotics. Urine and blood culture results pending. (5) Acute on chronic renal failure Qualifiers: Acute renal failure type: unspecified Chronic kidney disease stage: unspecified stage Qualified Code(s): N17.9 - Acute kidney failure, unspecified; N18.9 - Chronic kidney disease, unspecified (6) Hyperkalemia Assessment/Plan: Secondary to JOE. Monitor BMP q6-12H. May need Kayexelate. (7) Bloody stool Assessment/Plan: Reported by R.N. She is not a candidate for any endoscopy. Will order Anusol supp p.r. if hemorrhoids present. Monitor H/H daily. (8) Anemia Assessment/Plan: Will check B12, Folate, Iron panel. Replace if low. (9) Advanced dementia Assessment/Plan: As per the sons, her QOL has deteriorated in several months and she has vouced to them that she wants to give up living. Currently the sons want medical management for her problems, but no heroic measures and no transfers. She is not at Comfort Care stage yet. Palliative Care consult requested. - Current Meds Current Meds: Current Medications Generic Name Dose Route Start Last Admin Trade Name Freq PRN Reason Stop Dose Admin Atorvastatin Calcium 80 mg 09/07/18 23:17 09/08/18 00:36 Lipitor PO Not Given QPM CHERYL Enoxaparin Sodium 80 mg 09/07/18 22:58 09/08/18 00:39 Lovenox SUBQ 80 mg DAILY CHERYL Administration Lorazepam 0.5 mg 09/08/18 00:08 09/08/18 00:23 Ativan Inj (Vial) IVP 0.5 mg Q2H PRN Administration Anxiety Scopolamine HBr 1 patch 09/08/18 01:00 09/08/18 01:25 Transderm-Scop TOP 1 patch Q3D CHERYL Administration Sodium Chloride 10 ml 09/07/18 16:10 09/07/18 20:11 Normal Saline Flush 0.9% IVP 10 ml PRN PRN Administration NEEDED PER PROVIDER ORDERS Sodium Chloride 10 ml 09/07/18 17:00 09/08/18 01:23 Normal Saline Flush 0.9% IVP Not Given 0100,0900,1700 CHERYL - Lab Result Fish Bone Diagrams: 09/08/18 05:13 09/08/18 05:34 - Additional Planning My Orders: My Active Orders 09/08/18 TROPONIN I [IAI] Urgent Clinical Swallow Evaluation [ST] Routine 09/08/18 08:17 Morphine Inj [Morphine] 2 mg IVP Q3HR PRN 09/08/18 08:21 Echo Transthoracic Complete [ECHO] Routine 09/08/18 09:00 D5NS @ 83.333 mls/hr Dextrose 5%-0.9% NaCl [D5ns] 1,000 ml IV 83.333 mls/hr Metoprolol Succinate [Toprol Xl] 12.5 mg PO DAILY Subjective - Subjective Nursing Reports: Other (Sleeping, awakens briefly, appears comfortable on a BIPAP mask) Objective Vital Signs: Vital Signs - 24 hr 09/07/18 09/07/18 09/07/18 11:34 13:14 15:35 Temperature 36.9 C 37 C Heart Rate 100 103 H 114 H Heart Rate [ Brachial] Respiratory 22 16 28 H Rate Blood Pressure 106/72 125/66 117/83 H Blood Pressure [Right Brachial artery] O2 Saturation 92 95 95 09/07/18 09/07/18 09/07/18 17:55 19:00 19:42 Temperature 36.9 C Heart Rate 115 H 117 H Heart Rate [ 110 H Brachial] Respiratory 27 H 28 H 18 Rate Blood Pressure 131/100 H 125/65 Blood Pressure 144/79 H [Right Brachial artery] O2 Saturation 100 99 98 09/07/18 09/07/18 09/07/18 21:00 23:45 23:50 Temperature 36.7 C 38.3 C H Heart Rate Heart Rate [ 123 H 121 H Brachial] Respiratory 20 37 H Rate Blood Pressure Blood Pressure 139/83 H 99/75 [Right Brachial artery] O2 Saturation 97 90 L 94 09/08/18 09/08/18 09/08/18 00:12 00:52 01:40 Temperature 37.8 C H 36.1 C L Heart Rate 135 H Heart Rate [ 137 H 130 H Brachial] Respiratory 28 H 28 H 30 H Rate Blood Pressure Blood Pressure 169/87 H 135/89 H [Right Brachial artery] O2 Saturation 94 94 09/08/18 09/08/18 09/08/18 01:45 01:50 01:56 Temperature Heart Rate 113 H Heart Rate [ 128 H 131 H Brachial] Respiratory 27 H 30 H Rate Blood Pressure Blood Pressure 118/77 123/68 [Right Brachial artery] O2 Saturation 95 91 L 09/08/18 09/08/18 09/08/18 02:00 02:03 02:05 Temperature Heart Rate Heart Rate [ 135 H 127 H 129 H Brachial] Respiratory 21 31 H 26 H Rate Blood Pressure Blood Pressure 47/23 L 72/51 L 84/48 L [Right Brachial artery] O2 Saturation 96 80 L 93 09/08/18 09/08/18 09/08/18 02:06 02:15 02:17 Temperature Heart Rate Heart Rate [ 130 H 126 H 129 H Brachial] Respiratory 23 21 14 Rate Blood Pressure Blood Pressure 91/57 L 72/43 L 54/33 L [Right Brachial artery] O2 Saturation 99 90 L 99 09/08/18 09/08/18 09/08/18 02:19 02:23 02:25 Temperature Heart Rate Heart Rate [ 128 H 126 H 123 H Brachial] Respiratory 24 19 42 H Rate Blood Pressure Blood Pressure 53/37 L 39/30 L 59/41 L [Right Brachial artery] O2 Saturation 98 97 96 09/08/18 09/08/18 09/08/18 02:26 02:30 02:35 Temperature Heart Rate Heart Rate [ 125 H 123 H 118 H Brachial] Respiratory 21 25 H 19 Rate Blood Pressure Blood Pressure 48/38 L 68/50 L 49/33 L [Right Brachial artery] O2 Saturation 96 90 L 97 09/08/18 09/08/18 09/08/18 02:37 02:42 02:51 Temperature Heart Rate 108 H Heart Rate [ 117 H 113 H Brachial] Respiratory 18 18 Rate Blood Pressure Blood Pressure 46/30 L 46/33 L [Right Brachial artery] O2 Saturation 97 98 09/08/18 09/08/18 09/08/18 05:00 05:15 06:00 Temperature 36.9 C Heart Rate 103 H Heart Rate [ 101 H 98 Brachial] Respiratory 16 16 Rate Blood Pressure Blood Pressure 92/51 L 93/50 L [Right Brachial artery] O2 Saturation 100 100 09/08/18 09/08/18 07:00 08:00 Temperature 36.8 C Heart Rate 96 Heart Rate [ 103 H 100 Brachial] Respiratory 18 20 Rate Blood Pressure Blood Pressure 79/45 L 87/54 L [Right Brachial artery] O2 Saturation 100 100 Oxygen O2 Source BIPAP I&O (Last 24 Hrs): Intake and Output Totals x24h 09/06/18 09/07/18 09/08/18 23:59 23:59 23:59 Intake Total 3600 662.5 Output Total 940 Balance 3600 -277.5 General: Other (Somnolent) HEENT: Mucous membr. moist/pink, Other (On a BIPAP mask) Neck: Supple Neuro: Other (Somnolent) Cardiovascular: No murmurs Respiratory: No respiratory distress, Breath sounds nml Abdomen: Soft Extremities: No edema - Results Results: Laboratory Results WBC 14.1 x10^3/uL (4.8-10.8) H 09/08/18 05:13 RBC 3.40 10^6/uL (4.20-5.40) L 09/08/18 05:13 Hgb 11.1 g/dL (12.0-16.0) L 09/08/18 05:13 Hct 35.0 % (37.0-47.0) L 09/08/18 05:13 MCV 103.1 fL (81.0-99.0) H 09/08/18 05:13 MCH 32.7 pg (27.0-31.0) H 09/08/18 05:13 MCHC 31.7 g/dL (32.0-36.0) L 09/08/18 05:13 RDW 15.9 % (12.0-15.0) H 09/08/18 05:13 Plt Count 209 10^3/uL (130-450) 09/08/18 05:13 MPV 8.7 fL (7.9-10.8) 09/08/18 05:13 Neut # (Auto) BAR EXAMINER 09/08/18 05:13 Lymph # (Auto) BAR EXAMINER 09/08/18 05:13 [place] # (Auto) BAR EXAMINER 09/08/18 05:13 Eos # (Auto) BAR EXAMINER 09/08/18 05:13 Baso # (Auto) BAR EXAMINER 09/08/18 05:13 Absolute Nucleated RBC BAR EXAMINER 09/08/18 05:13 Total Counted 100 09/08/18 05:13 Band Neuts % (Manual) 42 % (0-10) H 09/08/18 05:13 Abnorm Lymph % (Manual) 0 % 09/08/18 05:13 Metamyelocytes % 4 % (-0) H 09/08/18 05:13 Myelocytes % 2 % (-0) H 09/08/18 05:13 Nucleated RBC % BAR EXAMINER 09/08/18 05:13 Neutrophils # (Manual) 11.0 10^3/uL (1.5-6.6) H 09/08/18 05:13 Lymphocytes # (Manual) 1.3 10^3/uL (1.5-3.5) L 09/08/18 05:13 Monocytes # (Manual) 1.0 10^3/uL (0.0-1.0) 09/08/18 05:13 Eosinophils # (Manual) 0.0 10^3/uL (0-0.7) 09/08/18 05:13 Basophils # (Manual) 0.0 10^3/uL (0-0.1) 09/08/18 05:13 Differential Comment MANUAL DIFFERENTIAL 09/07/18 12:15 Manual Slide Review Indicated 09/07/18 12:15 Platelet Estimate NORMAL (130-450,000) (NORMAL) 09/08/18 05:13 Platelet Morphology 1+ LARGE PLATELETS (NORMAL) 09/07/18 12:15 RBC Morph Micro Appear 1+ ANISOCYTOSIS (NORMAL) 1+ MACROCYTOSIS (NORMAL) 05:13 RBC Morph Micro Appear 1+ ANISOCYTOSIS (NORMAL) 1+ MACROCYTOSIS (NORMAL) 05:13 PT 12.8 secs (9.9-12.6) H 09/07/18 12:15 INR 1.1 (0.8-1.2) 09/07/18 12:15 Sodium 142 mmol/L (135-145) 09/08/18 05:34 Potassium 5.6 mmol/L (3.5-5.0) H 09/08/18 05:34 Chloride 112 mmol/L (101-111) H 09/08/18 05:34 Carbon Dioxide 20 mmol/L (21-32) L 09/08/18 05:34 Anion Gap 10.0 (6-13) 09/08/18 05:34 BUN 40 mg/dL (6-20) H 09/08/18 05:34 Creatinine 2.7 mg/dL (0.4-1.0) H 09/08/18 05:34 Estimated GFR (MDRD) 17 (>89) L 09/08/18 05:34 Glucose 147 mg/dL (70-100) H 09/08/18 05:34 Lactic Acid 2.5 mmol/L (0.5-2.2) H 09/08/18 07:30 Calcium 8.1 mg/dL (8.5-10.3) L 09/08/18 05:34 Total Bilirubin 1.2 mg/dL (0.2-1.0) H 09/08/18 05:34 AST 55 IU/L (10-42) H 09/08/18 05:34 ALT 30 IU/L (10-60) 09/08/18 05:34 Alkaline Phosphatase 68 IU/L (42-121) 09/08/18 05:34 Troponin I 1.27 ng/mL (<0.49) H* 09/08/18 00:50 Total Protein 6.0 g/dL (6.7-8.2) L 09/08/18 05:34 Albumin 3.0 g/dL (3.2-5.5) L 09/08/18 05:34 Globulin 3.0 g/dL (2.1-4.2) 09/08/18 05:34 Albumin/Globulin Ratio 1.0 (1.0-2.2) 09/08/18 05:34 Lipase 29 U/L (22-51) 09/07/18 12:15 TSH 3.09 uIU/mL (0.34-5.60) 09/08/18 05:13 Urine Color YELLOW 09/07/18 13:07 Urine Clarity CLOUDY (CLEAR) 09/07/18 13:07 Urine pH 5.0 PH (5.0-7.5) 09/07/18 13:07 Ur Specific [place] >=1.030 (1.002-1.030) H 09/07/18 13:07 Urine Protein 30 mg/dL (NEGATIVE) H 09/07/18 13:07 Urine Glucose (UA) NEGATIVE mg/dL (NEGATIVE) 09/07/18 13:07 Urine Ketones TRACE mg/dL (NEGATIVE) 09/07/18 13:07 Urine Occult Blood NEGATIVE (NEGATIVE) 09/07/18 13:07 Urine Nitrite NEGATIVE (NEGATIVE) 09/07/18 13:07 Urine Bilirubin NEGATIVE (NEGATIVE) 09/07/18 13:07 Urine Urobilinogen 0.2 (NORMAL) E.U./dL (NORMAL) 09/07/18 13:07 Ur Leukocyte Esterase TRACE (NEGATIVE) H 09/07/18 13:07 Urine RBC 0-5 /HPF (0-5) 09/07/18 13:07 Urine WBC 4-5 /HPF (0-5) 09/07/18 13:07 Ur Squamous Epith Cells FEW Squamous (<= Few) 09/07/18 13:07 Amorphous Sediment Few /LPF 09/07/18 13:07 Urine Bacteria Few /HPF (None Seen) 09/07/18 13:07 Urine Casts 3-5 Hyaline Casts /LPF 09/07/18 13:07 Ur Microscopic Review INDICATED 09/07/18 13:07 Urine Culture Comments INDICATED 09/07/18 13:07 Influenza A (Rapid) Negative (Negative) 09/08/18 02:12 Influenza B (Rapid) Negative (Negative) 09/08/18 02:12 - Procedures Procedures: Procedures CLOSURE SKIN & SUBCUTANEOUS NEC (01/24/13) Sepsis Event Note (H) - Evaluation Current Stage of Sepsis: Sepsis Possible source of Sepsis: positive: Genitourinary - Sepsis Criteria Sepsis Criteria: Recorded Heart Rate greater than 90 bpm, Recorded Respiratory Rate greater than 20, WBC count greater than 12,000 or less than 4000, GARDENER FLORIST: altered consciousness (unrelated to primary neuro pathology), Metabolic: lactate > 2 mmol/L
[2018-09-08] MEDS ORDERED: HYDROCORTISONE 25 MG SUPPOSITORY PR PRN (08:27)
[2018-09-08] MEDS: cefTRIAXone 1 GM in SODIUM CHLORIDE 0.9% MINIBAG 100 ML IV SCH (08:50)
[2018-09-08] MEDS ORDERED: ASPIRIN CHEW 81 MG TABLET PO SCH ×2 (09:00)
[2018-09-08] MEDS ORDERED: ENOXAPARIN 40 MG/0.4 ML SYRINGE SUBQ SCH (09:00)
[2018-09-08] MEDS ORDERED: METOPROLOL SUCCINATE 25 MG TABLET PO SCH (09:00)
[2018-09-08] MEDS ORDERED: METOPROLOL SUCCINATE 50 MG TABLET PO SCH (09:00)
[2018-09-08] MEDS ORDERED: cefTRIAXone 1 GM VIAL IVP SCH (09:00)
[2018-09-08] MEDS: DEXTROSE 5%-0.9% NACL 1,000 ML IV SCH ×2 (09:30→22:00)
[2018-09-08] MEDS: LEVOTHYROXINE 25 MCG TABLET PO SCH (09:59)
[2018-09-08] MEDS: ASPIRIN CHEW 81 MG TABLET PO SCH (09:59)
[2018-09-08] MEDS: FAMOTIDINE 20 MG TABLET PO SCH (10:00)
[2018-09-08] MEDS: METOPROLOL SUCCINATE 25 MG TABLET PO SCH (10:00)
[2018-09-08] MEDS: POLYETHYLENE GLYCOL 3350 17 GM PACKET PO SCH (10:00)
[2018-09-08] MEDS: VANCOMYCIN INJ 1 GM in SODIUM CHLORIDE 0.9% 250 ML IV SCH (14:10)
[2018-09-08] MEDS: MORPHINE 2 MG/ML SYRINGE IVP PRN (22:03)
[2018-09-08] MEDS ORDERED: METOPROLOL 5 MG/5 ML VIAL IVP STA (22:27)
[2018-09-08] MEDS ORDERED: METOPROLOL 5 MG/5 ML VIAL IVP SCH (22:41)
[2018-09-09 04:12] LABS: BASOPHILS % (AUTO) 0.4 %; EOSINOPHILS # (AUTO) 0.1 10^3/uL (0.0-0.7); EOSINOPHILS % (AUTO) 0.8 %; HGB - HEMOGLOBIN 9.8 g/dL (12.0-16.0); LYMPHOCYTES # (AUTO) 1.2 10^3/uL (1.5-3.5); LYMPHOCYTES % (AUTO) 9.6 %; MEAN CORPUSCULAR HEMOGLOBIN 32.3 pg (27.0-31.0); MEAN CORPUSCULAR HGB CONC 31.7 g/dL (32.0-36.0); MEAN CORPUSCULAR VOLUME 101.8 fL (81.0-99.0); MEAN PLATELET VOLUME 8.6 fL (7.9-10.8); MONOCYTES # (AUTO) 0.7 10^3/uL (0.0-1.0); MONOCYTES % (AUTO) 5.8 %; NEUTROPHILS % (AUTO) 83.4 %; PLT - PLATELET COUNT 190 10^3/uL (130-450); RED BLOOD COUNT 3.04 10^6/uL (4.20-5.40); RED CELL DISTRIBUTION WIDTH 15.7 % (12.0-15.0)
[2018-09-09 04:23] LABS: ALBUMIN 2.5 g/dL (3.2-5.5); ALBUMIN/GLOBULIN RATIO 0.8 (1.0-2.2); BILIRUBIN,TOTAL 0.8 mg/dL (0.2-1.0); CALCIUM 7.6 mg/dL (8.5-10.3); CREATININE 1.9 mg/dL (0.4-1.0); TOTAL PROTEIN 5.6 g/dL (6.7-8.2)
[2018-09-09] MEDS: LEVOTHYROXINE 25 MCG TABLET PO SCH (07:17)
[2018-09-09] MEDS: cefTRIAXone 1 GM in SODIUM CHLORIDE 0.9% MINIBAG 100 ML IV SCH (08:45)
[2018-09-09] MEDS: ENOXAPARIN 80 MG/0.8 ML SYRINGE SUBQ SCH (08:46)
[2018-09-09] MEDS: FAMOTIDINE 20 MG TABLET PO SCH (08:48)
[2018-09-09] MEDS: METOPROLOL SUCCINATE 25 MG TABLET PO SCH (08:48)
[2018-09-09] MEDS: ASPIRIN CHEW 81 MG TABLET PO SCH (08:48)
[2018-09-09] MEDS: SODIUM CHLORIDE FLUSH 0.9% 10 ML SYRINGE IVP SCH ×2 (08:49→17:12)
[2018-09-09] MEDS: POLYETHYLENE GLYCOL 3350 17 GM PACKET PO SCH (08:49)
[2018-09-09] MEDS: DEXTROSE 5%-0.9% NACL 1,000 ML IV SCH (10:30)
--- NOTE | 2018-09-09 10:37 | PROVIDER PROGRESS NOTE ---
Assessment/Plan - Problem List (1) Acute non-ST elevation myocardial infarction (NSTEMI) Assessment/Plan: Echo was done yesterday and showed a normal LVEF of 55% without visible wall motion abnormality. The troponin peaked at 1.27 Stable BP, HR and improving pulmonary status. Medical management only is planned, if she can resume taking po meds. (2) CHF exacerbation Qualifiers: Heart failure type: diastolic Qualified Code(s): I50.33 - Acute on chronic diastolic (congestive) heart failure Assessment/Plan: LVEF is preserved, by Echo, but she has diastolic dysfunction. She is improved clinically. Will give a trial off BIPAP mask. Remain in ICU today, in case she fails. In that case, the sons would want to start transitioning to Comfort Care. A Palliative Care consult was requested, the Provider is not here on weekends, therefore I hope Baylee Gaytan NP will see her and the sons tomorrow. Eventual transition of iv to po meds planned. (3) UTI (urinary tract infection) Assessment/Plan: Continue antibiotics. Await culture results to adjust empiric antibiotics if needed. Eventual transition to po antibiotic planned. (4) Acute on chronic renal failure Qualifiers: Acute renal failure type: unspecified Chronic kidney disease stage: unspecified stage Qualified Code(s): N17.9 - Acute kidney failure, unspecified; N18.9 - Chronic kidney disease, unspecified Assessment/Plan: Very slow improvement from creat of 3.2 >> 2.7 >> 1.9, she still has significant renal impairment, which may be her baseline. On iv fluids while npo. Advance diet when possible. Monitor BMP daily. (5) Bloody stool Assessment/Plan: Stable (6) Anemia Assessment/Plan: Probably hemodilutional from iv fluids. Will assess B12, Folate, Iron studies and replace if low. (7) Advanced dementia Assessment/Plan: As per my discussion with the sons, her QOL has deteriorated in several months and she has voiced to them that she wants to give up living. Currently the sons want medical management for her problems, but no heroic measures and no transfers. She is not at Comfort Care stage yet. Palliative Care consult requested. Resume dementia meds, if any, when able to take po. (8) Septic shock Assessment/Plan: Resolved (9) Hyperkalemia Assessment/Plan: Resolved. - Current Meds Current Meds: Current Medications Generic Name Dose Route Start Last Admin Trade Name Freq PRN Reason Stop Dose Admin Aspirin 324 mg 09/08/18 09:00 09/09/18 08:48 [place] Aspirin PO 324 mg DAILY CHERYL Administration Atorvastatin Calcium 80 mg 09/07/18 23:17 09/08/18 21:54 Lipitor PO Not Given QPM CHERYL Enoxaparin Sodium 80 mg 09/07/18 22:58 09/09/18 08:46 Lovenox SUBQ 80 mg DAILY CHERYL Administration Famotidine 20 mg 09/08/18 09:00 09/09/18 08:48 Pepcid PO 20 mg DAILY CHERLY Administration Ceftriaxone Sodium 1 gm/ 100 mls @ 200 mls/hr 09/08/18 09:00 09/09/18 09:15 Sodium Chloride IV Infused DAILY CHERYL Infusion Vancomycin HCl 1 gm/ Sodium 250 mls @ 167 mls/hr 09/08/18 14:00 09/08/18 15:40 Chloride IV Infused Q24H CHERYL Infusion Dextrose/Sodium Chloride 1,000 mls @ 83.333 mls/hr 09/08/18 09:00 09/09/18 10:30 D5ns IV 83.333 mls/hr .Q12H CHERYL Administration Levothyroxine Sodium 25 mcg 09/08/18 07:00 09/09/18 07:17 Synthroid PO Not Given QDAC CHERYL Lorazepam 0.5 mg 09/08/18 00:08 09/08/18 23:34 Ativan Inj (Vial) IVP 0.5 mg Q2H PRN Administration Anxiety Metoprolol Succinate 12.5 mg 09/08/18 09:00 09/09/18 08:48 Toprol Xl PO 12.5 mg DAILY CHERYL Administration Morphine Sulfate 2 mg 09/08/18 08:17 09/08/18 22:03 Morphine IVP 2 mg Q3HR PRN Administration Dyspnea Polyethylene Glycol 17 gm 09/08/18 09:00 09/09/18 08:49 Miralax PO Not Given DAILY CHERYL Scopolamine HBr 1 patch 09/08/18 01:00 09/08/18 01:25 Transderm-Scop TOP 1 patch Q3D CHERYL Administration Sodium Chloride 10 ml 09/07/18 16:10 09/07/18 20:11 Normal Saline Flush 0.9% IVP 10 ml PRN PRN Administration NEEDED PER PROVIDER ORDERS Sodium Chloride 10 ml 09/07/18 17:00 09/09/18 08:49 Normal Saline Flush 0.9% IVP 10 ml 0100,0900,1700 CHERYL Administration - Lab Result Fish Bone Diagrams: 09/09/18 04:05 09/09/18 04:05 - Additional Planning My Orders: My Active Orders 09/08/18 Dinner Dysphagia Puree Diet [DIET] Subjective - Subjective Nursing Reports: Other (She opens her eyes and follows to her name. She was able to swallow meds crushed and by syringe.) Objective Vital Signs: Vital Signs - 24 hr 09/08/18 09/08/18 09/08/18 11:00 11:30 12:00 Temperature 36.9 C Heart Rate 111 H Heart Rate [ 104 H 104 H Brachial] Respiratory 23 24 Rate Blood Pressure Blood Pressure 122/80 94/64 [Right Brachial artery] O2 Saturation 100 09/08/18 09/08/18 09/08/18 13:00 14:10 16:13 Temperature 37.0 C Heart Rate 102 H Heart Rate [ 99 105 H Brachial] Respiratory 23 22 Rate Blood Pressure Blood Pressure 107/68 115/77 [Right Brachial artery] O2 Saturation 100 100 09/08/18 09/08/18 09/08/18 17:00 19:30 21:00 Temperature 37.0 C Heart Rate 104 H 107 H Heart Rate [ 78 Brachial] Respiratory 20 Rate Blood Pressure Blood Pressure 103/51 L [Right Brachial artery] O2 Saturation 99 09/08/18 09/08/18 09/08/18 22:00 22:30 22:31 Temperature Heart Rate 113 H Heart Rate [ 96 107 H Brachial] Respiratory 18 Rate Blood Pressure 110/97 H Blood Pressure 117/46 L 110/97 H [Right Brachial artery] O2 Saturation 100 09/08/18 09/08/18 09/08/18 22:35 22:40 22:45 Temperature Heart Rate Heart Rate [ 88 87 90 Brachial] Respiratory Rate Blood Pressure Blood Pressure 94/56 L 81/70 L 81/69 L [Right Brachial artery] O2 Saturation 09/08/18 09/09/18 09/09/18 23:04 00:15 01:00 Temperature Heart Rate 87 Heart Rate [ 82 92 Brachial] Respiratory 21 19 Rate Blood Pressure Blood Pressure 95/82 H 98/45 L [Right Brachial artery] O2 Saturation 97 98 09/09/18 09/09/18 09/09/18 02:10 03:30 05:00 Temperature Heart Rate 88 87 Heart Rate [ 85 Brachial] Respiratory 20 Rate Blood Pressure Blood Pressure 109/56 L [Right Brachial artery] O2 Saturation 99 09/09/18 09/09/18 09/09/18 05:35 08:15 09:00 Temperature 36.4 C L Heart Rate 87 81 Heart Rate [ 88 Brachial] Respiratory 28 H Rate Blood Pressure Blood Pressure 126/57 L [Right Brachial artery] O2 Saturation 100 Oxygen O2 Source BIPAP I&O (Last 24 Hrs): Intake and Output Totals x24h 09/07/18 09/08/18 09/09/18 23:59 23:59 23:59 Intake Total 3600 2012.997 1016.667 Output Total 2902 450 Balance 3600 -889.003 566.667 General: Other (Somnolent, awakens to name, facial expressions an answer then falls back asleep.) HEENT: Mucous membr. moist/pink, Other (On BIPAP mask.) Neck: Supple Neuro: Other (As above) Cardiovascular: Regular rate, No murmurs Respiratory: Breath sounds nml Abdomen: Soft Extremities: No edema - Results Results: Laboratory Results WBC 12.0 x10^3/uL (4.8-10.8) H 09/09/18 04:05 RBC 3.04 10^6/uL (4.20-5.40) L 09/09/18 04:05 Hgb 9.8 g/dL (12.0-16.0) L 09/09/18 04:05 Hct 30.9 % (37.0-47.0) L 09/09/18 04:05 MCV 101.8 fL (81.0-99.0) H 09/09/18 04:05 MCH 32.3 pg (27.0-31.0) H 09/09/18 04:05 MCHC 31.7 g/dL (32.0-36.0) L 09/09/18 04:05 RDW 15.7 % (12.0-15.0) H 09/09/18 04:05 Plt Count 190 10^3/uL (130-450) 09/09/18 04:05 MPV 8.6 fL (7.9-10.8) 09/09/18 04:05 Neut # (Auto) 10.0 10^3/uL (1.5-6.6) H 09/09/18 04:05 Lymph # (Auto) 1.2 10^3/uL (1.5-3.5) L 09/09/18 04:05 [place] # (Auto) 0.7 10^3/uL (0.0-1.0) 09/09/18 04:05 Eos # (Auto) 0.1 10^3/uL (0.0-0.7) 09/09/18 04:05 Baso # (Auto) 0.0 10^3/uL (0.0-0.1) 09/09/18 04:05 Absolute Nucleated RBC 0.00 x10^3/uL 09/09/18 04:05 Total Counted 100 09/08/18 05:13 Band Neuts % (Manual) 42 % (0-10) H 09/08/18 05:13 Abnorm Lymph % (Manual) 0 % 09/08/18 05:13 Metamyelocytes % 4 % (-0) H 09/08/18 05:13 Myelocytes % 2 % (-0) H 09/08/18 05:13 Nucleated RBC % 0.0 /100WBC 09/09/18 04:05 Neutrophils # (Manual) 11.0 10^3/uL (1.5-6.6) H 09/08/18 05:13 Lymphocytes # (Manual) 1.3 10^3/uL (1.5-3.5) L 09/08/18 05:13 Monocytes # (Manual) 1.0 10^3/uL (0.0-1.0) 09/08/18 05:13 Eosinophils # (Manual) 0.0 10^3/uL (0-0.7) 09/08/18 05:13 Basophils # (Manual) 0.0 10^3/uL (0-0.1) 09/08/18 05:13 Differential Comment MANUAL DIFFERENTIAL 09/07/18 12:15 Manual Slide Review Indicated 09/07/18 12:15 Platelet Estimate NORMAL (130-450,000) (NORMAL) 09/08/18 05:13 Platelet Morphology 1+ LARGE PLATELETS (NORMAL) 09/07/18 12:15 RBC Morph Micro Appear 1+ ANISOCYTOSIS (NORMAL) 1+ MACROCYTOSIS (NORMAL) 09/08/18 05:13 RBC Morph Micro Appear 1+ ANISOCYTOSIS (NORMAL) 1+ MACROCYTOSIS (NORMAL) 09/08/18 05:13 PT 12.8 secs (9.9-12.6) H 09/07/18 12:15 INR 1.1 (0.8-1.2) 09/07/18 12:15 Sodium 144 mmol/L (135-145) 09/09/18 04:05 Potassium 4.6 mmol/L (3.5-5.0) 09/09/18 04:05 Chloride 114 mmol/L (101-111) H 09/09/18 04:05 Carbon Dioxide 22 mmol/L (21-32) 09/09/18 04:05 Anion Gap 8.0 (6-13) 09/09/18 04:05 BUN 39 mg/dL (6-20) H 09/09/18 04:05 Creatinine 1.9 mg/dL (0.4-1.0) H 09/09/18 04:05 Estimated GFR (MDRD) 25 (>89) L 09/09/18 04:05 Glucose 158 mg/dL (70-100) H 09/09/18 04:05 POC Whole Bld Glucose 149 mg/dL (70 - 100) H 09/08/18 01:52 Lactic Acid 2.5 mmol/L (0.5-2.2) H 09/08/18 07:30 Calcium 7.6 mg/dL (8.5-10.3) L 09/09/18 04:05 Total Bilirubin 0.8 mg/dL (0.2-1.0) 09/09/18 04:05 AST 39 IU/L (10-42) 09/09/18 04:05 ALT 23 IU/L (10-60) 09/09/18 04:05 Alkaline Phosphatase 69 IU/L (42-121) 09/09/18 04:05 Troponin I 0.83 ng/mL (<0.49) H* 09/08/18 08:30 Total Protein 5.6 g/dL (6.7-8.2) L 09/09/18 04:05 Albumin 2.5 g/dL (3.2-5.5) L 09/09/18 04:05 Globulin 3.1 g/dL (2.1-4.2) 09/09/18 04:05 Albumin/Globulin Ratio 0.8 (1.0-2.2) L 09/09/18 04:05 Lipase 29 U/L (22-51) 09/07/18 12:15 TSH 3.09 uIU/mL (0.34-5.60) 09/08/18 05:13 Urine Color YELLOW 09/07/18 13:07 Urine Clarity CLOUDY (CLEAR) 09/07/18 13:07 Urine pH 5.0 PH (5.0-7.5) 09/07/18 13:07 Ur Specific [place] >=1.030 (1.002-1.030) H 09/07/18 13:07 Urine Protein 30 mg/dL (NEGATIVE) H 09/07/18 13:07 Urine Glucose (UA) NEGATIVE mg/dL (NEGATIVE) 09/07/18 13:07 Urine Ketones TRACE mg/dL (NEGATIVE) 09/07/18 13:07 Urine Occult Blood NEGATIVE (NEGATIVE) 09/07/18 13:07 Urine Nitrite NEGATIVE (NEGATIVE) 09/07/18 13:07 Urine Bilirubin NEGATIVE (NEGATIVE) 09/07/18 13:07 Urine Urobilinogen 0.2 (NORMAL) E.U./dL (NORMAL) 09/07/18 13:07 Ur Leukocyte Esterase TRACE (NEGATIVE) H 09/07/18 13:07 Urine RBC 0-5 /HPF (0-5) 09/07/18 13:07 Urine WBC 4-5 /HPF (0-5) 09/07/18 13:07 Ur Squamous Epith Cells FEW Squamous (<= Few) 09/07/18 13:07 Amorphous Sediment Few /LPF 09/07/18 13:07 Urine Bacteria Few /HPF (None Seen) 09/07/18 13:07 Urine Casts 3-5 Hyaline Casts /LPF 09/07/18 13:07 Ur Microscopic Review INDICATED 09/07/18 13:07 Urine Culture Comments INDICATED 09/07/18 13:07 Nasal Screen MRSA (PCR) NEGATIVE (NEGATIVE) 09/08/18 Unknown Influenza A (Rapid) Negative (Negative) 09/08/18 02:12 Influenza B (Rapid) Negative (Negative) 09/08/18 02:12 - Procedures Procedures: Procedures CLOSURE SKIN & SUBCUTANEOUS NEC (01/24/13) Sepsis Event Note (H) - Evaluation Current Stage of Sepsis: Sepsis Possible source of Sepsis: positive: Genitourinary - Sepsis Criteria Sepsis Criteria: Recorded Heart Rate greater than 90 bpm, Recorded Respiratory Rate greater than 20, WBC count greater than 12,000 or less than 4000, INSTRUMENT AND ELECTRICAL TECHNICIAN: altered consciousness (unrelated to primary neuro pathology), Metabolic: lactate > 2 mmol/L ABX Reporting Has patient been on IV antibiotics over the past 48 hours?: Yes
[2018-09-09] MEDS: MORPHINE 2 MG/ML SYRINGE IVP PRN (12:35)
[2018-09-09] MEDS: LORazepam 2 MG/ML VIAL IVP PRN (13:00)
[2018-09-09] MEDS ORDERED: ADENOSINE 6 MG/2 ML VIAL IVP SCH ×2 (13:39→13:55)
[2018-09-09] MEDS ORDERED: ADENOSINE 6 MG/2 ML VIAL IVP ONE (13:41)
[2018-09-09] MEDS: SODIUM CHLORIDE FLUSH 0.9% 10 ML SYRINGE IVP PRN ×4 (13:47→14:05)
[2018-09-09] MEDS ORDERED: diltiaZEM INJ 125 MG in DEXTROSE 5% 100 ML IV SCH (14:00)
[2018-09-09] MEDS ORDERED: DEXTROSE 5% 100 ML IV ONE (14:03)
[2018-09-09] MEDS: VANCOMYCIN INJ 1 GM in SODIUM CHLORIDE 0.9% 250 ML IV SCH (14:05)
[2018-09-09] MEDS ORDERED: AMIODARONE 150 MG/100 ML 100 ML IV SCH (14:30)
[2018-09-09] MEDS ORDERED: SODIUM CHLORIDE 0.9% 500 ML IV ONE (14:38)
[2018-09-09] MEDS ORDERED: AMIODARONE 360 MG/200 ML 200 ML IV ONE (14:40)
--- NOTE | 2018-09-09 14:46 | XRAY Report ---
Reason: SOB, SVT Procedure Date: 09/09/2018 Accession Number: [id number] / [id number] Procedure: XR - Chest 1 View X-Ray CPT Code: 52557 FULL RESULT: EXAM: CHEST RADIOGRAPHY EXAM DATE: 09/09/2018 02:25 PM. CLINICAL HISTORY: SOB, SVT. COMPARISON: CHEST 1 VIEW 09/08/2018 1:24 AM. TECHNIQUE: 1 view. FINDINGS: Lungs/Pleura: There is moderate elevation of the right diaphragm unchanged. There are mild to moderate bilateral interstitial opacities. There are irregular linear opacities in the left lung without change. There is mild left lower lobe consolidation with air bronchogram, unchanged. Mediastinum: Cardiac silhouette is enlarged. There is moderate calcification of the aorta. Other: None. IMPRESSION: 1. Bilateral irregular and patchy pulmonary opacities with right diaphragm elevation and cardiac enlargement. No change since 09/08/2018. [facility]
[2018-09-09] MEDS: ATORVASTATIN 40 MG TABLET PO SCH (20:40)
[2018-09-09] MEDS ORDERED: AMIODARONE 360 MG/200 ML 200 ML IV SCH (20:40)
[2018-09-09 23:45] LABS: ABG HCO3 25.5 mmol/L (22.0-26.0); ABG PO2 102 mmHg (80-100); ABG TCO2 30.5 MMOL/L (21.0-29.0)
[2018-09-09 23:46] LABS: ABG BASE EXCESS -11.3 mmol/L (-2.0-3.0); ABG OXYGEN SATURATION 96 % (94-98); ALLEN TEST POSITIVE
[2018-09-09 23:51] LABS: ABG PCO2 166 mmHg (34-45)
[2018-09-10 00:11] LABS: ABG BASE EXCESS -11.1 mmol/L (-2.0-3.0); ABG HCO3 20.6 mmol/L (22.0-26.0); ABG OXYGEN SATURATION 97 % (94-98); ABG PO2 92 mmHg (80-100); ABG TCO2 23.1 MMOL/L (21.0-29.0)
[2018-09-10 00:12] LABS: ABG PCO2 83 mmHg (34-45); ABG PH 7.02 (7.35-7.45); ALLEN TEST POSITIVE
[2018-09-10] MEDS: DEXTROSE 5%-0.9% NACL 1,000 ML IV SCH (00:19)
[2018-09-10] MEDS: SODIUM CHLORIDE FLUSH 0.9% 10 ML SYRINGE IVP SCH ×2 (00:29→09:15)
[2018-09-10 05:26] LABS: ALBUMIN 2.6 g/dL (3.2-5.5); ALBUMIN/GLOBULIN RATIO 0.8 (1.0-2.2); BILIRUBIN,TOTAL 0.5 mg/dL (0.2-1.0); CALCIUM 7.7 mg/dL (8.5-10.3); CREATININE 2.5 mg/dL (0.4-1.0)
[2018-09-10 05:48] LABS: BASOPHILS % (AUTO) 0.2 %; EOSINOPHILS % (AUTO) 0.1 %; HGB - HEMOGLOBIN 10.6 g/dL (12.0-16.0); LYMPHOCYTES # (AUTO) 1.1 10^3/uL (1.5-3.5); LYMPHOCYTES % (AUTO) 8.9 %; MEAN CORPUSCULAR HEMOGLOBIN 32.7 pg (27.0-31.0); MEAN CORPUSCULAR HGB CONC 31.2 g/dL (32.0-36.0); MEAN CORPUSCULAR VOLUME 104.7 fL (81.0-99.0); MEAN PLATELET VOLUME 8.8 fL (7.9-10.8); MONOCYTES # (AUTO) 0.8 10^3/uL (0.0-1.0); MONOCYTES % (AUTO) 6.6 %; NEUTROPHILS # (AUTO) 10.9 10^3/uL (1.5-6.6); NEUTROPHILS % (AUTO) 84.2 %; PLT - PLATELET COUNT 173 10^3/uL (130-450); RED BLOOD COUNT 3.23 10^6/uL (4.20-5.40); RED CELL DISTRIBUTION WIDTH 15.9 % (12.0-15.0); WHITE BLOOD COUNT 12.9 x10^3/uL (4.8-10.8)
[2018-09-10] MEDS: LEVOTHYROXINE 25 MCG TABLET PO SCH (06:01)
[2018-09-10] MEDS: MORPHINE 2 MG/ML SYRINGE IVP PRN (07:32)
[2018-09-10] MEDS ORDERED: ATROPINE 1% OPHTH DROPS 2 ML SL PRN (08:39)
[2018-09-10] MEDS ORDERED: MORPHINE 2 MG/ML CARPUJECT IVP PRN (08:39)
[2018-09-10] MEDS ORDERED: LORazepam 2 MG/ML VIAL IVP PRN (08:42)
[2018-09-10] MEDS ORDERED: MORPHINE 2 MG/ML SYRINGE IVP PRN (09:00)
[2018-09-10 09:19] VITALS: BP 135/62
--- NOTE | 2018-09-12 12:00 | DISCHARGE SUMMARY ---
Physician: Brooke Holley MD DATE OF ADMISSION: 09/07/2018 DATE OF : 09/10/2018 HISTORY OF PRESENT ILLNESS: This is a 72-year-old white female with history of advanced dementia, prior TIA, hypertension, hypothyroidism, anxiety, depression, recurrent UTIs, COPD, ex-smoker, has chronic vision loss, rheumatoid arthritis. The patient's son has moved to live with her because of her progressive dementia, and she has care-givers when the son is not at home. Her usual activity is minimal, she does not get out of bed, she has to be fed. Patient presented with an episode of vomiting, diarrhea and increased somnolence. She was found to have a UTI, elevated troponin, elevated lactic acid of 6.4, presumably from the UTI, with worsening of her renal function and hyperkalemia. HOSPITAL COURSE/DISCHARGE DIAGNOSES: 1. Acute myocardial infarction. The patient was obtunded and gave no history during her entire stay. Her troponin was 0.6 on admission, which increased to 1.23, then 1.27, before it reverted to 0.83. It was the presumed cause of her CHF exacerbation, cardiac arrhythmias, and ultimately her cause of . 2. Congestive heart failure exacerbation. The patient had been put on mild hydration because of the acute kidney injury and inability to take oral fluids, because of being obtunded. On the second evening, she had acute respiratory distress, needed to be transferred to the ICU for management with oxygen via BiPAP, and started on diuresis. Her respiratory status improved with this. She had an Echocardiogram that showed LVH, preserved EF of 55-60% and grade 1 diastolic dysfunction (indicating that the OR was small). Her respiratory status later worsened the next day and she was in more respiratory distress, and on 09/10/2018 the [employer] reached out to the son, who is the DPOA, to advise that she is worsening, and the son requested that comfort measures be started. She required morphine for respiratory distress. Respirations ceased and she had asystole, and was pronounced at 0950 on 09/10/2018. 3. Advanced dementia. This had been worsening for multiple years. She had minimal interactions, and the son reported that her quality of life was very poor. She was a DNR/DNI, and the son also wanted no aggressive measures such as transfer for coronary angiography. 5. V-Tach. The evening before her , she went into sustained wide complex tachycardia, had a small drop in blood pressure to 100 systolic. She was treated with IV amiodarone per protocol, and the V-Tach resolved. 3. Supraventricular tachycardia. 30 minutes before the episode of V-Tach (above), she went into atrial flutter versus SVT at rates of 220, for which she received iv Adenosine 6 mg and then 12 mg, which did help her convert to sinus rhythm. 4. Urinary tract infection. The patient's admission urinalysis showed a specific gravity greater than 1.030, high protein, trace leukocyte esterase, few bacteria, and her serum white blood count was 14.2, which was felt to be the source of the elevated lactic acid on admission. In the past, she had grown Staph in her urine, therefore she was put on iv Vancomycin for management of this UTI, and had also received Rocephin in the emergency room. Blood and urine cultures were negative through the time of her . 5. Acute on chronic renal failure. The patient's admission BUN and creatinine were 33 and 3.2, which improved to 39 and 1.9 with the above management. 6. Anemia. Admission hemoglobin was 12.7, which dropped to 9.8 with the IV fluid administration. TD: 09/12/2018 10:00 [facility]
== END 2018-09-10 13:44 | disposition expired | DRG 871 ==
LOC: EDUNIT# → ED 11:32 → MS2 16:10 → ICU 09-08 01:27
PROVIDERS: ADMIT Nurse Practitioner Gerontology; ATTEND Internal Medicine
DX: A41.9 Sepsis, unspecified organism (principal); R65.21 Severe sepsis with septic shock; I50.33 Acute on chronic diastolic (congestive) heart failure; R65.20 Severe sepsis without septic shock; I21.4 Non-ST elevation (NSTEMI) myocardial infarction; I12.9 Hypertensive chronic kidney disease with stage 1 through stage 4 chronic kidney disease, or unspecified chronic kidney disease; E87.2 Acidosis; N17.9 Acute kidney failure, unspecified; I13.0 Hypertensive heart and chronic kidney disease with heart failure and stage 1 through stage 4 chronic kidney disease, or unspecified chronic kidney disease; K92.1 Melena; N39.0 Urinary tract infection, site not specified; R41.82 Altered mental status, unspecified; F03.90 Unspecified dementia, unspecified severity, without behavioral disturbance, psychotic disturbance, mood disturbance, and anxiety; E78.00 Pure hypercholesterolemia, unspecified; R01.1 Cardiac murmur, unspecified; J44.9 Chronic obstructive pulmonary disease, unspecified; E03.9 Hypothyroidism, unspecified; R32 Unspecified urinary incontinence; R35.1 Nocturia; R35.0 Frequency of micturition; H54.7 Unspecified visual loss; R74.8 Abnormal levels of other serum enzymes; J32.9 Chronic sinusitis, unspecified; R00.0 Tachycardia, unspecified; F32.9 Major depressive disorder, single episode, unspecified; F41.9 Anxiety disorder, unspecified; M06.9 Rheumatoid arthritis, unspecified; G89.29 Other chronic pain; M54.9 Dorsalgia, unspecified; Z90.710 Acquired absence of both cervix and uterus; N18.9 Chronic kidney disease, unspecified; Z86.73 Personal history of transient ischemic attack (TIA), and cerebral infarction without residual deficits; Z87.440 Personal history of urinary (tract) infections; Z87.891 Personal history of nicotine dependence; Z51.5 Encounter for palliative care; Z66 Do not resuscitate; D64.9 Anemia, unspecified; G35 Multiple sclerosis; E78.5 Hyperlipidemia, unspecified; E87.5 Hyperkalemia
CPT/HCPCS: 36415 ×2; 36600 ×2; 70360 ×2; 70450 ×2; 71045 ×2; 80053 ×2; 80202; 81001 ×2; 81003; 82803 ×2; 83605 ×2; 83690 ×2; 83735 ×2; 84132 ×2; 84443 ×2; 84484 ×2; 85025 ×2; 85610 ×2; 87040 ×2; 87077 ×2; 87086 ×2; 87150 ×2; 87181 ×2; 87275 ×2; 87276 ×2; 93005 ×2; 93306 ×2; 94640 ×2; 94660 ×2; 96365 ×2; 96368 ×2; 99283; 99284 ×2; 99291 ×2; A9270; J0153; J0282; J1650; J2060; J2270; J3370; J3490